=== PATIENT | female | born 1955 | race Caucasian/White ===

== ENCOUNTER 2020-01-06 13:43 | Outpatient (REF) | payer MEDICARE, MEDICAID, SELFPAY ==
[2020-01-06 16:20] LABS: Free T4 (Free Thyroxine) 0.89 ng/dL (0.71-1.85); Thyroid Stimulating Hormone 7.69 mIU/mL (0.32-4.0)
== END 2020-01-06 13:44 | disposition home or self-care (01) ==
LOC: HO.LAB 13:43
PROVIDERS: PCP Family Medicine; Referring Provider Family Medicine; Visit Provider Internal Medicine
DX: E03.9 Hypothyroidism, unspecified (principal); R06.02 Shortness of breath; E66.01 Morbid (severe) obesity due to excess calories; G47.33 Obstructive sleep apnea (adult) (pediatric); J98.4 Other disorders of lung
CPT/HCPCS: 84439; 84443; 99202

== ENCOUNTER → 2020-01-26 08:58 | Outpatient (REF) | payer MEDICARE, MEDICAID, SELFPAY ==
--- NOTE | 2020-01-26 17:06 | PFT_ITS ---
Forced vital capacity moderately reduced. FEV1 only slightly reduced. FEV1/FVC ratio is normal. [id number] normal. MVV slightly reduced. Post bronchodilator therapy, no change is noted. Total lung capacity and residual volume moderately decreased. Diffusion capacity is slightly decreased. CONCLUSION: Restrictive pulmonary disorder, moderately severe. No obstructive airway disorder. No response to bronchodilator therapy. MD DARLING Hale/MODL / [id number]
== END ==
LOC: HO.SL 08:58
PROVIDERS: PCP Family Medicine; Visit Provider Internal Medicine
DX: G47.33 Obstructive sleep apnea (adult) (pediatric) (principal); E66.01 Morbid (severe) obesity due to excess calories; J98.4 Other disorders of lung
CPT/HCPCS: 94060; 94727; 94729; 95806

== ENCOUNTER 2020-02-16 14:16 | Outpatient (REF) | payer MEDICARE, MEDICAID, SELFPAY ==
--- NOTE | 2020-02-16 15:52 | XR_ITS ---
EXAMINATION: XR CHEST CLINICAL INFORMATION: Dyspnea COMPARISON: Previous chest x-ray May 2018 TECHNIQUE: 2 views of the chest were obtained. FINDINGS: The cardiac silhouette is enlarged but stable. There is a left subclavian pacemaker defibrillator that appears unchanged. There is a right jugular port tip projecting over the SVC. The catheter appears looped in the neck. This is a new finding compared to previous chest x-ray May 2018. Hilar and mediastinal contours are unremarkable. The lungs are clear. There is no pleural effusion or pneumothorax. There are surgical clips in the right axilla. There are degenerative changes of the spine. XR/XR chest 2V IMPRESSION: Enlarged cardiac silhouette. No evidence for acute disease in the chest. There are right jugular Port-A-Cath catheter appears looped in the right no lower neck. This is a new finding from May 2018 exam.
== END 2020-02-16 14:17 | disposition home or self-care (01) ==
LOC: HO.XRAY 14:16
PROVIDERS: PCP Family Medicine; Referring Provider Family Medicine; Visit Provider Internal Medicine
DX: J98.4 Other disorders of lung (principal); R06.00 Dyspnea, unspecified; R06.02 Shortness of breath; G47.33 Obstructive sleep apnea (adult) (pediatric); E66.01 Morbid (severe) obesity due to excess calories
CPT/HCPCS: 71046; 99212

== ENCOUNTER → 2020-02-22 09:54 | Outpatient (BNVA) | payer MEDICARE, MEDICAID, SELFPAY | PROVIDERS: PCP Family Medicine; Visit Provider Internal Medicine | DX: G47.33 Obstructive sleep apnea (adult) (pediatric) (principal); E66.01 Morbid (severe) obesity due to excess calories; Z87.891 Personal history of nicotine dependence | CPT/HCPCS: Q3014 ==

== ENCOUNTER 2020-03-01 11:38 | Outpatient (REF) | payer MEDICARE, MEDICAID, SELFPAY ==
--- NOTE | 2020-03-01 11:41 | MM_ITS ---
EXAMINATION: MM SCREENING DIGITAL BREAST TOMOSYNTHESIS, BILATERAL CLINICAL INFORMATION: Right breast cancer status post lumpectomy 2014. Due for yearly. COMPARISON: Mammography: 10/31/2018, 10/21/2017; outside mammography 12/14/2016, 06/05/2016, 10/14/2015, 03/17/2015, 12/06/2014 ([place], [place]) TECHNIQUE: Digital breast tomosynthesis is performed in both the craniocaudal and mediolateral oblique views along with computer-aided detection (CAD). Synthesized 2D images are generated from the tomosynthesis. Additional left MLO view is provided. FINDINGS: There are scattered areas of fibroglandular density (ACR BI-RADS breast composition Category b). There are post therapy changes on the right with surgical clips, mild reduced breast size and scarring. A port overlies right axilla. There is a pacemaker generator and leads overlying posterior upper left breast. Parenchymal pattern is similar to prior study. There is no developing density or interval mass or architectural abnormality or interval abnormal calcifications. MM/MM tomosynthesis screening BI IMPRESSION: No significant changes from prior study. ASSESSMENT: BI-RADS 2: Benign RECOMMENDATION: Routine annual mammography screening. This patient's information was entered into a reminder system with a target due date for their next mammogram.
== END 2020-03-01 11:39 | disposition home or self-care (01) ==
LOC: HO.MAMMO 11:38
PROVIDERS: PCP Family Medicine; Visit Provider Internal Medicine
DX: Z12.31 Encounter for screening mammogram for malignant neoplasm of breast (principal)
CPT/HCPCS: 77063; 77067

== ENCOUNTER 2020-03-14 14:43 | Outpatient (REF) | payer MEDICARE, MEDICAID, SELFPAY ==
[2020-03-14 16:01] LABS: Anion Gap 12 (12-20); Blood Urea Nitrogen 11 mg/dL (9-16); Carbon Dioxide 26 mmol/L (22-29); Chloride 105 mmol/L (96-108); Estimated Glomerular Filt Rate > 60; Potassium 4.1 mmol/l (3.3-5.1); Sodium 139 mmol/L (135-145)
[2020-03-14 16:26] LABS: Free T4 (Free Thyroxine) 0.88 ng/dL (0.71-1.85); Thyroid Stimulating Hormone 7.73 uIU/mL (0.32-4.0)
[2020-03-14 16:43] LABS: Digoxin 0.3 ng/mL (0.8-2.0)
== END 2020-03-14 14:44 | disposition home or self-care (01) ==
LOC: HO.LAB 14:43
PROVIDERS: PCP Family Medicine; Visit Provider Family Medicine
DX: I10 Essential (primary) hypertension (principal); E03.9 Hypothyroidism, unspecified; Z79.899 Other long term (current) drug therapy
CPT/HCPCS: 36415; 80051; 80162; 82565; 84439; 84443; 84520; 99212

== ENCOUNTER → 2020-03-29 13:54 | Outpatient (BNVA) | payer MEDICARE, MEDICAID, SELFPAY | PROVIDERS: PCP Family Medicine; Visit Provider Internal Medicine | DX: J98.4 Other disorders of lung (principal); E66.01 Morbid (severe) obesity due to excess calories; G47.33 Obstructive sleep apnea (adult) (pediatric) | CPT/HCPCS: 99212 ==

== ENCOUNTER → 2020-06-20 13:52 | Outpatient (BNVA) | payer MEDICARE, MEDICAID, SELFPAY | PROVIDERS: PCP Family Medicine; Visit Provider Physician Assistant ==

== ENCOUNTER → 2020-06-29 08:10 | Outpatient (BNVA) | payer MEDICARE, MEDICAID, SELFPAY | PROVIDERS: PCP Family Medicine; Visit Provider Surgery | DX: E66.01 Morbid (severe) obesity due to excess calories (principal); G47.33 Obstructive sleep apnea (adult) (pediatric); J98.4 Other disorders of lung; I42.8 Other cardiomyopathies; I10 Essential (primary) hypertension; E03.9 Hypothyroidism, unspecified; Z68.42 Body mass index [BMI] 45.0-49.9, adult; Z95.810 Presence of automatic (implantable) cardiac defibrillator | CPT/HCPCS: Q3014 ==

== ENCOUNTER 2020-07-01 09:50 | Outpatient (REF) | payer MEDICARE, MEDICAID, SELFPAY ==
--- NOTE | ~2020-07-01 | XR_ITS ---
EXAMINATION: XR CHEST CLINICAL INFORMATION: Morbid obesity. COMPARISON: 02/16/2020 TECHNIQUE: 2 views of the chest were obtained. FINDINGS: Left chest ICD obscures the left midlung. Stable positioning of the wires. Right chest port loops at the level of the internal jugular vein with catheter tip in the upper SVC, also unchanged with kinking of the catheter. Right axillary surgical clips. The lungs are slightly hyperinflated, similar to the prior study. Mild vascular congestion. Cardiomegaly, unchanged. No pleural effusion or pneumothorax. The lungs are clear. XR/XR chest 2V IMPRESSION: Stable examination without acute pulmonary process.
--- NOTE | 2020-07-01 10:00 | ECG_ITS ---
Test Reason : OBESITY Blood Pressure : / mmHG Vent. Rate : 067 BPM Atrial Rate : 312 BPM P-R Int : 126 ms QRS Dur : 142 ms QT Int : 502 ms P-R-T Axes : 000 -84 076 degrees QTc Int : 530 ms AV dual-paced rhythm with occasional Premature ventricular complexes Abnormal ECG When compared with ECG of 13-MAY-2018 15:11, Premature ventricular complexes are now Present Vent. rate has decreased BY 3 BPM Referred By: Scott Richter Electronically Signed By:Gee Lam
[2020-07-01 10:54] LABS: MANUAL DIFF FLAG NO
[2020-07-01 10:56] LABS: Basophils Absolute Auto 0.1 X10*3/uL (0.0-0.2); Basophils Percent Auto 1.2 % (0-2); Eosinophils Absolute Auto 0.2 X10*3/uL (0.0-0.4); Eosinophils Percent Auto 2.6 % (0-4); Hematocrit 46.3 % (37-47); Hemoglobin 15.5 g/dl (12.0-16.0); Imm Gran Abs Auto 0.06 X10*3/uL (0.00-0.03); Imm Gran Pct Auto 0.7 % (0.0-0.4); Lymphocytes Absolute Auto 2.6 X10*3/uL (1.2-4.9); Lymphocytes Percent Auto 28.1 % (20-40); Mean Corpuscular HGB Conc 33.5 g/dl (31.0-35.0); Mean Corpuscular Hemoglobin 32.8 pg (27.0-33.0); Mean Corpuscular Volume 97.9 fL (80-98); Mean Platelet Volume 10.8 fL (9.4-12.3); Monocytes Absolute Auto 0.6 X10*3/uL (0.1-1.2); Monocytes Percent Auto 6.5 % (2-11); Neutrophils Absolute Auto 5.6 X10*3/uL (2.0-8.3); Neutrophils Percent Auto 60.9 % (45-73); Platelet Count 245 X10*3/uL (160-400); Red Blood Count 4.73 X10*6/uL (4.20-5.50); Red Cell Distribution Width 13.2 % (11.0-16.0); White Blood Count 9.2 X10*3/uL (4.8-10.8)
[2020-07-01 11:23] LABS: Alanine Aminotransferase 24 U/L (0-31); Alkaline Phosphatase 100 U/L (39-117); Anion Gap 15 (12-20); Aspartate Amino Transferase 22 U/L (5-31); Bilirubin Total 0.8 mg/dL (0.0-1.0); Blood Urea Nitrogen 14 mg/dL (9-16); C Reactive Protein 1.55 mg/dL (< or = 0.50); Calcium 9.3 mg/dL (8.4-10.2); Carbon Dioxide 22 mmol/L (22-29); Chloride 107 mmol/L (96-108); Cholesterol 253 mg/dL; Estimated Glomerular Filt Rate > 60; Glucose Random 129 mg/dL (60-115); HDL Cholesterol 42 mg/dL; LDL Cholesterol Calculated 176 mg/dl; Sodium 140 mmol/L (135-145); Total Protein 7.4 g/dL (6.5-8.0); Triglycerides 175 mg/dL
[2020-07-01 11:47] LABS: Ferritin 144 ng/mL (10-250); TSH reflex Free T4 2.24 uIU/mL (0.32-4.0); Vitamin D 25-OH Total 22.4 ng/mL (>30)
[2020-07-01 11:58] LABS: Estimated Average Glucose 108 mg/dL; Hemoglobin A1c % 5.4 %
[2020-07-01 12:01] LABS: Folate 9.1 ng/mL (> or = 4.0); Vitamin B12 233 pg/mL (200-900)
[2020-07-02 09:52] LABS: Insulin Level Total 11.4 uIU/mL
[2020-07-04 23:41] LABS: Zinc 80 mcg/dL (60-130)
[2020-07-05 11:37] LABS: Calcium (PTHI) 9.3 mg/dL (8.6-10.4); PTHI 108 pg/mL (14-64)
[2020-07-05 21:37] LABS: Vitamin A 43 mcg/dL (38-98)
[2020-07-07 07:26] LABS: Vitamin B1 7 nmol/L (8-30)
== END 2020-07-01 09:51 | disposition home or self-care (01) ==
LOC: HO.LAB 09:50
PROVIDERS: PCP Family Medicine; Visit Provider Surgery
DX: E66.01 Morbid (severe) obesity due to excess calories (principal); E03.9 Hypothyroidism, unspecified; I49.3 Ventricular premature depolarization; I10 Essential (primary) hypertension; J98.4 Other disorders of lung; Z95.810 Presence of automatic (implantable) cardiac defibrillator; R94.31 Abnormal electrocardiogram [ECG] [EKG]
CPT/HCPCS: 36415; 71046; 80053; 80061; 82306; 82607; 82728; 82746; 83036; 83525; 83970; 84425; 84443; 84590; 84630; 85025; 86140; 93005

== ENCOUNTER → 2020-07-06 12:34 | Outpatient (BNVA) | payer MEDICARE, MEDICAID, SELFPAY | PROVIDERS: PCP Family Medicine; Visit Provider Internal Medicine | DX: Z01.810 Encounter for preprocedural cardiovascular examination (principal); I42.8 Other cardiomyopathies; G47.33 Obstructive sleep apnea (adult) (pediatric); Z95.810 Presence of automatic (implantable) cardiac defibrillator | CPT/HCPCS: 99212 ==

== ENCOUNTER → 2020-07-12 14:20 | Outpatient (BNVA) | payer MEDICARE, MEDICAID, SELFPAY | PROVIDERS: PCP Family Medicine; Visit Provider Internal Medicine | DX: E66.01 Morbid (severe) obesity due to excess calories (principal); G47.33 Obstructive sleep apnea (adult) (pediatric); J98.4 Other disorders of lung | CPT/HCPCS: 99212 ==

== ENCOUNTER 2020-07-28 07:54 | Outpatient (REF) | payer MEDICARE, MEDICAID, SELFPAY ==
--- NOTE | ~2020-07-28 | FL_ITS ---
EXAMINATION: FL UPPER GI SERIES CLINICAL INFORMATION: Bariatric service evaluation. E66.01. COMPARISON: CT abdomen with contrast 09/19/2018 TECHNIQUE: Upper GI series is performed using fluoroscopic evaluation in addition to multiple fluoroscopic spot views. The patient is imaged both upright and prone and using both thick and thin barium sulfate along with effervescent granules. Fluoroscopy time: 1.0 minutes DAP: 24.93 Gycm2 Fluoroscopic spot images: 15 FINDINGS: There is normal esophageal motility. There is no obstruction, stricture, ulceration, or hernia. No gastroesophageal reflux is demonstrated. The stomach shows no thickened folds or ulcer crater or outlet obstruction. The duodenal bulb is pliable and without ulcer crater or scarring. The post bulbar duodenum the jejunal mucosal pattern are unremarkable. FL/FL upper GI series IMPRESSION: Normal study.
--- NOTE | ~2020-07-28 | US_ITS ---
EXAMINATION: US COMPLETE ABDOMEN WITH LIVER ELASTOGRAPHY CLINICAL INFORMATION: Bariatric service evaluation. E 66.01. COMPARISON: CT abdomen and pelvis with contrast 06/22/2019 and 05/13/2018. TECHNIQUE: Real-time imaging of the abdominal viscera. Noninvasive ultrasound liver fibrosis assessment is performed using Saeed ElastPQ point quantification shear wave elastography (pSWE) with a C5-2 MHz transducer. Multiple elastography samples are obtained. FINDINGS: PANCREAS: The pancreas is uniform in echogenicity and normal in size. No pancreatic ductal distention or retroperitoneal effusion. ABDOMINAL AORTA: The proximal, middle, and distal aortic segments are normal in caliber. INFERIOR VENA CAVA: Visualized portions are normal. LIVER: The liver is within normal size and smooth in contour. There is mild increased hepatic parenchymal echogenicity consistent with mild hepatic steatosis. There is no focal hepatic parenchymal lesion or intrahepatic biliary ductal dilatation. The right lobe measures 17.7 cm in length. The left lobe measures 13.1 cm in length. Portal flow is towards the liver (hepatopetal). Shear wave liver elastography median stiffness is 1.40 m/s (reference: normal median stiffness is 1.3 m/s or less). IQR/median stiffness to assess sampling precision is 0.14 (reference: good quality data set is IQR/median stiffness of 0.15 or less). GALLBLADDER: Surgically absent. COMMON BILE DUCT: Normal in caliber for a postcholecystectomy patient, measuring 0.9-1.0 cm in diameter. No ductal calculus. RIGHT KIDNEY: Right kidney measures 11.3 cm in length and shows renal parenchyma normal thickness and echogenicity. There is no hydronephrosis or renal sinus calculi. Again, there is a upper pole cyst with layering no visible calcium and overall dimensions approximately 2.8 x 2.[address] measurements are similar, 2.5 x 2.3 x 2.0 cm. There is also a simple cyst upper pole measuring 2.7 x 1.6 x 1.3 cm. There are 2 known angiomyolipomas right kidney, larger posterior interpolar measuring 2.0 x 1.9 x 1.9 cm and the smaller posterior lower pole measuring 0.7 x 0.6 cm. Measurements are similar to CT, 1.8 x 1.2 cm and 0.6 cm, respectively. LEFT KIDNEY: Left kidney measures 11.7 cm in length. There is normal renal parenchymal thickness and echogenicity. No hydronephrosis or calculi. There are 2 small cortical cysts upper pole 1.0 cm and interpolar 1.1 cm. No significant change from prior CT. SPLEEN: Normal. The spleen measures 11.2 cm in maximum dimension. FREE FLUID: None. US/US abdomen comp w elastography IMPRESSION: 1. Liver within normal size and smooth in contour. Mild hepatic steatosis. 2. Liver elastography: In the absence of other known clinical signs, measurements rule out compensated advanced chronic liver disease. If there are known clinical signs, further testing may be needed for confirmation. 3. Prior cholecystectomy. No ductal dilatation. 4. Stable renal cysts and stable right renal angiomyolipoma, larger 2.0 cm. REFERENCE: Society of Radiologists in Ultrasound Liver Stiffness Thresholds (2019): LIVER STIFFNESS THRESHOLDS: *Liver Stiffness equal or less than 1.3 m/s: High probability of being normal. *Liver Stiffness less than 1.7 m/s: In the absence of other known clinical signs, rules out compensated advanced chronic liver disease. *Liver Stiffness 1.7-2.1 m/s: Suggestive of compensated advanced chronic liver disease but need further test for confirmation. *Liver Stiffness over 2.1 m/s: Rules in compensated advanced chronic liver disease. *Liver Stiffness over 2.4 m/s: Suggestive of clinically significant portal hypertension. QUALITY OF DATA SET: *IQR/Median value equal or less than 0.15 implies a quality data set. *IQR/Median value over 0.15 implies a poor quality data set. SIGNIFICANT CHANGE FROM PRIOR EXAM: Significant change if liver stiffness measurement is 10% or greater from prior exam. OTHER CONSIDERATIONS: The stage of liver fibrosis may be overestimated in the setting of acute hepatitis, liver inflammation, elevated liver function tests, hepatic vascular congestion, obstructive cholestasis, non-fasting state, and infiltrative diseases such as amyloidosis and lymphoma. In some patients with NAFLD, the liver stiffness thresholds for compensated advanced chronic liver disease may be lower. In causes other than viral hepatitis and NAFLD, liver stiffness thresholds are not well established.
[2020-07-29 13:47] LABS: H Pylori Breath Test NOT DETECTED (NOT DETECTED)
== END 2020-07-28 07:55 | disposition home or self-care (01) ==
LOC: HO.US 07:54
PROVIDERS: Physician Assistant; Visit Provider Surgery
DX: Z01.818 Encounter for other preprocedural examination (principal); E66.01 Morbid (severe) obesity due to excess calories; K21.9 Gastro-esophageal reflux disease without esophagitis; J98.4 Other disorders of lung; I42.8 Other cardiomyopathies; I10 Essential (primary) hypertension; E03.9 Hypothyroidism, unspecified; Z95.810 Presence of automatic (implantable) cardiac defibrillator; Z11.0 Encounter for screening for intestinal infectious diseases
CPT/HCPCS: 74240; 76705; 76981; 83013; 99211

== ENCOUNTER → 2020-07-29 08:04 | Outpatient (BNVA) | payer MEDICARE, SELFPAY | PROVIDERS: PCP Family Medicine; Visit Provider Surgery | DX: E66.9 Obesity, unspecified (principal); Z68.39 Body mass index [BMI] 39.0-39.9, adult | CPT/HCPCS: 97802; Q3014 ==

== ENCOUNTER → 2020-08-09 11:23 | Outpatient (BNVA) | payer SELFPAY | PROVIDERS: PCP Family Medicine; Visit Provider Physician Assistant ==

== ENCOUNTER → 2020-08-26 06:50 | Outpatient (BNVA) | payer SELFPAY | PROVIDERS: PCP Family Medicine; Visit Provider Surgery ==

== ENCOUNTER → 2020-10-03 07:43 | Outpatient (BNVA) | payer MEDICARE, MEDICAID, SELFPAY | PROVIDERS: PCP Family Medicine; Visit Provider Surgery | DX: E66.9 Obesity, unspecified (principal); Z68.37 Body mass index [BMI] 37.0-37.9, adult | CPT/HCPCS: Q3014 ==

== ENCOUNTER → 2020-10-12 13:41 | Outpatient (BNVA) | payer MEDICARE, MEDICAID, SELFPAY | PROVIDERS: PCP Family Medicine; Visit Provider Internal Medicine | DX: G47.33 Obstructive sleep apnea (adult) (pediatric) (principal); J98.4 Other disorders of lung; E66.01 Morbid (severe) obesity due to excess calories; Z68.41 Body mass index [BMI] 40.0-44.9, adult | CPT/HCPCS: 99212 ==

== ENCOUNTER → 2020-11-16 07:03 | Outpatient (BNVA) | payer MEDICARE, MEDICAID, SELFPAY | PROVIDERS: PCP Family Medicine; Visit Provider Surgery | DX: Z13.89 Encounter for screening for other disorder (principal) | CPT/HCPCS: Q3014 ==

== ENCOUNTER → 2020-12-12 13:47 | Outpatient (BNVA) | payer MEDICARE, MEDICAID, SELFPAY | PROVIDERS: PCP Family Medicine; Referring Provider Family Medicine; Visit Provider Internal Medicine | DX: Z45.02 Encounter for adjustment and management of automatic implantable cardiac defibrillator (principal); Z01.810 Encounter for preprocedural cardiovascular examination; I42.8 Other cardiomyopathies; G47.33 Obstructive sleep apnea (adult) (pediatric) | CPT/HCPCS: 99212 ==

== ENCOUNTER → 2020-12-30 08:03 | Outpatient (BNVA) | payer MEDICARE, MEDICAID, SELFPAY | PROVIDERS: PCP Family Medicine; Visit Provider Surgery | CPT/HCPCS: Q3014 ==

== ENCOUNTER → 2021-01-13 13:37 | Outpatient (BNVA) | payer MEDICARE, MEDICAID, SELFPAY | PROVIDERS: PCP Family Medicine; Visit Provider Physician Assistant ==

== ENCOUNTER 2021-01-19 08:40 | Inpatient (IN) | payer MEDICARE, MEDICAID, SELFPAY ==
[2021-01-16 11:06] LABS: MANUAL DIFF FLAG NO
[2021-01-16 11:58] LABS: Basophils Absolute Auto 0.1 X10*3/uL (0.0-0.2); Basophils Percent Auto 1.1 % (0-2); Eosinophils Absolute Auto 0.2 X10*3/uL (0.0-0.4); Eosinophils Percent Auto 2.6 % (0-4); Hematocrit 46.8 % (37.0-47.0); Hemoglobin 15.4 g/dl (12.0-16.0); Imm Gran Abs Auto 0.02 X10*3/uL (0.00-0.03); Imm Gran Pct Auto 0.2 % (0.0-0.4); Lymphocytes Absolute Auto 2.7 X10*3/uL (1.2-4.9); Lymphocytes Percent Auto 32.5 % (20-40); Mean Corpuscular HGB Conc 32.9 g/dl (31.0-35.0); Mean Corpuscular Hemoglobin 32.5 pg (27.0-33.0); Mean Corpuscular Volume 98.7 fL (80.0-98.0); Mean Platelet Volume 10.3 fL (9.4-12.3); Monocytes Absolute Auto 0.4 X10*3/uL (0.1-1.2); Monocytes Percent Auto 4.9 % (2-11); Neutrophils Absolute Auto 4.9 x10*3/uL (2.0-8.3); Neutrophils Percent Auto 58.7 % (45-73); Platelet Count 339 X10*3/uL (160-400); Red Blood Count 4.74 X10*6/uL (4.20-5.50); White Blood Count 8.4 X10*3/uL (4.8-10.8)
[2021-01-16 12:04] LABS: Estimated Average Glucose 108 mg/dL; Hemoglobin A1c % 5.4 %; INTERNATIONAL NORM RATIO 1.1 (0.9-1.1); Prothrombin Time 12.5 SEC (9.9-13.0)
[2021-01-16 12:07] LABS: Partial Thromboplastin Time 39.8 SEC (24.1-38.0)
[2021-01-16 12:42] LABS: Alanine Aminotransferase 16 U/L (0-31); Albumin Level 4.2 g/dL (3.5-5.0); Alkaline Phosphatase 87 U/L (39-117); Anion Gap 13 (12-20); Aspartate Amino Transferase 17 U/L (5-31); Bilirubin Total 0.6 mg/dL (0.0-1.0); Blood Urea Nitrogen 9 mg/dL (9-16); C Reactive Protein 1.22 mg/dL (< or = 0.50); Calcium 9.8 mg/dL (8.4-10.2); Carbon Dioxide 27 mmol/L (22-29); Chloride 105 mmol/L (96-108); Cholesterol 242 mg/dL; Estimated Glomerular Filt Rate > 60; Glucose Random 101 mg/dL (60-115); HDL Cholesterol 44 mg/dL; LDL Cholesterol Calculated 169 mg/dl; Potassium 4.8 mmol/L (3.3-5.1); Sodium 140 mmol/L (135-145); Total Protein 7.8 g/dL (6.5-8.0); Triglycerides 148 mg/dL
[2021-01-16 12:51] LABS: Insulin 9 uU/mL (2-29); TSH reflex Free T4 1.19 uIU/mL (0.32-4.0)
[2021-01-16 13:17] LABS: Anion Gap 15 (12-20); Blood Urea Nitrogen 10 mg/dL (9-16); Carbon Dioxide 27 mmol/L (22-29); Chloride 104 mmol/L (96-108); Estimated Glomerular Filt Rate > 60; Potassium 4.8 mmol/L (3.3-5.1); Sodium 141 mmol/L (135-145)
[2021-01-16 13:39] LABS: Free T4 (Free Thyroxine) 1.06 ng/dL (0.71-1.85)
--- NOTE | 2021-01-16 14:31 | MHC.SHP ---
Pre-Procedural Eval Section A Date of Service: 01/16/21 The patient is an INPATIENT: Yes The History & Physical has been completed within 30 days and I have reviewed it.: Yes Section B Chief Complaint: Obesity Relevant Family History (Specify if Yes): No Relevant Social History: None Present Medications: None Medical History: No relevant PMH History of Previous Operations: No relevant previous surgery Allergies: Allergies Allergy/AdvReac Type Severity Reaction Status Date / Time lisinopril AdvReac Severe COUGH Verified 10/12/20 13:50 Review of Systems Sugical H&P ROS: Negative: Constitution, Cardiovascular, Respiratory, Neurological, Psychiatric, Hem-Onc, Allergic/Immunologic, Gastrointestinal, Genitourinary, Musculoskeletal, Integumentary, Endocrine and Eyes/Ears/Nose/Throat Exam Surgical H&P Exam: Normal: HEENT, Normal: Heart, Normal: Lungs, Normal: Extremities, Normal: Abdomen, Normal: Skin and Normal: Neurological Plan Diagnosis/Plan: Unchanged I have reviewed the history and physical and performed a pertinent physical examination on my patient. No changes have occurred unless specified.
[2021-01-16 15:09] VITALS: BMI 42.4
[2021-01-19] VITALS (15 sets, daily range): BP systolic 110–143; BP diastolic 68–88; PULSE 59–82; RESP 15–22; TEMP 36.1–36.9; O2SAT 95–100
[2021-01-19 09:14] LABS: COVID-19 Test Negative (Negative)
[2021-01-19] MEDS: Lactated Ringers 1,000 ML 999 ML IV (09:40)
--- NOTE | 2021-01-19 09:43 | P.CONAN_ITS ---
HPI - Anesthesia Eval Consult details Narrative: 65 yo female patient for EGD, sleeve gastrectomy, possible diaphr agmatic hernia repair, possible ventral hernia repair, possible open PMFSH Active Problems Active Problems: All Active Problems (Updated 01/16/21 @ 15:22 by Alivia Faustin, RN) Vitamin B12 deficiency (Acute) Preoperative cardiovascular examination (Acute) Vitamin B1 deficiency (Acute) Adjustment disorder, unspecified (Acute) BMI 39.0-39.9,adult (Acute) BMI 36.0-36.9,adult (Acute) BMI 37.0-37.9, adult (Acute) GERD (gastroesophageal reflux disease) (Acute) Morbid obesity (Acute) Obesity (Acute) Hypothyroidism (Acute) Depression (Acute) Hypertension (Acute) Cardiac resynchronization therapy defibrillator (DINING SERVICES MANAGER-D) in place (Acute) Dyspnea on exertion (Acute) NICM (nonischemic cardiomyopathy) (Acute) Restrictive lung disease (Acute) DEANDRE (obstructive sleep apnea) (Acute) Morbid obesity (Acute) Denies recent chest pain Past Medical History Medical History Cardiac resynchronization therapy defibrillator (DINING SERVICES MANAGER-D) in place Depression Dyspnea on exertion History of breast cancer Hypertension Hypothyroidism Morbid obesity Morbid obesity NICM (nonischemic cardiomyopathy) Obesity DEANDRE (obstructive sleep apnea) Restrictive lung disease Family History Family History Father Multiple sclerosis Mother Breast CA Family history of problems with anesthesia: No Surgical History Surgical History History of colectomy History of incisional hernia repair History of laparoscopic cholecystectomy History of right mastectomy History of Problems with Anesthesia: No Social History Social History Are you a primary critical care unit nurse to a significant other at home: No Do you presently have visiting nurse or other home services: No Alcohol intake: former Patient Tobacco Use Status: Former Tobacco user Quit Date: 2008 Substance Use Type: Marijuana Substance Use Frequency: Occasionally Have you been hit, kicked, punched, or otherwise hurt by someone within the past year? If so, by whom?: No Are you DNR?: No Advance Directives: No Advance Directives Information Provided: Yes Advance Directives on File: No Recently lost weight without trying: No Patient : No Meds Allergies Allergy/AdvReac Type Severity Reaction Status Date / Time lisinopril AdvReac Severe COUGH Verified 01/16/21 15:09 Active Medications: Current Medications Lactated Ringer's (Lr) 1,000 mls @ 999 mls/hr IV .Q1H1M ERIC Stop: 01/19/21 09:45 Home Medications Medication Instructions Recorded Confirmed Last Taken Type carvedilol 25 mg tablet 25 mg PO BID 12/12/19 01/16/21 01/19/21 History furosemide 40 mg tablet 40 mg PO DAILY 12/12/19 01/16/21 Unknown History levothyroxine 175 mcg tablet 175 mcg PO DAILY 12/12/19 01/16/21 01/19/21 History losartan 50 mg tablet 50 mg PO DAILY 12/12/19 01/16/21 01/19/21 History paroxetine HCl 30 mg tablet 30 mg PO DAILY 12/12/19 01/16/21 01/19/21 History spironolactone 25 mg tablet 25 mg PO DAILY 12/12/19 01/16/21 Unknown History zolpidem 10 mg tablet 10 mg PO BEDTIME PRN 12/12/19 01/16/21 Unknown History bupropion HCl 300 mg 24 hr tablet, 300 mg PO DAILY tab 07/12/20 01/16/21 01/19/21 History extended release anastrozole 1 mg tablet 1 mg PO DAILY 12/12/20 01/16/21 Unknown History Exam Exam Date and Time: January 19, 2021 0943 Height,Weight and Vital Signs: Height 5 ft 2 in Weight 105.233 kg Last Vital Signs Temp 96.9 F 01/19/21 08:47 Pulse 60 01/19/21 08:47 Resp 18 01/19/21 08:47 BP 129/86 01/19/21 08:47 Pulse Ox 96 01/19/21 08:47 Pertinent Lab Results Pertinent Lab Results: Laboratory Tests 01/16/21 01/16/21 01/16/21 11:05 11:05 11:05 WBC 8.4 RBC 4.74 Hgb 15.4 Hct 46.8 MCV 98.7 H MCH 32.5 MCHC 32.9 RDW 13.0 Plt Count 339 MPV 10.3 Immature Gran % (Auto) 0.2 Neut % (Auto) 58.7 Lymph % (Auto) 32.5 [place] % (Auto) 4.9 Eos % (Auto) 2.6 Baso % (Auto) 1.1 Lymph # (Auto) 2.7 [place] # (Auto) 0.4 Eos # (Auto) 0.2 Baso # (Auto) 0.1 Abs Immat Gran (auto) 0.02 Absolute Neuts (auto) 4.9 Absolute Nucleated RBC 0.000 Nucleated RBC % (auto) 0.0 PT 12.5 INR 1.1 APTT 39.8 H Sodium 140 Potassium 4.8 Chloride 105 Carbon Dioxide 27 Anion Gap 13 BUN 9 Creatinine 0.83 Estim Creat Clear Calc TNP Estimated GFR > 60 Random Glucose 101 Estimat Average Glucose Hemoglobin A1c % Insulin Level 9 Calcium 9.8 Total Bilirubin 0.6 AST 17 ALT 16 Alkaline Phosphatase 87 C-Reactive Protein 1.22 H Total Protein 7.8 Albumin 4.2 Triglycerides 148 Cholesterol 242 LDL Cholesterol, Calc 169 HDL Cholesterol 44 TSH 1.19 Free T4 COVID-19 ([facility]) COVID-[employer] Blood Type Antibody Screen 01/16/21 01/16/21 01/16/21 11:05 11:05 Unknown WBC RBC Hgb Hct MCV MCH MCHC RDW Plt Count MPV Immature Gran % (Auto) Neut % (Auto) Lymph % (Auto) [place] % (Auto) Eos % (Auto) Baso % (Auto) Lymph # (Auto) [place] # (Auto) Eos # (Auto) Baso # (Auto) Abs Immat Gran (auto) Absolute Neuts (auto) Absolute Nucleated RBC Nucleated RBC % (auto) PT INR APTT Sodium 141 Potassium 4.8 Chloride 104 Carbon Dioxide 27 Anion Gap 15 BUN 10 Creatinine 0.82 Estim Creat Clear Calc TNP Estimated GFR > 60 Random Glucose Estimat Average Glucose 108 Hemoglobin A1c % 5.4 Insulin Level Calcium Total Bilirubin AST ALT Alkaline Phosphatase C-Reactive Protein Total Protein Albumin Triglycerides Cholesterol LDL Cholesterol, Calc HDL Cholesterol TSH 1.10 Free T4 1.06 COVID-19 ([facility]) COVIDInternational [employer] Blood Type O Positive Antibody Screen NEGATIVE 01/19/21 08:35 WBC RBC Hgb Hct MCV MCH MCHC RDW Plt Count MPV Immature Gran % (Auto) Neut % (Auto) Lymph % (Auto) [place] % (Auto) Eos % (Auto) Baso % (Auto) Lymph # (Auto) [place] # (Auto) Eos # (Auto) Baso # (Auto) Abs Immat Gran (auto) Absolute Neuts (auto) Absolute Nucleated RBC Nucleated RBC % (auto) PT INR APTT Sodium Potassium Chloride Carbon Dioxide Anion Gap BUN Creatinine Estim Creat Clear Calc Estimated GFR Random Glucose Estimat Average Glucose Hemoglobin A1c % Insulin Level Calcium Total Bilirubin AST ALT Alkaline Phosphatase C-Reactive Protein Total Protein Albumin Triglycerides Cholesterol LDL Cholesterol, Calc HDL Cholesterol TSH Free T4 COVID-19 ([facility]) Negative COVID-19 Clin Com See Note Blood Type Antibody Screen XRay Report Date of Service: 07/01/20 Procedure(s): XR chest 2V Left chest ICD obscures the left midlung. Stable positioning of the wires. Right chest port loops at the level of the internal jugular vein with catheter tip in the upper SVC, also unchanged with kinking of the catheter. Right axillary surgical clips. The lungs are slightly hyperinflated, similar to the prior study. Mild vascular congestion. Cardiomegaly, unchanged. No pleural effusion or pneumothorax. The lungs are clear. IMPRESSION: Stable examination without acute pulmonary process. Cardiac Device Check 12/12/20 Details: ICD interrogated today.? Battery life 8.7 months.? Normal lead parameters.? Atrial pacing 55%.? Biventricular pacing 96%.? No atrial arrhythmias.? No treated VT/VF.? Overall normal function. Procedure(s): ECG 12 lead EKG 07/01/20 ? AV dual-paced rhythm with occasional Premature ventricular complexes Abnormal ECG When compared with ECG of 13-MAY-2018 15:11, Premature ventricular complexes are now Present Vent. rate has decreased BY ? 3 BPM Transthoracic Echo 11/01/19 EF normal 55-60%. No obvious valvular pathology. RWMA cannot be excluded.Grade I diastolic dysfunction Airway Mallampati Class: II TM Dist: >3cm Neck ROM: Full Denture: Upper Heart: RRR Lungs: CTAB Assessment and Plan Assessment Anesthesia Assessment: Anesthesia Plan Discussed and Chart Reviewed Final Anesthetic Review Family History of Problems with Anesthesia: No History of Problems with Anesthesia: No NPO: Yes ASA Class: IV Final Preanesthetic Review: No Changes in Pt Med Stat, Meds/Allgs Chart Reviewed and Anes Risks/Benef Reviewed Patient Risk: Intermediate Procedure Risk: Intermediate Assessment/Block/Sedation in SS: Assess/Block/Sedation-SS Anesthetic Plan Anesthetic Plan: GA Disposition: Standard PACU
--- NOTE | 2021-01-19 10:48 | PM.PNGS ---
Subjective Subjective Date of Service: 01/20/21 Interval history: Patient has mild incisional pain, but was able to ambulate and use the incentive spirometer. She is tolerating phase 1 bariatric diet Physical Exam Vital Signs: Vital Signs: Last Vital Signs Temp 96.9 F 01/19/21 08:47 Pulse 60 01/19/21 08:47 Resp 18 01/19/21 08:47 BP 129/86 01/19/21 08:47 Pulse Ox 96 01/19/21 08:47 Body Mass Index 42.4 Procedures Date of Service Date of Service: 01/20/21 Progress Note: A&P Assessment and plan (1) Obesity: Status: Acute Assessment and Plan: s/p laparoscopic sleeve gastrectomy, lysis of adhesions and gastropexy Doing well Check am labs. If OK, will discharge home? 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 (14) Status post sleeve gastrectomy: Status: Acute Fall Risk Details Current Medications: Current Medications Albuterol Sulfate (Albuterol Sulfate (0.083%) 2.5 Mg/3 Ml Vial.Neb) 2.5 mg INHALE ONCE PRN PRN Reason: Shortness of Breath/Wheezing Lactated Ringer's (Lr) 1,000 mls @ 100 mls/hr IVCONT .Q10H ERIC Time Spent With Patient Time: Total time spent is greater than 50% in coordination of care (as documented) at patient's floor/unit and/or counseling patient: Time with patient: less than 15 minutes Quality Stroke Does the patient have a stroke diagnosis?: No VTE Prior VTE?: No VTE Risk Level:: Surgical - moderate VTE Device Contraindication: N/A - Device Ordered VTE Drug Contraindication: Treatment Not Indicated
--- NOTE | 2021-01-19 10:54 | P.BOP_ITS ---
Brief Operative Note Date of Service: 01/19/21 Pre-op diagnosis: Severe obesity with comorbidities (see below) Post-op diagnosis: same (& abdominal adhesions) Procedure: INITIAL PATIENT BMI ON PRESENTATION AT OUR OFFICE: 46.5 kg/m2 LAST BMI BEFORE SURGERY: 37 kg/m2 COMORBIDITIES: sleep apnea on CPAP, breast cancer, hypertension, CHF, cardiomyopathy, hypothyroidism, insomnia, liver steatosis, on defribilator The patient participated in an intensive weekly lifestyle ?intervention and exercise program during which the patient ?has lost between the initial office visit and the last preoperative visit 18.4lbs, or 7.24% of initial actual body weight. The patient met the BMI-criteria for bariatric surgery based on the BMI on initial presentation. The patient should not be penalized for achieving such weight loss because ?it is not sustainable long-term without surgical intervention and it was achieved in preparation for bariatric surgery ?under my direction and based on my published research ([email or web address] and? [email or web address]/[email or web address]/pdf ) ?that a 10% preoperative weight loss improves long-term weight loss after surgery and redu rozina perioperative complications.? Insurance carriers such as [facility] have endorsed my recommendations ?and have included in their policies criteria to include a 10% preoperative weight loss requirement. PROCEDURE: Esophago-gastroscopy, laparoscopic repair of incarcerated diaphragmatic hernia, laparoscopic lysis of adhesions, laparoscopic sleeve gastrectomy and laparoscopic gastropexy INDICATIONS: This is a 65 year-old female who was electively scheduled for laparoscopic, possibly open sleeve gastrectomy. The risks and complications of the procedure were discussed with the patient in advance, particularly the possibility of ; pulmonary embolism; staple line leak; bleeding; GERD; cardiac, pulmonary, or renal complications; as well as long-term problems such as insufficient weight loss, vitamin deficiency, strictures, or ulcers. The patient understood all the risks, and was in agreement to proceed with surgery. DESCRIPTION OF PROCEDURE: After informed consent was obtained from the patient, the patient was given preoperative antibiotics, and was transferred to the operating room. After successful induction of general anesthesia, pneumatic compressive devices were placed on both lower extremities. An upper endoscopy was performed next. The oropharynx and esophagus appeared to be within normal limits. There was no diaphragmatic hernia present consistent with the findings of the preoperative upper GI. The stomach was entered. Then after all fluid and air were suctioned and the stomach was fully decompressed, the scope was withdrawn and secured in the mid esophagus. The patient was then prepped and draped in the usual sterile manner, and abdominal access was established at the right upper quadrant with the Marilyn technique. A 12 mm blunt port was inserted, and the abdomen was insufflated with CO2 to a pressure of 15 mmHg. Under direct visualization, additional ports were placed, specifically two 5 mm Versi-step ports to the left upper quadrant, and a 5 mm Versi-Step port to the right upper quadrant. 1% lidocaine plain was used to infiltrate all port sites as well as all fascia defects. There were adhesions in the abdomen from previous colectomy and hernia repair involving the omentum and the anterior abdominal wall. Those were lysed completely with the ultrasonic device. Following that, the patient was placed in a steep reverse Trendelenburg position. An additional 5 mm port was placed to the right flank for the Mediflex retractor that was used to retract the left lobe of the liver. The gastro-esophageal fat pad was opened with the ultrasonic device (Th underbeat, Olympus) and the anterior esophagus and hiatus were exposed. The angle of His was opened with the ultrasonic device the fundus of the stomach from any diaphragmatic and splenic attachments. I then opened the gastrocolic ligament between the transverse colon and the greater curvature of the stomach with the ultrasonic device to enter the lesser sac and facilitate the ligation of the short gastric vessels. I started at a mid-point along the greater curvature and using the Thunderbeat, all short gastric vessels were divided all the way to the angle of His until the left tal was completely dissected at its entirety. I then divided the gastro-colic ligament distally to a distance of about 3-4 cm proximal to the esophagus. There were extensive congenital adhesions between the pancreas and posterior gastric wall. Those were lysed completely with the ultrasonic device. Adhesiolysis took approximately 45 min to complete. The stomach was then divided transversely with one Endo LISET-45 purple, two LISET- 45 orange and three LISET-60 articulating orange loads using the AEON stapler and loads. Every effort was made that the gastric sleeve had a tubular shape and an even caliber throughout. Once the sleeve resection was completed, the staple line of the gastric sleeve was reinforced with Hemoclips. The resected stomach was retrieved without difficulty from the Marilyn port. A gastropexy was then performed in order to prevent postoperative GERD and partial gastric volvulus. Several interrupted 2.0 Surgidac sutures were placed between the sleeve's staple line and the previously divided greater omentum and gastro-colic ligament using the Endo-Stitch device. ?An upper endoscopy was performed. There was no narrowing at the GE junction. The scope was easily advanced all the way to the pylorus which was clearly visualized. There was no narrowing anywhere and the sleeve's caliber was even throughout. The sleeve's staple line was inspected and there was no evidence of ischemia, bleeding or dehiscence. At that point the gastroscope was withdrawn from the patient?s mouth while we were decompressing the bowel and the stomach from any remaining air. I looked into the lesser sac to see how the sleeve was situating and it was situating well. There was no bleeding from the staple line, spleen, or short gastric vessels. The Mediflex retractor was removed, and the undersurface of the liver was inspected and there was no bleeding. The patient was placed in supine position. I closed the fascial defect of the 12 mm port site with a figure of eight #1 Polysorb suture. Then 100 cc 0.25 % Marcaine plain with 10 mg of Dexamethasone were used to infiltrate the fascial closure as well as all skin incisions. At this point, the abdomen was deflated, all ports were removed under direct vision, and no bleeding was noted from any of the port sites. The skin incisions were irrigated with saline and were closed with 4-0 absorbable monofilament sutures. Steri-Strips and OpSites were used to cover all incisions. The patient was extubated and was transferred in stable condition to the recovery room for further care. I was present and performed all jimenez parts of the procedure. Nima Medina was the corporate law assistant. There were no residents to assist with this case. Harpreet Richter MD, PhD, FACS Surgeon: Scott Richter MD Anesthesia: GETA, local and other (TAP block) Was an Drum Sander Setter used for this Procedure?: No Drum Sander Setter: Karla Medina Estimated blood loss (mL): 10 IV fluids (mL): 2,500 Urine output (mL): 0 (No [place] to record) Pathology: other (Stomach) Condition: stable Disposition: PACU
[2021-01-19] MEDS: ceFAZolin Sodium/Dextrose,Iso 2 GM/50 ML PIGGYBACK IV ×2 (11:24→16:59)
--- NOTE | 2021-01-19 13:22 | PM.DS ---
DS: Providers Provider Date of Service: 01/20/21 Date of admission: 01/19/21 08:40 Primary care physician: Kartik Maloney MD DS: Diagnosis Discharge Diagnosis (1) Obesity: Status: Acute (2) BMI 37.0-37.9, adult: Status: Acute (3) Hypertension: Status: Acute (4) Cardiac resynchronization therapy defibrillator (EXCEL SPECIALIST-D) in place: Status: Acute (5) NICM (nonischemic cardiomyopathy): Status: Acute (6) DEANDRE (obstructive sleep apnea): Status: Acute (7) Restrictive lung disease: Status: Acute (8) Hypothyroidism: Status: Acute (9) Depression: Status: Acute (10) Breast cancer: Status: Resolved (11) Steatosis, liver: Status: Acute (12) Intra-abdominal adhesions: Status: Acute (13) Congenital intra-abdominal adhesions: Status: Acute (14) Status post sleeve gastrectomy: Status: Acute DS: Summary Hospital Course Hospital Course: ADMITTING DIAGNOSIS: morbid obesity, cardiomyopathy, HTN, Hypothyroidism, DEANDRE, cardiac defibrillator in place, hx breast cancer DISCHARGE DIAGNOSIS: same, s/p laparoscopic sleeve gastrectomy PAST SURGICAL HISTORY: defribrillator, colectomy, incisional hernia repair with mesh, right mastectomy, lap tracie PROCEDURE: upper endoscopy, laparoscopic sleeve gastrectomy and gastropexy DISCHARGE SUMMARY: History of Present Illness: The patient is a 65 year-old woman with a BMI of 44.0 kg/m2 and associated co-morbidities as described above. The patient had extensive work-up,lost 15.6 lbs preoperatively and was electively scheduled for laparoscopic, possible open sleeve gastrectomy and gastropexy. Risks and complications of the surgery were discussed with the patient in advance, particularly the possibility of , pulmonary embolism, anastomotic leak, bleeding, bowel injury, GERD, cardiac, renal or pulmonary complications. The patient understood all the risks and was in agreement with the surgical plan. Hospital Course: The patient underwent an uneventful laparoscopic sleeve gastrectomy with gastropexy on the day of admission. Postoperatively, the patient was transferred to the surgical floor. The patient received IV Acetaminophen and IV dilaudid for pain control. Patient was started on bariatric phase 1 diet POD #0. On postoperative day one, the patient was feeling well without nausea, vomiting, fevers, or tachycardia. The patient had some mild incisional pain and the abdomen was soft. On the morning of postoperative day one, the patient was continued on 1 ounce of water or ice every half hour. During the day, the patient did fairly well, having some incisional pain, but able to ambulate adequately and to tolerate liquids well. Since the patient is doing well, we decided that the patient was ready to be discharged. The patient was given instructions to follow-up with me next week and to call my office for any fever over 101, persistent abdominal pain, nausea, vomiting, GERD, symptoms of DVT such as calf tenderness, or leg swelling, or pulmonary embolism such as chest pain or shortness of breath. The patient was also instructed to drink 40-60 ounces of liquids per day using the 1-ounce cups. The patient had been given prescriptions for Tylenol for pain, Zofran prn for nausea, and pantoprazole and carafate previously. The patient was encouraged to ambulate and use the incentive spirometer. The patient was allowed to shower, but no baths, and encouraged to stay active at home. All of these instructions were given to the patient personally. All questions were answered and the patient understood all instructions, the instructions were also given to the patient in print. Time Spent with Patient Time attestation: Total time spent providing and/or coordinating discharge services: Discharge coordination time: Less than 30 minutes Quality: Stroke Does the patient have a stroke diagnosis?: No Physical Exam Vital Signs: Vital Signs: Last Vital Signs Temp 96.9 F 01/19/21 08:47 Pulse 60 01/19/21 08:47 Resp 18 01/19/21 08:47 BP 129/86 01/19/21 08:47 Pulse Ox 96 01/19/21 08:47 Body Mass Index 42.4 DS: Data Data Completed and Pending Pending studies at discharge: Pending at discharge 01/19/21 12:53 Surgical [PTH] Routine Labs on day of discharge: Laboratory Results - last 24 hr 01/19/21 08:35 COVID-19 (CHRISTY) Negative COVID-19 Clin Com See Note Discharge Plan Discharge Anticipated Discharge Date/Time: 01/20/21 10:20 Patient Disposition: Home, Self-Care Discharge Diagnosis: s/p sleeve gastrectomy Referrals: Kartik Maloney MD [Primary Care Provider] - 1 Week Discharge Medications: Continued pantoprazole 40 mg tablet,delayed release (DR/EC) 40 mg PO DAILY Qty: 30 RF: 2 sucralfate 100 mg/mL suspension 10 ml PO BID Qty: 400 RF: 2 ondansetron HCl [Zofran] 4 mg tablet 4 mg PO Q12H Qty: 20 RF: 0 zolpidem 10 mg tablet 10 mg PO BEDTIME PRN (Reason: Insomnia) RF: 0 paroxetine HCl 30 mg tablet 30 mg PO DAILY RF: 0 spironolactone 25 mg tablet 25 mg PO DAILY RF: 0 carvedilol 25 mg tablet 25 mg PO BID RF: 0 levothyroxine 175 mcg tablet 175 mcg PO DAILY RF: 0 furosemide 40 mg tablet 40 mg PO DAILY RF: 0 losartan 50 mg tablet 50 mg PO DAILY RF: 0 bupropion HCl 300 mg tablet extended release 24 hr 300 mg PO DAILY RF: 0 Held anastrozole 1 mg tablet 1 mg PO DAILY RF: 0 Hold Instructions: Resume on 02/18/21. Discontinued mecobalamin (vitamin B12) 1,000 mcg tablet,disintegrating 1,000 mcg sublingual DAILY Qty: 30 RF: 2 thiamine HCl (vitamin B1) 100 mg tablet 100 mg PO DAILY Qty: 30 RF: 1 polyethylene glycol 3350 [Miralax] 17 gram powder in packet 17 g PO DAILY Qty: 14 RF: 0 Discharge Orders: Discharge Order (Routine); Ordered 01/20/21 Ordered By: Scott Richter Diet: other Activity on Discharge: No heavy lifting Stand Alone Forms: Patient Portal Discharge page Care Plan Goals: weight loss Health Concerns: morbid obesity Plan of Treatment: No tub baths, sex or returning to work until discussed at first post op appointment. No exercise, alcohol, tobacco or illegal drug use. Continue to use incentive spirometer hourly while awake. Walk in home for 5- 10 minutes every 2 hours during the first week. Continue phase 1 diet today and start phase 2 diet tomorrow morning. Follow all instructions in the bariatric handbook and call with any questions. 1. Please call your doctor or come back to the emergency room should any new symptoms arise. 2. You will receive a courtesy call from [facility] 24-48 hours after discharge. 3. Activity: abstain from alcohol, practice limited stair climbing, no bending, no driving, no exercise, no illicit substances, no lifting, no sex, no tub bath, no work. 4. Diet: continue as discussed with Dr. Richter. 5. Dressing Change/Wound Care: Do not change or remove surgical dressings unless they are wet or soiled. 6. Call your doctor if: - Your temperature exceeds 101.5 F - You experience excessive pain or swelling - You have an unexpected reaction to medication - You have excessive bleeding - You experience continued vomiting/nausea - Your incision begins to separate - Your incision shows signs of infection such as increased redness, swelling, excessive pain, heat, or drainage (light blood or clear fluid is normal) 7. General instructions: No lifting greater than 5 lbs for the next 4 weeks[address] driving within 24 hours of taking narcotic pain medications. If you do not move your bowels in the next 2 days, please take milk of magnesia over the counter. Please follow the post op diet and do not advance your diet until you are seen in the office in about 2 weeks. Please walk around your home every hour or two to prevent blood clots from forming in your legs. You do not need to wake from sleeping to walk. Please sleep in a bed or couch to prevent kinking at the hips and knees. Please take your incentive spirometer (your lung cdl team truck driver) home with you and use it for the next few days to prevent pneumonias. You may shower, no hot tubs, baths or swimming pools. Please call the office with any questions or concerns such as increasing abdominal pain, fever, chills, shortness of breath, chest pain, leg pain or swelling, or redness or drainage from your incisions. Do not hesitate to contact the office with any questions at . The patient's medical history has been reviewed and they are considered low risk for post op DVT and therefore DVT prophylaxis is not considered necessary. Travel after surgery was reviewed. The patient has not disclosed any travel plans during the first 30 days after surgery and they have been advised that within the first 30 days after surgery any bus, plane, train or car travel over 2 hours in duration is contraindicated due to the possibility of developing blood clots from immobility. Any travel, needs to include periods of ambulation of 10 minutes in duration every 2 hours. The patient was instructed to discuss any plans for travel during this period with their bariatric surgeon. Assessment: stable, post op sleeve gastrectomy
[2021-01-19] MEDS: Famotidine/PF 20 MG/2 ML VIAL IVPUSH ×2 (13:40→21:11)
[2021-01-19] MEDS: Metoclopramide HCl 10 MG/2 ML VIAL IVPUSH (13:50)
[2021-01-19 14:10] LABS: Hematocrit 35.1 % (37.0-47.0); Hemoglobin 11.7 g/dl (12.0-16.0)
[2021-01-19 14:28] LABS: Anion Gap 11 (12-20); Blood Urea Nitrogen 9 mg/dL (9-16); Calcium 8.2 mg/dL (8.4-10.2); Carbon Dioxide 20 mmol/L (22-29); Chloride 106 mmol/L (96-108); Creatinine Clr Calc Pharmacy 102.7; Estimated Glomerular Filt Rate > 60; Glucose Random 116 mg/dL (60-115); Sodium 133 mmol/L (135-145)
[2021-01-19] MEDS: Furosemide 20 MG/2 ML VIAL 10 MG IVPUSH (16:22)
[2021-01-19] MEDS: KCl 20 mEq in 0.45% Sod 20 MEQ/1,000 ML IV.SOLN 80 MEQ IVCONT (16:23)
[2021-01-19] MEDS: ondansetron HCL 4 MG/2 ML VIAL IVPUSH ×2 (16:54→23:15)
[2021-01-19] MEDS: carvediloL 25 MG TABLET PO (21:11)
[2021-01-19] MEDS: HYDROmorphone HCl 0.5 MG/0.5 ML SYRINGE 0.25 MG IVPUSH (21:28)
[2021-01-20 04:00] VITALS: BP 114/57; PULSE 76; RESP 17; TEMP 36.3; O2SAT 96
[2021-01-20] MEDS: KCl 20 mEq in 0.45% Sod 20 MEQ/1,000 ML IV.SOLN 80 MEQ IVCONT (04:31)
--- NOTE | 2021-01-20 05:01 | PC.NURSE ---
Beginning of shift, patient vomiting up small amount of thick bile for a couple of hours. Spent time with patient trying to help her relax. She was very anxious. Encouraged to deep breathe. Pt was medicated for nausea and encouraged to rest. After a couple of hours, Pt felt much better. She is aware of expectations after gastric sleeve surgery and is measuring and marking off her intake. IV fluids an IV Tylenol as ordered. Pt voiding in bathroom without issues. See MAR for I&O's. Pt encouraged to use IS Q1 hour WA. Pt obtains a volume of 1,700 on IS. I ambulated patient in the burns at beginning of the shift and again in the middle of the night when she woke up to go to the bathroom-pt encouraged to ambulate again in am. Pt steady on her feet. Pt medicated around 0 for pain with Dilaudid with good efffect. No further c/o pain nor nausea/vomiting. Pt slept most of the night. VSS. Telemetry Vpaced. Plan-D/C home today. Will continue to monitor.
[2021-01-20 05:36] LABS: MANUAL DIFF FLAG NO
[2021-01-20 05:43] LABS: Basophils Percent Auto 0.2 % (0-2); Hemoglobin 13.6 g/dl (12.0-16.0); Imm Gran Abs Auto 0.04 X10*3/uL (0.00-0.03); Imm Gran Pct Auto 0.4 % (0.0-0.4); Lymphocytes Absolute Auto 1.5 X10*3/uL (1.2-4.9); Lymphocytes Percent Auto 14.1 % (20-40); Mean Corpuscular HGB Conc 33.2 g/dl (31.0-35.0); Mean Corpuscular Hemoglobin 31.9 pg (27.0-33.0); Mean Platelet Volume 9.8 fL (9.4-12.3); Monocytes Absolute Auto 0.4 X10*3/uL (0.1-1.2); Monocytes Percent Auto 4.2 % (2-11); Neutrophils Absolute Auto 8.6 x10*3/uL (2.0-8.3); Neutrophils Percent Auto 81.1 % (45-73); Platelet Count 308 X10*3/uL (160-400); Red Blood Count 4.27 X10*6/uL (4.20-5.50); Red Cell Distribution Width 12.8 % (11.0-16.0); White Blood Count 10.6 X10*3/uL (4.8-10.8)
[2021-01-20] MEDS: Levothyroxine Sodium 175 MCG TABLET PO (05:44)
[2021-01-20 06:14] LABS: Anion Gap 11 (12-20); Blood Urea Nitrogen 10 mg/dL (9-16); Calcium 8.9 mg/dL (8.4-10.2); Carbon Dioxide 22 mmol/L (22-29); Chloride 107 mmol/L (96-108); Creatinine Clr Calc Pharmacy 88.7; Estimated Glomerular Filt Rate > 60; Glucose Random 130 mg/dL (60-115); Potassium 4.1 mmol/L (3.3-5.1); Sodium 136 mmol/L (135-145)
[2021-01-20] MEDS: ondansetron HCL 4 MG/2 ML VIAL IVPUSH (06:30)
[2021-01-20 07:50] VITALS: BP 113/57; PULSE 64; RESP 18; TEMP 36.3; O2SAT 96
--- NOTE | 2021-01-20 08:16 | HO.POSTANES ---
Post Anesthesia Evaluation Post Anesthesia Evaluation Vital Signs: Vital Signs Temp Pulse Resp BP Pulse Ox 01/20/21 07:50 97.4 F 64 18 113/57 L 96 01/20/21 04:00 97.3 F 76 17 114/57 L 96 01/19/21 23:45 97.5 F 82 17 139/77 95 01/19/21 21:11 66 143/88 H Anesthesia: General Endotracheal-GETA Mental Status: Awake Pain Control: Satisfactory Nausea/Vomiting: None Hydration: Adequate Anesthesia-Related Issues: No Anes. Related Issues
[2021-01-20] MEDS: carvediloL 25 MG TABLET PO (08:37)
[2021-01-20] MEDS: buPROPion HCl XL 300 MG TAB.ER.24H PO (08:37)
--- NOTE | 2021-01-20 09:37 | MHC.CM.PN ---
PATIENT IS INDEPENDENT WITH ADLS. NO DME OR [facility] SERVICES HER DAUGHTER/ NEW HCP (COPY IN CHART AND IN ALLSCRIPTS) IS A REGISTERED NURSE AND IS ABLE TO ASSIST IF PATIENT DEVELOPS ANY NEEDS PLAN IS FOR DISCHARGE TODAY - SELF CARE. FAMILY TO TRANSPORT. IMM 01/20 IN CHART
== END 2021-01-20 10:48 | disposition home or self-care (01) | DRG 620 ==
LOC: HO.SSSA 08:49 → HO.S3 11:18
PROVIDERS: Physician Assistant; Absent Provider Family Medicine; Admitting Provider Surgery; PCP Family Medicine; Visit Provider Surgery
PROC: 0DB64Z3 Excision of Stomach, Percutaneous Endoscopic Approach, Vertical (ICD-10-PCS; CPT 43845; principal; 2021-01-19 10:10)
DX: E66.01 Morbid (severe) obesity due to excess calories (principal); I42.8 Other cardiomyopathies; E03.9 Hypothyroidism, unspecified; G47.30 Sleep apnea, unspecified; Z99.89 Dependence on other enabling machines and devices; I11.0 Hypertensive heart disease with heart failure; I50.9 Heart failure, unspecified; G47.00 Insomnia, unspecified; K66.0 Peritoneal adhesions (postprocedural) (postinfection); K76.0 Fatty (change of) liver, not elsewhere classified; Z68.37 Body mass index [BMI] 37.0-37.9, adult; Z95.810 Presence of automatic (implantable) cardiac defibrillator; Z20.822 Contact with and (suspected) exposure to COVID-19; Z85.3 Personal history of malignant neoplasm of breast; Z87.891 Personal history of nicotine dependence; Z79.890 Hormone replacement therapy; Z79.899 Other long term (current) drug therapy
CPT/HCPCS: 36415; 80048; 80051; 80053; 80061; 82565; 83036; 83525; 84439; 84443; 84520; 85014; 85018; 85025; 85610; 85730; 86140; 86850; 86900; 86901; 87635; 88307; 88342; 99024; A4649; J0131; J0690; J1100; J1170; J1940; J2250; J2370; J2405; J2550; J2765; J3010

== ENCOUNTER → 2021-01-25 07:29 | Outpatient (BNVA) | payer MEDICARE, MEDICAID, SELFPAY | PROVIDERS: PCP Family Medicine; Visit Provider Surgery | DX: E66.01 Morbid (severe) obesity due to excess calories (principal); Z90.3 Acquired absence of stomach [part of] | CPT/HCPCS: 99212 ==

== ENCOUNTER → 2021-02-24 08:02 | Outpatient (BNVA) | payer MEDICARE, MEDICAID, SELFPAY | PROVIDERS: PCP Family Medicine; Visit Provider Surgery | DX: E66.9 Obesity, unspecified (principal); Z68.34 Body mass index [BMI] 34.0-34.9, adult | CPT/HCPCS: 99212 ==

== ENCOUNTER → 2021-03-16 13:13 | Outpatient (BNVA) | payer MEDICARE, MEDICAID, SELFPAY | PROVIDERS: PCP Family Medicine; Visit Provider Physician Assistant Surgical | DX: E66.9 Obesity, unspecified (principal); Z68.39 Body mass index [BMI] 39.0-39.9, adult | CPT/HCPCS: 99212 ==

== ENCOUNTER 2021-03-20 12:35 | Outpatient (REF) | payer MEDICARE, MEDICAID, SELFPAY ==
--- NOTE | ~2021-03-20 | MM_ITS ---
EXAMINATION: MM SCREENING DIGITAL BREAST TOMOSYNTHESIS, BILATERAL CLINICAL INFORMATION: Right breast cancer, post lumpectomy 2014. Due for yearly. COMPARISON: Mammography: 03/01/2020, 10/31/2018, 10/21/2017, 12/14/2016, 06/05/2016 TECHNIQUE: Digital breast tomosynthesis is performed in both the craniocaudal and mediolateral oblique views along with computer-aided detection (CAD). Synthesized 2D images are generated from the tomosynthesis. Additional views are obtained: Exaggerated right CC, left CC, left MLO. FINDINGS: There are scattered areas of fibroglandular density (ACR BI-RADS breast composition Category b). Post therapy changes are again noted on the right with mild reduced breast size, scarring, and surgical clips posterior upper outer quadrant. There is a port overlying the right axilla with right axillary clip and punctate densities on skin from deodorant artifact. There are increased grouped relatively coarse calcifications central mid 9:00 position. Patient will be recalled for additional magnification views. Left breast has benign stable coarse calcifications posterior upper outer quadrant as well as some vascular calcifications. Pacemaker generator overlies left axilla. There is no mass or architectural abnormality. MM/MM tomosynthesis screening BI IMPRESSION: 1. Right: Grouped relatively coarse calcifications central mid 9:00 position. 2. Left: No mammographic evidence of malignancy. ASSESSMENT: BI-RADS 0: Incomplete - Need Additional Imaging Evaluation RECOMMENDATION: 1. Additional views of the right breast (magnification CC, magnification ML). 2. Radiology department staff will contact the patient for additional imaging. This patient's information was entered into a reminder system with a target due date for their next mammogram.
== END 2021-03-20 12:36 | disposition home or self-care (01) ==
LOC: HO.MAMMO 12:35
PROVIDERS: PCP Family Medicine; Visit Provider Family Medicine
DX: Z12.31 Encounter for screening mammogram for malignant neoplasm of breast (principal)
CPT/HCPCS: 77063; 77067

== ENCOUNTER 2021-03-24 10:53 | Outpatient (REF) | payer MEDICARE, MEDICAID, SELFPAY ==
--- NOTE | ~2021-03-24 | MM_ITS ---
EXAMINATION: MM BREAST DIAGNOSTIC DIGITAL, RIGHT CLINICAL INFORMATION: Calcifications. History of right breast lumpectomy. COMPARISON: Mammography: 03/01/2020 and studies dating back to 03/17/2015 TECHNIQUE: Digital mammography is performed in the following views: Magnification views of the right breast in craniocaudal and 90 degree mediolateral views. FINDINGS: There are scattered areas of fibroglandular density (ACR BI-RADS breast composition Category b). Magnification views demonstrate the grouping of calcifications about the central lateral aspect of the right breast approximately 7 cm to the nipple to have an indeterminate appearance and not of postsurgical dystrophic calcifications. I recommend stereotactic core biopsy. Results are discussed with the patient at time of visit. Mammography Center patient navigator called above recommendation to patient's provider. MM/MM added views RT IMPRESSION: Indeterminate calcifications right breast which stereotactic core biopsy is recommended. ASSESSMENT: BI-RADS 4: Suspicious RECOMMENDATION: Stereotactic core biopsy
== END 2021-03-24 10:54 | disposition home or self-care (01) ==
LOC: HO.MAMMO 10:53
PROVIDERS: PCP Family Medicine; Visit Provider Family Medicine
DX: R92.1 Mammographic calcification found on diagnostic imaging of breast (principal)
CPT/HCPCS: 77065

== ENCOUNTER → 2021-03-28 08:29 | Outpatient (BNVA) | payer MEDICARE, MEDICAID, SELFPAY | PROVIDERS: PCP Family Medicine; Visit Provider Surgery | DX: R92.0 Mammographic microcalcification found on diagnostic imaging of breast (principal); Z85.3 Personal history of malignant neoplasm of breast; Z92.3 Personal history of irradiation; Z92.21 Personal history of antineoplastic chemotherapy | CPT/HCPCS: 99202 ==

== ENCOUNTER 2021-03-30 07:54 | Outpatient (REF) | payer MEDICARE, MEDICAID, SELFPAY ==
--- NOTE | ~2021-03-30 | MM_ITS ---
EXAMINATION: STEREOTACTIC TOMOSYNTHESIS-GUIDED VACUUM-ASSISTED BREAST BIOPSY, RIGHT SPECIMEN RADIOGRAPH, RIGHT POST PROCEDURE DIGITAL MAMMOGRAM, RIGHT CLINICAL INFORMATION: Grouped heterogeneous coarse calcifications central 9:00 right breast. Prior history right breast cancer status post lumpectomy 2015, performed in [place]. COMPARISON: 03/24/2021, 03/20/2021, 03/01/2020, 10/31/2018. TECHNIQUE/PROCEDURE: Informed consent was obtained from the patient after discussion of the benefits, risks, and alternatives to biopsy today. Patient appeared to understand. Gave opportunity for questions. Patient signed consent form. BIOPSY TABLE: [employer] Affirm Prone Biopsy System. LESION: Grouped heterogeneous coarse calcifications central 9:00 mid depth. LOCAL ANESTHESIA: 8 mL carbonated 1% lidocaine; 10 mL 1% lidocaine with epinephrine. DERMATOTOMY: Single skin isra dermatotomy performed. NEEDLE: [employer] 9-gauge vacuum assisted core biopsy device. APPROACH: lateral medial. TARGETING: Combination of digital breast tomosynthesis and stereotactic digital mammography used for targeting. CORES: 7. CLIP: [employer] T-shaped marker. SPECIMEN RADIOGRAPH: Specimen radiograph is taken in separate room using digital mammography. The index calcifications are in the excised cores. There are at least 20 calcifications in the cores. POST PROCEDURE UNILATERAL DIGITAL MAMMOGRAM: The post biopsy mammogram is performed in separate room using separate digital mammography equipment from the biopsy procedure. The views are obtained. There are scattered areas of fibroglandular density (breast composition category: b). The clip marker is in position. The calcifications are markedly decreased at the biopsy site no longer clearly visualized. No gross hematoma. There are surgical clips posterior outer right breast from prior lumpectomy. The patient tolerated the procedure well. No immediate complications. Home instructions reviewed with the patient. Final pathology results are pending. MM/MM stereotactic biopsy RT IMPRESSION: 1. Digital tomosynthesis-guided core biopsy right breast with clip placement. 2. Specimen radiograph taken and post procedure mammogram. There is satisfactory positioning of the biopsy clip. 3. Final pathology results pending. An addendum report will be issued.
[2021-03-30] MEDS: Lidocaine HCl 1 % 20 ML VIAL 10 ML SUBCUT (08:54)
[2021-03-30] MEDS: Sodium Bicarbonate 8.4% 50 MEQ/50 ML VIAL SUBCUT (08:58)
== END 2021-03-30 07:55 | disposition home or self-care (01) ==
LOC: HO.MAMMO 07:54
PROVIDERS: Visit Provider Surgery
DX: R92.8 Other abnormal and inconclusive findings on diagnostic imaging of breast (principal); N60.91 Unspecified benign mammary dysplasia of right breast; N60.31 Fibrosclerosis of right breast
CPT/HCPCS: 19081; 88305; 88342; A4648

== ENCOUNTER → 2021-04-04 10:19 | Outpatient (BNVA) | payer MEDICARE, MEDICAID, SELFPAY | PROVIDERS: PCP Family Medicine; Visit Provider Surgery | DX: N60.91 Unspecified benign mammary dysplasia of right breast (principal); Z85.3 Personal history of malignant neoplasm of breast | CPT/HCPCS: 99212 ==

== ENCOUNTER 2021-04-12 08:57 | Day surgery (SDC) | payer MEDICARE, MEDICAID, SELFPAY ==
--- NOTE | 2021-04-11 09:16 | HO.ANESPROP2 ---
Documented by User: Guillermina Pantoja NP 04/11/21 09:25 HPI - Anesthesia Eval Consult details Narrative: 65yo Right Breast Biopsy Needle Localization, Breast Lumpectomy ICD in situ for NICM s/p Gastric sleeve 01/2021n with GA-ETT 7 PMFSH Active Problems Active Problems: All Active Problems (Updated 04/04/21 @ 11:04 by Pablo Gordon MD) Atypical lobular hyperplasia (ALH) of right breast (Acute) Breast cancer (Acute) Abnormal mammogram of right breast (Acute) BMI 34.0-34.9,adult (Acute) Status post sleeve gastrectomy (Acute) Congenital intra-abdominal adhesions (Acute) Intra-abdominal adhesions (Acute) Steatosis, liver (Acute) Vitamin B12 deficiency (Acute) Preoperative cardiovascular examination (Acute) Vitamin B1 deficiency (Acute) Adjustment disorder, unspecified (Acute) BMI 39.0-39.9,adult (Acute) BMI 36.0-36.9,adult (Acute) BMI 37.0-37.9, adult (Acute) GERD (gastroesophageal reflux disease) (Acute) Morbid obesity (Acute) Obesity (Acute) Hypothyroidism (Acute) Depression (Acute) Hypertension (Acute) Dyspnea on exertion (Acute) NICM (nonischemic cardiomyopathy) (Acute) Restrictive lung disease (Acute) DEANDRE (obstructive sleep apnea) (Acute) Morbid obesity (Acute) Past Medical History Medical History (Updated 04/04/21 @ 11:04 by Pablo Gordon MD) Atypical lobular hyperplasia (ALH) of right breast Breast cancer Cardiac resynchronization therapy defibrillator (LAPPING MACHINE SET UP OPERATOR-D) in place Depression Dyspnea on exertion History of breast cancer Hypertension Hypothyroidism Morbid obesity Morbid obesity NICM (nonischemic cardiomyopathy) Obesity DEANDRE (obstructive sleep apnea) Restrictive lung disease Steatosis, liver Family History Family History Father Multiple sclerosis Mother Breast CA Maternal Grandmother Breast CA Family history of problems with anesthesia: No Surgical History Surgical History History of colectomy History of incisional hernia repair History of laparoscopic cholecystectomy History of right mastectomy History of Problems with Anesthesia: No Social History Social History Are you a primary manager intensive care to a significant other at home: No Do you presently have visiting nurse or other home services: No Alcohol intake: former Patient Tobacco Use Status: Former Tobacco user Quit Date: 2008 Second Hand Smoke Exposure: No Use of substances other than those prescribed or required for medical reasons: Yes Substance Use Type: Marijuana Substance Use Frequency: Daily Are you DNR?: No Advance Directives: No Advance Directives Information Provided: Yes Advance Directives on File: No service: No Current occupational status: retired Meds Allergies Allergy/AdvReac Type Severity Reaction Status Date / Time lisinopril AdvReac Severe COUGH Verified 04/04/21 10:34 Home Medications Medication Instructions Recorded Confirmed Last Taken Type carvedilol 25 mg tablet 25 mg PO BID 12/12/19 04/04/21 01/19/21 History furosemide 40 mg tablet 40 mg PO DAILY 12/12/19 04/04/21 Unknown History levothyroxine 175 mcg tablet 175 mcg PO DAILY 12/12/19 04/04/21 01/19/21 History losartan 50 mg tablet 50 mg PO DAILY 12/12/19 04/04/21 01/19/21 History paroxetine HCl 30 mg tablet 30 mg PO DAILY 12/12/19 04/04/21 01/19/21 History spironolactone 25 mg tablet 25 mg PO DAILY 12/12/19 04/04/21 Unknown History zolpidem 10 mg tablet 10 mg PO BEDTIME PRN 12/12/19 04/04/21 Unknown History bupropion HCl 300 mg 24 hr tablet, 300 mg PO DAILY tab 07/12/20 04/04/21 01/19/21 History extended release anastrozole 1 mg tablet 1 mg PO DAILY 12/12/20 04/04/21 Unknown History Exam Exam Date and Time: April 11, 2021 0916 Narrative Narrative: EKG 06/2020 Vent. Rate : 067 BPM ? ? Atrial Rate : 312 BPM ?? P-R Int : 126 ms? QRS Dur : 142 ms ? ? QT Int : 502 ms ? ? ? P-R-T Axes : 000 -84 076 degrees ?? QTc Int : 530 ms ? AV dual-paced rhythm with occasional Premature ventricular complexes Abnormal ECG When compared with ECG of 13-MAY-2018 15:11, Premature ventricular complexes are now Present Vent. rate has decreased BY ? 3 BPM Cardiac Device Check Details:?Date of service 03/15/2021;?Battery life 4.9 months; normal lead parameters; AP 46%; COMPOUNDING AND FINISHING SUPERVISOR 97%; no treated VT/VF; ; normal ICD function. Cardiac Device Check Details:?Date of service 03/15/2021;?Battery life 4.9 months; normal lead parameters; AP 46%; COMPOUNDING AND FINISHING SUPERVISOR 97%; no treated VT/VF; ; normal ICD function. Per 12/2020 Cardiac OV: Last EKG shows biventricular paced rhythm with likely atrial sensing.? Isolated PVCs. Last echocardiogram with LVEF 55-60% and without any valvular pathology.? Ejection fraction was described to be as low as 40% in 2014 in [place].? Cardiac catheterization from 2016 shows no significant CAD.? Cardiac BNP of 37 suggest noncardiac etiology for her shortness of breath.? Overall, she states that she is better now after starting CPAP.? ? Cardiac status is well compensated. Assessment and Plan Assessment Anesthesia Assessment: Chart Reviewed Final Anesthetic Review Family History of Problems with Anesthesia: No History of Problems with Anesthesia: No Documented by User: Ashleigh Crocker MD 04/12/21 09:57 PMFSH Past Medical History Medical History (Updated 04/04/21 @ 11:04 by Pablo Gordon MD) Atypical lobular hyperplasia (ALH) of right breast Breast cancer Cardiac resynchronization therapy defibrillator (LAPPING MACHINE SET UP OPERATOR-D) in place Depression Dyspnea on exertion History of breast cancer Hypertension Hypothyroidism Morbid obesity Morbid obesity NICM (nonischemic cardiomyopathy) Obesity DEANDRE (obstructive sleep apnea) Restrictive lung disease Steatosis, liver Family History Family History Father Multiple sclerosis Mother Breast CA Maternal Grandmother Breast CA Surgical History Surgical History History of colectomy History of incisional hernia repair History of laparoscopic cholecystectomy History of right mastectomy Social History Social History Are you a primary manager intensive care to a significant other at home: No Do you presently have visiting nurse or other home services: No Alcohol intake: former Patient Tobacco Use Status: Former Tobacco user Quit Date: 2008 Second Hand Smoke Exposure: No Use of substances other than those prescribed or required for medical reasons: Yes Substance Use Type: Marijuana Substance Use Frequency: Daily Are you DNR?: No Advance Directives: No Advance Directives Information Provided: Yes Advance Directives on File: No service: No Current occupational status: retired [employer] Allergies Allergy/AdvReac Type Severity Reaction Status Date / Time lisinopril AdvReac Severe COUGH Verified 04/04/21 10:34 Home Medications Medication Instructions Recorded Confirmed Last Taken Type carvedilol 25 mg tablet 25 mg PO BID 12/12/19 04/04/21 01/19/21 History furosemide 40 mg tablet 40 mg PO DAILY 12/12/19 04/04/21 Unknown History levothyroxine 175 mcg tablet 175 mcg PO DAILY 12/12/19 04/04/21 01/19/21 History losartan 50 mg tablet 50 mg PO DAILY 12/12/19 04/04/21 01/19/21 History paroxetine HCl 30 mg tablet 30 mg PO DAILY 12/12/19 04/04/21 01/19/21 History spironolactone 25 mg tablet 25 mg PO DAILY 12/12/19 04/04/21 Unknown History zolpidem 10 mg tablet 10 mg PO BEDTIME PRN 12/12/19 04/04/21 Unknown History bupropion HCl 300 mg 24 hr tablet, 300 mg PO DAILY tab 07/12/20 04/04/21 01/19/21 History extended release anastrozole 1 mg tablet 1 mg PO DAILY 12/12/20 04/04/21 Unknown History Exam Height,Weight and Vital Signs: Height 5 ft 2 in Weight 97.522 kg Vital Signs Temp Pulse Resp BP Pulse Ox 04/12/21 09:21 97.6 F 60 16 97/56 L 97 Narrative Narrative: EKG 06/2020 Vent. Rate : 067 BPM ? ? Atrial Rate : 312 BPM ?? P-R Int : 126 ms? QRS Dur : 142 ms ? ? QT Int : 502 ms ? ? ? P-R-T Axes : 000 -84 076 degrees ?? QTc Int : 530 ms ? AV dual-paced rhythm with occasional Premature ventricular complexes Abnormal ECG When compared with ECG of 13-MAY-2018 15:11, Premature ventricular complexes are now Present Vent. rate has decreased BY ? 3 BPM Cardiac Device Check Details:?Date of service 03/15/2021;?Battery life 4.9 months; normal lead parameters; AP 46%; COMPOUNDING AND FINISHING SUPERVISOR 97%; no treated VT/VF; ; normal ICD function. Per 12/2020 Cardiac OV: Last EKG shows biventricular paced rhythm with likely atrial sensing.? Isolated PVCs. Last echocardiogram with LVEF 55-60% and without any valvular pathology.? Ejection fraction was described to be as low as 40% in 2014 in [place].? Cardiac catheterization from 2016 shows no significant CAD.? Cardiac BNP of 37 suggest noncardiac etiology for her shortness of breath.? Overall, she states that she is better now after starting CPAP.? ? Cardiac status is well compensated. Airway Mallampati Class: II TM Dist: >3cm Neck ROM: Full Denture: Upper Loose/Missing/Broken Teeth: Yes (Many missing bottom. Bottom front broken) Heart: RRR Lungs: CTAB Assessment and Plan Assessment Anesthesia Assessment: Anesthesia Plan Discussed Final Anesthetic Review NPO: Yes ASA Class: III Final Preanesthetic Review: No Changes in Pt Med Stat, Meds/Allgs Chart Reviewed, Consent Obtained/Reviewed and Anes Risks/Benef Reviewed Patient Risk: Intermediate Procedure Risk: Low Assessment/Block/Sedation in SS: Assess/Block/Sedation-SS Anesthetic Plan Anesthetic Plan: GA Disposition: Standard PACU
--- NOTE | ~2021-04-12 | MM_ITS ---
EXAMINATION: MM MAMMOGRAM GUIDED NEEDLE LOCALIZATION BREAST, RIGHT MM NEEDLE LOCALIZATION SPECIMEN FROM THE RIGHT BREAST CLINICAL INFORMATION: Focal atypical lobular hyperplasia on stereotactic biopsy for heterogeneous calcifications central 9:00 right breast. Prior history right breast cancer status post lumpectomy 2014 (performed in [place]). COMPARISON: Mammography 03/30/2021, 03/24/2021, 03/20/2021, 03/01/2020 TECHNIQUE NEEDLE LOC: Proper informed consent is obtained from the patient after discussion of the procedure, potential risks and complications, and alternatives including declining the procedure today. Patient was given an opportunity for questions. The patient appeared to understand. The patient consented to the procedure and signed the consent form. GUIDANCE: Digital mammography. APPROACH: Lateral Medial. TARGET: T shaped biopsy clip marker central 9:00 right breast. ANESTHESIA: Carbonated lidocaine 1%: 7 mL. LOCALIZATION MARKER: Vernalis MammaLok. 7.5 cm length. The skin is prepped and local anesthesia administered. The needle is positioned and position assessed with mammography. The wire is hooked into position. Frederick needle protector placed. The patient tolerated the procedure well and had no immediate complication. TECHNIQUE SPECIMEN RADIOGRAPH: Imaging of the excised specimen is performed using digital mammography in 1 view. FINDINGS SPECIMEN RADIOGRAPH: The specimen shows the distal needle and distal hookwire are delivered intact. The proximal localization needle and hookwire are sectioned in the OR prior to delivery to radiology. The biopsy clip marker and some adjacent heterogeneous calcifications are present within the specimen adjacent to the localization needle. Results were called to Dr. Pablo Gordon in the operating room at the time of imaging. MM/MM needle loc RT IMPRESSION: 1. Status post right breast needle localization with wire hooked into position. 2. Post operative specimen radiograph obtained.
[2021-04-12 09:02] VITALS: BMI 39.3
[2021-04-12 09:21] VITALS: BP 97/56; PULSE 60; RESP 16; TEMP 36.4; O2SAT 97
[2021-04-12] MEDS: Lidocaine HCl 1 % 20 ML VIAL 9 ML SUBCUT (10:57)
[2021-04-12] MEDS: Sodium Bicarbonate 8.4% 50 MEQ/50 ML VIAL SUBCUT (10:58)
--- NOTE | 2021-04-12 11:33 | MHC.SHP ---
Pre-Procedural Eval Section A Date of Service: 04/12/21 The patient is an INPATIENT: No Changes since office visit: Yes Patient answered all questions; No Cold of Flu in the past 2 weeks, No New Medical Problems and No Changes in Medication The History & Physical has been completed within 30 days and I have reviewed it.: Yes Section B Chief Complaint: Atypical lobular hyperplasia (ALH) of right breast Allergies: Allergies Allergy/AdvReac Type Severity Reaction Status Date / Time lisinopril AdvReac Severe COUGH Verified 04/04/21 10:34 Plan Diagnosis/Plan: Unchanged I have reviewed the history and physical and performed a pertinent physical examination on my patient. No changes have occurred unless specified.
--- NOTE | 2021-04-12 13:06 | P.OP_ITS ---
Operative Note Operative Note Date of Service: 04/12/21 Narrative: Preoperative diagnosis: atypical ductal hyperplasia right breast Postoperative diagnosis: same Procedure: right breast lumpectomy with needle localization Surgeon: Pablo Gordon MD Professor Of Vegetable Science: none Anesthesia: general LMA Indications for procedure: 65-year-old female patient presenting with a recent mammogram which revealed areas of microcalcification clustered in the mid she has a prior history of right breast cancer and underwent lumpectomy with radiation therapy. Subsequent stereotactic guided core biopsy revealed atypical ductal hyperplasia. She presents today for wider excision. Operative findings: Specimen x-ray confirms the marking clip within the specimen. Specimen: Right breast lumpectomy Estimated blood loss: 5 mL Complications: none Procedure details: patient was brought to the OR and placed in a supine position. After administering general anesthesia the patient's right breast was prepped with ChloraPrep and draped in a sterile fashion. A surgical time-out was called the consent confirmed. Patient received preoperative antibiotics and Venodyne boots were in place. Local anesthesia consisting of 0.5% Sensorcaine was infiltrated around the nipple-areolar complex between the 7 and 05:00 o'clock location. A curvilinear incision was then made with a scalpel carried down through subcutaneous tissue. Superior inferior skin flaps were then created. Dissection then was continued down towards the chest wall beyond the tip of the needle. A core of tissue surrounding the needle was then at excised using the electrocautery. The needle tip was grasped with an Allis clamp and brought up through the incision. Dissection was continued from medial to lateral dissecting towards the hub of the needle. This was continued laterally the needle was cut using a hot wire glass tube cutter. The breast tissue was completely excised along the needle and sent to pathology for further examination. After assuring adequate hemostasis and assuring a proper specimen, the deep breast tissue was reapproximated using interrupted 3-0 Polysorb sutures. Superficial breast tissue and dermis reapproximated using interrupted 3-0 Polysorb sutures. Skin was then closed using a running subcuticular 4-0 Polysorb suture. Steri- Strips 2 x 2 gauze and Tegaderm were then applied. Patient tolerated the procedure well. Sponge, instrument, and needle counts reported as correct. The patient was transferred to PACU in stable condition.
[2021-04-12 13:16] VITALS: BP 108/49; PULSE 65; RESP 20; TEMP 36.3; O2SAT 100
[2021-04-12 13:21] VITALS: BP 115/51; PULSE 64; RESP 20; O2SAT 96
[2021-04-12 13:26] VITALS: BP 106/55; PULSE 60; RESP 18; O2SAT 96
[2021-04-12 13:41] VITALS: BP 94/65; PULSE 60; RESP 18; O2SAT 99
[2021-04-12 14:02] VITALS: TEMP 36.8
== END 2021-04-12 14:27 | disposition home or self-care (01) ==
PROVIDERS: PCP Family Medicine; Visit Provider Surgery
PROC: (CPT 19301; principal; 2021-04-12 11:00)
PROC: (CPT 19301; 2021-04-12 11:00)
DX: N60.91 Unspecified benign mammary dysplasia of right breast (principal); C50.911 Malignant neoplasm of unspecified site of right female breast; Z92.21 Personal history of antineoplastic chemotherapy; Z92.3 Personal history of irradiation; Z79.811 Long term (current) use of aromatase inhibitors; Z80.3 Family history of malignant neoplasm of breast; E66.9 Obesity, unspecified; Z68.39 Body mass index [BMI] 39.0-39.9, adult; I11.0 Hypertensive heart disease with heart failure; I42.8 Other cardiomyopathies; Z95.810 Presence of automatic (implantable) cardiac defibrillator; I50.9 Heart failure, unspecified; J98.4 Other disorders of lung; E03.9 Hypothyroidism, unspecified; K76.0 Fatty (change of) liver, not elsewhere classified; G47.33 Obstructive sleep apnea (adult) (pediatric); Z90.49 Acquired absence of other specified parts of digestive tract; Z79.899 Other long term (current) drug therapy; Z88.8 Allergy status to other drugs, medicaments and biological substances; Z87.891 Personal history of nicotine dependence
CPT/HCPCS: 19301; 19281; 88307; 88329; 88342; A4648; J0690; J1100; J2250; J2370; J2405; J3010

== ENCOUNTER → 2021-04-14 08:00 | Outpatient (BNVA) | payer MEDICARE, MEDICAID, SELFPAY | PROVIDERS: PCP Family Medicine; Visit Provider Physician Assistant Surgical | DX: E66.9 Obesity, unspecified (principal); I10 Essential (primary) hypertension; Z68.39 Body mass index [BMI] 39.0-39.9, adult | CPT/HCPCS: 99212 ==

== ENCOUNTER → 2021-04-20 10:07 | Outpatient (BNVA) | payer MEDICARE, MEDICAID, SELFPAY | PROVIDERS: PCP Family Medicine; Visit Provider Surgery | DX: R06.00 Dyspnea, unspecified (principal); Z48.3 Aftercare following surgery for neoplasm; N60.91 Unspecified benign mammary dysplasia of right breast; E66.9 Obesity, unspecified; Z99.89 Dependence on other enabling machines and devices; Z68.38 Body mass index [BMI] 38.0-38.9, adult | CPT/HCPCS: 99212 ==

== ENCOUNTER → 2021-05-09 08:46 | Outpatient (BNVA) | payer MEDICARE, MEDICAID, SELFPAY | PROVIDERS: PCP Family Medicine; Visit Provider Surgery | DX: L76.34 Postprocedural seroma of skin and subcutaneous tissue following other procedure (principal); N60.91 Unspecified benign mammary dysplasia of right breast; Z85.3 Personal history of malignant neoplasm of breast; Z92.21 Personal history of antineoplastic chemotherapy; Z92.3 Personal history of irradiation | CPT/HCPCS: 99212 ==

== ENCOUNTER → 2021-05-16 09:11 | Outpatient (BNVA) | payer MEDICARE, MEDICAID, SELFPAY | PROVIDERS: PCP Family Medicine; Visit Provider Surgery | DX: N64.89 Other specified disorders of breast (principal); N61.0 Mastitis without abscess; Z98.890 Other specified postprocedural states | CPT/HCPCS: 99212 ==

== ENCOUNTER → 2021-05-26 08:16 | Outpatient (BNVA) | payer MEDICARE, MEDICAID, SELFPAY | PROVIDERS: PCP Family Medicine; Visit Provider Physician Assistant Surgical | DX: E66.9 Obesity, unspecified (principal); Z68.37 Body mass index [BMI] 37.0-37.9, adult | CPT/HCPCS: Q3014 ==

== ENCOUNTER → 2021-06-12 13:30 | Outpatient (BNVA) | payer MEDICARE, MEDICAID, SELFPAY | PROVIDERS: PCP Family Medicine; Visit Provider Internal Medicine | DX: I42.8 Other cardiomyopathies (principal); G47.33 Obstructive sleep apnea (adult) (pediatric); Z99.89 Dependence on other enabling machines and devices; Z45.02 Encounter for adjustment and management of automatic implantable cardiac defibrillator | CPT/HCPCS: 93005; 99212 ==

== ENCOUNTER 2021-07-31 10:08 | Day surgery (SDC) | payer MEDICARE, SELFPAY ==
--- NOTE | 2021-07-28 10:07 | P.CONAN_ITS ---
Documented by User: Guillermina Pantoja NP 07/28/21 10:11 HPI - Anesthesia Eval Consult details Narrative: 65yo F for ICD Generator Change s/p breast lumpectomy 04/2021 with GA PMFSH Active Problems Active Problems: All Active Problems (Updated 06/12/21 @ 14:17 by Ortiz Campoverde MD) Implantable cardioverter-defibrillator (ICD) at end of battery life (Acute) Cellulitis of right breast (Acute) Seroma of breast (Acute) S/P lumpectomy, right breast (Acute 04/12/21) Atypical lobular hyperplasia (ALH) of right breast (Acute) Breast cancer (Acute) Abnormal mammogram of right breast (Acute) BMI 34.0-34.9,adult (Acute) Status post sleeve gastrectomy (Acute) Congenital intra-abdominal adhesions (Acute) Intra-abdominal adhesions (Acute) Steatosis, liver (Acute) Vitamin B12 deficiency (Acute) Preoperative cardiovascular examination (Acute) Vitamin B1 deficiency (Acute) Adjustment disorder, unspecified (Acute) BMI 39.0-39.9,adult (Acute) BMI 36.0-36.9,adult (Acute) BMI 37.0-37.9, adult (Acute) GERD (gastroesophageal reflux disease) (Acute) Morbid obesity (Acute) Obesity (Acute) Hypothyroidism (Acute) Depression (Acute) Hypertension (Acute) Dyspnea on exertion (Acute) NICM (nonischemic cardiomyopathy) (Acute) Restrictive lung disease (Acute) DEANDRE (obstructive sleep apnea) (Acute) Morbid obesity (Acute) Past Medical History Medical History Atypical lobular hyperplasia (ALH) of right breast Breast cancer Cardiac resynchronization therapy defibrillator (PHOTOENGRAVING SUPERVISOR-D) in place Depression Dyspnea on exertion History of breast cancer Hypertension Hypothyroidism Morbid obesity Morbid obesity NICM (nonischemic cardiomyopathy) Obesity DEANDRE (obstructive sleep apnea) Restrictive lung disease Steatosis, liver Family History Family History Father Multiple sclerosis Mother Breast CA Maternal Grandmother Breast CA Family history of problems with anesthesia: No Surgical History Surgical History History of colectomy History of incisional hernia repair History of laparoscopic cholecystectomy History of right mastectomy S/P lumpectomy, right breast (04/12/21) History of Problems with Anesthesia: No Social History Social History Are you a primary career services manager to a significant other at home: No Do you presently have visiting nurse or other home services: No Alcohol intake: former Patient Tobacco Use Status: Former Tobacco user Quit Date: 2004 Second Hand Smoke Exposure: No Use of substances other than those prescribed or required for medical reasons: Yes Substance Use Type: Marijuana Substance Use Frequency: Daily Are you DNR?: No Advance Directives: No Advance Directives Information Provided: Yes service: No Current occupational status: retired Meds Allergies Allergy/AdvReac Type Severity Reaction Status Date / Time lisinopril AdvReac Severe COUGH Verified 06/12/21 13:53 Active Medications: Current Medications Cefazolin Sodium 1 gm/ Sodium (Chloride) 50 mls @ 100 mls/hr IV PREOP ONE Stop: 07/31/21 06:29 Home Medications Medication Instructions Recorded Confirmed Last Taken Type carvedilol 25 mg tablet 25 mg PO BID 12/12/19 06/12/21 01/19/21 History furosemide 40 mg tablet 40 mg PO DAILY 12/12/19 06/12/21 Unknown History levothyroxine 175 mcg tablet 175 mcg PO DAILY 12/12/19 06/12/21 01/19/21 History losartan 50 mg tablet 50 mg PO DAILY 12/12/19 06/12/21 01/19/21 History paroxetine HCl 30 mg tablet 30 mg PO DAILY 12/12/19 06/12/21 01/19/21 History spironolactone 25 mg tablet 25 mg PO DAILY 12/12/19 06/12/21 Unknown History zolpidem 10 mg tablet 10 mg PO BEDTIME PRN 12/12/19 06/12/21 Unknown History bupropion HCl 300 mg 24 hr tablet, 300 mg PO DAILY tab 07/12/20 06/12/21 01/19/21 History extended release anastrozole 1 mg tablet 1 mg PO DAILY 12/12/20 06/12/21 Unknown History Exam Exam Date and Time: July 28, 2021 1007 Narrative Narrative: Cardiac Device Check 06/2021 Details: ICD interrogated today.? Mode DDDR.? Battery status 0-3 months to MELINDA.? Normal lead parameters.? Atrial pacing 77%.? Biventricular pacing 98%.? No mode switches.? No therapies delivered.? Overall, normal device function. EKG 06/2021 dual-chamber paced rhythm.? 60/Min. Per 12/2020 Cardiac OV: Last EKG shows biventricular paced rhythm with likely atrial sensing.? Isolated PVCs. Last echocardiogram with LVEF 55-60% and without any valvular pathology.? Ejection fraction was described to be as low as 40% in 2014 in [place].? Cardiac catheterization from 2016 shows no significant CAD.? Cardiac BNP of 37 suggest noncardiac etiology for her shortness of breath.? Overall, she states that she is better now after starting CPAP.? ? Cardiac status is well compensated. Assessment and Plan Assessment Anesthesia Assessment: Chart Reviewed Final Anesthetic Review Family History of Problems with Anesthesia: No History of Problems with Anesthesia: No Documented by User: Ashleigh Crocker MD 07/31/21 13:32 [facility] Past Medical History Medical History Atypical lobular hyperplasia (ALH) of right breast Breast cancer Cardiac resynchronization therapy defibrillator (PHOTOENGRAVING SUPERVISOR-D) in place Depression Dyspnea on exertion History of breast cancer Hypertension Hypothyroidism Morbid obesity Morbid obesity NICM (nonischemic cardiomyopathy) Obesity DEANDRE (obstructive sleep apnea) Restrictive lung disease Steatosis, liver Family History Family History Father Multiple sclerosis Mother Breast CA Maternal Grandmother Breast CA Surgical History Surgical History History of colectomy History of incisional hernia repair History of laparoscopic cholecystectomy History of right mastectomy S/P lumpectomy, right breast (04/12/21) Social History Social History Are you a primary career services manager to a significant other at home: No Do you presently have visiting nurse or other home services: No Alcohol intake: former Patient Tobacco Use Status: Former Tobacco user Quit Date: 2004 Second Hand Smoke Exposure: No Use of substances other than those prescribed or required for medical reasons: Yes Substance Use Type: Marijuana Substance Use Frequency: Daily Are you DNR?: No Advance Directives: No Advance Directives Information Provided: Yes service: No Current occupational status: retired Meds Allergies Allergy/AdvReac Type Severity Reaction Status Date / Time lisinopril AdvReac Severe COUGH Verified 06/12/21 13:53 Home Medications Medication Instructions Recorded Confirmed Last Taken Type carvedilol 25 mg tablet 25 mg PO BID 12/12/19 06/12/21 01/19/21 History furosemide 40 mg tablet 40 mg PO DAILY 12/12/19 06/12/21 Unknown History levothyroxine 175 mcg tablet 175 mcg PO DAILY 12/12/19 06/12/21 01/19/21 History losartan 50 mg tablet 50 mg PO DAILY 12/12/19 06/12/21 01/19/21 History paroxetine HCl 30 mg tablet 30 mg PO DAILY 12/12/19 06/12/21 01/19/21 History spironolactone 25 mg tablet 25 mg PO DAILY 12/12/19 06/12/21 Unknown History zolpidem 10 mg tablet 10 mg PO BEDTIME PRN 12/12/19 06/12/21 Unknown History bupropion HCl 300 mg 24 hr tablet, 300 mg PO DAILY tab 07/12/20 06/12/21 01/19/21 History extended release anastrozole 1 mg tablet 1 mg PO DAILY 12/12/20 06/12/21 Unknown History Exam Height,Weight and Vital Signs: Height 5 ft 2 in Weight 82.554 kg Vital Signs Temp Pulse Resp BP Pulse Ox 07/31/21 10:46 97.0 F 60 18 113/69 97 Pertinent Lab Results Pertinent Lab Results: Lab Results 07/31/21 07/31/21 07/31/21 Range/Units 10:25 10:25 10:25 WBC 7.1 (4.8-10.8) X10*3/uL RBC 4.14 L (4.20-5.50) X10*6/uL Hgb 13.6 (12.0-16.0) g/dl Hct 41.9 (37.0-47.0) % MCV 101.2 H (80.0-98.0) fL MCH 32.9 (27.0-33.0) pg MCHC 32.5 (31.0-35.0) g/dl RDW 13.5 (11.0-16.0) % Plt Count 273 (160-400) X10*3/uL MPV 9.8 (9.4-12.3) fL Immature Gran % (Auto) 0.4 (0.0-0.4) % Neut % (Auto) 57.0 (45-73) % Lymph % (Auto) 32.7 (20-40) % [place] % (Auto) 5.9 (2-11) % Eos % (Auto) 2.7 (0-4) % Baso % (Auto) 1.3 (0-2) % Lymph # (Auto) 2.3 (1.2-4.9) X10*3/uL [place] # (Auto) 0.4 (0.1-1.2) X10*3/uL Eos # (Auto) 0.2 (0.0-0.4) X10*3/uL Baso # (Auto) 0.1 (0.0-0.2) X10*3/uL Abs Immat Gran (auto) 0.03 (0.00-0.03) X10*3/uL Absolute Neuts (auto) 4.1 (2.0-8.3) x10*3/uL Absolute Nucleated RBC 0.000 (0.0-0.012) X10*3/uL Nucleated RBC % (auto) 0.0 (0.0-0.2) /100WBC PT 11.9 (9.9-13.0) SEC INR 1.0 (0.9-1.1) APTT 34.5 (24.1-38.0) SEC Sodium 140 (135-145) mmol/L Potassium 4.5 (3.3-5.1) mmol/L Chloride 109 H (96-108) mmol/L Carbon Dioxide 27 (22-29) mmol/L Anion Gap 9 L (12-20) BUN 9 (9-16) mg/dL Creatinine 0.74 (0.5-1.4) mg/dL Estim Creat Clear Calc 76.4 Estimated GFR > 60 Random Glucose 94 (60-115) mg/dL Calcium 9.1 (8.4-10.2) mg/dL Airway Mallampati Class: II TM Dist: >3cm Neck ROM: Full Denture: Upper Loose/Missing/Broken Teeth: Yes (Poor dentition bottom. Broken, missing ) Heart: RRR Lungs: CTAB Assessment and Plan Assessment Anesthesia Assessment: Anesthesia Plan Discussed Final Anesthetic Review NPO: Yes ASA Class: III Final Preanesthetic Review: No Changes in Pt Med Stat, Meds/Allgs Chart Revi ewed, Consent Obtained/Reviewed and Anes Risks/Benef Reviewed Patient Risk: Intermediate Procedure Risk: Intermediate Assessment/Block/Sedation in SS: Assess/Block/Sedation-SS Anesthetic Plan Anesthetic Plan: GA and MAC: Disposition: Standard PACU
[2021-07-31 10:38] LABS: MANUAL DIFF FLAG NO
[2021-07-31 10:40] LABS: Basophils Absolute Auto 0.1 X10*3/uL (0.0-0.2); Basophils Percent Auto 1.3 % (0-2); Eosinophils Absolute Auto 0.2 X10*3/uL (0.0-0.4); Eosinophils Percent Auto 2.7 % (0-4); Hematocrit 41.9 % (37.0-47.0); Hemoglobin 13.6 g/dl (12.0-16.0); Imm Gran Abs Auto 0.03 X10*3/uL (0.00-0.03); Imm Gran Pct Auto 0.4 % (0.0-0.4); Lymphocytes Absolute Auto 2.3 X10*3/uL (1.2-4.9); Lymphocytes Percent Auto 32.7 % (20-40); Mean Corpuscular HGB Conc 32.5 g/dl (31.0-35.0); Mean Corpuscular Hemoglobin 32.9 pg (27.0-33.0); Mean Corpuscular Volume 101.2 fL (80.0-98.0); Mean Platelet Volume 9.8 fL (9.4-12.3); Monocytes Absolute Auto 0.4 X10*3/uL (0.1-1.2); Monocytes Percent Auto 5.9 % (2-11); Neutrophils Absolute Auto 4.1 x10*3/uL (2.0-8.3); Platelet Count 273 X10*3/uL (160-400); Red Blood Count 4.14 X10*6/uL (4.20-5.50); Red Cell Distribution Width 13.5 % (11.0-16.0); White Blood Count 7.1 X10*3/uL (4.8-10.8)
[2021-07-31 10:46] VITALS: BP 113/69; PULSE 60; RESP 18; TEMP 36.1; O2SAT 97; BMI 33.3
[2021-07-31 10:48] LABS: Prothrombin Time 11.9 SEC (9.9-13.0)
[2021-07-31 10:51] LABS: Partial Thromboplastin Time 34.5 SEC (24.1-38.0)
[2021-07-31] MEDS: Lactated Ringers 1,000 ML 50 ML IVCONT (10:57)
[2021-07-31 10:58] LABS: Anion Gap 9 (12-20); Blood Urea Nitrogen 9 mg/dL (9-16); Calcium 9.1 mg/dL (8.4-10.2); Carbon Dioxide 27 mmol/L (22-29); Chloride 109 mmol/L (96-108); Creatinine Clr Calc Pharmacy 76.4; Estimated Glomerular Filt Rate > 60; Glucose Random 94 mg/dL (60-115); Potassium 4.5 mmol/L (3.3-5.1); Sodium 140 mmol/L (135-145)
--- NOTE | 2021-07-31 14:06 | P.BOP_ITS ---
Brief Operative Note Date of Service: 07/31/21 Pre-op diagnosis: Heart failure, s/p CRTD at [facility] Procedure: PIN MACHINE OPERATOR-D generator change Surgeon: Sallie Palumbo MD Was an Diamond Cleaver used for this Procedure?: No Estimated blood loss (mL): 10 Pathology: none sent Condition: stable Disposition: same day
--- NOTE | 2021-07-31 14:06 | PM.OP ---
Brief Operative Note Date of Service: 07/31/21 Pre-op diagnosis: Heart failure, s/p CRTD at [facility] Procedure: STAVE LOG CUT OFF SAW OPERATOR-D generator change Surgeon: Sallie Palumbo MD Was an Air Conditioning Installer Supervisor used for this Procedure?: No Estimated blood loss (mL): 10 Pathology: none sent Condition: stable Disposition: same day
--- NOTE | 2021-07-31 14:07 | W.PM.OPN ---
Operative Note Operative Note Date of Service: 07/31/21 Narrative: Procedure: BiVentricular ICD generator change Indication: systolic HF, class III HF, device at [facility], intermittent heart block, sinus node dysfunction Procedure The risks, benefits, complications, alternatives and expected outcomes were discussed with the patient. Patient was prepped and draped in the usual sterile fashion. After the antibiotic was infused, lidocaine was infiltrated medial to the deltopectoral groove. An incision was made. The incision was extended to the prepectoral fascia using blunt dissection. The device was removed from the pocket and removed the old generator and attached to the new generator.? The system was placed in the pocket.? The pin of the lead was beyond the set screws. The pocket was closed with 3 layers. Steristrips and tegaderm were applied New Device [facility] Un[employer] ICD model #BA9166-18P Serial number [id number] RA lead threshold 1.125 V at 0.5 ms, sense 1.2 mV, impedance 530 ohms, Biotronik lead model [id number] serial [id number] RV lead threshold 0.5V at 0.5 ms, sense 11.7 mV, impedance 510 ohms, HV 50 ohms LV threshold 1.75V at 1.5 ms, impedance 250 ohms
[2021-07-31 14:08] VITALS: BP 93/56; PULSE 61; RESP 15; TEMP 36.7; O2SAT 99
[2021-07-31 14:13] VITALS: BP 108/60; PULSE 64; RESP 16; O2SAT 98
[2021-07-31 14:18] VITALS: BP 109/67; PULSE 69; RESP 16; O2SAT 98
[2021-07-31 14:21] VITALS: BP 109/70; PULSE 62; RESP 18; O2SAT 98
[2021-07-31 14:36] VITALS: BP 99/57; PULSE 63; RESP 18; TEMP 36.7; O2SAT 98
== END 2021-07-31 15:35 | disposition home or self-care (01) ==
PROVIDERS: PCP Family Medicine; Visit Provider Internal Medicine Cardiovascular Disease
PROC: 0JPT0PZ Removal of Cardiac Rhythm Related Device from Trunk Subcutaneous Tissue and Fascia, Open Approach (ICD-10-PCS; CPT 33264; principal; 2021-07-31 11:40)
DX: Z45.02 Encounter for adjustment and management of automatic implantable cardiac defibrillator (principal); I11.0 Hypertensive heart disease with heart failure; I50.22 Chronic systolic (congestive) heart failure; I44.1 Atrioventricular block, second degree; I49.5 Sick sinus syndrome; C50.911 Malignant neoplasm of unspecified site of right female breast; Z79.811 Long term (current) use of aromatase inhibitors; Z79.899 Other long term (current) drug therapy; Z90.11 Acquired absence of right breast and nipple; Z90.49 Acquired absence of other specified parts of digestive tract; Z88.8 Allergy status to other drugs, medicaments and biological substances; F12.90 Cannabis use, unspecified, uncomplicated; Z86.16 Personal history of COVID-19; Z87.891 Personal history of nicotine dependence
CPT/HCPCS: 33264; 36415; 80048; 85025; 85610; 85730; C1882; J0690; J2250; J2405; J3010; J3370; Q9967

== ENCOUNTER → 2021-08-10 11:31 | Outpatient (BNVA) | payer MEDICARE, MEDICAID, SELFPAY | PROVIDERS: PCP Family Medicine; Visit Provider Internal Medicine | DX: J98.4 Other disorders of lung (principal); E66.9 Obesity, unspecified; Z68.34 Body mass index [BMI] 34.0-34.9, adult; G47.33 Obstructive sleep apnea (adult) (pediatric) | CPT/HCPCS: 99212 ==

== ENCOUNTER → 2021-08-11 09:24 | Outpatient (BNVA) | payer MEDICARE, MEDICAID, SELFPAY | PROVIDERS: PCP Family Medicine; Referring Provider Family Medicine; Visit Provider Physician Assistant | DX: E66.9 Obesity, unspecified (principal); Z68.34 Body mass index [BMI] 34.0-34.9, adult; I10 Essential (primary) hypertension; I42.8 Other cardiomyopathies; Z95.810 Presence of automatic (implantable) cardiac defibrillator; Z98.84 Bariatric surgery status | CPT/HCPCS: 99212 ==

== ENCOUNTER 2021-08-30 09:00 | Outpatient (REF) | payer MEDICARE, MEDICAID, SELFPAY ==
[2021-08-30 09:27] LABS: MANUAL DIFF FLAG NO
[2021-08-30 09:40] LABS: Basophils Absolute Auto 0.1 X10*3/uL (0.0-0.2); Basophils Percent Auto 1.3 % (0-2); Eosinophils Absolute Auto 0.3 X10*3/uL (0.0-0.4); Eosinophils Percent Auto 3.8 % (0-4); Hematocrit 41.2 % (37.0-47.0); Hemoglobin 13.8 g/dl (12.0-16.0); Imm Gran Abs Auto 0.03 X10*3/uL (0.00-0.03); Imm Gran Pct Auto 0.4 % (0.0-0.4); Lymphocytes Absolute Auto 2.1 X10*3/uL (1.2-4.9); Mean Corpuscular HGB Conc 33.5 g/dl (31.0-35.0); Mean Corpuscular Hemoglobin 33.5 pg (27.0-33.0); Mean Platelet Volume 9.7 fL (9.4-12.3); Monocytes Absolute Auto 0.4 X10*3/uL (0.1-1.2); Monocytes Percent Auto 5.6 % (2-11); Neutrophils Absolute Auto 4.3 x10*3/uL (2.0-8.3); Neutrophils Percent Auto 59.9 % (45-73); Platelet Count 288 X10*3/uL (160-400); Red Blood Count 4.12 X10*6/uL (4.20-5.50); Red Cell Distribution Width 13.9 % (11.0-16.0); White Blood Count 7.2 X10*3/uL (4.8-10.8)
[2021-08-30 09:55] LABS: Estimated Average Glucose 100 mg/dL; Hemoglobin A1c % 5.1 %
[2021-08-30 10:25] LABS: Alanine Aminotransferase 15 U/L (0-31); Alkaline Phosphatase 73 U/L (39-117); Anion Gap 9 (12-20); Aspartate Amino Transferase 16 U/L (5-31); Bilirubin Total 0.5 mg/dL (0.0-1.0); Blood Urea Nitrogen 8 mg/dL (9-16); C Reactive Protein 0.28 mg/dL (< or = 0.50); Calcium 9.1 mg/dL (8.4-10.2); Carbon Dioxide 28 mmol/L (22-29); Chloride 108 mmol/L (96-108); Cholesterol 236 mg/dL; Estimated Glomerular Filt Rate > 60; Glucose Random 102 mg/dL (60-115); HDL Cholesterol 58 mg/dL; Iron 65 mcg/dL (30-160); LDL Cholesterol Calculated 162 mg/dl; Percent Iron Saturation 22 % (15-50); Potassium 4.4 mmol/L (3.3-5.1); Sodium 141 mmol/L (135-145); Total Iron Binding Capacity 289 mcg/dL (228-428); Total Protein 6.7 g/dL (6.5-8.0); Triglycerides 82 mg/dL; Unsaturated Iron Binding 224 ug/dL
[2021-08-30 10:33] LABS: Free T4 (Free Thyroxine) 0.95 ng/dL (0.71-1.85); Thyroid Stimulating Hormone 3.37 uIU/mL (0.32-4.0)
[2021-08-30 10:36] LABS: Ferritin 184 ng/mL (10-250); TSH reflex Free T4 3.46 uIU/mL (0.32-4.0); Vitamin D 25-OH Total 23.1 ng/mL (>30)
[2021-08-30 10:40] LABS: Folate 7.3 ng/mL (> or = 4.0); Vitamin B12 315 pg/mL (200-900)
[2021-08-30 11:08] LABS: Insulin 5 uU/mL (2-29)
[2021-08-31 15:41] LABS: Calcium (PTHI) 9.1 mg/dL (8.6-10.4); PTHI 141 pg/mL (16-77)
[2021-09-04 06:07] LABS: Zinc 79 mcg/dL (60-130)
[2021-09-04 17:36] LABS: Vitamin A 44 mcg/dL (38-98)
[2021-09-05 15:02] LABS: Vitamin B1 8 nmol/L (8-30)
== END 2021-08-30 09:01 | disposition home or self-care (01) ==
LOC: HO.LAB 09:00
PROVIDERS: Absent Provider Physician Assistant; PCP Family Medicine; Visit Provider Family Medicine
DX: E03.9 Hypothyroidism, unspecified (principal); E66.9 Obesity, unspecified; R63.4 Abnormal weight loss; I10 Essential (primary) hypertension; I42.8 Other cardiomyopathies; Z90.3 Acquired absence of stomach [part of]
CPT/HCPCS: 36415; 80053; 80061; 82306; 82607; 82728; 82746; 83036; 83525; 83540; 83970; 84425; 84439; 84443; 84590; 84630; 85025; 86140

== ENCOUNTER → 2021-10-18 13:25 | Outpatient (BNVA) | payer MEDICARE, MEDICAID, SELFPAY | PROVIDERS: PCP Family Medicine; Referring Provider Family Medicine; Visit Provider Internal Medicine | DX: I42.8 Other cardiomyopathies (principal); G47.33 Obstructive sleep apnea (adult) (pediatric); Z95.810 Presence of automatic (implantable) cardiac defibrillator; Z79.899 Other long term (current) drug therapy; Z99.89 Dependence on other enabling machines and devices | CPT/HCPCS: 93005; 99212 ==

== ENCOUNTER → 2021-10-24 10:44 | Outpatient (BNVA) | payer MEDICARE, MEDICAID, SELFPAY | PROVIDERS: PCP Family Medicine; Visit Provider Surgery | DX: N64.89 Other specified disorders of breast (principal); N61.0 Mastitis without abscess; Z98.890 Other specified postprocedural states | CPT/HCPCS: 99212 ==

== ENCOUNTER 2021-11-23 10:28 | Outpatient (REF) | payer MEDICARE, MEDICAID, SELFPAY ==
--- NOTE | ~2021-11-23 | MM_ITS ---
EXAMINATION: BONE DENSITOMETRY CLINICAL INDICATION: On hormone suppression. COMPARISON: Baseline BD dated 11/18/2019. TECHNIQUE: Using a [employer] DXA System (software version: 13.1) manufactured by [employer], dual-energy x-ray absorptiometry was performed of the lumbar spine and left hip. The images are of good technical quality. Summary results are attached. FINDINGS: AP SPINE L1-L4: Current: BMD 1.120 g/cm2, Z-score -0.1, T-score -0.5, normal, 8.1% decrease from baseline (<5% change is not significant). Baseline: BMD 1.219 g/cm2. LEFT FEMUR, NECK: Current: BMD 0.720 g/cm2, Z-score -1.6, T-score -2.3, osteopenia. Baseline: BMD 0.784 g/cm2. LEFT FEMUR, TOTAL: Current: BMD 0.830 g/cm2, Z-score -1.1, T-score -1.4, osteopenia, 6.8% decrease from baseline (<5% change is not significant). Baseline: BMD 0.891 g/cm2. IDENTIFIED RISK FACTORS: Menopause, secondary osteoporosis. HISTORY OF FRACTURE: None listed. MEDICATIONS: Calcium supplements or multivitamin, vitamin D. MM/XR DEXA axial skeleton IMPRESSION: 1. DIAGNOSIS: Osteopenia based on the lowest T-score value of -2.3 in the femoral neck applying World Health Organization criteria. 2. 10-YEAR FRACTURE RISK PREDICTION, FRAX: Major osteoporotic fracture (clinical spine, forearm, hip or shoulder) 9.8%. Hip fracture 1.6%. 3. Treatment Recommendations: NOF guidelines recommend consideration for treatment in postmenopausal women and men age 50 and older presenting with the following: -A hip or vertebral (clinical or morphometric) fracture. -T-score less than or equal to -2.5 at the femoral neck or spine after appropriate evaluation to exclude secondary causes. -Low bone mass at the hip or spine and a 10-year fracture probability by FRAX of greater than or equal to 3% for hip fracture or greater than or equal to 20% for major osteoporotic fracture based on the [place] adapted WHO algorithm. 4. Other Recommendations: All treatment decisions require clinical judgment and consideration of individual patient factors, including patient preferences, comorbidities, previous drug use, risk factors not captured in the FRAX model (e.g. frailty, falls, vitamin D deficiency, increased bone turnover, interval significant decline in bone density) and possible under or overestimation of fracture risk by FRAX. Additional medical evaluation for secondary cause of low bone mineral density may be appropriate. FUTURE SCAN RECOMMENDATION: People with diagnosed cases of osteoporosis or at high risk for fracture should have regular bone mineral density tests. For patients eligible for Medicare, routine testing is allowed once every 2 years. The testing frequency can be increased to one year for patients who have rapidly progressing disease, those who are receiving or discontinuing medical therapy to restore bone mass, or have additional risk factors.
== END 2021-11-23 10:29 | disposition home or self-care (01) ==
LOC: HO.MAMMO 10:28
PROVIDERS: PCP Family Medicine; Visit Provider Internal Medicine
DX: Z13.820 Encounter for screening for osteoporosis (principal); M81.0 Age-related osteoporosis without current pathological fracture; Z78.0 Asymptomatic menopausal state
CPT/HCPCS: 77080

== ENCOUNTER → 2021-11-30 13:46 | Outpatient (BNVA) | payer MEDICARE, MEDICAID, SELFPAY | PROVIDERS: PCP Family Medicine; Referring Provider Family Medicine; Visit Provider Physician Assistant Surgical | DX: E66.9 Obesity, unspecified (principal); Z68.31 Body mass index [BMI] 31.0-31.9, adult; Z98.84 Bariatric surgery status; Z90.3 Acquired absence of stomach [part of] | CPT/HCPCS: 99212 ==

== ENCOUNTER → 2021-12-11 11:22 | Outpatient (BNVA) | payer MEDICARE, MEDICAID, SELFPAY | PROVIDERS: PCP Family Medicine; Visit Provider Internal Medicine | DX: G47.33 Obstructive sleep apnea (adult) (pediatric) (principal); E66.9 Obesity, unspecified; Z68.33 Body mass index [BMI] 33.0-33.9, adult | CPT/HCPCS: 99212 ==

== ENCOUNTER → 2021-12-21 11:00 | Outpatient (BNVA) | payer OTHER, MEDICARE, MEDICAID, SELFPAY | PROVIDERS: PCP Family Medicine; Visit Provider Counselor Mental Health | DX: F33.1 Major depressive disorder, recurrent, moderate (principal); Z63.4 Disappearance and death of family member | CPT/HCPCS: 90834 ==

== ENCOUNTER 2021-12-22 11:01 | Outpatient (REF) | payer MEDICARE, MEDICAID, OTHER, SELFPAY ==
[2021-12-22 11:25] LABS: MANUAL DIFF FLAG NO
[2021-12-22 11:47] LABS: Basophils Absolute Auto 0.1 X10*3/uL (0.0-0.2); Basophils Percent Auto 1.7 % (0-2); Eosinophils Absolute Auto 0.4 X10*3/uL (0.0-0.4); Eosinophils Percent Auto 5.3 % (0-4); Hematocrit 44.8 % (37.0-47.0); Hemoglobin 15.1 g/dl (12.0-16.0); Imm Gran Abs Auto 0.02 X10*3/uL (0.00-0.03); Imm Gran Pct Auto 0.2 % (0.0-0.4); Lymphocytes Absolute Auto 2.4 X10*3/uL (1.2-4.9); Lymphocytes Percent Auto 29.5 % (20-40); Mean Corpuscular HGB Conc 33.7 g/dl (31.0-35.0); Mean Corpuscular Hemoglobin 32.9 pg (27.0-33.0); Mean Corpuscular Volume 97.6 fL (80.0-98.0); Mean Platelet Volume 9.8 fL (9.4-12.3); Monocytes Absolute Auto 0.4 X10*3/uL (0.1-1.2); Monocytes Percent Auto 5.3 % (2-11); Neutrophils Absolute Auto 4.7 x10*3/uL (2.0-8.3); Platelet Count 231 X10*3/uL (160-400); Red Blood Count 4.59 X10*6/uL (4.20-5.50); Red Cell Distribution Width 12.7 % (11.0-16.0); White Blood Count 8.1 X10*3/uL (4.8-10.8)
[2021-12-22 11:55] LABS: Estimated Average Glucose 100 mg/dL; Hemoglobin A1c % 5.1 %
[2021-12-22 12:06] LABS: Alanine Aminotransferase 13 U/L (0-31); Albumin Level 4.2 g/dL (3.5-5.0); Alkaline Phosphatase 74 U/L (39-117); Anion Gap 15 (12-20); Aspartate Amino Transferase 15 U/L (5-31); Bilirubin Total 0.4 mg/dL (0.0-1.0); Blood Urea Nitrogen 10 mg/dL (9-16); C Reactive Protein 0.29 mg/dL (< or = 0.50); Calcium 9.5 mg/dL (8.4-10.2); Carbon Dioxide 26 mmol/L (22-29); Chloride 106 mmol/L (96-108); Cholesterol 233 mg/dL; Estimated Glomerular Filt Rate > 60; Glucose Random 96 mg/dL (60-115); HDL Cholesterol 51 mg/dL; Iron 69 mcg/dL (30-160); LDL Cholesterol Calculated 167 mg/dl; Percent Iron Saturation 22 % (15-50); Potassium 3.9 mmol/L (3.3-5.1); Sodium 143 mmol/L (135-145); Total Iron Binding Capacity 315 mcg/dL (228-428); Total Protein 7.1 g/dL (6.5-8.0); Triglycerides 78 mg/dL; Unsaturated Iron Binding 246 ug/dL
[2021-12-22 12:27] LABS: Ferritin 169 ng/mL (10-250); Insulin 7 uU/mL (2-29); TSH reflex Free T4 0.15 uIU/mL (0.32-4.0); Vitamin D 25-OH Total 30.5 ng/mL (>30)
[2021-12-22 12:55] LABS: Folate 5.7 ng/mL (> or = 4.0); Vitamin B12 502 pg/mL (200-900)
[2021-12-22 13:01] LABS: Free T4 (Free Thyroxine) 1.11 ng/dL (0.71-1.85)
[2021-12-24 15:42] LABS: Calcium (PTHI) 9.5 mg/dL (8.6-10.4); PTHI 82 pg/mL (16-77)
[2021-12-27 00:02] LABS: Zinc 63 mcg/dL (60-130)
[2021-12-27 09:52] LABS: Vitamin A 46 mcg/dL (38-98)
[2021-12-27 16:07] LABS: Vitamin B1 7 nmol/L (8-30)
== END 2021-12-22 11:02 | disposition home or self-care (01) ==
LOC: HO.LAB 11:01
PROVIDERS: PCP Family Medicine; Visit Provider Physician Assistant Surgical
DX: K91.2 Postsurgical malabsorption, not elsewhere classified (principal); Z90.3 Acquired absence of stomach [part of]
CPT/HCPCS: 36415; 80053; 80061; 82306; 82607; 82728; 82746; 83036; 83525; 83540; 83970; 84425; 84439; 84443; 84590; 84630; 85025; 86140

== ENCOUNTER → 2022-02-06 11:25 | Outpatient (BNVA) | payer MEDICARE, MEDICAID, OTHER, SELFPAY | PROVIDERS: PCP Family Medicine; Visit Provider Physician Assistant Surgical | DX: E66.9 Obesity, unspecified (principal); Z90.3 Acquired absence of stomach [part of]; Z68.30 Body mass index [BMI] 30.0-30.9, adult | CPT/HCPCS: 99212 ==

== ENCOUNTER 2022-03-28 08:27 | Outpatient (REF) | payer MEDICARE, SELFPAY ==
--- NOTE | ~2022-03-28 | MM_ITS ---
EXAMINATION: MM SCREENING DIGITAL BREAST TOMOSYNTHESIS, BILATERAL CLINICAL INFORMATION: Screening. Asymptomatic. Status post right breast lumpectomy. COMPARISON: Mammography: 04/12/2021 and studies dating back to 10/14/2015. TECHNIQUE: Digital breast tomosynthesis is performed in both the craniocaudal and mediolateral oblique views along with computer-aided detection (CAD). Synthesized 2D images are generated from the tomosynthesis. FINDINGS: There are scattered areas of fibroglandular density (ACR BI-RADS breast composition Category b). There are no new significant masses, abnormal calcifications, or other abnormalities. Postsurgical change about the deep lateral aspect of the right breast again noted. Pacemaker powerpack seen within the left axilla. There is some dystrophic calcification seen at the surgical bed within the right breast. No new abnormal dominant mass or more suspicious grouping of microcalcifications identified. MM/MM tomosynthesis screening BI IMPRESSION: No significant changes from prior exam. ASSESSMENT: BI-RADS 2: Benign. RECOMMENDATION: Routine annual mammography screening. This patient's information was entered into a reminder system with a target due date for their next mammogram.
[2022-03-28 10:20] LABS: Anion Gap 12 (12-20); Blood Urea Nitrogen 10 mg/dL (9-16); Carbon Dioxide 27 mmol/L (22-29); Chloride 106 mmol/L (96-108); Estimated Glomerular Filt Rate > 60; Potassium 3.8 mmol/L (3.3-5.1); Sodium 141 mmol/L (135-145)
[2022-03-28 10:43] LABS: Free T4 (Free Thyroxine) 1.12 ng/dL (0.71-1.85)
== END 2022-03-28 08:28 | disposition home or self-care (01) ==
LOC: HO.MAMMO 08:27
PROVIDERS: PCP Family Medicine; Visit Provider Family Medicine
DX: Z12.31 Encounter for screening mammogram for malignant neoplasm of breast (principal); E03.9 Hypothyroidism, unspecified; I10 Essential (primary) hypertension
CPT/HCPCS: 36415; 77063; 77067; 80051; 82565; 84439; 84520

== ENCOUNTER 2022-04-12 08:59 | Day surgery (SDC) | payer MEDICARE, MEDICAID, SELFPAY ==
--- NOTE | ~2022-04-12 | IR_ITS ---
PROCEDURE: RIGHT INTERNAL JUGULAR PORT CATHETER REMOVAL CLINICAL INFORMATION: History of breast and pancreatic cancer. No further need for chemotherapy at this time. COMPARISON: None TECHNIQUE: Surgical excision of right internal jugular port catheter. A trained medical provider was monitoring the patient's vital signs under my supervision during the duration of the face to face sedation time. Sedation time: 45 minutes. Fluoroscopy time: 0.0 minutes DAP: 2 cGy-cm2 2 images performed one pre-port removal and one post port removal. FINDINGS: Informed consent was obtained from the patient prior to the procedure. During this process, the procedure and potential alternatives were explained, along with the intended outcome and benefits. The risks of the procedure, as well as the risk of not doing the procedure, were discussed. The patient was given the opportunity to ask questions regarding the procedure and appeared competent to make medical decisions. A signed consent form which documents this discussion was placed in the medical record. ?All elements of maximal sterile barrier technique followed including use of cap, mask, sterile gown, sterile gloves, a sterile full body drape and hand hygiene. Also followed skin preparation with 2% chlorhexidine for cutaneous antisepsis, and sterile ultrasound preparation with sterile gel and probe cover when applicable.? Using sterile technique an incision was made, following lidocaine administration and with conscious sedation given, along the previous scar from port placement. The port and catheter were then dissected out in their entirety. The skin site was closed with a running 4-0 subcuticular stitch using absorbable suture. Tissue adhesive was then placed over the incision site. Patient tolerated procedure without difficulty. IR/IR cvc remove tunnel w prt/tax form preparer IMPRESSION: Right internal jugular port catheter removal without complication.
[2022-04-12 09:24] VITALS: BMI 30.5
[2022-04-12 09:32] LABS: MANUAL DIFF FLAG NO
[2022-04-12 09:43] LABS: Basophils Absolute Auto 0.1 X10*3/uL (0.0-0.2); Basophils Percent Auto 1.6 % (0-2); Eosinophils Absolute Auto 0.3 X10*3/uL (0.0-0.4); Eosinophils Percent Auto 4.9 % (0-4); Hematocrit 45.3 % (37.0-47.0); Hemoglobin 14.9 g/dl (12.0-16.0); Imm Gran Abs Auto 0.02 X10*3/uL (0.00-0.03); Imm Gran Pct Auto 0.3 % (0.0-0.4); Lymphocytes Absolute Auto 2.3 X10*3/uL (1.2-4.9); Lymphocytes Percent Auto 33.3 % (20-40); Mean Corpuscular HGB Conc 32.9 g/dl (31.0-35.0); Mean Corpuscular Hemoglobin 33.1 pg (27.0-33.0); Mean Corpuscular Volume 100.7 fL (80.0-98.0); Mean Platelet Volume 9.5 fL (9.4-12.3); Monocytes Absolute Auto 0.5 X10*3/uL (0.1-1.2); Monocytes Percent Auto 7.2 % (2-11); Neutrophils Absolute Auto 3.6 x10*3/uL (2.0-8.3); Neutrophils Percent Auto 52.7 % (45-73); Platelet Count 284 X10*3/uL (160-400); Red Cell Distribution Width 13.2 % (11.0-16.0); White Blood Count 6.9 X10*3/uL (4.8-10.8)
[2022-04-12 09:47] LABS: Anion Gap 8 (12-20); Carbon Dioxide 30 mmol/L (22-29); Chloride 110 mmol/L (96-108); Potassium 4.2 mmol/L (3.3-5.1); Sodium 144 mmol/L (135-145)
[2022-04-12 09:58] LABS: Partial Thromboplastin Time 31.4 SEC (26.0-36.4)
[2022-04-12 12:22] VITALS: BP 126/74; PULSE 66; RESP 16; TEMP 36.8; O2SAT 98
[2022-04-12 12:37] VITALS: BP 116/68; PULSE 60; RESP 16; O2SAT 98
[2022-04-12 12:52] VITALS: BP 132/72; PULSE 62; RESP 16; O2SAT 98
[2022-04-12 13:07] VITALS: BP 131/69; PULSE 60; RESP 16; O2SAT 96
[2022-04-12 13:22] VITALS: BP 124/82; PULSE 60; RESP 16; O2SAT 95
[2022-04-12 13:37] VITALS: BP 139/85; PULSE 68; RESP 16; TEMP 36.8; O2SAT 99
== END 2022-04-12 13:47 | disposition home or self-care (01) ==
PROVIDERS: PCP Family Medicine; Visit Provider Radiology Diagnostic Radiology
PROC: (CPT 36590; principal; 2022-04-12 10:30)
DX: Z45.2 Encounter for adjustment and management of vascular access device (principal); C50.919 Malignant neoplasm of unspecified site of unspecified female breast
CPT/HCPCS: 36415; 36590; 80051; 85025; 85610; 85730; 99152; 99153; J2250; J3010

== ENCOUNTER → 2022-04-16 10:56 | Outpatient (BNVA) | payer MEDICARE, MEDICAID, SELFPAY | PROVIDERS: PCP Family Medicine; Visit Provider Internal Medicine | DX: Z45.02 Encounter for adjustment and management of automatic implantable cardiac defibrillator (principal); I42.8 Other cardiomyopathies; G47.33 Obstructive sleep apnea (adult) (pediatric); R06.00 Dyspnea, unspecified; E66.9 Obesity, unspecified; Z68.31 Body mass index [BMI] 31.0-31.9, adult | CPT/HCPCS: 99212 ==

== ENCOUNTER → 2022-06-05 09:45 | Outpatient (BNVA) | payer MEDICARE, MEDICAID, SELFPAY | PROVIDERS: PCP Family Medicine; Visit Provider Surgery | DX: N64.89 Other specified disorders of breast (principal); N61.0 Mastitis without abscess; Z98.890 Other specified postprocedural states | CPT/HCPCS: 99212 ==

== ENCOUNTER → 2022-06-18 09:07 | Outpatient (BNVA) | payer MEDICARE, MEDICAID, SELFPAY | PROVIDERS: PCP Family Medicine; Visit Provider Physician Assistant Surgical | DX: E66.9 Obesity, unspecified (principal); Z68.30 Body mass index [BMI] 30.0-30.9, adult; Z98.84 Bariatric surgery status; Z90.3 Acquired absence of stomach [part of] | CPT/HCPCS: 99212 ==

== ENCOUNTER → 2022-09-12 23:59 | Outpatient (BNV) | payer MEDICARE, MEDICAID, SELFPAY ==
--- NOTE | 2022-09-18 12:25 | A.OFFVIS_ITS ---
Intake Intake Visit Reasons: Remote ICD Check- 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 Breast cancer Cardiac resynchronization therapy defibrillator (SPINDLE PLUMBER-D) in place Depression Dyspnea on exertion History of breast cancer Hypertension Hypothyroidism Morbid obesity Morbid obesity NICM (nonischemic cardiomyopathy) Obesity Obesity (BMI 30-39.9) DEANDRE (obstructive sleep apnea) Pacemaker Restrictive lung disease Steatosis, liver Surgical History History of colectomy History of incisional hernia repair History of laparoscopic cholecystectomy History of right mastectomy S/P lumpectomy, right breast (04/12/21) Family History Father Multiple sclerosis Mother Breast CA Maternal Grandmother Breast CA Paternal Grandmother Stomach cancer Paternal Aunt Breast CA Social History Household Members: None Housing: House Are you a primary home health care respiratory therapist to a significant other at home: No Do you presently have visiting nurse or other home services: No Alcohol intake: current Alcohol intake frequency: holidays/special occasions only Patient Tobacco Use Status: Former Tobacco user Quit Date: 2004 Second Hand Smoke Exposure: No Use of substances other than those prescribed or required for medical reasons: No Substance Use Type: Marijuana Have you been hit, kicked, punched, or otherwise hurt by someone within the past year? If so, by whom?: No Do you feel safe in your current relationship?: No Current Relationship Do you have thoughts of harming others: None Do you have a plan to hurt others: No Plan Do you have the means to hurt others: No Recently lost weight without trying: No service: No Current occupational status: retired Office Procedures Cardiac Device Check Cardiac Device Check Details: Date of service 09/12/2022; Battery life >3 years; normal lead parameters; no treated VT/VF; AP 73%, BP >99%; normal ICD function. [id number] Cardiac Interrogation, implant defibrillator w/interim Procedure code (CPT) selection complete Assessment & Plan Assessment & Plan (1) NICM (nonischemic cardiomyopathy): Code(s): I42.8 - Other cardiomyopathies Coding Level of Care Code Procedure Only Diagnoses NICM (nonischemic cardiomyopathy) I42.8 CPT Codes Cardiac Device Check - Cardiac Device 13: [id number] Cardiac Interrogation, implant defibrillator w/interim ([id number])
== END ==
PROVIDERS: PCP Family Medicine; Visit Provider Internal Medicine
DX: I42.8 Other cardiomyopathies (principal); Z95.810 Presence of automatic (implantable) cardiac defibrillator
CPT/HCPCS: 93295

== ENCOUNTER → 2022-10-08 23:59 | Outpatient (BNV) | payer MEDICARE, MEDICAID, SELFPAY ==
--- NOTE | 2022-10-13 14:30 | A.OFFVIS_ITS ---
Intake Intake Visit Reasons: Remote HF Monitoring- 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 Breast cancer Cardiac resynchronization therapy defibrillator (WEATHERIZATION AND HOUSING INSPECTOR-D) in place Depression Dyspnea on exertion History of breast cancer Hypertension Hypothyroidism Morbid obesity Morbid obesity NICM (nonischemic cardiomyopathy) Obesity Obesity (BMI 30-39.9) DEANDRE (obstructive sleep apnea) Pacemaker Restrictive lung disease Steatosis, liver Surgical History History of colectomy History of incisional hernia repair History of laparoscopic cholecystectomy History of right mastectomy S/P lumpectomy, right breast (04/12/21) Family History Father Multiple sclerosis Mother Breast CA Maternal Grandmother Breast CA Paternal Grandmother Stomach cancer Paternal Aunt Breast CA Social History Household Members: None Housing: House Are you a primary prompt care rn to a significant other at home: No Do you presently have visiting nurse or other home services: No Alcohol intake: current Alcohol intake frequency: holidays/special occasions only Patient Tobacco Use Status: Former Tobacco user Quit Date: 2004 Second Hand Smoke Exposure: No Substance Use Type: Marijuana service: No Current occupational status: retired Office Procedures Cardiac Device Check Cardiac Device Check Details: Date of service- 10/08/2022; based on impedance data and physiological variables, there is no evidence of worsening congestive heart failure. [id number] Cardiac Device Interrogation, cardio physiologic monitor Procedure code (CPT) selection complete Assessment & Plan Assessment & Plan (1) NICM (nonischemic cardiomyopathy): Code(s): I42.8 - Other cardiomyopathies Coding Level of Care Code Procedure Only Diagnoses NICM (nonischemic cardiomyopathy) I42.8 CPT Codes Cardiac Device Check - Cardiac Device 15: [id number] Cardiac Device Interrogation, cardio physiologic monitor ([id number])
== END ==
PROVIDERS: PCP Family Medicine; Visit Provider Internal Medicine
DX: I42.8 Other cardiomyopathies (principal)
CPT/HCPCS: 93297

== ENCOUNTER → 2022-12-03 23:59 | Outpatient (BNV) | payer MEDICARE, MEDICAID, SELFPAY ==
--- NOTE | 2022-12-09 10:13 | MHC.OFFVIS ---
Intake Intake Visit Reasons: Remote HF monitoring- [facility] Allergies lisinopril Adverse Reaction (Severe, Verified 12/06/22 10:35) COUGH PFSH Medical History Obesity (BMI 30-39.9) Pacemaker Atypical lobular hyperplasia (ALH) of right breast Steatosis, liver Morbid obesity Breast cancer Obesity Hypothyroidism History of breast cancer Depression Hypertension Cardiac resynchronization therapy defibrillator (DIESEL STATIONARY ENGINEER-D) in place Dyspnea on exertion NICM (nonischemic cardiomyopathy) Restrictive lung disease DEANDRE (obstructive sleep apnea) Morbid obesity Surgical History S/P lumpectomy, right breast (04/12/21) History of right mastectomy History of incisional hernia repair History of colectomy History of laparoscopic cholecystectomy Family History Father Multiple sclerosis Mother Breast CA Maternal Grandmother Breast CA Paternal Grandmother Stomach cancer Paternal Aunt Breast CA Social History Household Members: None Housing: House Are you a primary care assistant to a significant other at home: No Do you presently have visiting nurse or other home services: No Alcohol intake: current Alcohol intake frequency: holidays/special occasions only Patient Tobacco Use Status: Former Tobacco user Quit Date: 2004 Second Hand Smoke Exposure: No Substance Use Type: Marijuana service: No Current occupational status: retired Office Procedures Cardiac Device Check Cardiac Device Check Details: Date of service- 12/03/2022; based on impedance data and physiological variables, there is no evidence of worsening congestive heart failure. [id number] Cardiac Device Interrogation, cardio physiologic monitor Procedure code (CPT) selection complete Assessment & Plan Assessment & Plan (1) NICM (nonischemic cardiomyopathy): Code(s): I42.8 - Other cardiomyopathies Coding Level of Care Code Procedure Only Diagnoses NICM (nonischemic cardiomyopathy) I42.8 CPT Codes Cardiac Device Check - Cardiac Device 15: [id number] Cardiac Device Interrogation, cardio physiologic monitor ([id number])
== END ==
PROVIDERS: PCP Family Medicine; Visit Provider Internal Medicine
DX: I42.8 Other cardiomyopathies (principal)
CPT/HCPCS: 93297

== ENCOUNTER 2022-12-06 10:28 | Outpatient (AMB) | payer MEDICARE, MEDICAID, SELFPAY ==
--- NOTE | 2022-12-06 10:30 | MHC.OFFVIS ---
Intake Vital Signs 12/06/22 10:35 Height 5 ft 2 in Weight 164 lb 6 oz BMI 30.1 BP 118/74 Blood Pressure Location Lt brachial Position Sitting Pulse 84 Intake Visit Reasons: 6 mth follow up breast exam Intake Note: Patient is seen in office for 6 month follow up visit, breast exam. Patient c/o: states rash under breast, shoulder pain due to breast, while like to have a breast reduction Business Relations Manager Required: No Accompanied by: Self / Same As Patient Allergies lisinopril Adverse Reaction (Severe, Verified 12/06/22 10:35) COUGH Medication List - Last Reconciled 12/06/22 by Pablo Gordon MD bupropion HCl 300 mg PO DAILY carvedilol 25 mg PO BID cholecalciferol (vitamin D3) 25 mcg PO DAILY furosemide 40 mg PO DAILY gabapentin 1 cap PO BEDTIME levothyroxine 175 mcg PO DAILY losartan 50 mg PO DAILY paroxetine HCl 30 mg PO DAILY spironolactone 25 mg PO DAILY thiamine HCl (vitamin B1) 100 mg PO DAILY HPI HPI Comments History of Present Illness Details 67-year-old female patient presenting with a mammogram from 03/20/2021 with follow-up images of 03/24/2021 which revealed a new cluster of calcifications in the 9 o'clock position of the right breast. She has a prior history of a right breast cancer s/p right lumpectomy with sentinel node biopsy in 2014 performed in [place]. She underwent chemotherapy followed by radiation therapy. This was followed by anastrozole 1 mg p.o. daily. She tolerated this well and denied any further breast problems until the current mammogram. Her family history is significant for her mother having breast cancer. She previously underwent genetic testing and was told this was negative. She has a history of congestive heart failure and has a pacemaker/defibrillator the left chest wall. She underwent a right stereotactic core biopsy on 03/30/2021 at the [facility]. Pathology revealed atypical lobular hyperplasia in a background of benign breast tissue with stromal fibrosis, fibroadenoma thus changed and calcifications. Right breast lumpectomy with needle localization was subsequently performed on 04/12/2021. Pathology reveals: Breast parenchyma with atypical lobular hyperplasia, fibrocystic changes, fibroadenomatoid change, coarse calcifications, and biopsy site changes; negative for invasive and in-situ carcinoma.? Biopsy site changes are present at the superior margin. Her most recent mammogram of 03/28/2022 revealed no significant changes from the previous mammogram (BI-RADS 2). She denies any new breast symptoms including palpable mass, nipple discharge, or new skin changes. She does report some soreness in the right breast at the lower outer portion. She is considering breast reductions. 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 Steatosis, liver Morbid obesity Breast cancer Obesity Hypothyroidism History of breast cancer Depression Hypertension Cardiac resynchronization therapy defibrillator (INTEGRATION PROJECT MANAGER-D) in place Dyspnea on exertion NICM (nonischemic cardiomyopathy) Restrictive lung disease DEANDRE (obstructive sleep apnea) Morbid obesity Surgical History S/P lumpectomy, right breast (04/12/21) History of right mastectomy History of incisional hernia repair History of colectomy History of laparoscopic cholecystectomy Family History Father Multiple sclerosis Mother Breast CA Maternal Grandmother Breast CA Paternal Grandmother Stomach cancer Paternal Aunt Breast CA Social History Household Members: None Housing: House Are you a primary medicare nurse to a significant other at home: No Do you presently have visiting nurse or other home services: No Alcohol intake: current Alcohol intake frequency: holidays/special occasions only Patient Tobacco Use Status: Former Tobacco user Quit Date: 2004 Second Hand Smoke Exposure: No Substance Use Type: Marijuana service: No Current occupational status: retired Review of Systems Const All systems reviewed & are unremarkable except as noted in HPI and below Denies chills, Denies fever(s), Denies headache(s) and Denies poor appetite ENT Denies dizziness and Denies headache(s) Card Denies chest pain, Denies rapid heart rate, Denies palpitations and Denies slow heart rate Resp Denies chest congestion, Denies cough, Denies pain on inspiration and Denies wheezing GI Denies abdominal pain, Denies bloating, Denies change in stool character, Denies constipation, Denies diarrhea, Denies nausea, Denies vomiting and Denies hematemesis Denies nipple discharge Musc Denies back pain, Denies arthralgias, Denies joint swelling and Denies numbness Skin/Breast Denies breast swelling, Denies breast skin changes, Denies breast pain, Denies breast mass, Denies change in breast shape, Denies change in pigmentation, Denies nipple discharge, Denies erythema and Denies rash Neuro Denies dizziness, Denies headache(s) and Denies numbness Psych Denies anxiety and Denies depression Endo Denies palpitations Jayson/Lymph Denies easy bleeding, Denies easy bruising and Denies lymphadenopathy Aller/Immun Denies wheezing Physical Exam Vital Signs: Last Vital Signs Pulse 84 12/06/22 10:35 BP 118/74 12/06/22 10:35 BMI result Body Mass Index 30.1 Const General: cooperative and no acute distress Nutritional Appearance: well nourished Orientation/consciousness: patient oriented x3 Limitations: no limitations Chest Other: Right breast with a well-healed incision in the lower outer portion of the breast. No redness or discharge is identified. No palpable mass, skin change, nipple discharge, or enlarged lymph nodes are appreciated. Left breast is normal with no skin change, nipple discharge, palpable mass, or enlarged lymph nodes. Chest/axillae images: 1. Incision right breast Skin General skin exam: no rashes or lesions noted Neuro General: patient oriented x3 Extrem General: Yes normal to inspection and No edema Assessment & Plan Assessment & Plan (1) S/P lumpectomy, right breast: Onset Date: 04/12/21 Code(s): Z98.890 - Other specified postprocedural states (2) Atypical lobular hyperplasia (ALH) of right breast: Code(s): N60.91 - Unspecified benign mammary dysplasia of right breast Plan 67-year-old female patient with a prior history of breast cancer now presenting with a atypical ductal hyperplasia of the right breast status post lumpectomy. She feels well and denies any ongoing breast symptoms. Examination today revealed no suspicious findings in either breast with a well-healed incision in the lower outer quadrant of the right breast. She is scheduled for a follow-up annual mammogram on 04/03/2023. I recommended she follow up for clinical breast examination in approximately 6 months, sooner p.r.n.. Coding Level of Care Code Est Pt Level 3 (55223) Diagnoses S/P lumpectomy, right breast Z98.890 Atypical lobular hyperplasia (ALH) of right breast N60.91
[2022-12-06 10:35] VITALS: BP 118/74; PULSE 84; BMI 30.1
== END 2022-12-06 10:47 | disposition home or self-care (01) ==
PROVIDERS: PCP Family Medicine; Visit Provider Surgery
DX: N60.91 Unspecified benign mammary dysplasia of right breast (principal); Z98.890 Other specified postprocedural states
CPT/HCPCS: 99213

== ENCOUNTER → 2022-12-06 10:28 | Outpatient (BNVA) | payer MEDICARE, MEDICAID, SELFPAY | PROVIDERS: PCP Family Medicine; Visit Provider Surgery | DX: N60.91 Unspecified benign mammary dysplasia of right breast (principal); Z98.890 Other specified postprocedural states | CPT/HCPCS: 99212 ==

== ENCOUNTER → 2022-12-12 23:59 | Outpatient (BNV) | payer MEDICARE, MEDICAID, SELFPAY ==
--- NOTE | 2022-12-18 16:05 | MHC.OFFVIS ---
Intake Intake Visit Reasons: Remote ICD Check- [facility] Allergies lisinopril Adverse Reaction (Severe, Verified 12/06/22 10:35) COUGH PFSH Medical History Obesity (BMI 30-39.9) Pacemaker Atypical lobular hyperplasia (ALH) of right breast Steatosis, liver Morbid obesity Breast cancer Obesity Hypothyroidism History of breast cancer Depression Hypertension Cardiac resynchronization therapy defibrillator (BUS TROLLEY AND TAXI INSTRUCTOR-D) in place Dyspnea on exertion NICM (nonischemic cardiomyopathy) Restrictive lung disease DEANDRE (obstructive sleep apnea) Morbid obesity Surgical History S/P lumpectomy, right breast (04/12/21) History of right mastectomy History of incisional hernia repair History of colectomy History of laparoscopic cholecystectomy Family History Father Multiple sclerosis Mother Breast CA Maternal Grandmother Breast CA Paternal Grandmother Stomach cancer Paternal Aunt Breast CA Social History Household Members: None Housing: House Are you a primary child care nurse to a significant other at home: No Do you presently have visiting nurse or other home services: No Alcohol intake: current Alcohol intake frequency: holidays/special occasions only Patient Tobacco Use Status: Former Tobacco user Quit Date: 2004 Second Hand Smoke Exposure: No Substance Use Type: Marijuana service: No Current occupational status: retired Office Procedures Cardiac Device Check Cardiac Device Check Details: Date of service 12/12/2022; Battery life >3 years; normal lead parameters; no treated VT/VF; adequate biventricular pacing; normal ICD function. [id number] Cardiac Interrogation, implant defibrillator w/interim Procedure code (CPT) selection complete Assessment & Plan Assessment & Plan (1) NICM (nonischemic cardiomyopathy): Code(s): I42.8 - Other cardiomyopathies Coding Level of Care Code Procedure Only Diagnoses NICM (nonischemic cardiomyopathy) I42.8 CPT Codes Cardiac Device Check - Cardiac Device 13: [id number] Cardiac Interrogation, implant defibrillator w/interim ([id number])
== END ==
PROVIDERS: PCP Family Medicine; Visit Provider Internal Medicine
DX: I42.8 Other cardiomyopathies (principal); Z95.810 Presence of automatic (implantable) cardiac defibrillator
CPT/HCPCS: 93295

== ENCOUNTER 2023-01-01 10:33 | Outpatient (AMB) | payer MEDICARE, MEDICAID, SELFPAY ==
--- NOTE | 2023-01-01 10:38 | A.OFFVIS_ITS ---
Intake VS Expanded 01/01/23 10:52 BP 122/77 Blood Pressure Location Rt brachial Blood Pressure Position Sitting Pulse 82 Pulse Source Pulse Oximeter Temp 98.2 F Temperature Source Temporal Artery Scan Pulse Oximetry 98 Oxygen Delivery Method Room Air Height 5 ft 2 in Weight 163 lb 3.2 oz BMI 29.8 Body Fat % 38.9 Body Fat Mass 63.4 Fat Free Mass 99.6 Visceral Fat Rating 11.0 Body Water % 43.1 Body Water Mass 70.4 Muscle Mass/Score 94.6 Basal Metabolic Rate/Score 1,365 Intake Visit Reasons: (OV) PO LSG 01/19/21 Allergies lisinopril Adverse Reaction (Severe, Verified 01/01/23 10:39) COUGH Medication List - Last Reconciled 01/01/23 by SKYE Bower bupropion HCl 300 mg PO DAILY carvedilol 25 mg PO BID cholecalciferol (vitamin D3) 25 mcg PO DAILY furosemide 40 mg PO DAILY gabapentin 1 cap PO BEDTIME levothyroxine 175 mcg PO DAILY losartan 50 mg PO DAILY paroxetine HCl 30 mg PO DAILY spironolactone 25 mg PO DAILY thiamine HCl (vitamin B1) 100 mg PO DAILY HPI HPI Comments History of Present Illness Details This?is a?67?yo female who is s/p LSG 01/19/2021. Presents for 23 month post op visit. Weight at last visit on 06/18/2022 was 165.8 pounds with a BMI of 30.3, weight today is 163.2 pounds, representing a 3.6 pound weight loss with a BMI today of 29.9.? No complaints of nausea, emesis, abdominal pain or reflux, or constipation. 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 Has not been taking diuretic often recently. Present meal plan includes: 9am - 4:1 mixed with almond milk (2 scoo ps) 12 pm - same shake PP shake (1/2 scoop) at 3pm or has yogurt/fruit 6:30 pm - 4 forks each of protein and ve getable; sometimes will replace veg with rice, or mix veg and rice for a total of 4 forkfuls All meals last 20 - 30 minutes and does not drink and eat at the same time. Exercise routine includes: walking daily, has tried to increase recently Did the patient ever have any of these conditions and are they resolved or still being treated? GERD: resolved DEANDRE:? CPAP DM:? never HTN:? never (other meds are for pacemaker) Hyperlipidemia:? never Post op complications:? none PFSH Medical History Obesity (BMI 30-39.9) Pacemaker Atypical lobular hyperplasia (ALH) of right breast Steatosis, liver Morbid obesity Breast cancer Obesity Hypothyroidism History of breast cancer Depression Hypertension Cardiac resynchronization therapy defibrillator (COUNSELOR AT LAW-D) in place Dyspnea on exertion NICM (nonischemic cardiomyopathy) Restrictive lung disease DEANDRE (obstructive sleep apnea) Morbid obesity Surgical History S/P lumpectomy, right breast (04/12/21) History of right mastectomy History of incisional hernia repair History of colectomy History of laparoscopic cholecystectomy Family History Father Multiple sclerosis Mother Breast CA Maternal Grandmother Breast CA Paternal Grandmother Stomach cancer Paternal Aunt Breast CA Social History Household Members: None Housing: House Are you a primary dialysis patient care technician to a significant other at home: No Do you presently have visiting nurse or other home services: No Alcohol intake: current Alcohol intake frequency: holidays/special occasions only Patient Tobacco Use Status: Former Tobacco user Quit Date: 2004 Second Hand Smoke Exposure: No Substance Use Type: Marijuana service: No Current occupational status: retired Physical Exam Const General: cooperative, comfortable and no acute distress Orientation/consciousness: patient oriented x3 GI Other: soft, nontender, nondistended, incisions well healed, no hernia, no masses Neuro General: patient oriented x3 Assessment & Plan Assessment & Plan (1) Status post sleeve gastrectomy: Code(s): Z90.3 - Acquired absence of stomach [part of] (2) Overweight: Code(s): E66.3 - Overweight Plan Pt is happy with current regimen and does not desire any changes. She is satisfied with the pace of weight loss. Will check labs- pt never had drawn in June. RTC 6 months. Patient is overweight and is not considered stable at this time. I spent a total of 30 minutes reviewing/updating records, examining the patient and counseling the patient on weight management as detailed above. Coding Level of Care Code Est Pt Level 4 (66702) Diagnoses Status post sleeve gastrectomy Z90.3 Overweight E66.3
[2023-01-01 10:52] VITALS: BP 122/77; PULSE 82; TEMP 36.8; O2SAT 98; BMI 29.8
== END 2023-01-01 11:01 | disposition home or self-care (01) ==
PROVIDERS: PCP Family Medicine; Visit Provider Physician Assistant Surgical
DX: E66.3 Overweight (principal); Z68.29 Body mass index [BMI] 29.0-29.9, adult; Z90.3 Acquired absence of stomach [part of]; Z98.84 Bariatric surgery status
CPT/HCPCS: 99214

== ENCOUNTER → 2023-01-01 10:33 | Outpatient (BNVA) | payer MEDICARE, MEDICAID, SELFPAY | PROVIDERS: PCP Family Medicine; Visit Provider Physician Assistant Surgical | DX: E66.3 Overweight (principal); K76.0 Fatty (change of) liver, not elsewhere classified; G47.33 Obstructive sleep apnea (adult) (pediatric); Z68.29 Body mass index [BMI] 29.0-29.9, adult; Z90.3 Acquired absence of stomach [part of]; Z99.89 Dependence on other enabling machines and devices | CPT/HCPCS: 99212 ==

== ENCOUNTER → 2023-01-14 23:59 | Outpatient (BNV) | payer MEDICARE, MEDICAID, SELFPAY ==
--- NOTE | 2023-01-14 12:38 | A.OFFVIS_ITS ---
Intake Intake Visit Reasons: Remote HF Monitoring- [facility] Allergies lisinopril Adverse Reaction (Severe, Verified 01/01/23 10:39) COUGH PFSH Medical History Obesity (BMI 30-39.9) Pacemaker Atypical lobular hyperplasia (ALH) of right breast Steatosis, liver Morbid obesity Breast cancer Obesity Hypothyroidism History of breast cancer Depression Hypertension Cardiac resynchronization therapy defibrillator (CERAMICS INSTRUCTOR-D) in place Dyspnea on exertion NICM (nonischemic cardiomyopathy) Restrictive lung disease DEANDRE (obstructive sleep apnea) Morbid obesity Surgical History S/P lumpectomy, right breast (04/12/21) History of right mastectomy History of incisional hernia repair History of colectomy History of laparoscopic cholecystectomy Family History Father Multiple sclerosis Mother Breast CA Maternal Grandmother Breast CA Paternal Grandmother Stomach cancer Paternal Aunt Breast CA Social History Household Members: None Housing: House Are you a primary career guidance counselor to a significant other at home: No Do you presently have visiting nurse or other home services: No Alcohol intake: current Alcohol intake frequency: holidays/special occasions only Patient Tobacco Use Status: Former Tobacco user Quit Date: 2004 Second Hand Smoke Exposure: No Substance Use Type: Marijuana service: No Current occupational status: retired Office Procedures Cardiac Device Check Cardiac Device Check Details: Date of service- 01/14/2023; based on impedance data and physiological variables, there is no evidence of worsening congestive heart failure. [id number] Cardiac Device Interrogation, cardio physiologic monitor Procedure code (CPT) selection complete Assessment & Plan Assessment & Plan (1) NICM (nonischemic cardiomyopathy): Code(s): I42.8 - Other cardiomyopathies Coding Level of Care Code Procedure Only Diagnoses NICM (nonischemic cardiomyopathy) I42.8 CPT Codes Cardiac Device Check - Cardiac Device 15: [id number] Cardiac Device Interrogation, cardio physiologic monitor ([id number])
== END ==
PROVIDERS: PCP Family Medicine; Visit Provider Internal Medicine
DX: I42.8 Other cardiomyopathies (principal)
CPT/HCPCS: 93297

== ENCOUNTER → 2023-03-07 23:59 | Outpatient (BNV) | payer MEDICARE, MEDICAID, SELFPAY ==
--- NOTE | 2023-03-11 18:06 | MHC.OFFVIS ---
Intake Intake Visit Reasons: Remote HF Monitoring- [facility] Allergies lisinopril Adverse Reaction (Severe, Verified 01/01/23 10:39) COUGH PFSH Medical History Obesity (BMI 30-39.9) Pacemaker Atypical lobular hyperplasia (ALH) of right breast Steatosis, liver Morbid obesity Breast cancer Obesity Hypothyroidism History of breast cancer Depression Hypertension Cardiac resynchronization therapy defibrillator (AUTOMOBILE ACCESSORIES SALESPERSON-D) in place Dyspnea on exertion NICM (nonischemic cardiomyopathy) Restrictive lung disease DEANDRE (obstructive sleep apnea) Morbid obesity Surgical History S/P lumpectomy, right breast (04/12/21) History of right mastectomy History of incisional hernia repair History of colectomy History of laparoscopic cholecystectomy Family History Father Multiple sclerosis Mother Breast CA Maternal Grandmother Breast CA Paternal Grandmother Stomach cancer Paternal Aunt Breast CA Social History Household Members: None Housing: House Are you a primary career advisor to a significant other at home: No Do you presently have visiting nurse or other home services: No Alcohol intake: current Alcohol intake frequency: holidays/special occasions only Patient Tobacco Use Status: Former Tobacco user Quit Date: 2004 Second Hand Smoke Exposure: No Substance Use Type: Marijuana service: No Current occupational status: retired Office Procedures Cardiac Device Check Cardiac Device Check Details: Date of service- 03/07/2023; based on impedance data and physiological variables, there is no evidence of worsening congestive heart failure. [id number] Cardiac Device Interrogation, cardio physiologic monitor Procedure code (CPT) selection complete Assessment & Plan Assessment & Plan (1) NICM (nonischemic cardiomyopathy): Code(s): I42.8 - Other cardiomyopathies Plan x Coding Level of Care Code Procedure Only Diagnoses NICM (nonischemic cardiomyopathy) I42.8 CPT Codes Cardiac Device Check - Cardiac Device 15: [id number] Cardiac Device Interrogation, cardio physiologic monitor ([id number])
== END ==
PROVIDERS: PCP Family Medicine; Visit Provider Internal Medicine
DX: I42.8 Other cardiomyopathies (principal); Z95.810 Presence of automatic (implantable) cardiac defibrillator
CPT/HCPCS: 93297

== ENCOUNTER → 2023-03-13 23:59 | Outpatient (BNV) | payer MEDICARE, MEDICAID, SELFPAY ==
--- NOTE | 2023-03-19 19:22 | MHC.OFFVIS ---
Intake Intake Visit Reasons: Remote ICD Check- [facility] Allergies lisinopril Adverse Reaction (Severe, Verified 01/01/23 10:39) COUGH PFSH Medical History Obesity (BMI 30-39.9) Pacemaker Atypical lobular hyperplasia (ALH) of right breast Steatosis, liver Morbid obesity Breast cancer Obesity Hypothyroidism History of breast cancer Depression Hypertension Cardiac resynchronization therapy defibrillator (SURGICAL SCRUB TECHNOLOGIST-D) in place Dyspnea on exertion NICM (nonischemic cardiomyopathy) Restrictive lung disease DEANDRE (obstructive sleep apnea) Morbid obesity Surgical History S/P lumpectomy, right breast (04/12/21) History of right mastectomy History of incisional hernia repair History of colectomy History of laparoscopic cholecystectomy Family History Father Multiple sclerosis Mother Breast CA Maternal Grandmother Breast CA Paternal Grandmother Stomach cancer Paternal Aunt Breast CA Social History Household Members: None Housing: House Are you a primary child care lead teacher to a significant other at home: No Do you presently have visiting nurse or other home services: No Alcohol intake: current Alcohol intake frequency: holidays/special occasions only Patient Tobacco Use Status: Former Tobacco user Quit Date: 2004 Second Hand Smoke Exposure: No Substance Use Type: Marijuana service: No Current occupational status: retired Office Procedures Cardiac Device Check Cardiac Device Check Details: Date of service 03/13/2023; Battery life >3 years; normal lead parameters; no treated VT/VF; adequate biv pacing; normal ICD function. [id number] Cardiac Interrogation, implant defibrillator w/interim Procedure code (CPT) selection complete Assessment & Plan Assessment & Plan (1) NICM (nonischemic cardiomyopathy): Code(s): I42.8 - Other cardiomyopathies Plan x Coding Level of Care Code Procedure Only Diagnoses NICM (nonischemic cardiomyopathy) I42.8 CPT Codes Cardiac Device Check - Cardiac Device 13: [id number] Cardiac Interrogation, implant defibrillator w/interim ([id number])
== END ==
PROVIDERS: PCP Family Medicine; Visit Provider Internal Medicine
DX: I42.8 Other cardiomyopathies (principal); Z95.810 Presence of automatic (implantable) cardiac defibrillator
CPT/HCPCS: 93295

== ENCOUNTER → 2023-04-19 23:59 | Outpatient (BNV) | payer MEDICARE, SELFPAY ==
--- NOTE | 2023-04-23 15:02 | A.OFFVIS_ITS ---
Intake Intake Visit Reasons: Remote HF Monitoring- [facility] Allergies lisinopril Adverse Reaction (Severe, Verified 01/01/23 10:39) COUGH PFSH Medical History Obesity (BMI 30-39.9) Pacemaker Atypical lobular hyperplasia (ALH) of right breast Steatosis, liver Morbid obesity Breast cancer Obesity Hypothyroidism History of breast cancer Depression Hypertension Cardiac resynchronization therapy defibrillator (BRANCH ACCOUNT EXECUTIVE-D) in place Dyspnea on exertion NICM (nonischemic cardiomyopathy) Restrictive lung disease DEANDRE (obstructive sleep apnea) Morbid obesity Surgical History S/P lumpectomy, right breast (04/12/21) History of right mastectomy History of incisional hernia repair History of colectomy History of laparoscopic cholecystectomy Family History Father Multiple sclerosis Mother Breast CA Maternal Grandmother Breast CA Paternal Grandmother Stomach cancer Paternal Aunt Breast CA Social History Household Members: None Housing: House Are you a primary healthcare advisory services manager to a significant other at home: No Do you presently have visiting nurse or other home services: No Alcohol intake: current Alcohol intake frequency: holidays/special occasions only Patient Tobacco Use Status: Former Tobacco user Quit Date: 2004 Second Hand Smoke Exposure: No Substance Use Type: Marijuana service: No Current occupational status: retired Office Procedures Cardiac Device Check Cardiac Device Check Details: Date of service- 04/19/2023; based on impedance data and physiological variables, there is no evidence of worsening congestive heart failure. [id number] Cardiac Device Interrogation, cardio physiologic monitor Procedure code (CPT) selection complete Assessment & Plan Assessment & Plan (1) NICM (nonischemic cardiomyopathy): Code(s): I42.8 - Other cardiomyopathies Plan x Coding Level of Care Code Procedure Only Diagnoses NICM (nonischemic cardiomyopathy) I42.8 CPT Codes Cardiac Device Check - Cardiac Device 15: [id number] Cardiac Device Interrogation, cardio physiologic monitor ([id number])
== END ==
PROVIDERS: PCP Family Medicine; Visit Provider Internal Medicine
DX: I42.8 Other cardiomyopathies (principal)
CPT/HCPCS: 93297

== ENCOUNTER 2023-05-06 10:54 | Outpatient (REF) | payer MEDICARE, SELFPAY ==
--- NOTE | ~2023-05-06 | MM_ITS ---
EXAMINATION: MM SCREENING DIGITAL BREAST TOMOSYNTHESIS, BILATERAL CLINICAL INFORMATION: Screening. Asymptomatic. The patient has a history of treated right breast cancer in 2012 and atypical lobular hyperplasia of the right breast in 2021. COMPARISON: Mammography: This study is compared with prior exams dating back to 2019. TECHNIQUE: Digital breast tomosynthesis is performed in both the craniocaudal and mediolateral oblique views along with computer-aided detection (CAD). Synthesized 2D images are generated from the tomosynthesis. FINDINGS: There are scattered areas of fibroglandular density (ACR BI-RADS breast composition Category b). There are no significant masses, abnormal calcifications, or other abnormalities. There are postsurgical changes in the upper outer quadrant of the right breast from prior breast cancer surgery. Coarse, benign calcifications are present in the surgical bed. There is a pacemaker in superior aspect of the left breast. MM/MM tomosynthesis screening BI IMPRESSION: No mammographic evidence of malignancy. ASSESSMENT: BI-RADS BI-RADS 2 - Benign Findings RECOMMENDATION: Routine annual mammography screening. 1 year F/U This examination should not preclude the clinical evaluation of a suspicious palpable abnormality. This patient's information was entered into a reminder system with a target due date for their next mammogram.
== END 2023-05-06 10:55 | disposition home or self-care (01) ==
LOC: HO.MAMMO 10:54
PROVIDERS: PCP Family Medicine; Visit Provider Family Medicine
DX: Z12.31 Encounter for screening mammogram for malignant neoplasm of breast (principal)
CPT/HCPCS: 77063; 77067

== ENCOUNTER → 2023-05-06 11:00 | Outpatient (BNV) | payer MEDICARE, SELFPAY | PROVIDERS: PCP Family Medicine; Visit Provider Radiology Diagnostic Radiology | DX: Z12.31 Encounter for screening mammogram for malignant neoplasm of breast (principal) | CPT/HCPCS: 77063; 77067 ==

== ENCOUNTER 2023-06-06 08:58 | Outpatient (AMB) | payer MEDICARE, MEDICAID, SELFPAY ==
--- NOTE | 2023-06-06 09:07 | MHC.OFFVIS ---
Intake Vital Signs 06/06/23 09:08 Height 5 ft 2 in Weight 174 lb BMI 31.8 BP 126/73 Blood Pressure Location Lt brachial Position Sitting Pulse 87 Intake Visit Reasons: 6 mth follow up breast exam Intake Note: Patient is seen in office for 6 month follow up visit, breast exam. 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 She has a prior history of a right breast cancer s/p right lumpectomy with sentinel node biopsy in 2014 performed in [place]. She underwent chemotherapy followed by radiation therapy. This was followed by anastrozole 1 mg p.o. daily. She tolerated this well and denied any further breast problems until the current mammogram. Her family history is significant for her mother having breast cancer. She previously underwent genetic testing and was told this was negative. She has a history of congestive heart failure and has a pacemaker/defibrillator the left chest wall. She underwent a right stereotactic core biopsy on 03/30/2021 at the [facility]. Pathology revealed atypical lobular hyperplasia in a background of benign breast tissue with stromal fibrosis, fibroadenoma thus changed and calcifications. Right breast lumpectomy with needle localization was subsequently performed on 04/12/2021. Pathology reveals: Breast parenchyma with atypical lobular hyperplasia, fibrocystic changes, fibroadenomatoid change, coarse calcifications, and biopsy site changes; negative for invasive and in-situ carcinoma.? Biopsy site changes are present at the superior margin. Her most recent mammogram of 05/06/2023 revealed no mammographic evidence of malignancy (BI-RADS 2) and follow-up recommended in 1 year. She denies any new breast symptoms including palpable mass, nipple discharge, or new skin changes. She does report some soreness in the right breast at the lower outer portion. She is considering breast reductions. [facility] Medical History Obesity (BMI 30-39.9) Pacemaker Atypical lobular hyperplasia (ALH) of right breast Steatosis, liver Morbid obesity Breast cancer Obesity Hypothyroidism History of breast cancer Depression Hypertension Cardiac resynchronization therapy defibrillator (END POLISHER-D) in place Dyspnea on exertion NICM (nonischemic cardiomyopathy) Restrictive lung disease DEANDRE (obstructive sleep apnea) Morbid obesity Surgical History S/P lumpectomy, right breast (04/12/21) History of right mastectomy History of incisional hernia repair History of colectomy History of laparoscopic cholecystectomy Family History Father Multiple sclerosis Mother Breast CA Maternal Grandmother Breast CA Paternal Grandmother Stomach cancer Paternal Aunt Breast CA Social History Household Members: None Housing: House Are you a primary intensive care ambulance paramedic to a significant other at home: No Do you presently have visiting nurse or other home services: No Alcohol intake: current Alcohol intake frequency: holidays/special occasions only Patient Tobacco Use Status: Former Tobacco user Quit Date: 2004 Second Hand Smoke Exposure: No Substance Use Type: Marijuana service: No Current occupational status: retired Review of Systems Const All systems reviewed & are unremarkable except as noted in HPI and below Denies chills, Denies fever(s), Denies headache(s) and Denies poor appetite ENT Denies dizziness and Denies headache(s) Card Denies chest pain, Denies rapid heart rate, Denies palpitations and Denies slow heart rate Resp Denies chest congestion, Denies cough, Denies pain on inspiration and Denies wheezing GI Denies abdominal pain, Denies bloating, Denies change in stool character, Denies constipation, Denies diarrhea, Denies nausea, Denies vomiting and Denies hematemesis Denies nipple discharge Musc Denies back pain, Denies arthralgias, Denies joint swelling and Denies numbness Skin/Breast Denies breast swelling, Denies breast skin changes, Denies breast pain, Denies breast mass, Denies change in breast shape, Denies change in pigmentation, Denies nipple discharge, Denies erythema and Denies rash Neuro Denies dizziness, Denies headache(s) and Denies numbness Psych Denies anxiety and Denies depression Endo Denies palpitations Jayson/Lymph Denies easy bleeding, Denies easy bruising and Denies lymphadenopathy Aller/Immun Denies wheezing Physical Exam Const General: cooperative and no acute distress Nutritional Appearance: well nourished Orientation/consciousness: patient oriented x3 Limitations: no limitations Chest Other: Right breast with a well-healed incision in the lower outer portion of the breast. No redness or discharge is identified. No palpable mass, skin change, nipple discharge, or enlarged lymph nodes are appreciated. Left breast is normal with no skin change, nipple discharge, palpable mass, or enlarged lymph nodes. Chest/axillae images: 1. Well-healed incision lower outer quadrant right breast with underlying scar. Skin General skin exam: no rashes or lesions noted Neuro General: patient oriented x3 Extrem General: Yes normal to inspection and No edema Assessment & Plan Assessment & Plan (1) S/P lumpectomy, right breast: Onset Date: 04/12/21 Code(s): Z98.890 - Other specified postprocedural states (2) Atypical lobular hyperplasia (ALH) of right breast: Code(s): N60.91 - Unspecified benign mammary dysplasia of right breast Plan 67-year-old female patient with a prior history of right breast cancer (2014) and right breast atypical ductal hyperplasia (2021) returning for routine breast examination. She feels well and denies any ongoing breast symptoms. Examination today revealed no suspicious findings in either breast with a well-healed incision in the lower outer quadrant of the right breast. Her most recent mammogram of 05/06/2023 revealed no mammographic evidence of malignancy (BI-RADS 2). Follow-up mammogram in 1 year is recommended. I recommended she follow up for clinical breast examination in approximately 6 months, sooner p.r.n.. Coding Level of Care Code Est Pt Level 3 (51422) Diagnoses S/P lumpectomy, right breast Z98.890 Atypical lobular hyperplasia (ALH) of right breast N60.91
[2023-06-06 09:08] VITALS: BP 126/73; PULSE 87; BMI 31.8
== END 2023-06-06 09:20 | disposition home or self-care (01) ==
PROVIDERS: PCP Family Medicine; Visit Provider Surgery
DX: N60.91 Unspecified benign mammary dysplasia of right breast (principal); Z98.890 Other specified postprocedural states
CPT/HCPCS: 99213

== ENCOUNTER → 2023-06-06 08:58 | Outpatient (BNVA) | payer MEDICARE, MEDICAID, SELFPAY | PROVIDERS: PCP Family Medicine; Visit Provider Surgery | DX: N60.91 Unspecified benign mammary dysplasia of right breast (principal); Z98.890 Other specified postprocedural states; Z92.3 Personal history of irradiation; Z92.21 Personal history of antineoplastic chemotherapy | CPT/HCPCS: 99212 ==

== ENCOUNTER → 2023-06-12 23:59 | Outpatient (BNV) | payer MEDICARE, MEDICAID, SELFPAY ==
--- NOTE | 2023-06-13 14:47 | A.OFFVIS_ITS ---
Intake Intake Visit Reasons: Remote device check- [facility] Allergies lisinopril Adverse Reaction (Severe, Verified 06/06/23 09:09) COUGH PFSH Medical History Obesity (BMI 30-39.9) Pacemaker Atypical lobular hyperplasia (ALH) of right breast Steatosis, liver Morbid obesity Breast cancer Obesity Hypothyroidism History of breast cancer Depression Hypertension Cardiac resynchronization therapy defibrillator (TRUCK BRACER-D) in place Dyspnea on exertion NICM (nonischemic cardiomyopathy) Restrictive lung disease DEANDRE (obstructive sleep apnea) Morbid obesity Surgical History S/P lumpectomy, right breast (04/12/21) History of right mastectomy History of incisional hernia repair History of colectomy History of laparoscopic cholecystectomy Family History Father Multiple sclerosis Mother Breast CA Maternal Grandmother Breast CA Paternal Grandmother Stomach cancer Paternal Aunt Breast CA Social History Household Members: None Housing: House Are you a primary child care specialist to a significant other at home: No Do you presently have visiting nurse or other home services: No Alcohol intake: current Alcohol intake frequency: holidays/special occasions only Patient Tobacco Use Status: Former Tobacco user Quit Date: 2004 Second Hand Smoke Exposure: No Substance Use Type: Marijuana service: No Current occupational status: retired Office Procedures Cardiac Device Check Cardiac Device Check Details: Date of service 06/12/2023; Battery life >3 years; normal lead parameters; BP>99%; no treated VT/VF; ; normal ICD function. [id number] Cardiac Interrogation, implant defibrillator w/interim Procedure code (CPT) selection complete Assessment & Plan Assessment & Plan (1) NICM (nonischemic cardiomyopathy): Code(s): I42.8 - Other cardiomyopathies Plan: x Coding Level of Care Code Procedure Only Diagnoses NICM (nonischemic cardiomyopathy) I42.8 CPT Codes Cardiac Device Check - Cardiac Device 13: [id number] Cardiac Interrogation, implant defibrillator w/interim ([id number])
== END ==
PROVIDERS: PCP Family Medicine; Visit Provider Internal Medicine
DX: I42.8 Other cardiomyopathies (principal); Z95.810 Presence of automatic (implantable) cardiac defibrillator
CPT/HCPCS: 93295

== ENCOUNTER → 2023-06-14 23:59 | Outpatient (BNV) | payer MEDICARE, MEDICAID, SELFPAY ==
--- NOTE | 2023-06-30 12:24 | MHC.OFFVIS ---
Intake Visit Reasons: Remote HF monitoring- [facility] Allergies lisinopril Adverse Reaction (Severe, Verified 06/06/23 09:09) COUGH PFSH Medical History Obesity (BMI 30-39.9) Pacemaker Atypical lobular hyperplasia (ALH) of right breast Steatosis, liver Morbid obesity Breast cancer Obesity Hypothyroidism History of breast cancer Depression Hypertension Cardiac resynchronization therapy defibrillator (PROGRAM MANAGEMENT MANAGER-D) in place Dyspnea on exertion NICM (nonischemic cardiomyopathy) Restrictive lung disease DEANDRE (obstructive sleep apnea) Morbid obesity Surgical History S/P lumpectomy, right breast (04/12/21) History of right mastectomy History of incisional hernia repair History of colectomy History of laparoscopic cholecystectomy Family History Father Multiple sclerosis Mother Breast CA Maternal Grandmother Breast CA Paternal Grandmother Stomach cancer Paternal Aunt Breast CA Social History Household Members: None Housing: House Are you a primary career technical education teacher to a significant other at home: No Do you presently have visiting nurse or other home services: No Alcohol intake: current Alcohol intake frequency: holidays/special occasions only Patient Tobacco Use Status: Former Tobacco user Quit Date: 2004 Second Hand Smoke Exposure: No Substance Use Type: Marijuana service: No Current occupational status: retired Office Procedures Cardiac Device Check Cardiac Device Check Details: Date of service- 06/14/2023; based on impedance data and physiological variables, there is no evidence of worsening congestive heart failure. [id number] Cardiac Device Interrogation, cardio physiologic monitor Procedure code (CPT) selection complete Assessment & Plan Assessment & Plan (1) NICM (nonischemic cardiomyopathy): Code(s): I42.8 - Other cardiomyopathies Category: Medical Plan x
== END ==
PROVIDERS: PCP Family Medicine; Visit Provider Internal Medicine
DX: I42.8 Other cardiomyopathies (principal); Z95.810 Presence of automatic (implantable) cardiac defibrillator
CPT/HCPCS: 93297

== ENCOUNTER 2023-07-29 13:53 | Outpatient (AMB) | payer MEDICARE, MEDICAID, SELFPAY ==
[2023-07-29 14:03] VITALS: BP 130/70; PULSE 80; BMI 31.4
--- NOTE | 2023-07-29 14:03 | MHC.OFFVIS ---
Vital Signs 07/29/23 14:03 Height 5 ft 2 in Weight 171 lb 15.369 oz BMI 31.4 BP 130/70 Blood Pressure Location Lt brachial Position Sitting Pulse 80 Pulse Source Monitor Intake Visit Reasons: Cataract sugery Allergies lisinopril Adverse Reaction (Severe, Verified 06/06/23 09:09) COUGH Medication List - Last Reconciled 07/29/23 by Ortiz Campoverde MD bupropion HCl XL 300 mg PO DAILY carvedilol 25 mg PO BID cholecalciferol (vitamin D3) 25 mcg PO DAILY gabapentin 1 cap PO BEDTIME levothyroxine 175 mcg PO DAILY losartan 50 mg PO DAILY paroxetine HCl 30 mg PO DAILY thiamine HCl (vitamin B1) 100 mg PO DAILY HPI Comments Details: Makenna returns for follow-up regarding cardiomyopathy. To recall, she used to live in [place], but then moved here few years ago. She has a history of dilated cardiomyopathy, which according to her was told to be from a viral illness. There is no history of any coronary disease or myocardial infarction. She used to be a smoker in the past. She also has a biventricular ICD. Generator change in 2021. She was having shortness of breath and then we referred her to Pulmonary. She states that she has been diagnosed with sleep apnea and started on CPAP and with that she is feeling much better. Then she underwent weight loss surgery. Has lost lot of weight. Overall, no new complaints. States she feels good. Needs to go for cataract surgery. [facility] Medical History Obesity (BMI 30-39.9) Pacemaker Atypical lobular hyperplasia (ALH) of right breast Steatosis, liver Morbid obesity Breast cancer Obesity Hypothyroidism History of breast cancer Depression Hypertension Cardiac resynchronization therapy defibrillator (LABOR DELIVERY SPECIALIST-D) in place Dyspnea on exertion NICM (nonischemic cardiomyopathy) Restrictive lung disease DEANDRE (obstructive sleep apnea) Morbid obesity Surgical History S/P lumpectomy, right breast (04/12/21) History of right mastectomy History of incisional hernia repair History of colectomy History of laparoscopic cholecystectomy Family History Father Multiple sclerosis Mother Breast CA Maternal Grandmother Breast CA Paternal Grandmother Stomach cancer Paternal Aunt Breast CA Social History Household Members: None Housing: House Are you a primary med care manager to a significant other at home: No Do you presently have visiting nurse or other home services: No Alcohol intake: current Alcohol intake frequency: holidays/special occasions only Patient Tobacco Use Status: Former Tobacco user Quit Date: 2004 Second Hand Smoke Exposure: No Substance Use Type: Marijuana service: No Current occupational status: retired Review of Systems Const Denies weakness ENT Denies dizziness Card Denies chest pain, Denies chest pain with activity, Denies syncope, Denies rapid heart rate, Denies pedal edema, Denies edema, Denies leg edema, Denies lightheadedness, Denies palpitations, Denies dyspnea, Denies dyspnea on exertion and Denies orthopnea Resp Denies cough, Denies dyspnea and Denies dyspnea on exertion GI Denies hematochezia and Denies change in stool character Musc Denies abnormal gait, Denies muscle cramps, Denies muscle weakness, Denies numbness, Denies radiating pain into limb and Denies tingling Neuro Denies abnormal gait, Denies dizziness, Denies syncope, Denies numbness, Denies tingling and Denies weakness Endo Denies palpitations Physical Exam Vital Signs: Last Vital Signs Pulse 80 07/29/23 14:03 BP 130/70 07/29/23 14:03 Pulse Ox 91 L 07/29/23 14:03 Oxygen Delivery Method Room Air 07/29/23 14:03 BMI result Body Mass Index 31.4 Const General: comfortable and no acute distress Orientation/consciousness: patient oriented x3 HEENT Other: Unremarkable Head: Yes normal to inspection Neck Neck: Yes normal visual inspection Chest Chest palpation & inspection: normal inspection of the chest Resp Auscultation: clear to auscultation bilaterally Cardio Palpation: normal PMI Heart sounds: S1 normal heart sound present, S2 normal heart sound present, no gallops, no murmurs and no rubs GI Palpation (GI): Soft to palpation Back/Spine/Pelvis Other: unremarkable Skin General skin exam: no rashes or lesions noted Neuro General: patient oriented x3 Extrem General: Yes normal to inspection Psych Mental Status: mental status grossly normal Office Procedures EKG Details: EKG with atrial sensed, biventricular paced rhythm at 80/Min. [id number], Complete Assessment & Plan Assessment & Plan (1) NICM (nonischemic cardiomyopathy): Code(s): I42.8 - Other cardiomyopathies Category: Medical (2) Cardiac resynchronization therapy defibrillator (LABOR DELIVERY SPECIALIST-D) in place: Code(s): Z95.810 - Presence of automatic (implantable) cardiac defibrillator Category: Medical (3) DEANDRE (obstructive sleep apnea): Code(s): G47.33 - Obstructive sleep apnea (adult) (pediatric) Category: Medical Plan: Continue with CPAP. (4) Preoperative cardiovascular examination: Code(s): Z01.810 - Encounter for preprocedural cardiovascular examination Category: Medical Plan Cardiac studies reviewed. Last echocardiogram with LVEF 55-60% and without any valvular pathology. Ejection fraction was described to be as low as 40% in 2014 in [place]. Cardiac catheterization from 2016 shows no significant CAD. Continue carvedilol and losartan. Was on spironolactone in the past but not in her list anymore. Advised her to follow-up labs. ICD can be followed remotely. Follow-up in 6 months. Coding Level of Care Code Est Pt Level 4 (47590) Diagnoses NICM (nonischemic cardiomyopathy) I42.8 Cardiac resynchronization therapy defibrillator (LABOR DELIVERY SPECIALIST-D) in place Z95.810 DEANDRE (obstructive sleep apnea) G47.33 Preoperative cardiovascular examination Z01.810 CPT Codes EKG - CPT: 13137-[id number], Complete ([id number])
== END 2023-07-29 14:30 | disposition home or self-care (01) ==
PROVIDERS: PCP Family Medicine; Visit Provider Internal Medicine
DX: I42.8 Other cardiomyopathies (principal); Z95.810 Presence of automatic (implantable) cardiac defibrillator; G47.33 Obstructive sleep apnea (adult) (pediatric); Z01.810 Encounter for preprocedural cardiovascular examination
CPT/HCPCS: 93010; 99214

== ENCOUNTER → 2023-07-29 13:53 | Outpatient (BNVA) | payer MEDICARE, MEDICAID, SELFPAY | PROVIDERS: PCP Family Medicine; Visit Provider Internal Medicine | DX: Z01.810 Encounter for preprocedural cardiovascular examination (principal); I42.0 Dilated cardiomyopathy; G47.33 Obstructive sleep apnea (adult) (pediatric); Z95.810 Presence of automatic (implantable) cardiac defibrillator; Z99.89 Dependence on other enabling machines and devices | CPT/HCPCS: 93005; 99212 ==

== ENCOUNTER 2023-08-06 06:31 | Outpatient (REF) | payer MEDICARE, MEDICAID, SELFPAY ==
[2023-08-06 10:22] LABS: MANUAL DIFF FLAG NO
[2023-08-06 10:33] LABS: Basophils Absolute Auto 0.1 X10*3/uL (0.0-0.2); Basophils Percent Auto 1.2 % (0-2); Eosinophils Absolute Auto 0.2 X10*3/uL (0.0-0.4); Eosinophils Percent Auto 2.6 % (0-4); Hematocrit 42.3 % (37.0-47.0); Hemoglobin 13.8 g/dl (12.0-16.0); Imm Gran Abs Auto 0.05 X10*3/uL (0.00-0.03); Imm Gran Pct Auto 0.7 % (0.0-0.4); Lymphocytes Absolute Auto 2.8 X10*3/uL (1.2-4.9); Lymphocytes Percent Auto 40.8 % (20-40); Mean Corpuscular HGB Conc 32.6 g/dl (31.0-35.0); Mean Corpuscular Hemoglobin 36.9 pg (27.0-33.0); Mean Platelet Volume 9.2 fL (9.4-12.3); Monocytes Absolute Auto 0.6 X10*3/uL (0.1-1.2); Monocytes Percent Auto 8.1 % (2-11); Neutrophils Absolute Auto 3.2 x10*3/uL (2.0-8.3); Neutrophils Percent Auto 46.6 % (45-73); Platelet Count 293 X10*3/uL (160-400); Red Blood Count 3.74 X10*6/uL (4.20-5.50); Red Cell Distribution Width 14.6 % (11.0-16.0); White Blood Count 6.9 X10*3/uL (4.8-10.8)
[2023-08-06 10:34] LABS: Mean Corpuscular Volume 113.1 fL (80.0-98.0)
[2023-08-06 10:55] LABS: Alanine Aminotransferase 26 U/L (0-31); Albumin Level 3.7 g/dL (3.5-5.0); Alkaline Phosphatase 75 U/L (39-117); Anion Gap 11 (12-20); Aspartate Amino Transferase 27 U/L (5-31); Bilirubin Direct < 0.2 mg/dL (0.0-0.5); Bilirubin Total 0.2 mg/dL (0.0-1.0); Blood Urea Nitrogen 11 mg/dL (9-16); Carbon Dioxide 26 mmol/L (22-29); Chloride 109 mmol/L (96-108); Cholesterol 236 mg/dL (<200); Estimated Glomerular Filt Rate > 60; HDL Cholesterol 62 mg/dL (>40); LDL Cholesterol Calculated 147 mg/dL (<100); Potassium 4.3 mmol/L (3.3-5.1); Sodium 142 mmol/L (135-145); Total Protein 6.8 g/dL (6.5-8.0); Triglycerides 139 mg/dL (<150)
[2023-08-06 11:17] LABS: Free T4 (Free Thyroxine) 0.96 ng/dL (0.71-1.85); Thyroid Stimulating Hormone 1.93 uIU/mL (0.32-4.0)
== END 2023-08-06 06:32 | disposition home or self-care (01) ==
LOC: HO.HMGCLDS 06:31
PROVIDERS: PCP Family Medicine; Visit Provider Family Medicine
DX: I10 Essential (primary) hypertension (principal); E78.00 Pure hypercholesterolemia, unspecified; E03.9 Hypothyroidism, unspecified; K75.81 Nonalcoholic steatohepatitis (NASH)
CPT/HCPCS: 36415; 80051; 80061; 80076; 82565; 84439; 84443; 84520; 85025

== ENCOUNTER → 2023-09-11 23:59 | Outpatient (BNV) | payer MEDICARE, MEDICAID, SELFPAY ==
--- NOTE | 2023-09-17 15:56 | A.OFFVIS_ITS ---
Intake Visit Reasons: Remote ICD Check- [facility] Allergies lisinopril Adverse Reaction (Severe, Verified 06/06/23 09:09) COUGH PFSH Medical History Obesity (BMI 30-39.9) Pacemaker Atypical lobular hyperplasia (ALH) of right breast Steatosis, liver Morbid obesity Breast cancer Obesity Hypothyroidism History of breast cancer Depression Hypertension Cardiac resynchronization therapy defibrillator (SKY CAP-D) in place Dyspnea on exertion NICM (nonischemic cardiomyopathy) Restrictive lung disease DEANDRE (obstructive sleep apnea) Morbid obesity Surgical History S/P lumpectomy, right breast (04/12/21) History of right mastectomy History of incisional hernia repair History of colectomy History of laparoscopic cholecystectomy Family History Father Multiple sclerosis Mother Breast CA Maternal Grandmother Breast CA Paternal Grandmother Stomach cancer Paternal Aunt Breast CA Social History Household Members: None Housing: House Are you a primary health care marketing manager to a significant other at home: No Do you presently have visiting nurse or other home services: No Alcohol intake: current Alcohol intake frequency: holidays/special occasions only Patient Tobacco Use Status: Former Tobacco user Second Hand Smoke Exposure: No Substance Use Type: Marijuana service: No Current occupational status: retired Office Procedures Cardiac Device Check Cardiac Device Check Details: Date of service 09/11/2023; Battery life 2.7-3 years; normal lead parameters; adequate Biv pacing; no treated VT/VF; ; normal ICD function. [id number] Cardiac Interrogation, implant defibrillator w/interim Procedure code (CPT) selection complete Assessment & Plan Assessment & Plan (1) NICM (nonischemic cardiomyopathy): Code(s): I42.8 - Other cardiomyopathies Category: Medical Plan x Coding Level of Care Code Procedure Only Diagnoses NICM (nonischemic cardiomyopathy) I42.8 CPT Codes Cardiac Device Check - Cardiac Device 13: [id number] Cardiac Interrogation, implant defibrillator w/interim ([id number])
== END ==
PROVIDERS: PCP Family Medicine; Visit Provider Internal Medicine
DX: I42.8 Other cardiomyopathies (principal); Z95.810 Presence of automatic (implantable) cardiac defibrillator
CPT/HCPCS: 93295

== ENCOUNTER → 2023-11-26 23:59 | Outpatient (BNV) | payer MEDICARE, SELFPAY ==
--- NOTE | 2023-12-01 10:07 | MHC.OFFVIS ---
Intake Visit Reasons: Remote HF monitoring- [facility] Allergies lisinopril Adverse Reaction (Severe, Verified 06/06/23 09:09) COUGH PFSH Medical History Obesity (BMI 30-39.9) Pacemaker Atypical lobular hyperplasia (ALH) of right breast Steatosis, liver Morbid obesity Breast cancer Obesity Hypothyroidism History of breast cancer Depression Hypertension Cardiac resynchronization therapy defibrillator (GALVANIZER-D) in place Dyspnea on exertion NICM (nonischemic cardiomyopathy) Restrictive lung disease DEANDRE (obstructive sleep apnea) Morbid obesity Surgical History S/P lumpectomy, right breast (04/12/21) History of right mastectomy History of incisional hernia repair History of colectomy History of laparoscopic cholecystectomy Family History Father Multiple sclerosis Mother Breast CA Maternal Grandmother Breast CA Paternal Grandmother Stomach cancer Paternal Aunt Breast CA Social History Household Members: None Housing: House Are you a primary vocational childcare teacher to a significant other at home: No Do you presently have visiting nurse or other home services: No Alcohol intake: current Alcohol intake frequency: holidays/special occasions only Patient Tobacco Use Status: Former Tobacco user Second Hand Smoke Exposure: No Substance Use Type: Marijuana service: No Current occupational status: retired Office Procedures Cardiac Device Check Cardiac Device Check Details: Date of service- 11/26/2023; based on impedance data and physiological variables, there is no evidence of worsening congestive heart failure. [id number] Cardiac Device Interrogation, cardio physiologic monitor Procedure code (CPT) selection complete Assessment & Plan Assessment & Plan (1) NICM (nonischemic cardiomyopathy): Code(s): I42.8 - Other cardiomyopathies Category: Medical Plan x Coding Level of Care Code Procedure Only Diagnoses NICM (nonischemic cardiomyopathy) I42.8 CPT Codes Cardiac Device Check - Cardiac Device 15: [id number] Cardiac Device Interrogation, cardio physiologic monitor ([id number])
== END ==
PROVIDERS: PCP Family Medicine; Visit Provider Internal Medicine
DX: I42.8 Other cardiomyopathies (principal); Z95.818 Presence of other cardiac implants and grafts
CPT/HCPCS: 93297

== ENCOUNTER → 2023-12-11 23:59 | Outpatient (BNV) | payer MEDICARE, SELFPAY ==
--- NOTE | 2023-12-12 15:17 | MHC.OFFVIS ---
Intake Visit Reasons: Remote ICD check- [facility] Allergies lisinopril Adverse Reaction (Severe, Verified 06/06/23 09:09) COUGH PFSH Medical History Obesity (BMI 30-39.9) Pacemaker Atypical lobular hyperplasia (ALH) of right breast Steatosis, liver Morbid obesity Breast cancer Obesity Hypothyroidism History of breast cancer Depression Hypertension Cardiac resynchronization therapy defibrillator (ERP BUSINESS ANALYST-D) in place Dyspnea on exertion NICM (nonischemic cardiomyopathy) Restrictive lung disease DEANDRE (obstructive sleep apnea) Morbid obesity Surgical History S/P lumpectomy, right breast (04/12/21) History of right mastectomy History of incisional hernia repair History of colectomy History of laparoscopic cholecystectomy Family History Father Multiple sclerosis Mother Breast CA Maternal Grandmother Breast CA Paternal Grandmother Stomach cancer Paternal Aunt Breast CA Social History Household Members: None Housing: House Are you a primary lawn caretaker to a significant other at home: No Do you presently have visiting nurse or other home services: No Alcohol intake: current Alcohol intake frequency: holidays/special occasions only Patient Tobacco Use Status: Former Tobacco user Second Hand Smoke Exposure: No Substance Use Type: Marijuana service: No Current occupational status: retired Office Procedures Cardiac Device Check Cardiac Device Check Details: Date of service 12/11/2023; Battery life >2 years; normal lead parameters; no treated VT/VF; adequate Biv pacing; normal ICD function. [id number] Cardiac Interrogation, implant defibrillator w/interim Procedure code (CPT) selection complete Assessment & Plan Assessment & Plan (1) NICM (nonischemic cardiomyopathy): Code(s): I42.8 - Other cardiomyopathies Category: Medical (2) Cardiac resynchronization therapy defibrillator (ERP BUSINESS ANALYST-D) in place: Code(s): Z95.810 - Presence of automatic (implantable) cardiac defibrillator Category: Medical Plan x Coding Level of Care Code Procedure Only Diagnoses NICM (nonischemic cardiomyopathy) I42.8 Cardiac resynchronization therapy defibrillator (ERP BUSINESS ANALYST-D) in place Z95.810 CPT Codes Cardiac Device Check - Cardiac Device 13: [id number] Cardiac Interrogation, implant defibrillator w/interim ([id number])
== END ==
PROVIDERS: PCP Family Medicine; Visit Provider Internal Medicine
DX: I42.8 Other cardiomyopathies (principal); Z95.810 Presence of automatic (implantable) cardiac defibrillator
CPT/HCPCS: 93295

== ENCOUNTER 2024-01-06 14:45 | Outpatient (REF) | payer MEDICARE, SELFPAY ==
[2024-01-06 14:58] LABS: MANUAL DIFF FLAG NO
[2024-01-06 15:26] LABS: Basophils Absolute Auto 0.1 X10*3/uL (0.0-0.2); Basophils Percent Auto 1.2 % (0-2); Eosinophils Absolute Auto 0.1 X10*3/uL (0.0-0.4); Eosinophils Percent Auto 1.6 % (0-4); Hematocrit 39.9 % (37.0-47.0); Imm Gran Abs Auto 0.03 X10*3/uL (0.00-0.03); Imm Gran Pct Auto 0.4 % (0.0-0.4); Lymphocytes Absolute Auto 4.1 X10*3/uL (1.2-4.9); Mean Corpuscular HGB Conc 35.1 g/dl (31.0-35.0); Mean Corpuscular Hemoglobin 37.9 pg (27.0-33.0); Mean Corpuscular Volume 108.1 fL (80.0-98.0); Mean Platelet Volume 8.9 fL (9.4-12.3); Monocytes Absolute Auto 0.6 X10*3/uL (0.1-1.2); Monocytes Percent Auto 7.6 % (2-11); NRBC Pct Auto 0.2 /100WBC (0.0-0.2); Neutrophils Absolute Auto 3.1 x10*3/uL (2.0-8.3); Neutrophils Percent Auto 38.2 % (45-73); Platelet Count 273 X10*3/uL (160-400); Red Blood Count 3.69 X10*6/uL (4.20-5.50); Red Cell Distribution Width 14.2 % (11.0-16.0)
[2024-01-06 15:59] LABS: Alanine Aminotransferase 48 U/L (0-31); Albumin Level 3.9 g/dL (3.5-5.0); Alkaline Phosphatase 97 U/L (39-117); Anion Gap 13 (12-20); Aspartate Amino Transferase 67 U/L (5-31); Bilirubin Total 0.2 mg/dL (0.0-1.0); Blood Urea Nitrogen 11 mg/dL (9-16); C Reactive Protein < 0.10 mg/dL (< or = 0.50); Carbon Dioxide 24 mmol/L (22-29); Chloride 108 mmol/L (96-108); Estimated Glomerular Filt Rate > 60; Glucose Random 94 mg/dL (60-115); Magnesium 1.9 mg/dL (1.6-2.6); Potassium 3.7 mmol/L (3.3-5.1); Sodium 141 mmol/L (135-145); Total Protein 7.3 g/dL (6.5-8.0)
[2024-01-06 16:19] LABS: Free T4 (Free Thyroxine) 0.83 ng/dL (0.71-1.85)
== END 2024-01-06 14:46 | disposition home or self-care (01) ==
LOC: HO.LAB 14:45
PROVIDERS: PCP Family Medicine; Visit Provider Family Medicine
DX: R19.7 Diarrhea, unspecified (principal); R00.0 Tachycardia, unspecified; R10.13 Epigastric pain
CPT/HCPCS: 36415; 80053; 83735; 84439; 85025; 86140

== ENCOUNTER 2024-01-13 12:49 | Outpatient (AMB) | payer MEDICARE, MEDICAID, SELFPAY ==
[2024-01-13 13:07] VITALS: BP 138/90; PULSE 61; BMI 25.8
--- NOTE | 2024-01-13 13:07 | MHC.OFFVIS ---
Vital Signs 01/13/24 13:07 Height 5 ft 2 in Weight 141 lb 1.533 oz BMI 25.8 BP 138/90 H Blood Pressure Location Lt brachial Position Sitting Pulse 61 Pulse Source Monitor Intake Visit Reasons: 6mth f/up [place] [employer] Required: No Allergies lisinopril Adverse Reaction (Severe, Verified 01/13/24 13:09) COUGH Medication List - Last Reconciled 01/14/24 by Natalee Isabel, SEWAGE PLANT SUPERVISOR-C bupropion HCl XL 300 mg PO DAILY carvedilol 25 mg PO BID cholecalciferol (vitamin D3) 25 mcg PO DAILY gabapentin 1 cap PO BEDTIME levothyroxine 175 mcg PO DAILY losartan 50 mg PO DAILY paroxetine HCl 30 mg PO DAILY thiamine HCl (vitamin B1) 100 mg PO DAILY HPI HPI 6mth f/up: Details: Makenna is a 68-year-old female with past medical history of nonischemic cardiomyopathy, ICD placement who presents for follow-up. Today she reports that she has been doing generally well since her last visit in July. She tells me she is having some GI issues with frequent loose stools and is currently undergoing evaluation. She denies any chest discomfort at rest or with activity. No shortness of breath, PND, orthopnea or edema. No lightheadedness, palpitations, presyncope, syncope. Taking all meds as directed. She does light physical activities. [facility] Medical History Obesity (BMI 30-39.9) Pacemaker Atypical lobular hyperplasia (ALH) of right breast Steatosis, liver Morbid obesity Breast cancer Obesity Hypothyroidism History of breast cancer Depression Hypertension Cardiac resynchronization therapy defibrillator (SOLID WASTE FACILITY OPERATOR-D) in place Dyspnea on exertion NICM (nonischemic cardiomyopathy) Restrictive lung disease DEANDRE (obstructive sleep apnea) Morbid obesity Surgical History S/P lumpectomy, right breast (04/12/21) History of right mastectomy History of incisional hernia repair History of colectomy History of laparoscopic cholecystectomy Family History Father Multiple sclerosis Mother Breast CA Maternal Grandmother Breast CA Paternal Grandmother Stomach cancer Paternal Aunt Breast CA Social History Household Members: None Housing: House Are you a primary career development director to a significant other at home: No Do you presently have visiting nurse or other home services: No Alcohol intake: current Alcohol intake frequency: holidays/special occasions only Patient Tobacco Use Status: Former Tobacco user Second Hand Smoke Exposure: No Substance Use Type: Marijuana service: No Current occupational status: retired Review of Systems Const All systems reviewed & are unremarkable except as noted in HPI and below ENT Denies dizziness Card Denies chest pain, Denies chest pain at rest, Denies chest pain with activity, Denies rapid heart rate, Denies pedal edema, Denies edema, Denies leg edema, Denies lightheadedness, Denies palpitations, Denies dyspnea, Denies dyspnea on exertion and Denies orthopnea Resp Denies cough, Denies dyspnea and Denies dyspnea on exertion GI Denies hematochezia and Denies change in stool character Musc Denies abnormal gait, Denies limited range of motion, Denies muscle cramps, Denies muscle weakness, Denies numbness, Denies radiating pain into limb, Denies stiffness and Denies tingling Neuro Denies abnormal gait, Denies dizziness, Denies numbness and Denies tingling Endo Denies palpitations Physical Exam Vital Signs: Last Vital Signs Pulse 61 01/13/24 13:07 BP 138/90 H 01/13/24 13:07 BMI result Body Mass Index 25.8 Const General: cooperative, healthy appearing, comfortable and no acute distress Orientation/consciousness: patient oriented x3 Neck Neck: Yes normal visual inspection Resp Effort & Inspection: normal respiratory effort Auscultation: clear to auscultation bilaterally, no rales, no rhonchi and no wheezes Cardio Jugular venous distension: no JVD Rate: regular rate Rhythm: regular rhythm Heart sounds: S1 normal heart sound present, S2 normal heart sound present, no murmurs and no rubs Neuro General: patient oriented x3 Extrem General: Yes normal to inspection and No no pedal edema Psych Appearance: grossly normal Mental Status: mental status grossly normal Speech and movement: Normal speech and movement present Office Procedures Cardiac Device Check Cardiac Device Check Details: [facility] Bi V ICD interrogation today shows battery 2.5-2.8 years, DDDR mode, low rate 60, atrial threshold 1.125 volts at 0.5 milliseconds, RV threshold 0.5 volts at 0.5 milliseconds, LV threshold 1.5 volts at 0.5 millisecond, Bi V paced greater than 99%, no alerts, 1 recent for 2nd mode switch. [id number] Cardiac Device Check, multi lead implantable defibrillator Procedure code (CPT) selection complete EKG Details: Today, read by me, atrial sensed, ventricular paced rhythm, rate 62 [id number], Complete Assessment & Plan Assessment & Plan (1) NICM (nonischemic cardiomyopathy): Code(s): I42.8 - Other cardiomyopathies Category: Medical Plan: History of nonischemic cardiomyopathy. Cardiac catheterization from 2016 showed no CAD. Notes indicate that her last echocardiogram showed EF 55-60%. She has a Bi V ICD in place. Condition has been stable with no recent heart failure admissions. She denies symptoms of shortness of breath, edema. On Exam she does not appear fluid overloaded. Labs done 01/06/2024 showed potassium 3.7, creatinine 0.62. Continue carvedilol and losartan for neurohormonal modulation. Will check echo prior to her next visit. Signs and symptoms of heart failure reviewed with her. Cardiology follow-up in 6 months, sooner if needed. (2) Cardiac resynchronization therapy defibrillator (SOLID WASTE FACILITY OPERATOR-D) in place: Code(s): Z95.810 - Presence of automatic (implantable) cardiac defibrillator Category: Medical Plan: [facility] Bi V ICD in place. Interrogation today shows it is functioning normally. Battery 2.5-2.8 years. Remote monitoring in use. Next office interrogation due in 6 months. (3) Hypertension: Code(s): I10 - Essential (primary) hypertension Category: Medical Plan: [place] blood pressure goal less than 130/85. Mild elevation today. Prior blood pressures reviewed and typically she is in normal range. Will continue current meds without change. Reviewed low-salt diet. (4) DEANDRE (obstructive sleep apnea): Code(s): G47.33 - Obstructive sleep apnea (adult) (pediatric) Category: Medical Plan: CPAP use. Ongoing Compliance reviewed. Plan Time spent on chart review, documentation, intravenous assessment Orders: Orders CA echo transthoracic complete 06/22/24 I42.8 - Other cardiomyopathies Coding Level of Care Code Est Pt Level 4 (96622) Diagnoses NICM (nonischemic cardiomyopathy) I42.8 Cardiac resynchronization therapy defibrillator (SOLID WASTE FACILITY OPERATOR-D) in place Z95.810 Hypertension I10 DEANDRE (obstructive sleep apnea) G47.33 CPT Codes Cardiac Device Check - Cardiac Device 6: [id number] Cardiac Device Check, multi lead implantable defibrillator ([id number]) EKG - CPT: 55866-[id number], Complete ([id number]) Time Spent (min) 36
== END 2024-01-13 13:49 | disposition home or self-care (01) ==
LOC: HO.HCS 12:49
PROVIDERS: PCP Family Medicine; Visit Provider Nurse Practitioner Family
DX: I42.8 Other cardiomyopathies (principal); Z95.810 Presence of automatic (implantable) cardiac defibrillator; I10 Essential (primary) hypertension; G47.33 Obstructive sleep apnea (adult) (pediatric)
CPT/HCPCS: 93010; 93284; 99214

== ENCOUNTER → 2024-01-13 12:49 | Outpatient (BNVA) | payer MEDICARE, MEDICAID, SELFPAY | PROVIDERS: PCP Family Medicine; Visit Provider Nurse Practitioner Family | DX: I42.8 Other cardiomyopathies (principal); I10 Essential (primary) hypertension; G47.33 Obstructive sleep apnea (adult) (pediatric); Z95.810 Presence of automatic (implantable) cardiac defibrillator | CPT/HCPCS: 93005; 99212 ==

== ENCOUNTER → 2024-03-11 23:59 | Outpatient (BNV) | payer MEDICARE, SELFPAY ==
--- NOTE | 2024-03-22 14:41 | A.OFFVIS_ITS ---
Intake Visit Reasons: Remote ICD check- [facility] Allergies lisinopril Adverse Reaction (Severe, Verified 01/13/24 13:09) COUGH PFSH Medical History Obesity (BMI 30-39.9) Pacemaker Atypical lobular hyperplasia (ALH) of right breast Steatosis, liver Morbid obesity Breast cancer Obesity Hypothyroidism History of breast cancer Depression Hypertension Cardiac resynchronization therapy defibrillator (OUTREACH DIRECTOR-D) in place Dyspnea on exertion NICM (nonischemic cardiomyopathy) Restrictive lung disease DEANDRE (obstructive sleep apnea) Morbid obesity Surgical History S/P lumpectomy, right breast (04/12/21) History of right mastectomy History of incisional hernia repair History of colectomy History of laparoscopic cholecystectomy Family History Father Multiple sclerosis Mother Breast CA Maternal Grandmother Breast CA Paternal Grandmother Stomach cancer Paternal Aunt Breast CA Social History Household Members: None Housing: House Are you a primary nanny caregiver to a significant other at home: No Do you presently have visiting nurse or other home services: No Alcohol intake: current Alcohol intake frequency: holidays/special occasions only Patient Tobacco Use Status: Former Tobacco user Second Hand Smoke Exposure: No Substance Use Type: Marijuana service: No Current occupational status: retired Office Procedures Cardiac Device Check Cardiac Device Check Details: Date of service 03/11/2024; Battery life >2 years; normal lead parameters; no treated VT/VF; adequate biv pacing; normal ICD function. [id number] Cardiac Interrogation, implant defibrillator w/interim Procedure code (CPT) selection complete Assessment & Plan Assessment & Plan (1) Cardiac resynchronization therapy defibrillator (OUTREACH DIRECTOR-D) in place: Code(s): Z95.810 - Presence of automatic (implantable) cardiac defibrillator Category: Medical (2) NICM (nonischemic cardiomyopathy): Code(s): I42.8 - Other cardiomyopathies Category: Medical Plan x Coding Level of Care Code Procedure Only Diagnoses Cardiac resynchronization therapy defibrillator (OUTREACH DIRECTOR-D) in place Z95.810 NICM (nonischemic cardiomyopathy) I42.8 CPT Codes Cardiac Device Check - Cardiac Device 13: [id number] Cardiac Interrogation, implant defibrillator w/interim ([id number])
== END ==
PROVIDERS: PCP Family Medicine; Visit Provider Internal Medicine
DX: I42.8 Other cardiomyopathies (principal); Z95.810 Presence of automatic (implantable) cardiac defibrillator
CPT/HCPCS: 93295

== ENCOUNTER 2024-04-09 08:33 | Outpatient (REF) | payer MEDICARE, SELFPAY ==
[2024-04-09 09:25] LABS: Leukocytes Stool Qualitative NEGATIVE (NEGATIVE)
[2024-04-09 10:39] LABS: Adenovirus F 40/41 Not Detected (Not Detect.); Astrovirus Not Detected (Not Detect.); Campylobacter Not Detected (Not Detect.); Cryptosporidium Not Detected (Not Detect.); Cyclospora cayetanensis Not Detected (Not Detect.); E. coli EAEC Not Detected (Not Detect.); E. coli EPEC Not Detected (Not Detect.); E. coli ETEC Not Detected (Not Detect.); E. coli STEC Not Detected (Not Detect.); Entamoeba histolytica Not Detected (Not Detect.); Giardia lamblia Not Detected (Not Detect.); Norovirus GI/GII Not Detected (Not Detect.); Plesiomonas shigelloides Not Detected (Not Detect.); Rotavirus A Not Detected (Not Detect.); Salmonella Not Detected (Not Detect.); Sapovirus Not Detected (Not Detect.); Shigella sp./EIEC Not Detected (Not Detect.); Vibrio Not Detected (Not Detect.); Vibrio Cholerae Not Detected (Not Detect.); Yersinia enterocolitica Not Detected (Not Detect.)
[2024-04-09 10:54] LABS: CDiff Gene PCR POSITIVE (Negative)
[2024-04-09 13:30] LABS: CDIFF Internal ctrl Dots and bkg OK (V); CDiff Toxin Negative (Negative)
[2024-04-16 04:53] LABS: Calprotectin, Fecal 14 mcg/g
== END 2024-04-09 08:34 | disposition home or self-care (01) ==
LOC: HO.LNP 08:33
PROVIDERS: Visit Provider Internal Medicine
DX: K52.9 Noninfective gastroenteritis and colitis, unspecified (principal)
CPT/HCPCS: 83993; 87324; 87493; 87507; 89055

== ENCOUNTER → 2024-05-14 12:26 | Outpatient (REF) | payer MEDICARE, SELFPAY ==
--- NOTE | 2024-05-14 12:35 | CA_ITS ---
Transthoracic Echocardiogram Patient (Last, First, Middle): Makenna Cardona T Gender: Female Date of : 1955 Age: 68 Procedure Date: 05/14/2024 Procedure Type: Transthoracic Echocardiogram Location: OP Height: 157. cm Weight: 76.21 kg BSA: 1.77 m2 Heart Rate: 62 bpm BP: 120 / 85 mmHg Sprinkling System Irrigator: MERLENE Couch MD: Natalee Isabel BELLMAN-C Senior Business Development Manager: Reinaldo Spicer MD Symptoms: I42.8 - Other cardiomyopathies Study Quality: Adequate ECG Rhythm: Arrhythmia Conclusions: - 1. Normal LV ejection fraction 55-60% with grade 1 diastolic dysfunction 2. Mildly dilated left atrium 3. Mild mitral regurgitation 4. Mildly dilated ascending aorta at 4 cm 5. Normal RV systolic pressure 6. No gross pericardial effusion Findings Left Ventricle Normal left ventricular size, thickness, and systolic function. The visually estimated ejection fraction is between 55-60%. There is paradoxical septal motion consistent with a right ventricular pacemaker. Spectral Doppler is indicative of an impaired relaxation filling pattern. E/E prime ratio is <8, consistent with normal filling pressures. Evidence suggests grade I (mild) diastolic dysfunction. Right Ventricle Normal right ventricular cavity size and systolic function. There is an ICD wire seen in the right ventricle. Atria The left atrium is mildly dilated. There is lipomatous hypertrophy of the interatrial septum. There is no evidence of interatrial shunt. The right atrium is likely dilated. A pacemaker wire is identified in the right atrium. Aortic Valve There is mild calcification of the aortic valve. There is no aortic valve stenosis. There is no aortic valve regurgitation. Mitral Valve There is mild anterior and posterior mitral leaflet thickening. There is mild mitral valve regurgitation. There is no mitral valve stenosis. Pulmonic Valve The pulmonic valve was not well visualized. Tricuspid Valve Likely normal tricuspid valve structure and function. There is trace tricuspid valve regurgitation. The right ventricular systolic pressure is normal. The right ventricular systolic pressure is 16 mmHg. Normal right atrial pressure. There is no evidence of pulmonary hypertension. Great Vessels The pulmonary artery was not well visualized. There is mild dilatation of the ascending aorta measuring 4.00 cm. Venous The inferior vena cava is normal in size and collapses greater than 50% with inspiration. Pericardium/Pleural There is no evidence of pericardial effusion. Prior Study Comparison No significant change compared to prior study dated: 10/12/2019. Measurements 2D Linear Measurements IVSd: 0.90 0.6-0.9/0.6-1.0 cm LVIDd: 4.18 3.9-5.3/4.2-5.9 cm LVIDd Index: 2.36 2.4-3.2/2.2-3.1 cm/m2 LVIDs: 2.58 2.0-3.6 cm LVPWd: 0.94 0.7-1.1 cm LA Diam: 3.30 2.7-3.8/3.0-4.0 cm LAIDs Index: 1.86 1.5-2.3 cm/m2 LV Mass: 150.49 67-162/88-224 g LV Mass Index: 85.02 43-95/49-115 g/m2 LVOT Diam: 2.10 3.0+(-)1.3 cm 2D Systolic Function EF 4C: 57.30 >55% EF 2C: 59.40 >55% EF BiP: 58.00 >55% Mitral Valve MV Pk E: 0.44 MV PK A: 0.64 MV Decel Time: 310.00 E/A: 0.70 E'Lateral: 7.40 E'Medial: 5.00 E/E' Med: 8.80 E/E' Lat: 6.00 PHT: 91.00 MVA PHT: 2.42 Decel [place]: 1.42 Aortic Valve AoV Pk Bairon: 1.33 AoV Mn Bairon: 0.99 AoV VTI: 0.29 AoV Pk Grad: 7.00 Aov Mn Grad: 5.00 NOLVIA Cont.VTI: 2.29 LVOT LVOT Pk Bairon: 0.90 LVOT Mn Bairon: 0.64 LVOT VTI: 0.19 LVOT Pk Grad: 3.00 LVOT Mn Grad: 2.00 LVOT Diam: 2.10 LVOT Area: 3.46 Diastolic Function MV Pk E: 0.44 MV Pk A: 0.64 E/A: 0.70 E'Medial: 5.00 E/E' Med: 8.80 E' Laterial: 7.40 E/E' Lat: 6.00 Right Ventricle TAPSE (mm): 11.10 TVS' Bairon: 7.72 Tricuspid Valve TR Pk Bairon: 1.81 TR Pk Grad: 13.00 RA Press: 3.00 RVSP: 16.00 Great Vessels Aorta Sinus of Valsalva: 3.10 2.0-3.5 cm Ao Asc: 4.00 2.1-3.4 cm Ao Arch: 2.50 Pulmonary Valve PV Pk Bairon: 0.81 Peak PV Grad: 3.00 Updated in Other Vendor System with Status of Final Reinaldo Spicer MD electronically signed on 05/14/2024 6:51:49 PM with status of Final
[2024-05-14 13:02] LABS: MANUAL DIFF FLAG NO
[2024-05-14 14:36] LABS: Basophils Absolute Auto 0.2 X10*3/uL (0.0-0.2); Basophils Percent Auto 2.2 % (0-2); Eosinophils Absolute Auto 0.1 X10*3/uL (0.0-0.4); Eosinophils Percent Auto 1.7 % (0-4); Hemoglobin 13.1 g/dl (12.0-16.0); Imm Gran Abs Auto 0.02 X10*3/uL (0.00-0.03); Imm Gran Pct Auto 0.2 % (0.0-0.4); Lymphocytes Absolute Auto 3.7 X10*3/uL (1.2-4.9); Mean Corpuscular HGB Conc 33.6 g/dl (31.0-35.0); Mean Platelet Volume 9.5 fL (9.4-12.3); Monocytes Absolute Auto 0.6 X10*3/uL (0.1-1.2); Neutrophils Absolute Auto 3.6 x10*3/uL (2.0-8.3); Neutrophils Percent Auto 43.9 % (45-73); Platelet Count 328 X10*3/uL (160-400); Red Blood Count 3.36 X10*6/uL (4.20-5.50); Red Cell Distribution Width 14.2 % (11.0-16.0); White Blood Count 8.1 X10*3/uL (4.8-10.8)
[2024-05-14 14:37] LABS: Mean Corpuscular Volume 116.1 fL (80.0-98.0)
--- OUTSIDE RECORDS SUMMARY | 2024-05-14 14:56 | XMS_ITS | Patient Health Record ---
Author Organization [facility] Address [address] [place] [address] Care Team Providers Care Aerographer Name Role Phone Haider FOWLER, Kartik Primary Care Provider Qamar Talley [phone] Allergies Allergen (clinical drug ingredient) Drug/Non Drug Allergy documented on EMR Reaction Allergy Type Onset Date Status lisinopril Lisinopril cough Drug Allergy Activ e Results Component Value Reference Range Notes Leukocytes Stool Qualitative Reviewed date:04/09/2024 02:02:54 PM Interpretation: Performing Lab:[facility], [address] [place] [phone] Notes/Report: Leukocytes Stool Qualitative NEGATIVE NEGATIVE Calprotectin, Fecal Reviewed date:04/16/2024 10:46:56 AM Interpretation: Performing Lab:[facility], [address] [place] [phone] Notes/Report: Calprotectin, Fecal 14 Reference Range: <50 Normal 50-120 Borderline >120 Elevated Calprotectin in Crohn's disease and ulcerative colitis can be five to several thousand times above the reference population (50 mcg/g or less). Levels are usually 50 mcg/g or less in healthy patients and with irritable bowel syndrome. Repeat testing in 4-6 weeks is suggested for borderline values. THIS TEST WAS PERFORMED AT: [facility] [address] [place] [address] KATHERINE MCGEE MD,PHD,PATRICIA CDiff Gene PCR Reviewed date:04/13/2024 04:23:19 PM Interpretation: Performing Lab:[facility], [address] [place] [phone] Notes/Report: CDiff Gene PCR POSITIVE Negative Additional C. difficile toxin testing to be performed. CDiff Toxin Reviewed date:04/09/2024 02:04:29 PM Interpretation: Performing Lab:[facility], [address] [place] [phone] Notes/Report: CDiff Toxin Negative Negative CDIFF Interpretation SEE NOTE Likely C. difficile colonization. Continue contact precautions. GI PANEL Reviewed date:04/09/2024 02:03:39 PM Interpretation: Performing Lab:[facility], [address] [place] [phone] Notes/Report: Campylobacter Not Detected Not Detect. Plesiomonas shigelloides Not Detected Not Detect. Salmonella Not Detected Not Detect. Vibrio Not Detected Not Detect. Vibrio Cholerae Not Detected Not Detect. Yersinia enterocolitica Not Detected Not Detect. E. coli EAEC Not Detected Not Detect. E. coli EPEC Not Detected Not Detect. E. coli ETEC Not Detected Not Detect. E. coli STEC Not Detected Not Detect. E. coli O157 Not applicable Not Detect. E. coli containing the O157 antigen are a subset of Shiga-like toxin-producing E. coli (STEC). Shigella sp./EIEC Not Detected Not Detect. Cryptosporidium Not Detected Not Detect. Cyclospora cayetanensis Not Detected Not Detect. Entamoeba histolytica Not Detected Not Detect. Giardia lamblia Not Detected Not Detect. Adenovirus F 40/41 Not Detected Not Detect. Astrovirus Not Detected Not Detect. Norovirus GI/GII Not Detected Not Detect. Rotavirus A Not Detected Not Detect. Sapovirus Not Detected Not Detect. All results must be correlated with clinical findings. Negative results do not exclude the possibility of gastrointestinal infection and should not be used as the sole basis for diagnosis, treatment, or other management decisions. Virus, bacteria, and parasite nucleic acid may persist in vivo independently of organism viability. Additionally, some organisms may be carried asymptomatically. Detection of organism targets does not imply that the corresponding organisms are infectious or are the causative agents for clinical symptoms. There is a risk of false negative values due to the presence of sequence variants in the gene targets of the assay, amplification inhibitors in specimens, or inadequate numbers of organisms for amplification. The identification of several diarrheagenic E. coli pathotypes has historically relied upon phenotypic characteristics. This panel targets genetic determinants characteristic of most pathogenic strains, but may not detect all strains having phenotypic characteristics of a pathotype. The performance of this test has not been established for monitoring treatment of infection with any of the panel organisms. This assay is performed by Multiplexed PCR, utilizing the Eventable Array. Reason For Referral No Information Medications Medication SIG (Take, Route, Frequency, Duration) Notes Start Date End Date Status Levothyroxine Sodium Active Losartan Potassium 50 MG 1 tablet Orally Once a day for 30 day(s) Active PARoxetine HCl Activ e Imodium A-D 2 MG use 1 or 2 tablets O rally Up to Four times a day for diarrhea. You can take it before a meal to try to prevent diarrhea after eating for 30 days 04/23/2024 Active busPIRone HCl 5 MG 1 tablet Orally Twice a day Active Cholestyramine 4 GM/DOSE use anywhere fr om 1/4 to a full scoop in 8 ounces of water or orange juice Orally Once or twice a day to help with the diarrhea for 30 day(s) 04/23/2024 Active BuPROPion HBr Active Carvedilol Active Dicyclomine HCl 10 MG 1 Orally BID Active Immunizations Vaccine Route Administration Date Status Comme nts Influenza Unknown 11/25/2018 Refused Social History Tobacco Use: Social History Observation Description Date Details (start date - stop date) Former Smoker NA - NA Tobacco Use/Smoking Question Answer Notes Patient is a former smoker How long has it been since you last smoked? > 10 years Alcohol Screen Question Answer Notes Did you have a drink contain ing alcohol in the past year? Yes How often did you have a dri nk containing alcohol in the past year? 2 to 3 times a week (3 points) How many drinks did you have on a typical day when you were drinking in the past year? 1 or 2 drinks (0 point) How often did you have 6 or more drinks on one occasion in the past year? Never (0 point) Points 3 Interpretation Positive Section Notes: Nonsmoker; 1 drink a day-nev er heavy in the past Nonsmoker; 1 drink a day-nev er heavy in the past Nonsmoker; occ. alcohol Problems Problem Type SNOMED Code ICD Code Onset Dates Problem Status W/U Status Risk Notes Problem 043293478 Encounter for screening for malignant neoplasm of colon (Z12.11) Active confirmed Problem Chronic diarrhea (441413988) Chronic diarrhea (K52.9) Active confirmed Problem 51948134 Irritable bowel syndrome with both constipation and diarrhea (K58.2) Active confirmed Problem 293481146 Non-intractable vomiting without nausea, unspecified vomiting type (R11.11) Active confirmed Problem 8363457 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) Active confirmed Problem Macrocytosis - no anemia (915527277) Macrocytosis without anemia (D75.89) Active confirmed Problem [id number] Abnormal abdominal CT scan (R93.5) Active confirmed Vital Signs Blood pressure diastolic 00 mm Hg 04/23/2024 Height 62 in 04/23/2024 Blood pressure systolic 00 mm Hg 04/23/2024 Weight 168 lbs 04/23/2024 BMI 30.72 kg/m2 04/23/2024 Encounters Encounter Location Date Provider Diagnosis [facility] [address] [place] [phone] 04/23/2024 Qamar Garcia Chronic diarrhea K52 .9 and Macrocytosis without anemia D75.89 [facility] [address] [place] [phone] 01/14/2024 Qamar Garcia Chronic diarrhea K52 .9 [facility] [address] [place] [phone] 01/30/2024 Qamar Garcia [facility] [address] [place] [phone] 04/09/2024 Qamar Garcia [facility] [address] [place] [phone] 04/17/2024 Qamar Garcia Assessments Encounter Date Diagnosis (ICD Code) Assessment Notes Treatment Notes Treatment Clinical Notes Section Notes 04/23/2024 Chronic diarrhea (ICD-10 - K52.9) Start using the cholestyramine powder 1/4 of a scoop in a glass of water or OJ once or twice a day. You can increase it slowy to a full scoop once or twice day based on how the diarrhea is doing, Use Imodium before every meal as well. Think about the colonoscopy as I recommend it for screening and prevention of colon cancer, as well as trying to figure out the diarrhea issue Overall, Makenna appears well. However, her GI symptoms are quite problematic for her in regard to her bowel movements being quite frequent, loose, and occasionally urgent. She does have a baseline irritable bowel syndrome but things definitely seem to be worse over the past year or so. I did advise her that it would be important to rule out underlying pathology in the colon including that of neoplasm, inflammatory bowel disease, or microscopic colitis given that she has not had a colonoscopy in probably 15-20 years. We did review the rationale for this including that of the prevention and/or early detection of colorectal cancer. Nonetheless she adamantly refused to have the procedure done. I did try to reassure her about the bowel prep and the anesthesia during the procedure that would keep her comfortable, but nonetheless she did not want to do it. As such, I did advise her that we could try some symptomatic treatment with a trial of cholestyramine that might help things if she is having some component of a bile-induced diarrhea from her distant history of a cholecystectomy. Given the fairly recent gastric sleeve surgery and previous partial colon resection for diverticulitis, she may be having some diarrhea in relation to both of those things coupled with the previous cholecystectomy and possible component of bile-induced diarrhea. I have also advised her to begin using Imodium liberally throughout the day. I shall check the below laboratories including a repeat celiac disease profile and vitamin B12 and folate levels due to the elevated MCV on her CBC. I will also repeat a stool for C. difficile. I did advise her to see me again in the Fall for a followup office visit but did advise her to call me if the diarrhea remains very problematic and she changes her mind about having a colonoscopy such that we can schedule the procedure for her over the phone rather than waiting until the Fall. Makenna was comfortable with this plan. Thank you again for allowing me to participate in Makenna's care. I shall continue to keep you advised of her progress. 04/23/2024 Macrocytosis without anemia (ICD-10 - D75.89) Overall, Makenna appears well. However, her GI symptoms are quite problematic for her in regard to her bowel movements being quite frequent, loose, and occasionally urgent. She does have a baseline irritable bowel syndrome but things definitely seem to be worse over the past year or so. I did advise her that it would be important to rule out underlying pathology in the colon including that of neoplasm, inflammatory bowel disease, or microscopic colitis given that she has not had a colonoscopy in probably 15-20 years. We did review the rationale for this including that of the prevention and/or early detection of colorectal cancer. Nonetheless she adamantly refused to have the procedure done. I did try to reassure her about the bowel prep and the anesthesia during the procedure that would keep her comfortable, but nonetheless she did not want to do it. As such, I did advise her that we could try some symptomatic treatment with a trial of cholestyramine that might help things if she is having some component of a bile-induced diarrhea from her distant history of a cholecystectomy. Given the fairly recent gastric sleeve surgery and previous partial colon resection for diverticulitis, she may be having some diarrhea in relation to both of those things coupled with the previous cholecystectomy and possible component of bile-induced diarrhea. I have also advised her to begin using Imodium liberally throughout the day. I shall check the below laboratories including a repeat celiac disease profile and vitamin B12 and folate levels due to the elevated MCV on her CBC. I will also repeat a stool for C. difficile. I did advise her to see me again in the Fall for a followup office visit but did advise her to call me if the diarrhea remains very problematic and she changes her mind about having a colonoscopy such that we can schedule the procedure for her over the phone rather than waiting until the Fall. Makenna was comfortable with this plan. Thank you again for allowing me to participate in Makenna's care. I shall continue to keep you advised of her progress. 01/14/2024 Chronic diarrhea (ICD-10 - K52.9) Plan Of Treatment Pending Test Test Name Order Date CHEM 7 PROFILE 04/23/2024 BUN 05/24/2019 CREATININE 05/24/2019 LIVER PROFILE 05/24/2019 LIVER PROFILE 04/23/2024 AMYLASE 05/24/2019 LIPASE 05/24/2019 CBC w DIFF 04/23/2024 CELIAC PANEL #10 04/23/2024 CELIAC PANEL #10 11/25/2018 CA 19-9 05/24/2019 STOOL WBC 01/14/2024 C DIFFICILE RFLX PCR 01/14/2024 C DIFFICILE RFLX PCR 04/23/2024 Vitamin B12 and Folate 04/23/2024 Calprotectin, Fecal 01/14/2024 GI PANEL 01/14/2024 Future Test Test Name Order Date COLONOSCOPY 11/25/2018 Next Appt Details Provider Name:Qamar Garcia , 11/24/2024 01:20:00 PM, [address], [address], [place], [address], Insurance Providers Payer Name Payer Address Payer Phone Subscriber Number Group Number Insured Name Patient Relationship to Insured Coverage Start Date Coverage End Date [facility] [address] [address] [place] [address] [id number] MAKENNA GARCIA Self - patient is the insured MEDICAID OF [facility] [address] [place] [address] [id number] MAKENNA GARCIA Self - patient is the insured Medical (General) History Medical History History ICD Code Breast cancer on the right with surgery, chemo, and XRT in 2014 Denies [place],DM,CVA,Lung disease,renal dise ase CHF/ pacemaker-Dr. Campoverde Hypothyroidism Depression Reports a negative colonoscopy in [facility] > 10 years ago IBS-neg. celiac disease labs in 2019 Some questionable abnormalit y in the head of the pancreas on imaging studies. Followup CAT scans were stable as recently as of June of 2019, and this was not felt to be clinically significant Basically normal CT scan of abdomen in January of 2024, including the pancreas Treated with 10 days of oral vancomycin for possible C. difficile infection with a positive C. difficile Gene test but negative C. difficile Toxin test. She received this treatment from the end of March to beginning of April 2024 due to persistent diarrhea as well Surgical History Surgery Date(Month/Year) Cholecystectomy 2002 Umbilical hernia repair 2003 Partial Right mastectomy 2014 Cardiac pacemeker/Defibrillator 2010 [facility] diverticul[facility] [address] Richter in 2 022--lost over 50 pounds
--- OUTSIDE RECORDS SUMMARY | 2024-05-14 14:56 | XMS_ITS ---
Author Organization [facility] Address [address] [place] [phone] Care Team Providers Care Microarray Operations Vice President Name Role Phone Haider FOWLER, Kartik Primary Care Provider Unavailab nathan Garcia Qamar Unavailable [phone] REASON FOR VISIT Address ? of stool Cdiff infection/ waiting on pt call back Medications Medication SIG (Take, Route, Frequency, Duration) Notes Start Date End Date Status Vancocin 250 MG 1 capsule Orally every 6 hrs for 10 day(s) I sent this prescription to her [facility] plan by mistake. She will be picking it up with you instead. Thanks very much 04/10/2024 Active Encounters Encounter Location Date Provider Diagnosis [facility] [address] [place] [address] 04/09/2024 Qamar Garcia Plan Of Treatment Medication Medication Name Sig Start Date Stop Date Notes Vancocin 250 MG 1 capsule Orally jenny ry 6 hrs for 10 day(s) 04/10/2024 I sent this prescrip tion to her [facility] plan by mistake. She will be picking it up with you instead. Thanks very much Next Appt Details Provider Name:Qamar Garcia , 11/24/2024 01:20:00 PM, [address], [address], [place], [address], Progress Notes * CYNTHIA GARCIADOB: (68 yo F)Acc No.[id number]:04/09/2024 Patient:?CYNTHIA GARCIA :1955???Age:68 Y???Sex:Female Address:[address] [place] [address], [address] * Refills? Start Vancocin Capsule, 250 MG, Orally, 40 Capsule, 1 capsule, every 6 hrs, 10 day(s), Refills=0 * true * Date:? Generated for Devora kahn/Bayron/Yoselinsmitting on:?05/14/2024 02:55 PM EST
--- OUTSIDE RECORDS SUMMARY | 2024-05-14 14:56 | XMS_ITS ---
Author Organization [facility] Address [address] [place] [address] Care Team Providers Care Heat Treating Bluer Name Role Phone Haider FOWLER, Kartik Primary Care Provider Qamar Talley [phone] Allergies Allergen (clinical drug ingredient) Drug/Non Drug Allergy documented on EMR Reaction Allergy Type Onset Date Status lisinopril Lisinopril cough Drug Allergy Activ e REASON FOR VISIT diarrhea Medications Medication SIG (Take, Route, Frequency, Duration) Notes Start Date End Date Status Dicyclomine HCl 10 MG 1 Orally BID Active Losartan Potassium 50 MG 1 tablet Orally Once a day for 30 day(s) Active Levothyroxine Sodium Active PARoxetine HCl Activ e Imodium A-D 2 MG use 1 or 2 tablets O rally Up to Four times a day for diarrhea. You can take it before a meal to try to prevent diarrhea after eating for 30 days 04/23/2024 Active BuPROPion HBr Active Carvedilol Active busPIRone HCl 5 MG 1 tablet Orally Twice a day Active Cholestyramine 4 GM/DOSE use anywhere fr om 1/4 to a full scoop in 8 ounces of water or orange juice Orally Once or twice a day to help with the diarrhea for 30 day(s) 04/23/2024 Active Social History Tobacco Use: Social History Observation [...] Points 3 Interpretation Positive Section Notes: Nonsmoker; occ. alcohol Problems Problem Type SNOMED Code ICD Code Onset Dates Problem Status W/U Status Risk Notes Problem Macrocytosis - no anemia (097794003) Macrocytosis without anemia (D75.89) Active confirmed Vital Signs Blood pressure systolic 00 mm Hg 04/23/19 25 Blood pressure diastolic 00 mm Hg 025 Height 62 in 04/23/2024 Weight 168 lbs 04/23/2024 BMI 30.72 kg/m2 04/23/2024 Encounters Encounter Location Date Provider Diagnosis [facility] [address] [place] [address] 04/23/2024 Qamar Garcia Chronic diarrhea K52 .9 and Macrocytosis without anemia D75.89 Assessments Encounter Date Diagnosis (ICD Code) Assessment [...] to keep you advised of her progress. Plan Of Treatment Medication Medication Name Sig Start Date Stop Date Notes Imodium A-D 2 MG use 1 or 2 tablets O rally Up to Four times a day for diarrhea. You can take it before a meal to try to prevent diarrhea after eating for 30 days 04/23/2024 Cholestyramine 4 GM/DOSE use anywhere fr om 1/4 to a full scoop in 8 ounces of water or orange juice Orally Once or twice a day to help with the diarrhea for 30 day(s) 04/23/2024 Treatment Notes Assessment Notes Chronic diarrhea Start using the cholestyramine powder 1/4 of [...] trying to figure out the diarrhea issue Pending Test Test Name Order Date CHEM 7 PROFILE 04/23/2024 LIVER PROFILE 04/23/2024 CBC w DIFF 04/23/2024 CELIAC PANEL #10 04/23/2024 C DIFFICILE RFLX PCR 04/23/2024 Vitamin B12 and Folate 04/23/2024 Next Appt Details Follow Up: 2024, Reaso n: Provider Name:Qamar Garcia , 11/24/2024 01:20:00 PM, [address] [place] [address], [address], [place], [address], Progress Notes * MAKENNA GARCIADOB: (68 yo F)Acc No.[id number]:04/23/2024 Progress Notes Patient:MAKENNA CABRERA Provider:?Qamar Garcia MD :1955???Age:68 Y???Sex:Female D ate:04/23/2024 Address:[address] [place], [place] [id number] Pcp:Kartik Maloney MD Subjective: * Chief Complaints: * ???Diarrhea * HPI: ???incontinence:? I saw Makenna in consultation today regarding further evaluation of her worsening diarrhea with underlying irritable bowel syndrome. ?I last evaluated Makenna in 2019 with a telemedicine visit during the pandemic. At that time we reviewed her irritable bowel syndrome which did not seem particularly problematic and was stable on a regimen of some dicyclomine. I had recommended a screening colonoscopy at that time since she had not had one for at least 10 years but she refused that. ?As you know, she underwent a bariatric surgery procedure with a gastric sleeve operation in 2021. Subsequent to that she has lost over 50 pounds. She describes that she tolerated that well but over the past year she is now having persistent and somewhat worsening diarrhea on a daily and frequent basis. This can be quite urgent and it is worsened by eating. She has not noticed any hematochezia nor melena. She does have associated abdominal cramps, although those resolve with the use of 10 mg of dicyclomine about twice a day. She describes a good appetite and denies any significant heartburn or dysphagia. She had not had any preceding history of travel, antibiotic use, ill contacts, nor the initiation of any new medication. She does not use much in the way of any dairy products nor caffeine. ?She had a CT scan of the abdomen in January 2024 for evaluation of the diarrhea. This was unremarkable and without any sign of GI pathology nor any other significant intra-abdominal abnormalities. In particular, the pancreas appeared normal according to the report. Also in December 2023 she had normal chemistries, renal function, T4 level, and LFTs other than minimal elevation of the AST and ALT. A CBC was normal at that time as well but with an elevated MCV of 108. ?She called me about her symptoms in the latter part of March and I did have her turn in stool specimens. The C. difficile gene test was positive but the C. difficile toxin was negative. Other stool specimens were all negative as well including a fecal calprotectin level, GI panel, and stool leukocytes. Based on the positive C. difficile gene test and her persistent diarrhea I did opt to treat her with a 10 day course of vancomycin even though the C. difficile toxin was negative. However, she describes that this did not particularly help her symptoms. ?Rica did have negative laboratory for celiac disease back in 2018. She denies any known family history of colon cancer, inflammatory bowel disease nor celiac disease. * ROS:?General/Constitutional:?Change in appetite?denies.?Chills?denies.?Fatigue?denies.?Ophthalmologic:?Comments?all negative.?ENT:?Comments?all negative.?Respiratory:?hemoptysis?denies.?Cough?denies.?Cardiovascular:?Chest pain?denies.?Orthopnea?denies.?Gastrointestinal:?Comments?See HPI for details.?Genitourinary:?Hematuria?denies.?Dysuria?denies.?Musculoskeletal:?Painful joints?denies.?Weakness?denies.?Skin:?Itching?denies.?Rash?denies.?Neurologic:?Headache?denies.?Seizures?denies.?Psychiatric:?Comments?all negative.? * Medical History:? * Surgical History:?Cholecyste ctomy 2002Umbilical hernia repair 2004Partial Right mastectomy 2015Cardiac pacemeker/Defibrillator 2011Colon surgery due to diverticulitis in [place] 2010Gastric sleeve with Dr. Richter in 2021--lost over 50 pounds * Hospitalization/Major Diagno stic Procedure:?No Hospitalization History. * Family History:?Father: dece ased.?Mother: .? No colorectal cancer, no pancreatic cancer. * Social History:?Tobacco Use:?Tobacco Use/Smoking?Patient is a?former smoker,?How long has it been since you last smoked??> 10 years.?Drugs/Alcohol:?Alcohol Screen?Did you have a drink containing alcohol in the past year??Yes,?How often did you have a drink containing alcohol in the past year??2 to 3 times a week (3 points),?How many drinks did you have on a typical day when you were drinking in the past year??1 or 2 drinks (0 point),?How often did you have 6 or more drinks on one occasion in the past year??Never (0 point),?Points?3,?Interpretation?Positive.?Miscellaneous:?Marital status: single. Occupation: retired. ???Nonsmoker; occ. alcohol. * Medications:?TakingbusPIRone HCl 5 MG Tablet 1 tablet Orally Twice a dayCarvedilol BuPROPion HBr Levothyroxine Sodium PARoxetine HCl Losartan Potassium 50 MG Tablet 1 tablet Orally Once a dayDicyclomine HCl 10 MG Capsule 1 Orally BIDTaking busPIRone HCl 5 MG Tablet 1 tablet Orally Twice a dayTaking Carvedilol Taking BuPROPion HBr Taking Levothyroxine Sodium Taking PARoxetine HCl Taking Losartan Potassium 50 MG Tablet 1 tablet Orally Once a dayTaking Dicyclomine HCl 10 MG Capsule 1 Orally BIDDiscontinuedAnastrozole Digoxin Zolpidem Tartrate Spironolactone Furosemide Vancocin 250 MG Capsule 1 capsule Orally every 6 hrs, Notes: I sent this prescription to her [facility] plan by mistake. She will be picking it up with you instead. Thanks very muchDicyclomine HCl 10 MG Capsule 1-2 Orally Q 6 hours prn abdominal cramps/discomfortDicyclomine HCl 10 MG Capsule 1-2 Orally Q 6 hours prn abdominal cramps/discomfortMedication List reviewed and reconciled with the patientDiscontinued Anastrozole Discontinued Digoxin Discontinued Zolpidem Tartrate Discontinued Spironolactone Discontinued Furosemide Discontinued Vancocin 250 MG Capsule 1 capsule Orally every 6 hrs, Notes: I sent this prescription to her [facility] plan by mistake. She will be picking it up with you instead. Thanks very muchDiscontinued Dicyclomine HCl 10 MG Capsule 1-2 Orally Q 6 hours prn abdominal cramps/discomfortDiscontinued Dicyclomine HCl 10 MG Capsule 1-2 Orally Q 6 hours prn abdominal cramps/discomfortMedication List reviewed and reconciled with the patient * Allergies:?Lisinopril: cough yes[Allergies Verified] Objective: * Vitals:?Wt: 168 lbs, Ht: 62 in, BMI:30.72 Index, BP: 00/00 mm Hg. * Examination: ???General Examination: ?GENERAL APPEARANCE:?pleasant, well nourished, well developed, in no acute distress.?EYES:?sclera non-icteric.?ORAL CAVITY:?mucosa moist.?NECK/THYROID:?no cervical lymphadenopathy, neck supple.?SKIN:?nonjaundiced, no spider angiomata.?HEART:?S1, S2 normal.?LUNGS:?clear to auscultation bilaterally.?ABDOMEN:?normal bowel sounds, no guarding or rigidity, no guarding or rigidity, no masses palpable, soft, nontender, nondistended.?EXTREMITIES:?no edema.?NEUROLOGIC:?alert and oriented.? Assessment: * Assessment: 1.?Chronic diarrhea - K52.9 (Primary)?2.?Macrocytosis without anemia - D75.89? Overall, Makenna appears well. However, her GI [...] to keep you advised of her progress. Plan: * Treatment: 2.?Macrocytosis without anem ia?LAB: CHEM 7 PROFILE ?LAB: LIVER PROFILE ?LAB: CBC w DIFF ?LAB: CELIAC PANEL #10 ?LAB: Vitamin B12 and Folate * Procedure Codes:?3017F COLOR ECTAL CA SCREEN DOC [id number] TOBACCO [id number] BP SCR NOT PRFRM REC REASON NOS * Preventive Medicine:? ??Counseling:?Care goal follow-up plan:?Above Normal BMI Follow-up?Giving encouragement to exercise,?BMI management provided?Yes.? ??Urinary Incontinence:?Urinary Incontinence?Assessment:?Absent,?Plan of care documented:?No, reason not specified.? ??Screenings:?Fall Risk Screening?Fall Risk Assessment:?No falls in the past year,?Screening:?No falls in the past year,?Assessment:?Not performed, no reason specified,?Plan of Care:?Not documented, no reason specified.? * Follow Up:?2024 * * Sign off status: Completed true * Provider:?Qamar Garcia MD Date:? 025 Generated for Devora kahn/Bayron/Anuj on:?05/14/2024 02:55 PM EST History and Physical Notes * HPI (History of Present Illness) Category Sub-Category Detail Notes Category Not es incontinence I saw Makenna in consultation today regarding further evaluation of her worsening diarrhea with underlying irritable bowel syndrome. I last evaluated Makenna in 2019 with a telemedicine visit during the pandemic. At that time we reviewed her irritable bowel syndrome which did not seem particularly problematic and was stable on a regimen of some dicyclomine. I had recommended a screening colonoscopy at that time since she had not had one for at least 10 years but she refused that. As you know, she underwent a bariatric surgery procedure with a gastric sleeve operation in 2021. Subsequent to that she has lost over 50 pounds. She describes that she tolerated that well but over the past year she is now having persistent and somewhat worsening diarrhea on a daily and frequent basis. This can be quite urgent and it is worsened by eating. She has not noticed any hematochezia nor melena. She does have associated abdominal cramps, although those resolve with the use of 10 mg of dicyclomine about twice a day. She describes a good appetite and denies any significant heartburn or dysphagia. She had not had any preceding history of travel, antibiotic use, ill contacts, nor the initiation of any new medication. She does not use much in the way of any dairy products nor caffeine. She had a CT scan of the abdomen in January 2024 for evaluation of the diarrhea. This was unremarkable and without any sign of GI pathology nor any other significant intra-abdominal abnormalities. In particular, the pancreas appeared normal according to the report. Also in December 2023 she had normal chemistries, renal function, T4 level, and LFTs other than minimal elevation of the AST and ALT. A CBC was normal at that time as well but with an elevated MCV of 108. She called me about her symptoms in the latter part of March and I did have her turn in stool specimens. The C. difficile gene test was positive but the C. difficile toxin was negative. Other stool specimens were all negative as well including a fecal calprotectin level, GI panel, and stool leukocytes. Based on the positive C. difficile gene test and her persistent diarrhea I did opt to treat her with a 10 day course of vancomycin even though the C. difficile toxin was negative. However, she describes that this did not particularly help her symptoms. [place] did have negative laboratory for celiac disease back in 2018. She denies any known family history of colon cancer, inflammatory bowel disease nor celiac disease. Examination Category Sub-Category Detail Notes Category Not es General Examination GENERAL APPEARANCE: pleasant , well nourished, well developed, in no acute distress HEAD: EYES: sclera non-icteric EARS: NOSE: THROAT: NECK/THYROID: no cervical lymphade nopathy, neck supple HEART: S1, S2 normal CHEST: LUNGS: clear to auscultatio n bilaterally ABDOMEN: normal bowel sounds, no guarding or rigidity, no guarding or rigidity, no masses palpable, soft, nontender, nondistended NEUROLOGIC: alert and oriented SKIN: nonjaundiced, no spi devon angiomata EXTREMITIES: no edema PERIPHERAL PULSES: BACK: BREASTS: MUSCULOSKELETAL: MALE GENITOURINARY: LYMPH NODES: RECTAL EXAM: FEMALE GENITOURINARY: ORAL CAVITY: mucosa moist
--- OUTSIDE RECORDS SUMMARY | 2024-05-14 14:56 | XMS_ITS ---
Author Organization [facility] Address [address] [place] [address] Care Team Providers Care Public Health Aide Name Role Phone Kartik Maloney MD Primary Care Provider Unavailab Qamar Ac [phone] REASON FOR VISIT NOT FEELING ANY BETTER Encounters Encounter Location Date Provider Diagnosis [facility] [address] [place] [address] 04/17/2024 Qamar Garcia Plan Of Treatment Next Appt Details Provider Name:Qamar Garcia , 11/24/2024 01:20:00 PM, [address], [address], [place], [address], Progress Notes * GARCIACYNTHIADOB: (68 yo F)Acc No.[id number]:04/17/2024 Patient:?GARCIA, CYNTHIA :1955???Age:68 Y???Sex:Female Address:[address] [place], [address] * true * Date:? Generated for Printi criss/Bayron/eTransmitting on:?05/14/2024 02:56 PM EST
--- OUTSIDE RECORDS SUMMARY | 2024-05-14 14:56 | XMS_ITS | Continuity of Care Document ---
Author Organization [facility] Address [address] [address] Phone Care Team Providers Care Torpedo Worker Name Role Phone Gil Anderson MD Unavailable Unavailable Allergies, Adverse Reactions, Alerts Substance Reaction Status Criticality No Known Allergies Active No Inform ation Medications Medication Instructions Dosage Effective Dates (start - stop) Status Comments erythromycin 5 mg/gram (0.5 %) eye ointment apply (1CM) by ophthalmic route 3 times every day ribbon into the lower conjunctival sac(s) in the affected eye(s) as needed 1 CM - Active carvedilol 6.25 mg tablet take 1 tablet by oral route 2 times every day with food 6.25 MG - Active latanoprost 0.005 % eye drops instill 1 Drop by Ophthalmic route OD QHS - Active lisinopril 2.5 mg tablet take 1 tablet by oral route every day 2.5 MG - Active levothyroxine 125 mcg capsule take 1 capsule by oral route every day 125 MCG - Active furosemide 40 mg tablet take 1 tablet by oral route every day 40 MG - Active digoxin 125 mcg tablet take 1 tablet by oral route every day 125 MCG - Active paroxetine 30 mg tablet take 1 tablet by oral route every day 30 MG - Active spironolactone 50 mg tablet take 1 tablet by oral route every day 50 MG - Active Procedures Procedure Date Est Pt Exp Prob Focused Visual Jackson, Extended Est Pt Exp Prob Focused Refraction Est Pt Complete Est Pt Complete Bscan W/Interpret Scan Computerized; Retina Est Pt Complete Tear Osmolarity Scan Computerized; Optic Nerve 14 Ophth Serv: Med Exam; Interm E 13 Ophth Serv: Med Exam; Interm E 13 Scan Computerized; Optic Nerve 13 Visual Jackson, Intermediate Pachymetry Postop F/u Visit Incld Global 8 Est Pt Exp Prob Focused Gonioscopy (separt Proc) New Pt Exp Prob Focused 20 Min 07 Advance Directives Directive Yes / No Effective Date File Name No Information Encounters Encounter Description Practice Location Reason(s) For Visit Diagnoses Date Provider Providers Copied on Encounter Est Pt Exp Prob Focused [facility], [address] [place], [place], [id number] , tel: [phone] [facility] Cataract, Nuclear SclerosisDry Eye SyndromePrimary Angle Closure GlaucomaUnspecified Stage Not Reported In Chart 5 Justin Cordero. [address] [place], [place], [address] , . [phone] Referring Provider: Gil Anderson, [address] [place], [address] . tel:[phone] Est Pt Exp Prob Focused [facility], [address] [place], [place], [address] , tel:[phone] [facility] [address] Cataract, Nuclear SclerosisPrimary Angle Closure GlaucomaModerate Stage GlaucomaDry Eye Syndrome 5 Justin Cordero. [address] [place], [place], [address] , . tel:[phone] Referring Provider: Luis Thorne, [address] [place], [address] . tel:[phone] [facility], [address] [place], [place], [address] , [place] tel: [phone] [facility] Cataract, Nuclear SclerosisFloaters, uveitisUveitis, Lens InducedPrimary Angle Closure GlaucomaIndeterminate 4 Atodaria Luis. [address] [place], [place], [place], [address] , [place]. tel: [phone] Referring Provider: Abdullahi Maldonado, [address] [place], [address] . tel:[phone] [facility], [address] [place], [place], [address] , [place] tel: [phone] [facility] Uveitis, Lens Induced 4 Joel Fernando. [address] [place], [place], [address] , [place]. tel: [phone] Referring Provider: Abdullahi Maldonado, [address] [place], [address] . tel:[phone] [facility], [address] [place], [place], [address] , [place] tel: [phone] [facility] Cataract OS >> ODFloaters, uveitis 4 Edvin García. [address] [place], [place], [address] , [place]. tel: [phone] Referring Provider: Abdullahi Maldonado, [address] [place], [address] . tel:[phone] [facility], [address] [place], [place], [address] , [place] tel: [phone] [facility] Uveitis, Lens InducedCataract, Nuclear SclerosisPrimary Angle Closure GlaucomaUnspecified Stage Not Reported In ChartAmblyopia, Unspecified 4 Joel Fernando. [address] [place], [place], [address] , [place]. tel: [phone] Referring Provider: Abdullahi Maldonado, [address] [place], [address] . tel:[phone] [facility], [address] [place], [place], [address] , tel: [phone] [facility] [address] Uveitis, Lens InducedUveitis, Lens InducedUveitis, Lens InducedGlaucoma, Chronic, Angle CloseCataract, Nuclear SclerosisAmblyopia, UnspecifiedIndetermin ate 3 Joel Abdullahi. [address] [place], [place], [address] [place] [address] , . tel: [phone] Referring Provider: Luis Thorne, [address] [place], [address] . tel:[phone] [facility], [address] [place], [place], [address] , tel:[phone] [facility] Glaucoma, Acute, Narrow AngleGlaucoma, Acute, Narrow AngleCataract, Nuclear SclerosisAmblyopia, UnspecifiedGlaucoma, Chronic, Angle CloseGlaucoma, Chronic, Angle CloseGlaucoma, Chronic, Angle CloseGlaucoma, Chronic, Angle CloseCataract, Nuclear SclerosisAmblyopia, UnspecifiedIndetermin ate 3 Atodaria Luis. [address] [place], [place], [address] [place] [address] , . tel:[phone] Referring Provider: Luis Thorne, [address] [place], [address] . tel:[phone] [facility], [address] [place], [place], [address] , tel:[phone] [facility] No Information 8 Darwinodarimartha Smith. [address], [address] , . tel:[phone] Referring Provider: Luis Thorne, [address] [place], [address] . tel:[phone] Est Pt Exp Prob Focused [facility], [address] [place], [place], [address] , tel:[phone] [facility] No Information 200 8 Natali Smith. [address] [place], [place], [address] , . tel:[phone] Referring Provider: Luis Thorne, [address] [place], [address] . tel:[phone] New Pt Exp Prob Focused 20 Min [facility], [address], [address] , tel:[phone] [facility] No Information 0 7 Christiano Mcdonald. [address], [address] , . tel:[phone] Referring Provider: Rickey Jones, [address] [place], [address]. tel:[phone] Family History Family Member Type Diagnosis Age At Onset No Information Payers Payer name Insurance type Covered libertarian ID Authoriza tion(s) No Information Social History Type Description Quantity Date Captured Comments Alcohol Use Details 1 drink monthly Caffeine Use Details 1 cup per day Tobacco Use Status No Information Smoking Status Former smoker Sex Female Chief Complaint And Reason For Visit No Information Reason For Referral Reason For Referral No Information History Of Present Illness Encounter Date Complaint History Of Prese nt Illness No Information Functional Status Date Functional Assessmen t No Information Instructions Date Instruction Additional Infor mation - See secondary dx plan. Related to Unspecified - No treatment is re quired at this time. Call if vision gets worse. Related to Cataract, Nuclear Sclerosis - Patient instructed to use artificial tears as needed. erythromycin ointment os qhs or more. Related to Dry Eye Syndrome - patent lpi. low iop. cpm. Rela paula to Primary Angle Closure Glaucoma - See secondary dx plan. Related to Moderate stage glaucoma - No treatment is re quired at this time. Call if vision gets worse. Related to Cataract, Nuclear Sclerosis - Patient instructed to use artificial tears as needed. Related to Dry Eye Syndrome - patent lpi. low iop. cpm. Rela paula to Primary Angle Closure Glaucoma - monocular od, no s urgery recommended os due to total RD and poor prognosis Related to Cataract, Nuclear Sclerosis - See secondary dx plan. Related to Indeterminate (VF not done or unreliable) - Observe. appears q uiet recommend comfort measures for os in general clinic Related to Floaters, uveitis - Followed in [facility] clinic, pt more comfortable On pred to bid OS, continue atropine BID OS. Related to Uveitis, Lens Induced - PLAN: IOP doing we ll today OD. s/p LPI OU. on xal qhs od , may have early depression on field test OD and just for protection but nerve appears healthy OD -- also told to consider enuc/robert os if no relief for OS, may follow now in general clinic TEST:FDT OD) nasal step, OS) OCT RNFL: OD) normal NFL OS) Related to Primary Angle Closure Glaucoma - Improved. Reduce p red to bid OS, continue atropine BID OS. Related to Uveitis, Lens Induced - ECHO reveals - RET YOANA is totally DETACHED w FIBROSIS. No mass, no tumor, but FUNNEL RD is limiting. CANNOT coment on microarchitecture or function but prognosis is GUARDED. Likely non-surgical candidate given exceptionally LONG h/o poor vision and amblyopia. Usually, enucleation and evisc. options are discussed in totally BPE. Pt is LP. She will consider w plastics and Dr. Hurst options. RETINA eval done. Related to Cataract OS >> OD - Observe. Lens care , Amblyopia, IOP. Manage w Dr. Hurst. Related to Floaters, uveitis - Non-compliant w/ p revious tx and f/u care. Restart atropine bid os, pred acetate qid os. Related to Uveitis, Lens Induced - patent lpi. non-co mpliant w/ latanoprost as directed by Dr. Hurst. Restart QHS OD. Not indicated OS (hypotony) Related to Primary Angle Closure Glaucoma - [[PLAN: IOP doing well today OD. s/p LPI OU. Patient complaining of discomfort OS - may be prephthisical - will add atropine and return to follow in general clinic in 1 week, may also consider evaluation with retina to update b-scan for OS after evaluation in general clinic -- also restart Xalatan QHS OU, may have early depression on field test OD and just for protection but nerve appears healthy and OCY -- also told to consider enuc/robert os if no relief]] Dr. Hurst 02/11/13 Related to Cataract, Nuclear Sclerosis - See secondary dx plan. Related to Unspecified Amblyopia, Unspec., OS Related t o Amblyopia Nos Primary Angle Closur e Glaucoma, OS - patent lpi. low iop (borderline hypotony OS). Continue latanoprost qhs OD (stop OS) Related to Primary Angle Closure Glaucoma Uveitis, Lens Induce d, OS - Continue atropine bid os, add pred acetate qid os. 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 s/p LPI OU. Patient complaining of discomfort OS - may be prephthisical - will add atropine and return to follow in general clinic in 1 week, may also consider evaluation with retina to update b-scan for OS after evaluation in general clinic -- also restart Xalatan QHS OU, may have early depression on field test OD and just for protection but nerve appears healthy and OCY -- also told to consider enuc/robert os if no relief]] Dr. Hurst 02/11/13 Related to Senile Nuclear Cataract - in 1 week, check I OP prior to seeing doctor. 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 Related to Cataract, Nuclear Sclerosis Primary Angle Closur e Glaucoma, OS - PLAN: IOP doing well today OD. s/p LPI OU. Patient complaining of discomfort OS - may be prephthisical - will add atropine and return to follow in general clinic in 1 week, may also consider evaluation with retina to update b-scan for OS after evaluation in general clinic -- also restart Xalatan QHS OU, may have early depression on field test OD and just for protection but nerve appears healthy and OCY -- also told to consider enuc/robert os if no relief TEST:FDT OD) nasal step, restart xal OS) OCT RNFL: OD) normal NFL OS) Related to Primary Angle Closure Glaucoma Amblyopia, Unspec., OS - history of amblyopia from strabismus, OS. No benefit from cataract surgery. Related to Amblyopia Nos Assessments Type Assessment Date assessment Cataract, Nuclear Sclerosis assessment Dry Eye Syndrome assessment Primary Angle Closure Glaucoma M assessment Unspecified Stage Not Reported I n Chart Patient Care Teams Name Effective Dates (start - stop) Status Members No Information
[2024-05-14 15:19] LABS: Alanine Aminotransferase 31 U/L (0-31); Albumin Level 3.7 g/dL (3.5-5.0); Alkaline Phosphatase 113 U/L (39-117); Anion Gap 11 (12-20); Aspartate Amino Transferase 56 U/L (5-31); Bilirubin Total 0.5 mg/dL (0.0-1.0); Blood Urea Nitrogen 10 mg/dL (9-16); Carbon Dioxide 27 mmol/L (22-29); Chloride 108 mmol/L (96-108); Estimated Glomerular Filt Rate > 60; Glucose Random 78 mg/dL (60-115); Potassium 3.5 mmol/L (3.3-5.1); Sodium 142 mmol/L (135-145); Total Protein 7.4 g/dL (6.5-8.0)
[2024-05-14 15:35] LABS: Alanine Aminotransferase 29 U/L (0-31); Albumin Level 3.7 g/dL (3.5-5.0); Alkaline Phosphatase 113 U/L (39-117); Anion Gap 12 (12-20); Aspartate Amino Transferase 56 U/L (5-31); Bilirubin Direct 0.2 mg/dL (0.0-0.5); Bilirubin Total 0.5 mg/dL (0.0-1.0); Blood Urea Nitrogen 10 mg/dL (9-16); Calcium 9.1 mg/dL (8.4-10.2); Carbon Dioxide 27 mmol/L (22-29); Chloride 108 mmol/L (96-108); Estimated Glomerular Filt Rate > 60; Glucose Random 79 mg/dL (60-115); Potassium 3.6 mmol/L (3.3-5.1); Sodium 143 mmol/L (135-145); Total Protein 7.3 g/dL (6.5-8.0)
[2024-05-14 15:39] LABS: Free T4 (Free Thyroxine) 0.98 ng/dL (0.71-1.85); Thyroid Stimulating Hormone 0.39 uIU/mL (0.32-4.0)
[2024-05-14 15:47] LABS: Folate 2.4 ng/mL (> or = 4.0); Vitamin B12 < 148 pg/mL (200-900)
[2024-05-16 16:07] LABS: Immunoglobulin A 322 mg/dL (70-320); Transglutaminase IgA <1.0 U/mL
== END ==
LOC: HO.CARD 12:26
PROVIDERS: Absent Provider Family Medicine; PCP Family Medicine; Referring Provider Internal Medicine; Visit Provider Nurse Practitioner Family
DX: I42.8 Other cardiomyopathies (principal); K52.9 Noninfective gastroenteritis and colitis, unspecified; D75.89 Other specified diseases of blood and blood-forming organs; R06.02 Shortness of breath; E03.9 Hypothyroidism, unspecified; I10 Essential (primary) hypertension
CPT/HCPCS: 36415; 80048; 80053; 80076; 82248; 82607; 82746; 82784; 84439; 84443; 85025; 86364; 93306

== ENCOUNTER → 2024-05-14 12:35 | Outpatient (BNV) | payer MEDICARE, SELFPAY | PROVIDERS: Absent Provider Family Medicine; PCP Family Medicine; Referring Provider Internal Medicine; Visit Provider Internal Medicine Cardiovascular Disease | DX: I35.8 Other nonrheumatic aortic valve disorders (principal); I34.0 Nonrheumatic mitral (valve) insufficiency; I42.8 Other cardiomyopathies; Z95.810 Presence of automatic (implantable) cardiac defibrillator | CPT/HCPCS: 93306 ==

== ENCOUNTER 2024-05-19 10:18 | Outpatient (REF) | payer MEDICARE, SELFPAY ==
[2024-05-19 11:42] LABS: MANUAL DIFF FLAG NO
[2024-05-19 11:47] LABS: Basophils Absolute Auto 0.1 X10*3/uL (0.0-0.2); Basophils Percent Auto 2.2 % (0-2); Eosinophils Absolute Auto 0.1 X10*3/uL (0.0-0.4); Eosinophils Percent Auto 1.9 % (0-4); Hematocrit 36.7 % (37.0-47.0); Hemoglobin 12.4 g/dl (12.0-16.0); Imm Gran Abs Auto 0.01 X10*3/uL (0.00-0.03); Imm Gran Pct Auto 0.2 % (0.0-0.4); Lymphocytes Absolute Auto 2.1 X10*3/uL (1.2-4.9); Lymphocytes Percent Auto 38.2 % (20-40); Mean Corpuscular HGB Conc 33.8 g/dl (31.0-35.0); Mean Corpuscular Hemoglobin 38.5 pg (27.0-33.0); Mean Platelet Volume 9.5 fL (9.4-12.3); Monocytes Absolute Auto 0.4 X10*3/uL (0.1-1.2); Monocytes Percent Auto 7.3 % (2-11); NRBC Pct Auto 0.4 /100WBC (0.0-0.2); Neutrophils Absolute Auto 2.7 x10*3/uL (2.0-8.3); Neutrophils Percent Auto 50.2 % (45-73); Platelet Count 270 X10*3/uL (160-400); Red Blood Count 3.22 X10*6/uL (4.20-5.50); Red Cell Distribution Width 14.3 % (11.0-16.0); White Blood Count 5.4 X10*3/uL (4.8-10.8)
--- OUTSIDE RECORDS SUMMARY | 2024-05-19 12:13 | XMS_ITS | Continuity of Care Document ---
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 [address] [place], [place], [address] , . [phone] Referring Provider: Gil Anderson, [address] [place], [address] . tel:[phone] Est Pt Exp Prob Focused [facility], [address] [place], [place], [address] , [phone] [facility] [address] Cataract, Nuclear SclerosisPrimary Angle Closure GlaucomaModerate Stage GlaucomaDry Eye Syndrome 5 Justin Cordero. [address] [place], [place], [address] , . tel:[phone] Referring Provider: Luis Thorne, [address] [place], [address] . tel:[phone] [facility], [address] [place], [place], [address] , [place] tel: [phone] [facility] [address] Cataract, Nuclear SclerosisFloaters, uveitisUveitis, Lens InducedPrimary Angle Closure GlaucomaIndeterminate 4 Atodaria Luis. [address] [place], [place], [place], [address] , [place]. tel: [phone] Referring Provider: Abdullahi Maldonado, [address] [place], [address] . tel:[phone] [facility], [address] [place], [place], [address] , [place] tel: [phone] [facility] Uveitis, Lens Induced 4 Joel Fernando. [address] [place], [place], [address] , [place]. tel: [phone] Referring Provider: Abdullahi Maldonado, [address] [place], [address] . tel:[phone] [facility], [address] [place], [place], [address] , [place] tel: [phone] [facility] [address] Cataract OS >> ODFloaters, uveitis 4 Edvin García. [address] [place], [place], [address] , [place]. tel: [phone] Referring Provider: Abdullahi Maldonado, [address] [place], [address] . tel:[phone] [facility], [address] [place], [place], [address] , [place] tel: [phone] [facility] [address] Uveitis, Lens InducedCataract, Nuclear SclerosisPrimary Angle Closure GlaucomaUnspecified Stage Not Reported In ChartAmblyopia, Unspecified 4 Joel Fernando. [address] [place], [place], [address] , [place]. tel: [phone] Referring Provider: Abdullahi Maldonado, [address] [place], [address] . tel:[phone] [facility], [address] [place], [place], [address] , tel: [phone] [facility] [address] Uveitis, Lens InducedUveitis, Lens InducedUveitis, Lens InducedGlaucoma, Chronic, Angle CloseCataract, Nuclear SclerosisAmblyopia, UnspecifiedIndetermin ate 3 Joel Abdullahi. [address] [place], [place], [address] [place] [address] , . tel: [phone] Referring Provider: Luis Thorne, [address] [place], [address] . tel:[phone] [facility], [address] [place], [place], [address] , tel:[phone] [facility] [address] Glaucoma, Acute, Narrow AngleGlaucoma, Acute, Narrow AngleCataract, Nuclear SclerosisAmblyopia, UnspecifiedGlaucoma, Chronic, Angle CloseGlaucoma, Chronic, Angle CloseGlaucoma, Chronic, Angle CloseGlaucoma, Chronic, Angle CloseCataract, Nuclear SclerosisAmblyopia, UnspecifiedIndetermin ate 3 Atodaria Luis. [address] [place], [place], [address] [place] [address] , . tel:[phone] Referring Provider: Luis Thorne, [address] [place], [address] . tel:[phone] [facility], [address] [place], [place], [address] , tel:[phone] [facility] No Information 8 Darwinodarimartha Smith. [address], [address] [place] [address] , . tel:[phone] Referring Provider: Luis Thorne, [address] [place], [address] . tel:[phone] Est Pt Exp Prob Focused [facility], [address] [place], [place], [address] , [phone] [facility] No Information 200 8 Natali Smith. [address] [place], [place], [address] , . tel:[phone] Referring Provider: Luis Thorne, [address] [place], [address] . tel:[phone] New Pt Exp Prob Focused 20 Min [facility], [address], [address] , tel:[phone] [facility] No Information 0 7 Christiano Mcdonald. [address], [address] , . tel:[phone] Referring Provider: Rickey Jones, [address] [place], [address]. tel:[phone] Family History Family Member Type Diagnosis Age At Onset No Information Payers Payer name Insurance type Covered republican ID Authoriza tion(s) No Information Social History [...] Related to Floaters, uveitis - Followed in [facility] clinic, pt more comfortable On [...]
--- OUTSIDE RECORDS SUMMARY | 2024-05-19 12:14 | XMS_ITS | Patient Health Record ---
Author Organization [facility] Address [address] [place] [address] Care Team Providers Care Elementary Reading Tutor Name Role Phone Haider FOWLER, Kartik Primary Care Provider Qamar Talley [phone] Allergies Allergen (clinical drug ingredient) Drug/Non Drug Allergy documented on EMR Reaction Allergy Type Onset Date Status lisinopril Lisinopril cough Drug Allergy Activ e Results Component Value Reference Range Notes Leukocytes Stool Qualitative Reviewed date:04/09/2024 02:02:54 PM Interpretation: Performing Lab:[facility], [address] [place] [phone] Notes/Report: Leukocytes Stool Qualitative NEGATIVE NEGATIVE Calprotectin, Fecal Reviewed date:04/16/2024 10:46:56 AM Interpretation: Performing Lab:[facility], [address] [place] [phone] Notes/Report: Calprotectin, Fecal 14 Reference Range: <50 [...] borderline values. THIS TEST WAS PERFORMED AT: [employer] [address] [place] [address] KATHERINE MCGEE MD,PHD,PATRICIA CDiff Gene PCR Reviewed date:04/13/2024 04:23:19 PM Interpretation: Performing Lab:[facility], [address] [place] [phone] Notes/Report: CDiff Gene PCR POSITIVE Negative Additional C. difficile toxin testing to be performed. CDiff Toxin Reviewed date:04/09/2024 02:04:29 PM Interpretation: Performing Lab:[facility], [address] [place] [phone] Notes/Report: CDiff Toxin Negative Negative CDIFF Interpretation SEE NOTE Likely C. difficile colonization. Continue contact precautions. GI PANEL Reviewed date:04/09/2024 02:03:39 PM Interpretation: Performing Lab:[facility], [address] [place] [phone] Notes/Report: Campylobacter Not Detected Not Detect. Plesiomonas [...] is performed by Multiplexed PCR, utilizing the nuevoStage Array. Liver Panel Reviewed date:05/14/2024 05:51:13 PM Interpretation: Performing Lab:[address] [address] Notes/Report: Bilirubin Total 0.5 0.0-1.0 mg/dL Bilirubin Direct 0.2 0.0-0.5 mg/dL Aspartate Amino Transferase 56 5-31 U/L Alanine Aminotransferase 29 0-31 U/L Total Protein 7.3 6.5-8.0 g/dL Albumin Level 3.7 3.5-5.0 g/dL Alkaline Phosphatase 113 39-117 U/L Basic Metabolic Panel Reviewed date:05/14/2024 05:51:02 PM Interpretation: Performing Lab:[address] [address] Notes/Report: Sodium 143 135-145 mmol/L Potassium 3.6 3.3-5.1 mmol/L Chloride 108 96-108 mmol/L Carbon Dioxide 27 22-29 mmol/L Anion Gap 12 12-20 Blood Urea Nitrogen 10 9-16 mg/dL Creatinine 0.68 0.5-1.4 mg/dL Estimated Glomerular Filt Rate > 60 Chronic Kidney Disease: Estimated GFR < 60 mL/min/1.73m2 Severe Kidney Disease: Estimated GFR < 15 mL/min/1.73m2 Glucose Random 79 60-115 mg/dL Calcium 9.1 8.4-10.2 mg/dL Vitamin B12 and Folate (Not yet reviewed by provider) Interpretation: Performing Lab:[address] [address] Notes/Report: Vitamin B12 < 148 200-900 pg/mL NORMAL 200-900 PG/ML INDETERMINATE 160-199 PG/ML DEFICIENT < 160 PG/ML Folate 2.4 > or = 4.0 ng/mL Reference Values: > or = 4.0 ng/mL < 4.0 ng/mL suggests folate deficiency Methotrexate, aminopterin and folinic acid (leucovorin) are chemotherapeutic agents whose molecular structures are similar to folate; therefore, the [employer] folate assay cannot be used for patients using these drugs. Celiac Disease Panel Reviewed date:05/18/2024 01:24:02 AM Interpretation: Performing Lab:[facility], [address] [place] [phone] Notes/Report: Immunoglobulin A 322 70-320 mg/dL THIS TEST WAS PERFORMED AT: [facility] [address] [place] [phone] GEMINI RUSSELL MD Transglutaminase IgA <1.0 Value Interpretation ----- <15.0 Antibody not detected > or = 15.0 Antibody detected Celiac Disease Panel Interp. SEE NOTE No serological evidence of celiac disease. Total serum IgA is elevated. Consider mucosal inflammatory conditions or underlying gammopathy. Complete Blood Count Auto Di ff (Not yet reviewed by provider) Interpretation: Performing Lab:[facility], [address] [place] [phone] Notes/Report: White Blood Count 5.4 4.8-10.8 X10*3/uL Red Blood Count 3.22 4.20-5.50 X10*6/uL Hemoglobin 12.4 12.0-16.0 g/dl Hematocrit 36.7 37.0-47.0 % Mean Corpuscular Volume 114.0 80.0-98.0 fL Mean Corpuscular Hemoglobin 38.5 27.0-33.0 pg Mean Corpuscular HGB Conc 33.8 31.0-35.0 g/dl Red Cell Distribution Width 14.3 11.0-16.0 % Platelet Count 270 160-400 X10*3/uL Mean Platelet Volume 9.5 9.4-12.3 fL Neutrophils Percent Auto 50.2 45-73 % Imm Gran Pct Auto 0.2 0.0-0.4 % Lymphocytes Percent Auto 38.2 20-40 % Monocytes Percent Auto 7.3 2-11 % Eosinophils Percent Auto 1.9 0-4 % Basophils Percent Auto 2.2 0-2 % NRBC Pct Auto 0.4 0.0-0.2 /100WBC Neutrophils Absolute Auto 2.7 2.0-8.3 x10*3/u L Imm Gran Abs Auto 0.01 0.00-0.03 X10*3/uL Lymphocytes Absolute Auto 2.1 1.2-4.9 X10*3/u L Monocytes Absolute Auto 0.4 0.1-1.2 X10*3/uL Eosinophils Absolute Auto 0.1 0.0-0.4 X10*3/u L Basophils Absolute Auto 0.1 0.0-0.2 X10*3/uL NRBC Abs Auto 0.020 0.0-0.012 X10*3/uL Reason For Referral No Information Medications Medication SIG (Take, Route, Frequency, Duration) Notes Start Date End Date Status Imodium A-D 2 MG use 1 or 2 tablets O rally Up to Four times a day for diarrhea. You can take it before a meal to try to prevent diarrhea after eating for 30 days 04/23/2024 Active Cholestyramine 4 GM/DOSE use anywhere fr om /4 to a full scoop in 8 ounces of water or orange juice Orally Once or twice a day to help with the diarrhea for 30 day(s) 04/23/2024 Active Dicyclomine HCl 10 MG 1 Orally BID Active Losartan Potassium 50 MG 1 tablet Orally Once a day for 30 day(s) Active PARoxetine HCl Activ e Levothyroxine Sodium Active BuPROPion HBr Active Carvedilol Active busPIRone HCl 5 MG 1 tablet Orally Twice a day Active Immunizations Vaccine Route Administration Date Status [...] Problem Status W/U Status Risk Notes Problem 790276992 Encounter for screening for malignant neoplasm of colon (Z12.11) Active confirmed Problem Anemia (493780392) Anemia (D64.9) Active confir med Problem Vitamin B12 deficiency (non anemic) (91869586) B12 deficiency (E53.8) Active confirmed Problem Chronic diarrhea (203438735) Chronic diarrhea (K52.9) Active confirmed Problem 54066579 Irritable bowel syndrome with both constipation and diarrhea (K58.2) Active confirmed Problem 013503225 Non-intractable vomiting without nausea, unspecified vomiting type (R11.11) Active confirmed Problem 0858556 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) Active confirmed Problem Macrocytosis - no anemia (175035997) Macrocytosis without anemia (D75.89) Active confirmed Problem 37928996799087863 Abnormal abdominal CT scan (R93.5) Active confirmed Vital Signs Blood pressure diastolic 00 mm Hg 04/23/2024 Height 62 in 04/23/2024 Blood pressure systolic 00 mm Hg 04/23/2024 Weight 168 lbs 04/23/2024 BMI 30.72 kg/m2 04/23/2024 Encounters Encounter Location Date Provider Diagnosis [facility] [address] [place] [address] 04/23/2024 Qamar Garcia Chronic diarrhea K52 .9 and Macrocytosis without anemia D75.89 [facility] [address] [place] [address] 05/19/2024 Qamar Garcia B12 deficiency E53.8 [facility] [address] [place] [address] 01/14/2024 Qamar Garcia Chronic diarrhea K52 .9 [facility] [address] [place] [address] 01/30/2024 Qamar Garcia [facility] [address] [place] [address] 04/09/2024 Qamar Garcia [facility] [address] [place] [address] 04/17/2024 Qamar Garcia [facility] [address] [place] [address] [place] [address] 05/18/2024 Qamar Garcia B12 deficiency E53.8 and Anemia D64.9 Assessments Encounter Date Diagnosis (ICD Code) Assessment [...] to keep you advised of her progress. 05/19/2024 B12 deficiency (ICD-10 - E53.8) 01/14/2024 Chronic diarrhea (ICD-10 - K52.9) 05/18/2024 Anemia (ICD-10 - D64.9) 05/18/2024 B12 deficiency (ICD-10 - E53.8) Plan Of Treatment Pending Test Test Name Order Date CHEM 7 PROFILE 04/23/2024 BUN 05/24/2019 CREATININE 05/24/2019 LIVER PROFILE 04/23/2024 LIVER PROFILE 05/24/2019 AMYLASE 05/24/2019 LIPASE 05/24/2019 IRON + IBC (FE) 05/18/2024 CBC w DIFF 04/23/2024 CBC w DIFF 05/18/2024 CELIAC PANEL #10 04/23/2024 CELIAC PANEL #10 11/25/2018 CA 19-9 05/24/2019 STOOL WBC 01/14/2024 C DIFFICILE RFLX PCR 01/14/2024 C DIFFICILE RFLX PCR 04/23/2024 Complete Blood Count Auto Diff Ferritin 05/18/2024 Vitamin B12 and Folate 05/14/2024 Vitamin B12 and Folate 04/23/2024 Intrinsic Factor Antibodies 05/18/2024 Celiac Panel 10 05/18/2024 Parietal Cell Antibody 05/18/2024 Calprotectin, Fecal 01/14/2024 GI PANEL 01/14/2024 Future Test Test Name Order Date COLONOSCOPY 11/25/2018 Next Appt Details Provider Name:Qamar Garcia , 11/24/2024 01:20:00 PM, [address] [place] [address], [facility] [address], [place], [address], Insurance Providers Payer Name Payer Address Payer Phone Subscriber Number Group Number Insured Name Patient Relationship to Insured Coverage Start Date Coverage End Date [facility] [address] [address] [place] [address] [phone] [id number] MAKENNA GARCIA Self - patient is the insured MEDICAID OF [employer] [address] [place] [address] [id number] MAKENNA GARCIA Self - patient is the insured Medications Administered Medication Instructions Date of Administration Dosage Notes B-12 05/19/2024 1000 mL Medical (General) History Medical History History ICD Code Breast cancer on the right with surgery, chemo, and XRT in 2014 Denies MS,DM,CVA,Lung disease,renal dise ase CHF/ pacemaker-Dr. Campoverde Hypothyroidism Depression Reports a negative colonoscopy in [facility] a > 10 years ago IBS-neg. celiac disease [...] Colon surgery due to diverticulitis [facility] [address] Richter in 2 022--lost over 50 pounds
--- OUTSIDE RECORDS SUMMARY | 2024-05-19 12:14 | XMS_ITS ---
Author Organization [facility] Address [address] [place] [address] Care Team Providers Care Circuit Breaker Supervisor Name Role Phone Haider FOWLER, Kartik Primary Care Provider Unavailab Qamar Ac [phone] REASON FOR VISIT Needs B12 shots FINN Problems Problem Type SNOMED Code ICD Code Onset Dates Problem Status W/U Status Risk Notes Problem Vitamin B12 deficiency (non anemic) (97657461) B12 deficiency (E53.8) Active confirmed Problem Anemia (823983313) Anemia (D64.9) Active confirmed Encounters Encounter Location Date Provider Diagnosis [facility] [address] [place] [address] 05/18/2024 Qamar Garcia B12 deficiency E53.8 and Anemia D64.9 Assessments Encounter Date Diagnosis (ICD Code) Assessment Notes Treatment Notes Treatment Clinical Notes Section Notes 05/18/2024 B12 deficiency (ICD-10 - E53.8) 05/18/2024 Anemia (ICD-10 - D64.9) Plan Of Treatment Pending Test Test Name Order Date IRON + IBC (FE) 05/18/2024 CBC w DIFF 05/18/2024 Ferritin 05/18/2024 Intrinsic Factor Antibodies 05/18/2024 Celiac Panel 10 05/18/2024 Parietal Cell Antibody 05/18/2024 Next Appt Details Provider Name:Qamar Garcia , 11/24/2024 01:20:00 PM, [address], [address], [place], [address], Progress Notes * CYNTHIA GARCIADOB:[birth year] (68 yo F)Acc No.[id number]:05/18/2024 Patient:?CYNTHIA GARCIA :1955???Age:68 Y???Sex:Female Address:[address] [place] [address] Subjective: * Chief Complaints: * ???Needs B12 shots FINN * Medical History:? * Surgical History:? * Hospitalization/Major Diagno stic Procedure:? * Medications:? Objective: * Vitals:? * Physical Examination:? Assessment: * Assessment: 1.?B12 deficiency - E53.8 (P rimary)???2.?Anemia - D64.9??? Plan: * Treatment: 2.?Anemia?LAB: IRON + IBC (FE) ?LAB: CBC w DIFF ?LAB: Ferritin ?LAB: Intrinsic Factor Antibodies ?LAB: Celiac Panel 10 ?LAB: Parietal Cell Antibody * Procedure Codes:? * true * Date:? Generated for Jaei criss/Bayron/eTransmitting on:?05/19/2024 12:13 PM EDT
--- OUTSIDE RECORDS SUMMARY | 2024-05-19 12:14 | XMS_ITS ---
Author Organization [facility] Address [address] [facility] [address] [place] [address] Care Team Providers Care Hardscape Foreman Name Role Phone Haider FOWLER, Kartik Primary Care Provider UnavailQamar [facility] [phone] REASON FOR VISIT B12 deficiency Medications Medication SIG (Take, Route, Frequency, Duration) Notes Start Date End Date Status Imodium A-D 2 MG use 1 or 2 tablets O rally Up to Four times a day for diarrhea. You can take it before a meal to try to prevent diarrhea after eating for 30 days 04/23/2024 Active Cholestyramine 4 GM/DOSE use anywhere fr om 03/14 to a full scoop in 8 ounces [...] 1 tablet Orally Twice a day Active Encounters Encounter Location Date Provider Diagnosis [facility] [address] [facility] [address] [place] [address] 05/19/2024 Qamar Garcia B12 deficiency E53.8 Assessments Encounter Date Diagnosis (ICD Code) Assessment Notes Treatment Notes Treatment Clinical Notes Section Notes 05/19/2024 B12 deficiency (ICD-10 - E53.8) Plan Of Treatment Next Appt Details Provider Name:Qamar Garcia , 11/24/2024 01:20:00 PM, [address], [address], [place], [address], Medications Administered Medication Instructions Date of Administration Dosage Notes B-12 05/19/2024 1000 mL Progress Notes * CYNTHIA GARCIADOB: 7 (68 yo F)Acc No.[id number]:05/19/2024 SHOT Patient:CYNTHIA CABRERA Provider:?Qamar Garcia MD :1955???Age:68 Y???Sex:Female D ate:05/19/2024 Address:[address] [place] [address] Pcp:Kartik Maloney MD Subjective: * Chief Complaints: * ???1. B12 deficiency. * Medical History:? * Medications:?Taking busPIRon e HCl 5 MG Tablet 1 tablet Orally Twice a day , Taking Carvedilol , Taking BuPROPion HBr , Taking Levothyroxine Sodium , Taking PARoxetine HCl , Taking Losartan Potassium 50 MG Tablet 1 tablet Orally Once a day , Taking Dicyclomine HCl 10 MG Capsule 1 Orally BID , Taking Cholestyramine 4 GM/DOSE Powder use anywhere from 1/4 to a full scoop in 8 ounces of water or orange juice Orally Once or twice a day to help with the diarrhea , Taking Imodium A-D 2 MG Tablet use 1 or 2 tablets Orally Up to Four times a day for diarrhea. You can take it before a meal to try to prevent diarrhea after eating Objective: * Vitals:? Assessment: * Assessment: 1.?B12 deficiency - E53.8 (P rimary)??? Plan: * Treatment: * Therapeutic Injections:? B-12 : 1000 mL (Dose No:1) (Route: Intramuscular) given by Tonya Newman on left arm intramuscular * Procedure Codes:?J3420 INJ V IT B-12 CYNOCOBLMN TO 1000 MCG, [address] THER/PROPH/DIAG INJ, SC/IM * * Sign off status: Completed true * Provider:?Qamar Garcia MD Date:? 025 Generated for Devora kahn/Bayron/Anuj on:?05/19/2024 12:14 PM EDT
--- OUTSIDE RECORDS SUMMARY | 2024-05-19 12:14 | XMS_ITS ---
Author Organization [facility] Address [address] [place] [address] Care Team Providers Care Global Marketing Manager Name Role Phone Haider FOWLER, Kartik Primary Care Provider Qamar Talley [phone] Allergies Allergen (clinical drug ingredient) Drug/Non Drug [...] Risk Notes Problem Macrocytosis - no anemia (172367607) Macrocytosis without anemia (D75.89) Active confirmed Vital Signs Blood pressure systolic 00 mm Hg 04/23/19 25 Blood pressure diastolic 00 mm Hg 025 Height 62 in 04/23/2024 Weight 168 lbs 04/23/2024 BMI 30.72 kg/m2 04/23/2024 Encounters Encounter Location Date Provider Diagnosis [facility] [address] [place] [address] 04/23/2024 Qamar Garcia Chronic diarrhea K52 .9 [...] Provider Name:Qamar Garcia , 11/24/2024 01:20:00 PM, [address] [place] [address], [address], [place], [address], Progress Notes * MAKENNA GARCIADOB: (68 yo F)Acc No.[id number]:04/23/2024 Progress Notes Patient:MAKENNA CABRERA Provider:?Qamar Garcia MD :1955???Age:68 Y???Sex:Female D ate:04/23/2024 Address:[address] [place], [place] [id number] Pcp:Kartik Maloney MD Subjective: * Chief Complaints: [...] pacemeker/Defibrillator 2011Colon surgery due to diverticulitis in [place] 2010Gastric sleeve with Dr. Richter in 2021--lost [...] Procedure Codes:?3017F COLOR ECTAL CA SCREEN DOC [id number] TOBACCO [id number]-[id number] BP SCR NOT PRFRM REC REASON NOS [...] Date:? 025 Generated for Devora kahn/Bayron/Anuj on:?05/19/2024 12:13 PM EDT History and Physical Notes * HPI (History [...]
[2024-05-19 12:43] LABS: Ferritin 650 ng/mL (10-250); Iron 169 mcg/dL (30-160); Percent Iron Saturation 79 % (15-50); Total Iron Binding Capacity 215 mcg/dL (228-428); Unsaturated Iron Binding 46 ug/dL
[2024-05-20 06:53] LABS: Immunoglobulin A 305 mg/dL (70-320)
[2024-05-20 18:54] LABS: Gliadin Deamidated IgA Ab 2.4 U/mL; Gliadin Deamidated IgG Ab <1.0 U/mL
[2024-05-21 16:29] LABS: Transglutaminase Ab IgG <1.0 U/mL; Transglutaminase IgA <1.0 U/mL
[2024-05-22 06:13] LABS: Intrinsic Factor Antibodies Positive (Negative)
[2024-05-23 00:28] LABS: Endomysial IgA Antibody Negative (Negative)
[2024-05-23 21:44] LABS: Parietal Cell Antibody 51.1 Unit (<=20.0)
== END 2024-05-19 10:19 | disposition home or self-care (01) ==
LOC: HO.10HDL 10:18
PROVIDERS: Visit Provider Internal Medicine
DX: D64.9 Anemia, unspecified (principal); E53.8 Deficiency of other specified B group vitamins
CPT/HCPCS: 36415; 82728; 82784; 83516; 83540; 85025; 86231; 86258; 86340; 86364

== ENCOUNTER → 2024-06-10 23:59 | Outpatient (BNV) | payer MEDICARE, SELFPAY ==
--- NOTE | 2024-06-14 13:44 | MHC.OFFVIS ---
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 Steatosis, liver Morbid obesity Breast cancer Obesity Hypothyroidism History of breast cancer Depression Hypertension Cardiac resynchronization therapy defibrillator ([employer]-D) in place Dyspnea on exertion NICM (nonischemic cardiomyopathy) Restrictive lung disease DEANDRE (obstructive sleep apnea) Morbid obesity Surgical History S/P lumpectomy, right breast (04/12/21) History of right mastectomy History of incisional hernia repair History of colectomy History of laparoscopic cholecystectomy Family History Father Multiple sclerosis Mother Breast CA Maternal Grandmother Breast CA Paternal Grandmother Stomach cancer Paternal Aunt Breast CA Social History Household Members: None Housing: House Are you a primary care center manager to a significant other at home: No Do you presently have visiting nurse or other home services: No Alcohol intake: current Alcohol intake frequency: holidays/special occasions only Patient Tobacco Use Status: Former Tobacco user Second Hand Smoke Exposure: No Substance Use Type: Marijuana service: No Current occupational status: retired Office Procedures Cardiac Device Check Cardiac Device Check Details: Date of service 06/10/2024; Battery life 1.6-1.9years; normal lead parameters; AP 21%; BP 99%; no treated VT/VF; normal ICD function. 58406-Stlicn Cardiac Interrogation, implant defibrillator w/interim Procedure code (CPT) selection complete Assessment & Plan Assessment & Plan (1) NICM (nonischemic cardiomyopathy): Code(s): I42.8 - Other cardiomyopathies Category: Medical (2) Cardiac resynchronization therapy defibrillator ([employer]-D) in place: Code(s): Z95.810 - Presence of automatic (implantable) cardiac defibrillator Category: Medical Plan x Coding Level of Care Code Procedure Only Diagnoses NICM (nonischemic cardiomyopathy) I42.8 Cardiac resynchronization therapy defibrillator ([employer]-D) in place Z95.810 CPT Codes Cardiac Device Check - Cardiac Device 13: 11346-Obmgei Cardiac Interrogation, implant defibrillator w/interim ([id number])
== END ==
PROVIDERS: PCP Family Medicine; Visit Provider Internal Medicine
DX: I42.8 Other cardiomyopathies (principal); Z95.810 Presence of automatic (implantable) cardiac defibrillator
CPT/HCPCS: 93295

== ENCOUNTER 2024-06-17 11:16 | Outpatient (REF) | payer MEDICARE, SELFPAY ==
--- OUTSIDE RECORDS SUMMARY | 2024-06-17 13:20 | XMS_ITS ---
Author Organization [facility] Address [address] [place] [address] Care Team Providers Care Concrete Buster Operator Name Role Phone Haider FOWLER, Kartik Primary Care Provider UnavailQamar De Leon [phone] REASON FOR VISIT blood work results? update/waiting on pt call back on iron Medications Medication SIG (Take, Route, Frequency, Duration) Notes Start Date End Date Status Folic Acid 1 MG 1 tablet every day, but do not start until after the 3rd B12 shot the week of 06/01/2024 Orally Once a day for 30 days Please remind patient that she should not start this until after her 3rd B12 shot the week of 06/01/2024. Thanks 05/27/2024 Active Problems Problem Type SNOMED Code ICD Code Onset Dates Problem Status W/U Status Risk Notes Problem Iron excess (17154191) Iron excess (E83.19) Active confirmed Encounters Encounter Location Date Provider Diagnosis [facility] [address] [place] [address] 05/26/2024 Qamar Garcia Iron excess E83.19 Assessments Encounter Date Diagnosis (ICD Code) Assessment Notes Treatment Notes Treatment Clinical Notes Section Notes 05/26/2024 Iron excess (ICD-10 - E83.19) Plan Of Treatment Medication Medication Name Sig Start Date Stop Date Notes Folic Acid 1 MG 1 tablet every day, but do not start until after the 3rd B12 shot the week of 06/01/2024 Orally Once a day for 30 days 05/27/2024 Please remind pat ient that she should not start this until after her 3rd B12 shot the week of 06/01/2024. Thanks Pending Test Test Name Order Date IRON + IBC (FE) 05/26/2024 HEMOCHROMATOSIS (C282Y) 05/26/2024 Ferritin 05/26/2024 Next Appt Details Provider Name:Qamar Garcia , 11/24/2024 01:20:00 PM, [address], [address], [place], [address], Progress Notes * CYNTHIA GARCIADOB: (68 yo F)Acc No.[id number]:05/26/2024 Patient:?CYNTHIA GARCIA :1955???Age:68 Y???Sex:Female Address:[address] [place] [address], [address] * Refills? Start Folic Acid Tablet, 1 MG, Orally, 30 Tablet, 1 tablet every day, but do not start until after the 3rd B12 shot the week of 06/01/2024, Once a day, 30 days, Refills=11 Subjective: * Chief Complaints: * ???Blood work results? updat e/waiting on pt call back on iron * Medical History:? * Surgical History:? * Hospitalization/Major Diagno stic Procedure:? * Medications:? Objective: * Vitals:? * Physical Examination:? Assessment: * Assessment: 1.?Iron excess - E83.19 (Alma duckworth)??? Plan: * Treatment: 2.?Others? Start Folic Acid Tablet, 1 MG, 1 tablet every day, but do not start until after the 3rd B12 shot the week of 06/01/2024, Orally, Once a day, 30 days, 30 Tablet, Refills 11, Notes to Pharmacist: Please remind patient that she should not start this until after her 3rd B12 shot the week of 06/01/2024. Thanks.?? * Procedure Codes:? * true * Date:? Generated for Devora kahn/Bayron/eTransmitting on:?06/17/2024 01:20 PM EDT
--- OUTSIDE RECORDS SUMMARY | 2024-06-17 13:21 | XMS_ITS ---
Author Organization [facility] Address [address] [place] [address] Care Team Providers Care Restrooms Or Lounges Maid Name Role Phone Kartik Maloney MD Primary Care Provider Unavailab Qamar cA [facility] [phone] REASON FOR VISIT B12 deficiency Medications Medication [...] the diarrhea for 30 day(s) 04/23/2024 Active Levothyroxine Sodium Active BuPROPion HBr Active Carvedilol Active busPIRone HCl 5 MG 1 tablet Orally Twice a day Active Encounters Encounter Location Date Provider Diagnosis [facility] [address] [place] [address] 05/26/2024 Qamar Garcia B12 deficiency E53.8 Assessments Encounter Date Diagnosis (ICD Code) Assessment Notes Treatment Notes Treatment Clinical Notes Section Notes 05/26/2024 B12 deficiency (ICD-10 - E53.8) Plan Of Treatment Next Appt Details Provider Name:Qamar Garcia , 11/24/2024 01:20:00 PM, [address], [address], [place], [address], Medications Administered Medication Instructions Date of Administration Dosage Notes B-12 05/26/2024 1000 mL Progress Notes * CYNTHIA GARCIADOB: 7 (68 yo F)Acc No.[id number]:05/26/2024 SHOT Patient:CYNTHIA CABRERA Provider:?Qamar Garcia MD :1955???Age:68 Y???Sex:Female D ate:05/26/2024 Address:[address] [place] [address] Pcp:Kartik Maloney MD Subjective: * Chief Complaints: [...] V IT B-12 CYNOCOBLMN TO 1000 MCG, [address] THER/PROPH/DIAG INJ, SC/IM * * Sign off status: Completed true * Provider:?Qamar Garcia MD Date:? 025 Generated for Devora kahn/Bayron/Anuj on:?06/17/2024 01:20 PM EDT
--- OUTSIDE RECORDS SUMMARY | 2024-06-17 13:21 | XMS_ITS | Continuity of Care Document ---
Author Organization [facility] Address [address] [address] Phone Care Team Providers Care Gun Welder Name Role Phone Gil Anderson MD Unavailable [...] on Encounter Est Pt Exp Prob Focused [facility], [address] [place], [place], [id number] , tel:[phone] [facility] [address] Cataract, Nuclear SclerosisDry Eye SyndromePrimary Angle Closure GlaucomaUnspecified Stage Not Reported In Chart 5 Justin Cordero. [address] [place], [place], [id number] , . tel:[phone] Referring Provider: Gil Anderson, [address] [place], [address] . tel:[phone] Est Pt Exp Prob Focused [facility], [address] [place], [place], [id number] , tel:[phone] [facility] [address] Cataract, Nuclear SclerosisPrimary Angle Closure GlaucomaModerate Stage GlaucomaDry Eye Syndrome 5 Justin Cordero. [address] [place], [place], [id number] , . tel:[phone] Referring Provider: Luis Thorne, [address] [place], [address] . tel:[phone] [facility], [address] [place], [place], [id number] , [place] tel: [phone] [facility] [place] [address] Cataract, Nuclear SclerosisFloaters, uveitisUveitis, Lens InducedPrimary Angle Closure GlaucomaIndeterminate 4 Atodaria Luis. [address] [place], [place], [place], [id number] , [place]. tel: [phone] Referring Provider: Abdullahi Maldonado, [address] [place], [address] . tel:[phone] [facility], [facility], [address] [place], [place], [address] , [place] tel: [phone] [facility] [place] [address] Uveitis, Lens Induced 4 Joel Fernando. [address] [place], [place], [address] , [place]. tel: [phone] Referring Provider: Abdullahi Maldonado, [address] [place], [address] . tel:[phone] [facility], [facility], [address] [place], [place], [id number] , [place] tel: [phone] [facility] Cataract OS >> ODFloaters, uveitis 4 Edvin García. [address] [place], [place], [id number] , [place]. tel: [phone] Referring Provider: Abdullahi Maldonado, [address] [place], [address] . tel:[phone] [facility], [facility], [address] [place], [place], [address] , [place] tel: [phone] [facility] [place] Uveitis, Lens InducedCataract, Nuclear SclerosisPrimary Angle Closure GlaucomaUnspecified Stage Not Reported In ChartAmblyopia, Unspecified 4 Joel Fernando. [address] [place], [place], [address] , [place]. tel: [phone] Referring Provider: Abdullahi Maldonado, [address] [place], [address] . tel:[phone] [facility] [employer] [facility], [facility], [address] [place], [place], [id number] , tel:[phone] [facility] Uveitis, Lens InducedUveitis, Lens InducedUveitis, Lens InducedGlaucoma, Chronic, Angle CloseCataract, Nuclear SclerosisAmblyopia, UnspecifiedIndetermin ate 3 Joel Abdullahi. [address] [place], [place], [address] [place] [address] , . tel:[phone] Referring Provider: Luis Thorne, [address] [place], [address] . tel:[phone] [facility], [facility], [address] [place], [place], [id number] , tel:[phone] [facility] Glaucoma, Acute, Narrow AngleGlaucoma, Acute, Narrow AngleCataract, Nuclear SclerosisAmblyopia, UnspecifiedGlaucoma, Chronic, Angle CloseGlaucoma, Chronic, Angle CloseGlaucoma, Chronic, Angle CloseGlaucoma, Chronic, Angle CloseCataract, Nuclear SclerosisAmblyopia, UnspecifiedIndetermin ate 3 Atodaria Luis. [address] [place], [place], [address] , . tel:[phone] Referring Provider: Luis Thorne, [address] [place], [address] . tel:[phone] [facility], [facility], [address] [place], [place], [id number] , [phone] [facility] No Information 8 Natali Smith. [address] [place], [place], [id number] , . tel:[phone] Referring Provider: Luis Thorne, [address] [place], [address] . tel:[phone] Est Pt Exp Prob [facility]ed [facility], [address] [place], [place], [id number] , tel:[phone] [facility] No Information 8 Natali Smith. [address] [place], [place], [id number] , . tel:[phone] Referring Provider: Luis Thorne, [address] [place], [address] . tel:[phone] New Pt Exp Prob Focused 20 Min [facility], [address] [place], [place], [id number] , tel:[phone] [facility] No Information 7 Christiano Mcdonald. [address] [place] [address], [id number] , [place]. tel:[phone] Referring Provider: Rickey Jones, [address] [place], [address]. tel:[phone] Family History Family Member Type Diagnosis Age At Onset No Information Payers Payer name Insurance type Covered green party ID Authoriza tion(s) No Information Social History [...] Related to Floaters, uveitis - Followed [facility], pt more comfortable On pred [...]
--- OUTSIDE RECORDS SUMMARY | 2024-06-17 13:21 | XMS_ITS ---
Author Organization [facility] Address [address] [place] [address] Care Team Providers Care Scheduling Manager Name Role Phone Haider FOWLER, Kartik Primary Care Provider Unavailab Qamar Ac [facility] [phone] REASON FOR VISIT B12 deficiency Medications Medication SIG (Take, Route, Frequency, Duration) Notes Start Date End Date Status Losartan Potassium 50 MG 1 tablet Orally Once a day for 30 day(s) Active Dicyclomine HCl 10 MG 1 Orally BID Active Cholestyramine 4 GM/DOSE use anywhere from 1/4 to a full scoop in 8 ounces of water or orange juice Orally Once or twice a day to help with the diarrhea for 30 day(s) 04/23/2024 Active Imodium A-D 2 MG use 1 or 2 tablets Orally Up to Four times a day for diarrhea. You can take it before a meal to try to prevent diarrhea after eating for 30 days 04/23/2024 Active Folic Acid 1 [...] Active Encounters Encounter Location Date Provider Diagnosis [facility] [address] [place] [address] 06/02/2024 Qamar Garcia B12 deficiency E53.8 Assessments Encounter Date Diagnosis (ICD Code) Assessment Notes Treatment Notes Treatment Clinical Notes Section Notes 06/02/2024 B12 deficiency (ICD-10 - E53.8) Plan Of Treatment Next Appt Details Provider Name:Qamar Garcia , 11/24/2024 01:20:00 PM, [address] [facility], [address], [place], [address], Medications Administered Medication Instructions Date of Administration Dosage Notes B-12 06/02/2024 1000 mL Progress Notes * CYNTHIA GARCIADOB: 7 (68 yo F)Acc No.[id number]:06/02/2024 SHOT Patient:?CARSON GARCIANA Provider:?Qamar Garcia MD :1955???Age:68 Y???Sex:Female D ate:06/02/2024 Address:[address] [place], [place] [address] Pcp:Kartik Maloney MD Subjective: * Chief Complaints: [...] the week of 06/01/2024. Thanks Objective: * Vitals:? Assessment: * Assessment: 1.?B12 deficiency - E53.8 (P rimary)??? Plan: * Treatment: * Therapeutic Injections:? B-12 : 1000 mL (Dose No:1) (Route: Intramuscular) given by Tonya Newman on left arm intramuscular * Procedure Codes:?J3420 INJ V IT B-12 CYNOCOBLMN TO 1000 MCG, [address] THER/PROPH/DIAG INJ, SC/IM * * The named appointment provid er may or may not be the originator of this progress note, and it is not deemed complete until electronically signed by the appointment provider. Sign off status: Pending * Provider:?Qamar Garcia MD Date:? 025 Generated for Devora kahn/Bayron/Angeliqueitting on:?06/17/2024 01:21 PM EDT
[2024-06-17 14:09] LABS: Iron 223 mcg/dL (30-160); Percent Iron Saturation 90 % (15-50); Total Iron Binding Capacity 248 mcg/dL (228-428); Unsaturated Iron Binding < 25 ug/dL
[2024-06-17 14:12] LABS: Ferritin 640 ng/mL (10-250)
== END 2024-06-17 11:17 | disposition home or self-care (01) ==
LOC: HO.HMGCLDS 11:16
PROVIDERS: PCP Family Medicine; Visit Provider Internal Medicine
DX: E83.19 Other disorders of iron metabolism (principal)
CPT/HCPCS: 36415; 81256; 82728; 83540

== ENCOUNTER 2024-07-27 10:11 | Outpatient (AMB) | payer MEDICARE, SELFPAY ==
--- OUTSIDE RECORDS SUMMARY | 2024-07-27 10:45 | XMS_ITS ---
Author Organization [facility] Address [address] [place] [address] Care Team Providers Care Diesel Technician Name Role Phone Haider FOWLER, Kartik Primary Care Provider Unavailab Qamar Ac [facility] [phone] REASON FOR VISIT B12 deficiency Medications Medication SIG (Take, Route, Frequency, Duration) Notes Start Date End Date Status Imodium A-D 2 MG use 1 or 2 tablets Orally Up to Four times a day for diarrhea. You can take it before a meal to try to prevent diarrhea after eating for 30 days 04/23/2024 Active Cholestyramine 4 GM/DOSE use anywhere from /4 to a full scoop in 8 ounces of water or orange juice Orally Once or twice a day to help with the diarrhea for 30 day(s) 04/23/2024 Active Folic Acid 1 MG 1 tablet every day, but do not start until after the 3rd B12 shot the week of 06/01/2024 Orally Once a day for 30 days Please remind patient that she should not start this until after her 3rd B12 shot the week of 06/01/2024. Thanks 05/27/2024 Active Dicyclomine HCl 10 MG 1 Orally BID Active Losartan Potassium 50 MG 1 tablet Orally Once a day for 30 day(s) Active Carvedilol Active busPIRone HCl 5 MG 1 tablet Orally Twice a day Active Levothyroxine Sodium Active BuPROPion HBr Active PARoxetine HCl Activ e Encounters Encounter Location Date Provider Diagnosis [facility] [address] [place] [address] 06/30/2024 Qamar Garcia B12 deficiency E53.8 Assessments Encounter Date Diagnosis (ICD Code) Assessment Notes Treatment Notes Treatment Clinical Notes Section Notes 06/30/2024 B12 deficiency (ICD-10 - E53.8) Plan Of Treatment Next Appt Details Provider Name:Qamar Garcia , 11/24/2024 01:20:00 PM, [address] [facility], [address], [place], [address], Medications Administered Medication Instructions Date of Administration Dosage Notes B-12 06/30/2024 1000 ug Progress Notes * CYNTHIA GARCIADOB: 7 (68 yo F)Acc No.[id number]:06/30/2024 SHOT Patient:?CARSON GARCIANA Provider:?Qamar Garcia MD :1955???Age:68 Y???Sex:Female D ate:06/30/2024 Address:[address] [place], [place] [address] Pcp:Kartik Maloney MD Subjective: * Chief Complaints: [...] Treatment: * Therapeutic Injections:? B-12 : 1000 mcg (Dose No:1) (Route: Intramuscular) given by Guillermina Burnett on left arm subcutaneous * Procedure Codes:?J3420 INJ V IT B-12 CYNOCOBLMN TO 1000 MCG, [address] THER/PROPH/DIAG INJ, SC/IM * * Sign off status: Completed true * Provider:?Qamar Garcia MD Date:? 025 Generated for Devora kahn/Bayron/Angeliqueitting on:?07/27/2024 10:44 AM EDT
--- OUTSIDE RECORDS SUMMARY | 2024-07-27 10:45 | XMS_ITS ---
Author Organization [facility] Address [address] [place] [address] Care Team Providers Care Fish Butcher Name Role Phone Haider FOWLER, Kartik Primary Care Provider Unavailab Qamar Ac [facility] [phone] REASON FOR VISIT B12 deficiency Medications Medication [...] Encounters Encounter Location Date Provider Diagnosis [facility] [address] [place] [address] 06/02/2024 Qamar Garcia B12 deficiency E53.8 Assessments Encounter Date Diagnosis (ICD Code) Assessment Notes Treatment Notes Treatment Clinical Notes Section Notes 06/02/2024 B12 deficiency (ICD-10 - E53.8) Plan Of Treatment Next Appt Details Provider Name:Qamar Garcia , 11/24/2024 01:20:00 PM, [address] [facility], [address], [place], [address], Medications Administered Medication Instructions Date of Administration Dosage Notes B-12 06/02/2024 1000 mL Progress Notes * CYNTHIA GARCIADOB: 7 (68 yo F)Acc No.[id number]:06/02/2024 SHOT Patient:?CARSON GARCIANA Provider:?Qamar Garcia MD :1955???Age:68 Y???Sex:Female D ate:06/02/2024 Address:[address] [place], [place] [id number] Pcp:Kartik Maloney MD Subjective: * Chief Complaints: [...] V IT B-12 CYNOCOBLMN TO [address] [place], [address] THER/PROPH/DIAG INJ, SC/IM * * The named appointment provid er may or may not be the originator of this progress note, and it is not deemed complete until electronically signed by the appointment provider. Sign off status: Pending * Provider:?Qamar Garcia MD Date:? 025 Generated for Devora kahn/Bayron/Angeliqueitting on:?07/27/2024 10:44 AM EDT
--- OUTSIDE RECORDS SUMMARY | 2024-07-27 10:45 | XMS_ITS ---
Author Organization [facility] Address [address] [place] [address] Care Team Providers Care Evaporator Name Role Phone Haider FOWLER, Kartik Primary Care Provider Unavailab Qamar Ac [phone] REASON FOR VISIT B12 deficiency Encounters Encounter Location Date Provider Diagnosis [facility] [address] [place] [address] 06/30/2024 Qamar Garcia Plan Of Treatment Next Appt Details Provider Name:Qamar Garcia , 11/24/2024 01:20:00 PM, [address], [address], [place], [address], Progress Notes * CARSON GARCIAKIZZYDOB: (68 yo F)Acc No.[id number]:06/30/2024 SHOT Patient:?CARSON GARCIANA Provider:?Qamar Garcia MD :1955???Age:68 Y???Sex:Female D ate:06/30/2024 Address:[address] [place], [place] [id number] Pcp:Kartik Maloney MD Subjective: * Chief Complaints: * ???1. B12 deficiency. * Medical History:? Objective: * Vitals:? Assessment: Plan: * Treatment: * * The named appointment provid er may or may not be the originator of this progress note, and it is not deemed complete until electronically signed by the appointment provider. Sign off status: Pending * Provider:?Qamar Garcia MD Date:? 025 Generated for Devora kahn/Bayron/Angeliqueitting on:?07/27/2024 10:44 AM EDT
--- OUTSIDE RECORDS SUMMARY | 2024-07-27 10:45 | XMS_ITS | Continuity of Care Document ---
Author Organization [facility] Address [address] [address] Phone Care Team Providers Care Engineer Chief Name Role Phone Gil Anderson MD Unavailable [...] on Encounter Est Pt Exp Prob Focused [employer], [address] [place], [place], [id number] , tel:[phone] [facility] [place] [address] Cataract, Nuclear SclerosisDry Eye SyndromePrimary Angle Closure GlaucomaUnspecified Stage Not Reported In Chart 5 Justin Cordero. [address] [place], [place], [id number] , . tel:[phone] Referring Provider: Gil Anderson, [address] [place], [address] . tel:[phone] Est Pt Exp Prob Focused [facility], [address] [place], [place], [id number] , tel:[phone] [facility] [place] [address] Cataract, Nuclear SclerosisPrimary Angle Closure GlaucomaModerate Stage GlaucomaDry Eye Syndrome 5 Justin Cordero. [address] [place], [place], [id number] , . tel:[phone] Referring Provider: Luis Thorne, [address] [place], [address] . tel:[phone] [employer], [address] [place], [place], [address] , [place] tel: [phone] [facility] [place] [address] Cataract, Nuclear SclerosisFloaters, uveitisUveitis, Lens InducedPrimary Angle Closure GlaucomaIndeterminate 4 Atodaria Luis. [address] [place], [place], [place], [id number] , [place]. tel: [phone] Referring Provider: Abdullahi Maldonado, [address] [place], [address] . tel:[phone] [facility], [address] [place], [place], [address] , [place] tel: [phone] [facility] [place] [address] Uveitis, Lens Induced 4 Joel Fernando. [address] [place], [place], [address] , [place]. tel: [phone] Referring Provider: Abdullahi Maldonado, [address] [place], [address] . tel:[phone] [facility], [address] [place], [place], [address] , [place] tel: [phone] [facility] [place] [address] Cataract OS >> ODFloaters, uveitis 4 Edvin García. [address] [place], [place], [address] , [place]. tel: [phone] Referring Provider: Abdullahi Maldonado, [address] [place], [address] . tel:[phone] [facility], [address] [place], [place], [address] , [place] tel: [phone] [facility] [place] [address] Uveitis, Lens InducedCataract, Nuclear SclerosisPrimary Angle Closure GlaucomaUnspecified Stage Not Reported In ChartAmblyopia, Unspecified 4 Joel Fernando. [address] [place], [place], [address] , [place]. tel: [phone] Referring Provider: Abdullahi Maldonado, [address] [place], [address] . tel:[phone] [facility] [facility], [address] [place], [place], [id number] , tel:[phone] [facility] [place] [address] Uveitis, Lens InducedUveitis, Lens InducedUveitis, Lens InducedGlaucoma, Chronic, Angle CloseCataract, Nuclear SclerosisAmblyopia, UnspecifiedIndetermin ate 3 Joel Abdullahi. [address] [place], [place], [address] [place] [address] , . tel:[phone] Referring Provider: Luis Thorne, [address] [place], [address] . tel:[phone] [facility], [address] [place], [place], [id number] , tel:[phone] [facility] [place] [address] Glaucoma, Acute, Narrow AngleGlaucoma, Acute, Narrow AngleCataract, Nuclear SclerosisAmblyopia, UnspecifiedGlaucoma, Chronic, Angle CloseGlaucoma, Chronic, Angle CloseGlaucoma, Chronic, Angle CloseGlaucoma, Chronic, Angle CloseCataract, Nuclear SclerosisAmblyopia, UnspecifiedIndetermin ate 3 Atodaria Luis. [address] [place], [place], [address] , . tel:[phone] Referring Provider: Luis Thorne, [address] [place], [address] . tel:[phone] [facility], [address] [place], [place], [address] , [phone] [facility] [place] No Information 8 Natali Smith. [address] [place], [place], [id number] , . tel:[phone] Referring Provider: Luis Thorne, [address] [place], [address] . tel:[phone] Est Pt Exp Prob Focused [employer], [address] [place], [id number] , tel:[phone] [facility] No Information 8 Natali Smith. [address], [address] , . tel:[phone] Referring Provider: Luis Thorne, [address], [address] . tel:[phone] New Pt Exp Prob Focused 20 Min [employer], [address], [address] , tel:[phone] [facility] No Information 7 Christiano Mcdonald. [address] [place] [address], [id number] , [place]. tel:[phone] Referring Provider: Rickey Jonse, [address] [place], [address]. tel:[phone] Family History Family Member Type Diagnosis Age At Onset No Information Payers Payer name Insurance type Covered alliance party ID Authoriza tion(s) No Information Social [...] paula to Primary Angle Closure Glaucoma - Followed [facility], pt more comfortable On pred [...] Related to Primary Angle Closure Glaucoma - See secondary dx plan. Related to Indeterminate (VF not done or unreliable) - monocular od, no s urgery recommended os due to total RD and poor prognosis Related to Cataract, Nuclear Sclerosis - Observe. appears q uiet recommend comfort measures for os in general clinic Related to Floaters, uveitis - Improved. Reduce p red to bid [...] Related to Primary Angle Closure Glaucoma - See secondary dx plan. Related to Unspecified - [[PLAN: IOP doing well today OD. [...] [place] 02/11/13 Related to Cataract, Nuclear Sclerosis Amblyopia, Unspec., OS Related t o Amblyopia [...]
--- OUTSIDE RECORDS SUMMARY | 2024-07-27 10:45 | XMS_ITS | Patient Health Record ---
Author Organization [facility] Address [address] [place] [address] Care Team Providers Care Felt Washing Machine Tender Name Role Phone Haider FOWLER, Kartik Primary Care Provider Qamar Talley [phone] Allergies Allergen (clinical drug ingredient) Drug/Non Drug Allergy documented on EMR Reaction Allergy Type Onset Date Status lisinopril Lisinopril cough Drug Allergy Activ e Results Component Value Reference Range Notes Ferritin Reviewed date:05/20/2024 01:53:07 PM Interpretation: Performing Lab:[facility], [address] [place] [phone] Notes/Report: Ferritin 650 10-250 ng/mL Intrinsic Factor Antibodies Reviewed date:05/22/2024 04:24:27 PM Interpretation: Performing Lab:[facility], [address] [place] [phone] Notes/Report: Intrinsic Factor Antibodies Positive Negative For additional information, please refer to http://education.oNoise/faq/IFAB (This link is being provided for informational/ educational purposes only.) THIS TEST WAS PERFORMED AT: [facility] [id number] [place] [address] RICK HOLLINGSWORTH MD,PHD Parietal Cell Antibody Reviewed date:06/17/2024 06:59:55 PM Interpretation: Performing Lab:[facility], [address] [place] [address] Notes/Report: Parietal Cell Antibody 51.1 <=20.0 Unit Reference Range: <= 20.0 Negative 20.1 - 24.9 Equivocal >= 25.0 Positive Anti-gastric parietal cell antibodies (Anti-GPA) were previously tested for by indirect immunofluorescence (IF) using mouse stomach as a substrate. Identification of the specific antibody target as H+/K+ ATPase protein (a gastric proton pump) has led to the development of an TORRES based assay. Antibodies to this protein are present in approximately 80% of patients with pernicious anemia and a small percentage of general adult population. The latter percentage increases with age and may reflect the presence of atrophic gastritis. A negative test does not exclude a diagnosis of pernicious anemia. A test for intrinsic factor blocking antibody (IFab) may provide serological evidence in support of the diagnosis in some of these patients. THIS TEST WAS PERFORMED AT: [facility] [address] [place] [address] RICK HOLLINGSWORTH MD,PHD Leukocytes Stool Qualitative Reviewed date:04/09/2024 02:02:54 PM Interpretation: Performing Lab:[facility], [address] [place] [phone] Notes/Report: Leukocytes Stool Qualitative NEGATIVE NEGATIVE Calprotectin, Fecal Reviewed date:04/16/2024 10:46:56 AM Interpretation: Performing Lab:[address] [address] Notes/Report: Calprotectin, Fecal 14 Reference Range: <50 [...] borderline values. THIS TEST WAS PERFORMED AT: [facility] [address] [place] [address] KATHERINE MCGEE MD,PHD,PATRICIA CDiff Gene PCR Reviewed date:04/13/2024 04:23:19 PM Interpretation: Performing Lab:[facility], [address] [place] [address] Notes/Report: CDiff Gene PCR POSITIVE Negative Additional C. difficile toxin testing to be performed. CDiff Toxin Reviewed date:04/09/2024 02:04:29 PM Interpretation: Performing Lab:[facility], [address] [place] [phone] Notes/Report: CDiff Toxin Negative Negative CDIFF Interpretation SEE NOTE Likely C. difficile colonization. Continue contact precautions. GI PANEL Reviewed date:04/09/2024 02:03:39 PM Interpretation: Performing Lab:[facility], [address] [place] [address] Notes/Report: Campylobacter Not Detected Not Detect. Plesiomonas [...] is performed by Multiplexed PCR, utilizing the rSmart Array. Liver Panel Reviewed date:05/14/2024 05:51:13 PM Interpretation: Performing Lab:[address] [address] Notes/Report: Bilirubin Total 0.5 0.0-1.0 mg/dL Bilirubin Direct 0.2 0.0-0.5 mg/dL Aspartate Amino Transferase 56 5-31 U/L Alanine Aminotransferase 29 0-31 U/L Total Protein 7.3 6.5-8.0 g/dL Albumin Level 3.7 3.5-5.0 g/dL Alkaline Phosphatase 113 39-117 U/L Basic Metabolic Panel Reviewed date:05/14/2024 05:51:02 PM Interpretation: Performing Lab:[address] [address] Notes/Report: Sodium 143 135-145 mmol/L Potassium 3.6 [...] 9.1 8.4-10.2 mg/dL Vitamin B12 and Folate Reviewed date:05/19/2024 01:03:52 PM Interpretation: Performing Lab:[address] [address] Notes/Report: Vitamin B12 < 148 200-900 pg/mL NORMAL 200-900 PG/ML INDETERMINATE 160-199 PG/ML DEFICIENT < 160 PG/ML Folate 2.4 > or = 4.0 ng/mL Reference Values: > or = 4.0 ng/mL < 4.0 ng/mL suggests folate deficiency Methotrexate, aminopterin and folinic acid (leucovorin) are chemotherapeutic agents whose molecular structures are similar to folate; therefore, the Bed Setter folate assay cannot be used for patients using these drugs. Celiac Disease Panel Reviewed date:05/18/2024 01:24:02 AM Interpretation: Performing Lab:[facility], [address] [place] [phone] Notes/Report: Immunoglobulin A 322 70-320 mg/dL THIS TEST WAS PERFORMED AT: [facility] [address] [place] [phone] GEMINI RUSSELL MD Transglutaminase IgA <1.0 Value Interpretation ----- <15.0 Antibody not detected > or = 15.0 Antibody detected Celiac Disease Panel Interp. SEE NOTE No serological evidence of celiac disease. Total serum IgA is elevated. Consider mucosal inflammatory conditions or underlying gammopathy. Complete Blood Count Auto Di ff Reviewed date:05/19/2024 01:02:14 PM Interpretation: Performing Lab:[facility], [address] [place] [address] Notes/Report: White Blood Count 5.4 4.8-10.8 X10*3/uL [...] X10*3/uL NRBC Abs Auto 0.020 0.0-0.012 X10*3/uL IRON PROFILE Reviewed date:06/17/2024 06:58:54 PM Interpretation: Performing Lab:[facility], [address] [place] [phone] Notes/Report: Iron 169 30-160 mcg/dL Total Iron Binding Capacity 215 228-428 mcg/dL Percent Iron Saturation 79 15-50 % Unsaturated Iron Binding 46 Immunoglobulin A Reviewed date:06/17/2024 06:58:43 PM Interpretation: Performing Lab:[facility], [address] [place] [address] Notes/Report: Immunoglobulin A 305 70-320 mg/dL THIS TEST WAS PERFORMED AT: [facility] [address] [place] [phone] GEMINI RUSSELL MD Transglutaminase Ab IgG Reviewed date:06/17/2024 06:58:33 PM Interpretation: Performing Lab:[facility], [address] [place] [phone] Notes/Report: Transglutaminase Ab IgG <1.0 Value Interpretation ----- <15.0 Antibody not detected > or = 15.0 Antibody detected THIS TEST WAS PERFORMED AT: [facility] [address] [place] [phone] GEMINI RUSSELL MD Transglutaminase IgA Reviewed date:06/17/2024 06:58:27 PM Interpretation: Performing Lab:[facility], [address] [place] [phone] Notes/Report: Transglutaminase IgA <1.0 Value Interpretation ----- <15.0 Antibody not detected > or = 15.0 Antibody detected THIS TEST WAS PERFORMED AT: [facility] [address] [place] [phone] GEMINI RUSSELL MD Gliadin Ab Panel Reviewed date:06/17/2024 06:58:20 PM Interpretation: Performing Lab:[facility], [address] [place] [phone] Notes/Report: Gliadin Deamidated IgA Ab 2.4 Value Interpretation ----- <15.0 Antibody not detected > or = 15.0 Antibody detected Gliadin Deamidated IgG Ab <1.0 Value Interpretation ----- <15.0 Antibody not detected > or = 15.0 Antibody detected THIS TEST WAS PERFORMED AT: [facility] [address] [address] GEMINI RUSSELL MD Endomysial IgA rflx Titer Reviewed date:06/17/2024 06:58:11 PM Interpretation: Performing Lab:[facility], [address] [place] [phone] Notes/Report: Endomysial IgA Antibody Negative Negative THIS TEST WAS PERFORMED AT: [facility]/[address] [address] RICK HOLLINGSWORTH MD,PHD Endomysial Titer TNP DNA Analysis Hemochromatosis (Not yet reviewed by provider) Interpretation: Performing Lab:[facility], [address] [place] [phone] Notes/Report: DNA Analysis Hemochromatosis See Below RESULT: NEGATIVE Interpretation: DNA testing indicates that this individual is negative for the C282Y and H63D pathogenic variants in the HFE gene. This negative result significantly reduces the likelihood of hereditary hemochromatosis (HH) in this individual. However, it does not rule out the presence of other pathogenic variants within the HFE gene or a diagnosis of HH. The risk of this individual to carry an HFE pathogenic variant other than those tested in this assay depends greatly on family and clinical history as well as ethnicity. This assay does not test for other primary or secondary iron overload disorders. Laboratory results and submitted clinical information reviewed by Stanley Cronin, Ph.D., FACMG, HCLD, MB. DETAILED ASSAY INFORMATION: Hereditary hemochromatosis (HH) is an autosomal recessive disorder of iron metabolism that can result in iron overload and potential organ failure. It is one of the most common genetic disorders in individuals of - ancestry, with an estimated carrier frequency of 10%. HH is caused by pathogenic variants in the HFE gene. Most individuals with HH (60-90%) are homozygous for the C282Y pathogenic variant. A smaller percentage of affected individuals are either compound heterozygous for the C282Y and H63D pathogenic variants (3%-8%), or homozygous for the H63D pathogenic variant (approximately 1%). METHODOLOGY: This assay detects two pathogenic variants in the HFE gene, C282Y (NM 782663.2: c.845G>A, p.Ueb609Cln) and H63D (NM 237522.2: c.187C>G, p.Rqj78Kbw), that are commonly associated with HH. These variants are detected by multiplex-polymerase chain reaction (PCR) amplification, followed by restriction enzyme digestion and capillary electrophoresis. LIMITATIONS: This assay does not detect other pathogenic variants in the HFE gene that may be associated with HH. Although rare, false positive or false negative results may occur. All results should be interpreted in the context of clinical findings, relevant history, and other laboratory data. Health care providers, please contact your local [facility] genetic counselor or call [phone] ( ) for assistance with the interpretation of these results. This test was developed and its analytical performance characteristics have been determined by [facility]. It has not been cleared or approved by FDA. This assay has been validated pursuant to the CLIA regulations and is used for clinical purposes. For more information, please refer to http://education.Truffls.Kaiima/faq/hemochro matosis. (This link is being provided for informational/educational purposes only.) A portion of the testing was performed at [facility]. Reviewed and signed by Laboratory results and submitted clinical information reviewed by Stanley Cronin, Ph.D., FACMG, HCLD, CGMB, Signed on 06/26/2024 at 18:11 THIS TEST WAS PERFORMED AT: [facility] [address] [place] [address] KATHERINE MCGEE MD,PHD,PATRICIA IRON PROFILE Reviewed date:06/17/2024 06:57:05 PM Interpretation: Performing Lab:[facility], [address] [place] [address] Notes/Report: Iron 223 30-160 mcg/dL Total Iron Binding Capacity 248 228-428 mcg/dL Percent Iron Saturation 90 15-50 % Unsaturated Iron Binding < 25 Ferritin Reviewed date:06/17/2024 06:56:40 PM Interpretation: Performing Lab:[facility], [address] [place] [phone] Notes/Report: Ferritin 640 10-250 ng/mL Reason For Referral No Information Medications Medication SIG (Take, Route, Frequency, Duration) Notes Start Date End Date Status Carvedilol Active busPIRone HCl 5 MG 1 tablet Orally Twice a day Active Levothyroxine Sodium Active BuPROPion HBr Active Imodium A-D 2 MG use 1 or 2 tablets Orally Up to Four times a day for diarrhea. You can take it before a meal to try to prevent diarrhea after eating for 30 days 04/23/2024 Active Cholestyramine 4 GM/DOSE use anywhere from 4 to a full [...] 30 day(s) Active PARoxetine HCl Activ e Immunizations Vaccine Route Administration Date Status Comme [...] Problem Status W/U Status Risk Notes Problem 765550341 Encounter for screening for malignant neoplasm of colon (Z12.11) Active confirmed Problem Iron excess (00902107) Iron excess (E83.19) Active confirmed Problem Anemia (542346350) Anemia (D64.9) Active confir med Problem Vitamin B12 deficiency (non anemic) (35662704) B12 deficiency (E53.8) Active confirmed Problem Chronic diarrhea (799710491) Chronic diarrhea (K52.9) Active confirmed Problem 28280347 Irritable bowel syndrome with both constipation and diarrhea (K58.2) Active confirmed Problem 682458796 Non-intractable vomiting without nausea, unspecified vomiting type (R11.11) Active confirmed Problem 6634491 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) Active confirmed Problem Macrocytosis - no anemia (382225721) Macrocytosis without anemia (D75.89) Active confirmed Problem 96301903833842872 Abnormal abdominal CT scan (R93.5) Active confirmed Vital Signs Blood pressure diastolic 00 mm Hg 04/23/2024 Height 62 in 04/23/2024 Blood pressure systolic 00 mm Hg 04/23/2024 Weight 168 lbs 04/23/2024 BMI 30.72 kg/m2 04/23/2024 Encounters Encounter Location Date Provider Diagnosis [facility] [address] [place] [phone] 06/02/2024 Qamar Garcia B12 deficiency E53.8 [facility] [address] [place] [phone] 04/23/2024 Qamar Garcia Chronic diarrhea K52 .9 and Macrocytosis without anemia D75.89 [facility] [address] [place] [phone] 05/19/2024 Qamar Garcia B12 deficiency E53.8 [facility] [address] [place] [address] 05/26/2024 Qamar Garcia B12 deficiency E53.8 [facility] [address] [place] [address] 06/30/2024 Qamar Garcia B12 deficiency E53.8 [facility] [address] [place] [phone] 01/14/2024 Qamar Garcia Chronic diarrhea K52 .9 [facility] [address] [place] [phone] 01/30/2024 Qamar Garcia [facility] [address] [place] [phone] 04/09/2024 Qamar Garcia [facility] [address] [place] [phone] 04/17/2024 Qamar Garcia [facility] [address] [place] [phone] 05/18/2024 Qamar Garcia B12 deficiency E53.8 and Anemia D64.9 [facility] [address] [place] [address] 05/26/2024 Qamar Garcia Iron excess E83.19 Assessments Encounter Date Diagnosis (ICD Code) Assessment Notes Treatment Notes Treatment Clinical Notes Section Notes 06/02/2024 B12 deficiency (ICD-10 - E53.8) 04/23/2024 Chronic diarrhea (ICD-10 - K52.9) Start [...] progress. 05/19/2024 B12 deficiency (ICD-10 - E53.8) 05/26/2024 B12 deficiency (ICD-10 - E53.8) 06/30/2024 B12 deficiency (ICD-10 - E53.8) 01/14/2024 Chronic diarrhea (ICD-10 - K52.9) 05/18/2024 Anemia (ICD-10 - D64.9) 05/18/2024 B12 deficiency (ICD-10 - E53.8) 05/26/2024 Iron excess (ICD-10 - E83.19) Plan Of Treatment Pending Test Test Name Order Date CHEM 7 PROFILE 04/23/2024 BUN 05/24/2019 CREATININE 05/24/2019 LIVER PROFILE 05/24/2019 LIVER PROFILE 04/23/2024 AMYLASE 05/24/2019 LIPASE 05/24/2019 IRON + IBC (FE) 05/26/2024 IRON + IBC (FE) 05/18/2024 CBC w DIFF 05/18/2024 CBC w DIFF 04/23/2024 CELIAC PANEL #10 04/23/2024 CELIAC PANEL #10 11/25/2018 CA 19-9 05/24/2019 HEMOCHROMATOSIS (C282Y) 05/26/2024 STOOL WBC 01/14/2024 C DIFFICILE RFLX PCR 01/14/2024 C DIFFICILE RFLX PCR 04/23/2024 DNA Analysis Hemochromatosis 06/17/2024 Ferritin 05/26/2024 Vitamin B12 and Folate 04/23/2024 Celiac Panel 10 05/18/2024 Calprotectin, Fecal 01/14/2024 GI PANEL 01/14/2024 Future Test Test Name Order Date COLONOSCOPY 11/25/2018 Next Appt Details Provider Name:Qamar Garcia , 11/24/2024 01:20:00 PM, [address], [address], [place], [address], Insurance Providers Payer Name Payer Address Payer Phone Subscriber Number Group Number Insured Name Patient Relationship to Insured Coverage Start Date Coverage End Date [facility] [address] [address] [place] [address] [id number] MAKENNA GARCIA Self - patient is the insured MEDICAID OF [facility] [address] [place] [address] [id number] MAKENNA GARCIA Self - patient is the insured Medications Administered Medication Instructions Date of Administration Dosage Notes B-12 05/19/2024 1000 mL B-12 05/26/2024 1000 mL B-12 06/02/2024 1000 mL B-12 06/30/2024 1000 ug Medical (General) History Medical History History ICD Code Breast cancer on the right with surgery, chemo, and XRT in 2014 Denies NM,DM,CVA,Lung disease,renal dise ase CHF/ pacemaker-Dr. Campoverde Hypothyroidism Depression Reports a negative colonoscopy in [facility] > 10 years ago IBS-neg. celiac [...] Colon surgery due to diverticulitis in [facility] [address] Richter in 2 022--lost over 50 pounds
--- NOTE | 2024-07-27 11:52 | MHC.OFFWIV ---
Intake Vital Signs 07/27/24 11:56 Weight 166 lb BP 126/80 Blood Pressure Location Lt brachial Position Sitting Pulse 118 H Pulse Source Pulse Oximeter Temp 98.6 F Temp Source Oral Pulse Oximetry (%) 96 Oxygen Delivery Method Room Air Intake Visit Reasons: PE Sore throat, hot/cold chills Intake Note: Patient here for sore throat, dry mouth and hot and cold chills that has been present since . Patient Tobacco Use Status: Former Tobacco user Allergies lisinopril Adverse Reaction (Severe, Verified 07/27/24 11:59) COUGH Do you need a note to return to daycare/school/sports/work: No HPI HPI Comments History of Present Illness Details History - The patient is a 68-year-old female with a past medical history of implanted defibrillator, DEANDRE, hypertension, nonischemic cardiomyopathy, restrictive lung disease, hypothyroidism, depression and a history of right-sided breast cancer now in remission complaining of presenting with cough and shortness of breath and fatigue. - Coughing with blood production was noted this morning. She showed me a picture and it is clearly three 1cm areas of blood and not blood-tinged sputum. - Onset of shortness of breath was a week ago, with associated chills but without fever. - She reports a reduction in food and fluid intake compared to her norm. - Is not on a blood thinner, no hx of blood clots Physical Exam General: Cooperative, healthy appearing, comfortable and no acute distress Orientation/consciousness: Patient oriented x3 Limitations: No limitations Head: Normal to inspection Ears: Hearing grossly normal bilaterally, external ears normal and TM's normal bilaterally Nose: Normal external nose present, Normal nares present and No nasal discharge present Face and sinus: Normal facial exam and Yes sinuses nontender Mouth: Normal oral and palatal mucosa present and moist mucous membranes Throat: Yes tonsils normal, Yes uvula midline. Posterior oropharynx erythema Eyes: Appearance normal, both eyes and all related structures Neck: Normal visual inspection Respiratory: Clear to auscultation bilaterally. Normal respiratory effort, able to speak in complete sentences, Actively coughing, no respiratory distress, not tachypneic, no tripod positioning and no use of accessory muscles Cardiovascular: tachy rate and regular rhythm. Normal S1 and S2 Skin: No rashes or lesions noted Neuro: Patient oriented x3 Extremities: Normal to inspection and Yes no clubbing, cyanosis or edema [facility] Medical History Obesity (BMI 30-39.9) Pacemaker Atypical lobular hyperplasia (ALH) of right breast Steatosis, liver Morbid obesity Breast cancer Obesity Hypothyroidism History of breast cancer Depression Hypertension Cardiac resynchronization therapy defibrillator (ROTARY DRIER-D) in place Dyspnea on exertion NICM (nonischemic cardiomyopathy) Restrictive lung disease DEANDRE (obstructive sleep apnea) Morbid obesity Surgical History S/P lumpectomy, right breast (04/12/21) History of right mastectomy History of incisional hernia repair History of colectomy History of laparoscopic cholecystectomy Family History Father Multiple sclerosis Mother Breast CA Maternal Grandmother Breast CA Paternal Grandmother Stomach cancer Paternal Aunt Breast CA Social History Household Members: None Housing: House Are you a primary animal care specialist to a significant other at home: No Do you presently have visiting nurse or other home services: No Alcohol intake: current Alcohol intake frequency: holidays/special occasions only Patient Tobacco Use Status: Former Tobacco user Second Hand Smoke Exposure: No Substance Use Type: Marijuana service: No Current occupational status: retired Review of Systems Const All systems reviewed & are unremarkable except as noted in HPI and below Physical Exam Vital Signs: Last Vital Signs Temp 98.6 F 07/27/24 11:56 Pulse 118 H 07/27/24 11:56 BP 126/80 07/27/24 11:56 Pulse Ox 96 07/27/24 11:56 Oxygen Delivery Method Room Air 07/27/24 11:56 Assessment & Plan Assessment & Plan (1) Shortness of breath: Code(s): R06.02 - Shortness of breath Plan: Tachy at 118BPM, O2 96%. The presence of hemoptysis and shortness of breath necessitates evaluation for pulmonary embolism. Given the serious nature of her symptoms and complex medical history, referral for urgent assessment and imaging studies at a nearby facility is essential. Coordination with the facility will ensure her prompt evaluation upon arrival. Patient refused ambulance and wants to drive herself, she is stable and well appearing. Called [facility] ED with krishan, spoke with Ni. Patient was informed and verbally consented to the use of an ambient scribe for clinic note documentation during this visit Coding Level of Care Code New Pt Level 5 (98301) Diagnoses Shortness of breath R06.02
[2024-07-27 11:56] VITALS: BP 126/80; PULSE 118; TEMP 37; O2SAT 96
== END 2024-07-27 13:20 | disposition home or self-care (01) ==
PROVIDERS: PCP Family Medicine; Visit Provider Physician Assistant
DX: R06.02 Shortness of breath (principal); Z13.9 Encounter for screening, unspecified

== ENCOUNTER → 2024-07-27 10:11 | Outpatient (BNVA) | payer MEDICARE, SELFPAY | PROVIDERS: PCP Family Medicine; Visit Provider Physician Assistant | DX: Z13.89 Encounter for screening for other disorder (principal) ==

== ENCOUNTER 2024-07-27 13:11 | Emergency (ER) | payer MEDICARE, MEDICAID, SELFPAY ==
[2024-07-27] VITALS (7 sets, daily range): BP systolic 101–153; BP diastolic 81–93; PULSE 92–111; RESP 18–28; TEMP 36–36.9; O2SAT 95–97; BMI 30.3
--- NOTE | ~2024-07-27 | XR_ITS ---
EXAMINATION: XR CHEST 2 VIEWS HISTORY: chest pain COMPARISON: Comparison is made with the prior examination dated 07/01/2020. FINDINGS: PA and lateral views of the chest are submitted. The left-sided pacemaker/AICD is unchanged in position. The lungs are expanded and clear. There is no pleural effusion, pneumothorax, or pulmonary vascular congestion. The heart is normal in size. There is degenerative disc disease of the spine. There are surgical clips in the right breast and right axilla. XR/XR chest 2V IMPRESSION: No acute cardiopulmonary abnormality. Electronically signed by: Qamar Lester MD 07/27/2024 01:52 PM EDT
--- NOTE | ~2024-07-27 | US_ITS ---
EXAMINATION: US ABDOMEN LIMITED CLINICAL INFORMATION: Elevated LFTs, right upper quadrant pain.. COMPARISON: 07/28/2020. TECHNIQUE: Real-time imaging of the bile ducts, liver, and pancreas. FINDINGS: PANCREAS: Visualized portions are unremarkable. LIVER: The liver is normal in size. The right hepatic lobe measures 15.4 cm in length. The liver contour is normal. There is diffuse increased liver parenchymal echogenicity, consistent with hepatic steatosis. No focal hepatic lesion. There is no intrahepatic biliary duct dilatation seen. GALLBLADDER: Surgically absent. COMMON BILE DUCT: Variable, measuring anywhere from 0.4 to 1.2 cm. This is likely on the basis of postcholecystectomy reservoir state. FREE FLUID: None. US/US abdomen limited IMPRESSION: 1. Echogenic liver, suggestive of hepatic steatosis. No focal lesion. No intrahepatic biliary dilatation. 2. Common bile duct measuring anywhere from 0.4 to 1.2 cm. This is likely on the basis of postcholecystectomy reservoir state. 3. Surgically absent gallbladder. 4. Normal-appearing pancreas. Electronically signed by: Bryan Jo MD 07/27/2024 04:35 PM EDT
--- NOTE | ~2024-07-27 | CT_ITS ---
CLINICAL HISTORY: sob, hemoptysis, tachy r o PE CT angiography of the chest with IV contrast. 3D/MIP post processing reconstructions were performed. COMPARISON: XR chest dated 07/27/24 at 13:44 EDT FINDINGS: There are no intraluminal filling defects to suggest pulmonary embolism. No evidence of right heart strain. No supraclavicular or axillary lymphadenopathy. Surgical clips present along the right breast and right axilla. Left-sided cardiac pacemaker. Ascending aorta and main pulmonary artery are normal in caliber. No pericardial effusion. Cardiomegaly. Normal esophagus. No mediastinal or hilar lymphadenopathy. No pleural effusion. No consolidation. Trachea and central airways are clear. No significant bronchial wall thickening. No bronchiectasis. Suture material present along the greater curvature of the stomach. Cholecystectomy. Partially visualized left adrenal adenoma measuring 1.4 cm Marginal osteophytes present throughout the mid to lower thoracic spine. No acute fracture IMPRESSION: 1. No evidence of pulmonary embolism. 2. No acute intrathoracic findings. No evidence of pneumonia. This document has been electronically signed by: Ezra Cooley MD on 07/27/2024 17:07:39
--- NOTE | 2024-07-27 13:14 | ED_ITS ---
HPI - General Adult General Chief complaint: Dyspnea Stated complaint: Diff Breathing Time Seen by Provider: 07/27/24 13:40 Source: patient Mode of arrival: ambulatory Limitations: no limitations History of Present Illness ED Provider: BRITTANY LANTIGUA PA-C HPI narrative: 68 year old female with pmhx significant for GERD, DEANDRE, non-ischemic cardiomyopathy, pacemaker, restrictive lung disease, hypothyroidism, HTN, MDD, ANNABEL, breast cancer presents to the ED today for evaluation of feeling generally unwell x4 days. Reports dry cough, chills, and subjective fevers at home. She reports shortness of breath but only due to her sore throat, stating I feel like I have something stuck there . Able to tolerate solids/liquids and saliva. Reports presenting to UC today for symptoms, was noted to be tachycardic and tachypneic - sent here for further eval. Patient reports hx anxiety, feels very anxious about the situation/ being in the hospital. Reports feeling restless like she would like to leave the ED. No known sick contacts. Related Data Home Medications ?Medication ?Instructions ?Recorded ?Confirmed carvedilol 25 mg tablet 25 mg PO BID 12/12/19 01/14/24 levothyroxine 175 mcg tablet 175 mcg PO DAILY 12/12/19 01/14/24 losartan 50 mg tablet 50 mg PO DAILY 12/12/19 01/14/24 paroxetine HCl 30 mg tablet 30 mg PO DAILY 12/12/19 01/14/24 bupropion HCl 300 mg 24 hr tablet, 300 mg PO DAILY 07/12/20 01/14/24 extended release gabapentin 300 mg capsule 1 cap PO BEDTIME 04/12/22 01/14/24 Previous Rx's ?Medication ?Instructions ?Recorded cholecalciferol (vitamin D3) 25 25 mcg PO DAILY #30 caps 08/31/21 mcg (1,000 unit) capsule thiamine HCl (vitamin B1) 100 mg 100 mg PO DAILY #90 tabs 12/28/21 tablet benzocaine 15 mg-menthol 2.6 mg 1 jayesh mucous membrane Q2-4H PRN 07/27/24 lozenges (Cepacol Sore Throat sore throat #16 ea (benzocaine-menthol)) penicillin V potassium 500 mg 500 mg PO BID 10 days #20 tabs 07/27/24 tablet Allergies Allergy/AdvReac Type Severity Reaction Status Date / Time lisinopril AdvReac Severe COUGH Verified 07/27/24 13:16 Review of Systems 2 Review of Systems: Yes all other systems are reviewed and are negative [facility] Past Medical History Attestation statement: The following information was validated with the patient. Source: old records reviewed and nursing notes reviewed Medical History Obesity (BMI 30-39.9) Pacemaker Atypical lobular hyperplasia (ALH) of right breast Steatosis, liver Morbid obesity Breast cancer Obesity Hypothyroidism History of breast cancer Depression Hypertension Cardiac resynchronization therapy defibrillator (INSPECTOR RECEIVING-D) in place Dyspnea on exertion NICM (nonischemic cardiomyopathy) Restrictive lung disease DEANDRE (obstructive sleep apnea) Morbid obesity Surgical History S/P lumpectomy, right breast (04/12/21) History of right mastectomy History of incisional hernia repair History of colectomy History of laparoscopic cholecystectomy Family History Family History Father Multiple sclerosis Mother Breast CA Maternal Grandmother Breast CA Paternal Grandmother Stomach cancer Paternal Aunt Breast CA Social History Social History Household Members: None Housing: House Are you a primary social worker palliative care to a significant other at home: No Do you presently have visiting nurse or other home services: No Alcohol intake: current Alcohol intake frequency: holidays/special occasions only Patient Tobacco Use Status: Former Tobacco user Second Hand Smoke Exposure: No Substance Use Type: Marijuana service: No Current occupational status: retired Physical Exam ED Vital Signs: Vital Signs - 24 hr 07/27/24 13:15 07/27/24 14:17 07/27/24 16:54 Temperature 98.5 F 96.8 F Pulse Rate 111 H 102 H 92 Respiratory Rate 24 H 28 H 22 H Blood Pressure 101/81 115/88 123/90 H Pulse Oximetry 97 Oxygen Delivery Method Room Air Room Air Oxymizer 07/27/24 17:08 07/27/24 17:40 07/27/24 17:58 Temperature 97.3 F 98.3 F Pulse Rate 95 104 H 97 Respiratory Rate 25 H 18 Blood Pressure 140/92 H 153/93 H 150/83 H Pulse Oximetry 95 96 Oxygen Delivery Method Room Air Room Air 07/27/24 18:28 Temperature 98.3 F Pulse Rate 97 Respiratory Rate 18 Blood Pressure 150/83 H Pulse Oximetry 96 Oxygen Delivery Method Room Air BMI result Body Mass Index 30.3 tachycardic to 111, tachypneic, afebrile General: anxious appearing, restless (states this is her baseline), although in NAD Skin: Warm, dry, intact. No rashes or lesions. Head: Normocephalic, atraumatic. EENT: Hearing is intact b/l. Conjunctiva clear. Sclera is anicteric. PERRLA. EOM intact. Moist mucous membranes.?posterior oropharynx erythematous, no edema or tonsillar exudates, no peritonsillar masses, uvula midline, controlling secretions, speaking in complete sentences Neck: Supple without LAD? Cardiac: Chest wall symmetric. RRR Lungs: Normal respiratory effort without accessory muscle use. CTA bilaterally Abdomen: soft, non-tender, non-distended. No rebound tenderness or guarding. Positive BS x4. Back: No midline spinous or paraspinal tenderness. No step off deformity. Ext: Upper and lower extremities atraumatic, without tenderness, deformity, swelling or erythema. no peripheral edema, no calf tenderness. Neuro: AOx3. Normal speech. Ambulating with steady gait. Course Course Course Narrative: RME performed by Ni Lynne PA-C. Patient is a 68 year old assigned female at presenting to the emergency department with shortness of breath. Detailed physical exam and review of systems are deferred to the patient access director. EKG, labs, imaging, and swabs ordered. Patient placed back in the waiting room pending room availability and results. Reevaluation(s) Reevaluation #1: 1332 - CBC without leukocytosis or left shift. H&H stable. Chemistry without acute electrolyte abnormality requiring intervention. No ANABELA. Liver function elevated, total bili 1.2, transaminitis. Troponin undetectable. BUN mildly elevated to 207. cxr without evidence of obvious pneumonia. Negative COVID, flu, RSV. Positive for strep throat. > I did re-evaluate patient. She denies any abdominal pain however on my physical exam, she is mildly tender to palpation of right upper quadrant. Initially I felt that bump in liver enzymes may be related to recent viral infection however we will be ordering right upper quadrant ultrasound to further assess symptoms. She is status post cholecystectomy. > concern for sepsis at this time. lactic, blood cultures, IV fluids, Unasyn ordered. > CTA chest ordered to r/o PE v pneumonia 1800 -- CTA chest unremarkable - no PE, no PNA. Abd US unremarkable. > on re-evaluation of patient, reports improvement in symptoms with dose of unasyn and decadron. Patient has strep throat. Her vitals are stable and she is well appearing. I discussed admission for IV antibiotics. Patient would like to be discharged home with PO antibiotics. Her airway is patent, she is tolerating PO. I feel this is reasonable. Patient has remained stable throughout ED visit today. Discussed worrisome signs and symptoms and when to return to the ED. All questions answered at this time. Patient is agreeable with disposition and stable for discharge. Medications Administered Discontinued Medications Generic Name Dose Route Start Last Admin Trade Name Freq PRN Reason Stop Dose Admin Dexamethasone Sodium Phosphate 10 mg 07/27/24 14:18 07/27/24 14:42 Dexamethasone Sod Phosphate 10 Mg/Ml Vial IVPUSH 07/27/24 14:19 10 mg ONCE ONE Administration Sodium Chloride 1,000 mls @ 999 mls/hr 07/27/24 15:30 07/27/24 16:25 Ns IV 07/27/24 16:30 Infused .Q1H1M ERIC Infusion Ampicillin Sodium/Sulbactam 100 mls @ 200 mls/hr 07/27/24 15:30 07/27/24 16:45 Sodium 3 gm/ Sodium Chloride IV 07/27/24 15:59 Infused ONCE ONE Infusion Medical Decision Making Medical Decision Making MDM Narrative: 68 year old female with pmhx significant for GERD, DEANDRE, restrictive lung disease, hypothyroidism, HTN, MDD, ANNABEL, breast cancer presents to the ED today for evaluation of feeling generally unwell x4 days. Differential diagnosis includes anemia, electrolyte abnormality, viral syndrome, strep throat, pneumonia, PE, ACS, arrhythmia, GERD, anxiety Unlikely [employer], retropharyngeal abscess, mono, epiglottitis. Plan for labs, viral/strep swabs, imaging, re-eval. Differential Diagnosis Differential Diagnoses: The differential diagnosis associated with the presentation includes as above. Admission/Observation Consideration of admission/observation: Escalation of care including admission/observation considered I considered admission for IV antibiotics. Well appearing, work up unremarkable. She does not meet criteria for admission. She would like to be discharged home with PO antibiotics. Lab Data MDM Lab Attestation statement: I reviewed the patient's lab results. as above. 07/27/24 14:02 07/27/24 14:02 Labs: Lab Results 07/27/24 07/27/24 07/27/24 Range/Units 14:02 14:33 15:56 WBC 7.1 (4.8-10.8) X10*3/uL RBC 3.68 L (4.20-5.50) X10*6/uL Hgb 13.8 (12.0-16.0) g/dl Hct 39.7 (37.0-47.0) % MCV 107.9 H (80.0-98.0) fL MCH 37.5 H (27.0-33.0) pg MCHC 34.8 (31.0-35.0) g/dl RDW 13.9 (11.0-16.0) % Plt Count 248 (160-400) X10*3/uL MPV 9.1 L (9.4-12.3) fL Immature Gran % (Auto) 0.1 (0.0-0.4) % Neut % (Auto) 64.9 (45-73) % Lymph % (Auto) 26.0 (20-40) % Harmon % (Auto) 7.1 (2-11) % Eos % (Auto) 0.6 (0-4) % Baso % (Auto) 1.3 (0-2) % Lymph # (Auto) 1.8 (1.2-4.9) X10*3/uL Harmon # (Auto) 0.5 (0.1-1.2) X10*3/uL Eos # (Auto) 0.0 (0.0-0.4) X10*3/uL Baso # (Auto) 0.1 (0.0-0.2) X10*3/uL Abs Immat Gran (auto) 0.01 (0.00-0.03) X10*3/uL Absolute Neuts (auto) 4.6 (2.0-8.3) x10*3/uL Absolute Nucleated RBC 0.000 (0.0-0.012) X10*3/uL Nucleated RBC % (auto) 0.0 (0.0-0.2) /100WBC D-Dimer High Sensitivty 154 NG/ML Sodium 139 (135-145) mmol/L Potassium 3.5 (3.3-5.1) mmol/L Chloride 106 (96-108) mmol/L Carbon Dioxide 24 (22-29) mmol/L Anion Gap 13 (12-20) BUN 11 (9-16) mg/dL Creatinine 0.75 (0.5-1.4) mg/dL Estim Creat Clear Calc 69.1 Estimated GFR > 60 Random Glucose 115 (60-115) mg/dL Lactic Acid 1.1 (0.5-2.0) mmol/L Calcium 9.4 (8.4-10.2) mg/dL Magnesium 1.6 (1.6-2.6) mg/dL Total Bilirubin 1.2 H (0.0-1.0) mg/dL AST 100 H (5-31) U/L ALT 36 H (0-31) U/L Alkaline Phosphatase 148 H (39-117) U/L Troponin I High Sens < 2.7 (<3.5-17.0) ng/L B-Natriuretic Peptide 207 H (<100) pg/mL Total Protein 7.3 (6.5-8.0) g/dL Albumin 3.9 (3.5-5.0) g/dL Influenza Type A (PCR) NEGATIVE (Negative) Influenza Type B (PCR) NEGATIVE (Negative) RSV RNA Qual (PCR) NEGATIVE (Negative) SARS-CoV-2 RNA (RT-PCR) NEGATIVE (Negative) S. pyogenes GrpA VIKI Positive A (Negative) Independent Interpretation I performed an independent interpretation of an: EKG, Plain X-Ray, Ultrasound and CT Scan Interpretation: cxr without infiltrate or consolidation CTA chest without PE abd US s/p tracie Radiology Impression Discussion of test interpretation with radiology: I have reviewed the radiologist's reading. Radiologist Impression: Date of Service: 07/27/24 Procedure(s): XR chest 2V Accession Number(s): [id number] cc: Ni Lynne; Kartik Maloney MD~ EXAMINATION: XR CHEST 2 VIEWS HISTORY: chest pain COMPARISON: Comparison is made with the prior examination dated 07/01/2020. FINDINGS: PA and lateral views of the chest are submitted. The left-sided pacemaker/AICD is unchanged in position. The lungs are expanded and clear. There is no pleural effusion, pneumothorax, or pulmonary vascular congestion. The heart is normal in size. There is degenerative disc disease of the spine. There are surgical clips in the right breast and right axilla. XR/XR chest 2V IMPRESSION: No acute cardiopulmonary abnormality. Electronically signed by: Qamar Lester MD 07/27/2024 01:52 PM EDT RP Date of Service: 07/27/24 Procedure(s): US abdomen limited Accession Number(s): [id number] cc: Kartik Maloney MD; Brittany Lantigua~ EXAMINATION: US ABDOMEN LIMITED CLINICAL INFORMATION: Elevated LFTs, right upper quadrant pain.. COMPARISON: 07/28/2020. TECHNIQUE: Real-time imaging of the bile ducts, liver, and pancreas. FINDINGS: PANCREAS: Visualized portions are unremarkable. LIVER: The liver is normal in size. The right hepatic lobe measures 15.4 cm in length. The liver contour is normal. There is diffuse increased liver parenchymal echogenicity, consistent with hepatic steatosis. No focal hepatic lesion. There is no intrahepatic biliary duct dilatation seen. GALLBLADDER: Surgically absent. COMMON BILE DUCT: Variable, measuring anywhere from 0.4 to 1.2 cm. This is likely on the basis of postcholecystectomy reservoir state. FREE FLUID: None. US/US abdomen limited IMPRESSION: 1. Echogenic liver, suggestive of hepatic steatosis. No focal lesion. No intrahepatic biliary dilatation. 2. Common bile duct measuring anywhere from 0.4 to 1.2 cm. This is likely on the basis of postcholecystectomy reservoir state. 3. Surgically absent gallbladder. 4. Normal-appearing pancreas. Electronically signed by: Bryan Jo MD 07/27/2024 04:35 PM EDT RP Date of Service: 07/27/24 Procedure(s): CT angio chest PE protocol Accession Number(s): [id number] cc: Kartik Maloney MD; Brittany Lantigua~ Report Number: [id number]: Total DLP = 269.00 mGy-cm CLINICAL HISTORY: sob, hemoptysis, tachy r o PE CT angiography of the chest with IV contrast. 3D/MIP post processing reconstructions were performed. COMPARISON: XR chest dated 07/27/24 at 13:44 EDT FINDINGS: There are no intraluminal filling defects to suggest pulmonary embolism. No evidence of right heart strain. No supraclavicular or axillary lymphadenopathy. Surgical clips present along the right breast and right axilla. Left-sided cardiac pacemaker. Ascending aorta and main pulmonary artery are normal in caliber. No pericardial effusion. Cardiomegaly. Normal esophagus. No mediastinal or hilar lymphadenopathy. No pleural effusion. No consolidation. Trachea and central airways are clear. No significant bronchial wall thickening. No bronchiectasis. Suture material present along the greater curvature of the stomach. Cholecystectomy. Partially visualized left adrenal adenoma measuring 1.4 cm Marginal osteophytes present throughout the mid to lower thoracic spine. No acute fracture IMPRESSION: 1. No evidence of pulmonary embolism. 2. No acute intrathoracic findings. No evidence of pneumonia. This document has been electronically signed by: Ezra Cooley MD on 07/27/2024 17:07:39 External Record Review External record reviewed: Inpatient record Prescription Management I considered prescription management with: Pain Medication and Antibiotic Social Determinants Patient?s care significantly limited by Social Determinants of Health including: Other Social Determinant of Health Critical Care Time Critical Care Time Critical Care Time: Yes Total Critical Care Time: 35 Attestation: Critical care time in the amount of 35 minutes has been provided to the patient in terms of direct patient care, frequent reevaluation, review and interpretation of medical data and results, and management of potentially life- threatening conditions. This is all outside of any medical procedures. Discharge Plan Discharge Clinical Impression: Strep pharyngitis Patient Disposition: Home, Self-Care Instructions: Strep Throat (ED) Additional Instructions: You were seen in the ED today for evaluation of sore throat. You tested positive for strep throat. Penicillin is an antibiotic that has been sent to your pharmacy. Take this twice daily for the next 10 days to treat strep throat. Do not stop taking these antibiotics early or miss any doses as this may cause infection to return or worsen. Cepacol throat lozenges have been sent to your pharmacy to help with throat pain. You may also purchase [id number] chloraseptic spray to numb your throat. Take Tylenol and ibuprofen as needed for body aches or fevers. Make sure to change your toothbrush as this contains bacteria. Strep throat is contagious. If anyone else in your household is exhibiting symptoms, please advise them to come to the ED, urgent care, or to see their primary care provider. Follow up with your primary care provider this week. Return to the Emergency Department if you experience worsening or uncontrolled pain, tongue swelling, difficulty swallowing, change in your voice, difficulty breathing, fevers 100.4?F or greater, recurrent vomiting, development of a rash, or any other concerning symptoms. In the case of emergency, call 911.? Of note, your liver enzymes are mildly elevated today. We did perform an ultrasound of your right upper abdomen which shows minimally dilated common bile duct which can be normal after having your gallbladder removed. Please follow up with your primary care doctor regarding this. I have also provided you with a referral to a GI specialist. Call them to establish care, they will not call you. Your work up was otherwise reassuring. You tested negative for COVID, flu, RSV. Your chest x-ray and CT scan of your chest do not demonstrate clot in your lungs or pneumonia. Prescriptions: New penicillin V potassium 500 mg tablet 500 mg PO BID 10 Days Qty: 20 0RF Cepacol Sore Throat (akosua-men) 15-2.6 mg lozenge 1 jayesh mucous membrane Q2-4H PRN (Reason: sore throat) Qty: 16 0RF No Action cholecalciferol (vitamin D3) 25 mcg (1,000 unit) capsule 25 mcg PO DAILY Qty: 30 11RF thiamine HCl (vitamin B1) 100 mg tablet 100 mg PO DAILY Qty: 90 3RF gabapentin 300 mg capsule 1 cap PO BEDTIME paroxetine HCl 30 mg tablet 30 mg PO DAILY carvedilol 25 mg tablet 25 mg PO BID levothyroxine 175 mcg tablet 175 mcg PO DAILY losartan 50 mg tablet 50 mg PO DAILY bupropion HCl 300 mg tablet extended release 24 hr 300 mg PO DAILY Referrals: Kartik Maloney MD [Primary Care Provider] - Interventions: ED Discharge Assessment Last Done: 07/27/24 18:28 Discharge Date/Time: 07/27/24 18:28 Print Language: Eritrean
--- NOTE | 2024-07-27 13:14 | ECG_ITS ---
Test Reason : sob Blood Pressure : */* mmHG Vent. Rate : 103 BPM Atrial Rate : 103 BPM P-R Int : 144 ms QRS Dur : 122 ms QT Int : 410 ms P-R-T Axes : 47 -71 41 degrees QTcB Int : 537 ms Atrial-sensed ventricular-paced rhythm Biventricular pacemaker detected Abnormal ECG When compared with ECG of 01-Jul-2020 09:25, Premature ventricular complexes are no longer Present Vent. rate has increased by 36 bpm Referred By: Ni Lynne Electronically Signed By: Gee Lam
[2024-07-27 14:07] LABS: MANUAL DIFF FLAG NO
[2024-07-27 14:08] LABS: Basophils Absolute Auto 0.1 X10*3/uL (0.0-0.2); Basophils Percent Auto 1.3 % (0-2); Eosinophils Percent Auto 0.6 % (0-4); Hematocrit 39.7 % (37.0-47.0); Hemoglobin 13.8 g/dl (12.0-16.0); Imm Gran Abs Auto 0.01 X10*3/uL (0.00-0.03); Imm Gran Pct Auto 0.1 % (0.0-0.4); Lymphocytes Absolute Auto 1.8 X10*3/uL (1.2-4.9); Mean Corpuscular HGB Conc 34.8 g/dl (31.0-35.0); Mean Corpuscular Hemoglobin 37.5 pg (27.0-33.0); Mean Corpuscular Volume 107.9 fL (80.0-98.0); Mean Platelet Volume 9.1 fL (9.4-12.3); Monocytes Absolute Auto 0.5 X10*3/uL (0.1-1.2); Monocytes Percent Auto 7.1 % (2-11); Neutrophils Absolute Auto 4.6 x10*3/uL (2.0-8.3); Neutrophils Percent Auto 64.9 % (45-73); Platelet Count 248 X10*3/uL (160-400); Red Blood Count 3.68 X10*6/uL (4.20-5.50); Red Cell Distribution Width 13.9 % (11.0-16.0); White Blood Count 7.1 X10*3/uL (4.8-10.8)
[2024-07-27 14:14] LABS: IDNOW Serial# 58CA691E; Strep A Nucleic Acid Positive (Negative)
[2024-07-27 14:27] LABS: Alanine Aminotransferase 36 U/L (0-31); Albumin Level 3.9 g/dL (3.5-5.0); Alkaline Phosphatase 148 U/L (39-117); Anion Gap 13 (12-20); Aspartate Amino Transferase 100 U/L (5-31); Bilirubin Total 1.2 mg/dL (0.0-1.0); Blood Urea Nitrogen 11 mg/dL (9-16); Calcium 9.4 mg/dL (8.4-10.2); Carbon Dioxide 24 mmol/L (22-29); Chloride 106 mmol/L (96-108); Creatinine Clr Calc Pharmacy 69.1; Estimated Glomerular Filt Rate > 60; Glucose Random 115 mg/dL (60-115); Magnesium 1.6 mg/dL (1.6-2.6); Potassium 3.5 mmol/L (3.3-5.1); Sodium 139 mmol/L (135-145); Total Protein 7.3 g/dL (6.5-8.0)
[2024-07-27 14:37] LABS: Troponin-I High Sensitivity < 2.7 ng/L (<3.5-17.0)
[2024-07-27] MEDS: dexAMETHasone sod phosphate 10 MG/ML VIAL IVPUSH (14:42)
[2024-07-27 14:48] LABS: Influenza A PCR NEGATIVE (Negative); Influenza B PCR NEGATIVE (Negative); Resp Syncy Virus RNA Qual PCR NEGATIVE (Negative); SARS COV2 PCR INHOUSE NEGATIVE (Negative)
[2024-07-27 14:58] LABS: D Dimer High Sensitivity 154 NG/ML
[2024-07-27 15:10] LABS: B Type Natriuretic Peptide 207 pg/mL (<100)
[2024-07-27] MEDS: 0.9 % Sodium Chloride 1,000 ML 999 ML IV (15:27)
--- NOTE | 2024-07-27 16:08 | PC.NURSE ---
Pt antibiotics hung late due to pt being difficult stick for cultures and pt was taken down to ct scan
[2024-07-27] MEDS: Ampicillin Sodium/Sulbactam Na 3 GM in 0.9 % Sodium Chloride 100 ML IV (16:15)
[2024-07-27 16:16] LABS: Lactic Acid 1.1 mmol/L (0.5-2.0)
== END 2024-07-27 18:28 | disposition home or self-care (01) ==
PROVIDERS: Physician Assistant Medical; Emergency Provider Emergency Medicine; PCP Family Medicine
DX: J02.0 Streptococcal pharyngitis (principal); R05.9 Cough, unspecified; Z03.818 Encounter for observation for suspected exposure to other biological agents ruled out; I10 Essential (primary) hypertension; E03.9 Hypothyroidism, unspecified; F12.90 Cannabis use, unspecified, uncomplicated; Z95.0 Presence of cardiac pacemaker; Z87.891 Personal history of nicotine dependence
CPT/HCPCS: 0241U; 36415; 71046; 71275; 76705; 80053; 83605; 83735; 83880; 84484; 85025; 85379; 87040; 87651; 87880; 93005; 96361; 96374; 96375; 99202; 99284; 99285; J0295; J1100

== ENCOUNTER → 2024-07-27 13:14 | Outpatient (BNV) | payer MEDICARE, MEDICAID, SELFPAY | PROVIDERS: Emergency Provider Emergency Medicine; PCP Family Medicine; Visit Provider Radiology Diagnostic Radiology | DX: R06.02 Shortness of breath (principal); R04.2 Hemoptysis; R00.0 Tachycardia, unspecified; R10.11 Right upper quadrant pain; R74.01 Elevation of levels of liver transaminase levels; R07.9 Chest pain, unspecified | CPT/HCPCS: 71046; 71275; 76705 ==

== ENCOUNTER → 2024-07-27 13:14 | Outpatient (BNV) | payer MEDICARE, MEDICAID, SELFPAY | PROVIDERS: Emergency Provider Emergency Medicine; PCP Family Medicine; Visit Provider Internal Medicine Cardiovascular Disease | DX: R94.31 Abnormal electrocardiogram [ECG] [EKG] (principal); Z95.0 Presence of cardiac pacemaker | CPT/HCPCS: 93010 ==

== ENCOUNTER 2024-08-14 11:44 | Outpatient (REF) | payer MEDICARE, MEDICAID, SELFPAY ==
--- OUTSIDE RECORDS SUMMARY | 2024-08-14 12:24 | XMS_ITS | Continuity of Care Document ---
Author Organization [facility] Address [address] [address] Phone Care Team Providers Care Medical Laboratory Specialist Name Role Phone Gil Anderson MD Unavailable [...] on Encounter Est Pt Exp Prob [facility], [address] [place], [place], [id number] , tel:[phone] [facility] 5250 Cataract, Nuclear SclerosisDry Eye SyndromePrimary Angle Closure GlaucomaUnspecified Stage Not Reported In Chart 5 Justin Cordero. [address] [place], [place], [id number] , . tel:[phone] Referring Provider: Gil Anderson, [address] [place], [address] . tel:[phone] Est Pt Exp Prob [facility] [employer], [address] [place], [place], [id number] , tel:[phone] [facility] 5250 Cataract, Nuclear SclerosisPrimary Angle Closure GlaucomaModerate Stage GlaucomaDry Eye Syndrome 5 Justin Cordero. [address] [place], [place], [id number] , . tel:[phone] Referring Provider: Luis Thorne, [address] [place], [address] . tel:[phone] [facility], [address] [place], [place], [id number] , [place] tel: [phone] [facility] 5250 Cataract, Nuclear SclerosisFloaters, uveitisUveitis, Lens InducedPrimary Angle Closure GlaucomaIndeterminate 4 Atodaria Luis. [address], [place], [place], [id number] , [place]. tel: [phone] Referring Provider: Abdullahi Maldonado, [address] [place], [address] . tel:[phone] [facility], [address] [place], [place], [id number] , [place] tel: [phone] [facility] 5250 Uveitis, Lens Induced 4 Joel Fernando. [address] [place], [place], [address] , [place]. tel: [phone] Referring Provider: Abdullahi Maldonado, [address] [place], [address] . tel:[phone] [facility] [employer] [facility], [address] [place], [place], [id number] , [place] tel: [phone] [facility] 5250 Cataract OS >> ODFloaters, uveitis 4 Edvin García. [address] [place], [place], [address] , [place]. tel: [phone] Referring Provider: Abdullahi Maldonado, [address] [place], [address] . tel:[phone] [facility] [employer] [facility], [address] [place], [place], [address] , [place] tel: [phone] [facility] 5250 Uveitis, Lens InducedCataract, Nuclear SclerosisPrimary Angle Closure GlaucomaUnspecified Stage Not Reported In ChartAmblyopia, Unspecified 4 Joel Fernando. [address] [place], [place], [address] , [place]. tel: [phone] Referring Provider: Abdullahi Maldonado, [address] [place], [address] . tel:[phone] [facility], [address] [place], [place], [id number] , tel:[phone] [facility] 5250 Uveitis, Lens InducedUveitis, Lens InducedUveitis, Lens InducedGlaucoma, Chronic, Angle CloseCataract, Nuclear SclerosisAmblyopia, UnspecifiedIndetermin ate 3 Joel Abdullahi. [address] [place], [place], [address] [place] [address] , . tel:[phone] Referring Provider: Luis Thorne, [address] [place], [address] . tel:[phone] [facility] [employer] [facility], [address] [place], [place], [id number] , tel:[phone] [facility] 5250 Glaucoma, Acute, Narrow AngleGlaucoma, Acute, Narrow AngleCataract, Nuclear SclerosisAmblyopia, UnspecifiedGlaucoma, Chronic, Angle CloseGlaucoma, Chronic, Angle CloseGlaucoma, Chronic, Angle CloseGlaucoma, Chronic, Angle CloseCataract, Nuclear SclerosisAmblyopia, UnspecifiedIndetermin ate 3 Atodaria Luis. [address] [place], [place], [id number] , . tel:[phone] Referring Provider: Luis Thorne, [address] [place], [address] . tel:[phone] [facility] [employer] [facility], [address] [place], [place], [id number] , [phone] [facility] No Information 8 Natali Smith. [address] [place], [place], [id number] , . tel:[phone] Referring Provider: Luis Thorne, [address] [place], [address] . tel:[phone] Est Pt Exp Prob [facility], [address] [place], [address] , tel:[phone] [facility] No Information 8 Natali Smith. [address] [place], [id number] , . tel:[phone] Referring Provider: Luis Thorne, [address] [place], [address] . tel:[phone] New Pt Exp Prob Focused 20 Min [facility], [address] [place], [place], [id number] , tel:[phone] [facility] No Information 7 Christiano Mcdonald. [address] [place] [address], [id number] , [place]. tel:[phone] Referring Provider: Rickey Jones, [address] [place], [address]. tel:[phone] Family History Family Member Type Diagnosis Age [...] Primary Angle Closure Glaucoma - Followed in [facility], pt more comfortable On [...]
== END 2024-08-14 11:45 | disposition home or self-care (01) ==
LOC: HO.MAMMO 11:44
PROVIDERS: PCP Family Medicine; Visit Provider Family Medicine
DX: Z12.31 Encounter for screening mammogram for malignant neoplasm of breast (principal)
CPT/HCPCS: 77063; 77067

== ENCOUNTER → 2024-08-14 12:00 | Outpatient (BNV) | payer MEDICARE, MEDICAID, SELFPAY | PROVIDERS: PCP Family Medicine; Visit Provider Internal Medicine | DX: Z12.31 Encounter for screening mammogram for malignant neoplasm of breast (principal) | CPT/HCPCS: 77063; 77067 ==

== ENCOUNTER → 2024-09-09 23:59 | Outpatient (BNV) | payer MEDICARE, MEDICAID, SELFPAY ==
--- NOTE | 2024-09-10 16:04 | A.OFFVIS_ITS ---
Intake Visit Reasons: Remote ELECTRIC METER TESTER SHOP-D check- [facility] Allergies lisinopril Adverse Reaction (Severe, Verified 07/27/24 13:16) COUGH PFSH Medical History Obesity (BMI 30-39.9) Pacemaker Atypical lobular hyperplasia (ALH) of right breast Steatosis, liver Morbid obesity Breast cancer Obesity Hypothyroidism History of breast cancer Depression Hypertension Cardiac resynchronization therapy defibrillator (ELECTRIC METER TESTER SHOP-D) in place Dyspnea on exertion NICM (nonischemic cardiomyopathy) Restrictive lung disease DEANDRE (obstructive sleep apnea) Morbid obesity Surgical History S/P lumpectomy, right breast (04/12/21) History of right mastectomy History of incisional hernia repair History of colectomy History of laparoscopic cholecystectomy Family History Father Multiple sclerosis Mother Breast CA Maternal Grandmother Breast CA Paternal Grandmother Stomach cancer Paternal Aunt Breast CA Social History Household Members: None Housing: House Are you a primary career development consultant to a significant other at home: No Do you presently have visiting nurse or other home services: No Alcohol intake: current Alcohol intake frequency: holidays/special occasions only Patient Tobacco Use Status: Former Tobacco user Second Hand Smoke Exposure: No Substance Use Type: Marijuana service: No Current occupational status: retired Office Procedures Cardiac Device Check Cardiac Device Check Details: Date of service 09/09/2024; Battery life 1.4 years; normal lead parameters; no treated VT/VF; BP 99%; normal ICD function. [id number] Cardiac Interrogation, implant defibrillator w/interim Procedure code (CPT) selection complete Assessment & Plan Assessment & Plan (1) Cardiac resynchronization therapy defibrillator (ELECTRIC METER TESTER SHOP-D) in place: Code(s): Z95.810 - Presence of automatic (implantable) cardiac defibrillator Category: Medical (2) NICM (nonischemic cardiomyopathy): Code(s): I42.8 - Other cardiomyopathies Category: Medical Plan x Coding Level of Care Code Procedure Only Diagnoses Cardiac resynchronization therapy defibrillator (ELECTRIC METER TESTER SHOP-D) in place Z95.810 NICM (nonischemic cardiomyopathy) I42.8 CPT Codes Cardiac Device Check - Cardiac Device 13: [id number] Cardiac Interrogation, implant defibrillator w/interim ([id number])
== END ==
PROVIDERS: PCP Family Medicine; Visit Provider Internal Medicine
DX: I42.8 Other cardiomyopathies (principal); Z95.810 Presence of automatic (implantable) cardiac defibrillator
CPT/HCPCS: 93295

== ENCOUNTER 2024-10-13 17:08 | Inpatient (IN) | payer MEDICARE, OTHER, SELFPAY ==
[2024-10-13 17:16] VITALS: BP 160/100; PULSE 130
[2024-10-13 17:42] VITALS: BP 166/85; PULSE 105; RESP 22; TEMP 37.2; O2SAT 98; BMI 30.9
[2024-10-13 17:45] VITALS: PULSE 105; O2SAT 98
[2024-10-13 18:21] LABS: MANUAL DIFF FLAG NO
[2024-10-13 18:25] LABS: Hematocrit 36.4 % (37.0-47.0); Hemoglobin 13.1 g/dl (12.0-16.0); Imm Gran Abs Auto 0.02 X10*3/uL (0.00-0.03); Imm Gran Pct Auto 0.3 % (0.0-0.4); Lymphocytes Absolute Auto 1.2 X10*3/uL (1.2-4.9); Mean Corpuscular HGB Conc 36.0 g/dl (31.0-35.0); Mean Corpuscular Hemoglobin 36.0 pg (27.0-33.0); Mean Corpuscular Volume 100.0 fL (80.0-98.0); NRBC Abs Auto 0.000 X10*3/uL (0.0-0.012); NRBC Pct Auto 0.0 /100WBC (0.0-0.2); Platelet Count 252 X10*3/uL (160-400); Red Blood Count 3.64 X10*6/uL (4.20-5.50); White Blood Count 7.2 X10*3/uL (4.8-10.8)
[2024-10-13 18:39] LABS: Alanine Aminotransferase 27 U/L (0-31); Albumin Level 4.1 g/dL (3.5-5.0); Alkaline Phosphatase 120 U/L (39-117); Anion Gap 19 (12-20); Aspartate Amino Transferase 67 U/L (5-31); Blood Urea Nitrogen 16 mg/dL (9-16); Calcium 8.9 mg/dL (8.4-10.2); Carbon Dioxide 20 mmol/L (22-29); Chloride 110 mmol/L (96-108); Creatinine Clr Calc Pharmacy 90.2; Estimated Glomerular Filt Rate > 60; Lipase 6 U/L (8-78); Magnesium 1.5 mg/dL (1.6-2.6); Potassium 3.6 mmol/L (3.3-5.1); Sodium 145 mmol/L (135-145); Total Protein 7.3 g/dL (6.5-8.0)
--- NOTE | 2024-10-13 19:19 | ED.ALCOHOL ---
HPI - Alcohol General Chief Complaint: ETOH/Substance Use Stated Complaint: etoh withdrawal Time Seen by Provider: 10/13/24 17:57 Source: patient and family Mode of arrival: EMS Limitations: no limitations History of Present Illness ED Provider: HPI narrative: Patient's history of depression, alcoholic for last especially for 3 years never been to detox drink 8-10 drinks of liquor a day last drink was yesterday 1400 today patient's daughter noticed sensation shake in restless and called the EMS no nausea no vomiting no abdominal pain Related Data Home Medications ?Medication ?Instructions ?Recorded ?Confirmed carvedilol 25 mg tablet 25 mg PO BID 12/12/19 10/13/24 levothyroxine 175 mcg tablet 175 mcg PO DAILY 12/12/19 10/13/24 losartan 50 mg tablet 50 mg PO DAILY 12/12/19 10/13/24 paroxetine HCl 30 mg tablet 30 mg PO DAILY 12/12/19 10/13/24 bupropion HCl 300 mg 24 hr tablet, 300 mg PO DAILY 07/12/20 10/13/24 extended release gabapentin 300 mg capsule 600 mg PO BEDTIME 04/12/22 10/13/24 dicyclomine 10 mg capsule 10 mg PO BID 10/13/24 10/13/24 folic acid 1 mg tablet 1 mg PO DAILY 10/13/24 10/13/24 Allergies Allergy/AdvReac Type Severity Reaction Status Date / Time lisinopril AdvReac Severe COUGH Verified 10/13/24 17:44 Review of Systems Review of Systems: Yes all other systems are reviewed and are negative PMFSH Past Medical History Medical History Obesity (BMI 30-39.9) Pacemaker Atypical lobular hyperplasia (ALH) of right breast Steatosis, liver Morbid obesity Breast cancer Obesity Hypothyroidism History of breast cancer Depression Hypertension Cardiac resynchronization therapy defibrillator (DEPUTY ADMINISTRATOR-D) in place Dyspnea on exertion NICM (nonischemic cardiomyopathy) Restrictive lung disease DEANDRE (obstructive sleep apnea) Morbid obesity Surgical History S/P lumpectomy, right breast (04/12/21) History of right mastectomy History of incisional hernia repair History of colectomy History of laparoscopic cholecystectomy Family History Family History Father Multiple sclerosis Mother Breast CA Maternal Grandmother Breast CA Paternal Grandmother Stomach cancer Paternal Aunt Breast CA Social History Social History Household Members: None Housing: House Are you a primary caretaker grounds to a significant other at home: No Do you presently have visiting nurse or other home services: No Alcohol intake: current Alcohol intake frequency: 3 or more drinks per day Alcohol type: hard liquor Patient Tobacco Use Status: Former Tobacco user Smoked in Last 30 Days: No Second Hand Smoke Exposure: No Use of substances other than those prescribed or required for medical reasons: Yes Substance Use Type: Marijuana Advance Directives: Yes Advance Directives Information Provided: No Advance Directives on File: No Nutrition Risks: No Nutritional Risk service: No Current occupational status: retired Physical Exam ED Vital Signs: Vital Signs - 24 hr 10/13/24 17:42 10/13/24 17:45 Temperature 99.0 F Pulse Rate 105 H 105 H Respiratory Rate 22 H Blood Pressure 166/85 H Pulse Oximetry 98 98 Oxygen Delivery Method Room Air Room Air BMI result Body Mass Index 30.9 Appearance: Alert. Oriented X3. No acute distress. Eyes: PERRLA, No Nystagmus ENT: Pharynx normal. Oral Mucosa moist Neck: Normal inspection. Neck supple. CVS: Normal heart rate and rhythm. Pulses normal. Respiratory: No respiratory distress. Equal air entry bilateral, no wheezing/rales/rhonchi Abdomen: Soft and nontender. Bowel sounds are present, no mass palpable, no CVA tenderness Skin: Skin warm and dry. Normal skin color. Normal skin turgor. Extremities: No lower extremity edema. No calf tenderness Neuro: Oriented X 3. No motor deficit. No sensory deficit.No cerebellar signs , cranial nerves II-XII intact frequently involuntary movements no tremors Medical Decision Making Medical Decision Making MDM Narrative: Patient alcoholic been drinking heavy for last 4 years patient and patient's family wants to quit alcohol use patient has been shaky for no alcohol for last 24 hours [place] protocol started will admit patient for inpatient detox using phenobarbital Differential Diagnosis Differential Diagnoses: The differential diagnosis associated with the presentation includes Lab Data MDM Lab Attestation statement: I reviewed the patient's lab results. 10/13/24 18:17 10/13/24 18:17 Labs: Lab Results 10/13/24 Range/Units 18:17 WBC 7.2 (4.8-10.8) X10*3/uL RBC 3.64 L (4.20-5.50) X10*6/uL Hgb 13.1 (12.0-16.0) g/dl Hct 36.4 L (37.0-47.0) % MCV 100.0 H (80.0-98.0) fL MCH 36.0 H (27.0-33.0) pg MCHC 36.0 H (31.0-35.0) g/dl RDW 13.5 (11.0-16.0) % Plt Count 252 (160-400) X10*3/uL MPV 9.4 (9.4-12.3) fL Immature Gran % (Auto) 0.3 (0.0-0.4) % Neut % (Auto) 77.8 H (45-73) % Lymph % (Auto) 16.0 L (20-40) % [place] % (Auto) 4.5 (2-11) % Eos % (Auto) 0.1 (0-4) % Baso % (Auto) 1.3 (0-2) % Lymph # (Auto) 1.2 (1.2-4.9) X10*3/uL [place] # (Auto) 0.3 (0.1-1.2) X10*3/uL Eos # (Auto) 0.0 (0.0-0.4) X10*3/uL Baso # (Auto) 0.1 (0.0-0.2) X10*3/uL Abs Immat Gran (auto) 0.02 (0.00-0.03) X10*3/uL Absolute Neuts (auto) 5.6 (2.0-8.3) x10*3/uL Absolute Nucleated RBC 0.000 (0.0-0.012) X10*3/uL Nucleated RBC % (auto) 0.0 (0.0-0.2) /100WBC Sodium 145 (135-145) mmol/L Potassium 3.6 (3.3-5.1) mmol/L Chloride 110 H (96-108) mmol/L Carbon Dioxide 20 L (22-29) mmol/L Anion Gap 19 (12-20) BUN 16 (9-16) mg/dL Creatinine 0.58 (0.5-1.4) mg/dL Estim Creat Clear Calc 90.2 Estimated GFR > 60 Random Glucose 92 (60-115) mg/dL Calcium 8.9 (8.4-10.2) mg/dL Magnesium 1.5 L (1.6-2.6) mg/dL Total Bilirubin 0.8 (0.0-1.0) mg/dL Direct Bilirubin 0.3 (0.0-0.5) mg/dL AST 67 H (5-31) U/L ALT 27 (0-31) U/L Alkaline Phosphatase 120 H (39-117) U/L Total Protein 7.3 (6.5-8.0) g/dL Albumin 4.1 (3.5-5.0) g/dL Lipase 6 L (8-78) U/L Ethyl Alcohol 14 mg/dL Independent Interpretation I performed an independent interpretation of an: EKG Interpretation: Pacemaker rhythm with ventricular rate of 97 beats per minute no acute STT wave changes no acute ischemia Medications Administered Generic Name Dose Route Start Last Admin Trade Name Freq PRN Reason Stop Dose Admin Enoxaparin Sodium 40 mg 10/13/24 20:00 10/13/24 20:11 Enoxaparin Sodium 40 Mg/0.4 Ml Syringe SUBCUT 40 mg Q24H ERIC Administration Phenobarbital Sodium 150 mg 10/13/24 23:00 10/14/24 00:19 Phenobarbital Sodium 130 Mg/Ml Vial Im Q3hx2 IM 10/14/24 02:01 150 mg Q3H ERIC Administration Protocol Sodium Chloride 3 ml 10/14/24 00:00 10/14/24 00:25 0.9 % Sodium Chloride Flush 3 Ml Syringe IVFLUSH 3 ml QSHIFT ERIC Administration Discontinued Medications Generic Name Dose Route Start Last Admin Trade Name Freq PRN Reason Stop Dose Admin Diazepam 10 mg 10/13/24 19:33 10/13/24 20:10 Diazepam 10 Mg/2 Ml Cartridge IVPUSH 10/13/24 19:34 10 mg STAT STA Administration Sodium Chloride 1,000 mls @ 999 mls/hr 10/13/24 18:00 10/13/24 19:34 Ns IV 10/13/24 19:00 Infused .Q1H1M ONE Infusion Magnesium Sulfate 2 gm in 50 mls @ 25 mls/hr 10/13/24 19:28 10/13/24 22:30 Magnesium Sulfate/H2o IV 10/13/24 21:27 Infused ONCE ONE Infusion Lorazepam 1 mg 10/13/24 18:00 10/13/24 18:23 Lorazepam 1 Mg Tablet PO 10/13/24 18:01 1 mg ONCE ONE Administration Phenobarbital Sodium 200 mg 10/13/24 20:00 10/13/24 20:58 Phenobarbital Sodium 130 Mg/Ml Im Once IM 10/13/24 20:01 200 mg ONCE ONE Administration Protocol Thiamine HCl 100 mg 10/13/24 18:01 10/13/24 18:23 Thiamine Hcl 100 Mg Tablet PO 10/13/24 18:02 100 mg ONCE ONE Administration Discharge Plan Discharge Patient Disposition: Admitted As Inpatient Interventions: Admission Worksheet (ED) Last Done: 10/13/24 21:54
--- NOTE | 2024-10-13 19:31 | ECG_ITS ---
Test Reason : QTC INTERVAL Blood Pressure : */* mmHG Vent. Rate : 97 BPM Atrial Rate : 97 BPM P-R Int : 138 ms QRS Dur : 130 ms QT Int : 400 ms P-R-T Axes : 57 262 41 degrees QTcB Int : 509 ms Atrial-sensed ventricular-paced rhythm with occasional Premature ventricular complexes Biventricular pacemaker detected Abnormal ECG When compared with ECG of 27-Jul-2024 13:29, Premature ventricular complexes are now Present Vent. rate has decreased by 6 bpm Referred By: Fabio Ramirez Electronically Signed By: GRECIA WOODS
--- NOTE | 2024-10-13 19:35 | PM.IMHP ---
History of Present Illness Date of Service: 10/13/24 Chief Complaint: alcohol withdrawal This has a 68 year old female with pertinent history of alcohol use disorder, nonischemic cardiomyopathy status post ICD, mood disorder, breast cancer status post lumpectomy, hypothyroidism, hypertension who was brought to the emergency department for concerns of alcohol withdrawal. Patient is a poor historian and states she is here because she was shaking. Admits to drinking every day and last drink was 1 day prior to presentation. She denies nausea, vomiting, abdominal pain or diarrhea. History obtained with the help of daughter at bedside. Daughter states that patient has been drinking every day for the last 3 years. No history of alcohol withdrawal as she has been drinking every day. No history of alcohol withdrawal seizures. Daughter is seeking help for her mother for detox and patient is agreeable. She admits anxiety, tremors, insomnia. No visual or auditory hallucinations. No fever, chills, chest pain, palpitations, shortness of breath, changes in urinary or bowel habits. In the emergency department, patient was initiated on phenobarb protocol. Review of Systems Constitutional: Constitutional: Reports fatigue, Reports lethargy, Reports malaise and Reports weakness Cardiovascular: Cardiovascular: Reports no additional cardiovascular complaints Respiratory: Respiratory: Reports no additional respiratory complaints Gastrointestinal: Gastrointestinal: Reports no additional gastrointestinal complaints Genitourinary: Genitourinary: Reports no additional female genitourinary complaints Neurologic: Reports tremor(s) and Reports weakness Psychiatric: Psychiatric: Reports anxiety Endocrine: Endocrine: Reports fatigue [facility] Medical History Obesity (BMI 30-39.9) Pacemaker Atypical lobular hyperplasia (ALH) of right breast Steatosis, liver Morbid obesity Breast cancer Obesity Hypothyroidism History of breast cancer Depression Hypertension Cardiac resynchronization therapy defibrillator (JUDGE'S CLERK-D) in place Dyspnea on exertion NICM (nonischemic cardiomyopathy) Restrictive lung disease DEANDRE (obstructive sleep apnea) Morbid obesity Family History Father Multiple sclerosis Mother Breast CA Maternal Grandmother Breast CA Paternal Grandmother Stomach cancer Paternal Aunt Breast CA Surgical History S/P lumpectomy, right breast (04/12/21) History of right mastectomy History of incisional hernia repair History of colectomy History of laparoscopic cholecystectomy Social History Household Members: None Housing: House Are you a primary prompt care rn to a significant other at home: No Do you presently have visiting nurse or other home services: No Alcohol intake: current Alcohol intake frequency: 3 or more drinks per day Alcohol type: hard liquor Patient Tobacco Use Status: Former Tobacco user Smoked in Last 30 Days: No Second Hand Smoke Exposure: No Use of substances other than those prescribed or required for medical reasons: Yes Substance Use Type: Marijuana Advance Directives: Yes Advance Directives Information Provided: No Advance Directives on File: No service: No Current occupational status: retired Meds Allergies Allergy/AdvReac Type Severity Reaction Status Date / Time lisinopril AdvReac Severe COUGH Verified 10/13/24 17:44 Active Medications: Current Medications Diazepam (Diazepam 10 Mg/2 Ml Cartridge) 10 mg IVPUSH STAT STA Stop: 10/13/24 19:34 Magnesium Sulfate (Magnesium Sulfate/H2o) 2 gm in 50 mls @ 25 mls/hr IV ONCE ONE Stop: 10/13/24 21:27 Pharmacy Consult (Consult Rx Etoh Phenob Im/Po) 1 each MISCELLANE ONCE PRN; Protocol PRN Reason: Consult order Home Medications ?Medication ?Instructions ?Recorded ?Confirmed ?Last Taken ?Type carvedilol 25 mg tablet 25 mg PO BID 12/12/19 01/14/24 01/19/21 History levothyroxine 175 mcg tablet 175 mcg PO DAILY 12/12/19 01/14/24 01/19/21 History losartan 50 mg tablet 50 mg PO DAILY 12/12/19 01/14/24 01/19/21 History paroxetine HCl 30 mg tablet 30 mg PO DAILY 12/12/19 01/14/24 01/19/21 History bupropion HCl 300 mg 24 hr tablet, 300 mg PO DAILY 07/12/20 01/14/24 01/19/21 History extended release gabapentin 300 mg capsule 1 cap PO BEDTIME 04/12/22 01/14/24 Unknown History Physical Exam Vital Signs and Narrative: Vital Signs: Last Vital Signs Temp 99.0 F 10/13/24 17:42 Pulse 105 H 10/13/24 17:45 Resp 22 H 10/13/24 17:42 BP 166/85 H 10/13/24 17:42 Pulse Ox 98 10/13/24 17:45 O2 Del Method Room Air 10/13/24 17:45 BMI result Body Mass Index 30.9 Elderly female lying in bed in no distress Neck supple, no JVD Regular rate and rhythm, S1-S2 heard Regular breath sounds bilaterally, no wheezing or crackles appreciated Abdomen soft nontender, no guarding, no rigidity Patient is awake, alert and oriented x3 ; no focal motor deficit Psych: Normal mood Bilateral hand tremors Results Labs 10/13/24 18:17 10/13/24 18:17 Labs: Laboratory Results - last 24 hr 10/13/24 18:17 MCV 100.0 H MCH 36.0 H MCHC 36.0 H RDW 13.5 Plt Count 252 MPV 9.4 Immature Gran % (Auto) 0.3 Neut % (Auto) 77.8 H Lymph % (Auto) 16.0 L [place] % (Auto) 4.5 Eos % (Auto) 0.1 Baso % (Auto) 1.3 Lymph # (Auto) 1.2 [place] # (Auto) 0.3 Eos # (Auto) 0.0 Baso # (Auto) 0.1 Abs Immat Gran (auto) 0.02 Absolute Neuts (auto) 5.6 Absolute Nucleated RBC 0.000 Nucleated RBC % (auto) 0.0 Anion Gap 19 Estim Creat Clear Calc 90.2 Estimated GFR > 60 Random Glucose 92 Calcium 8.9 Magnesium 1.5 L Total Bilirubin 0.8 Direct Bilirubin 0.3 AST 67 H ALT 27 Alkaline Phosphatase 120 H Total Protein 7.3 Albumin 4.1 Lipase 6 L Ethyl Alcohol 14 Assessment and Plan (1) Alcohol withdrawal: Status: Acute Plan This has a 68 year old female with pertinent history of alcohol use disorder, nonischemic cardiomyopathy status post ICD, mood disorder, breast cancer status post lumpectomy, hypothyroidism, hypertension who was brought to the emergency department for concerns of alcohol withdrawal. #. Alcohol withdrawal in a patient with alcohol use disorder: Will admit patient with phenobarb protocol. Monitor CIWA. Initiated thiamine and folic acid. Consulted Addiction Team #. Hypomagnesemia due to alcohol use: Repleted #. Hypothyroidism: On Synthroid #. Disorder: Continue home mood stabilizers #. Nonischemic cardiomyopathy/hypertension: Continue losartan, beta-ruba Med rec pending DVT prophylaxis: Lovenox Full code. Discussed with daughter at bedside Admit as inpatient and will require two night minimum hospital stay for management of alcohol withdrawal (as above), which is not possible in a lesser acute setting. Quality Stroke Does the patient have a stroke diagnosis?: No VTE Prior VTE?: No VTE Risk Level:: Medical - moderate - high VTE Device Contraindication: Treatment Not Indicated VTE Drug Contraindication: N/A - Med Ordered
--- NOTE | 2024-10-13 19:49 | PC.NURSE ---
pt ambulated independently to the bathroom. UA collected. standby assist as pt was a little unsteady on feet. pt appeared SOB on walk back/ pt states this is normal because she is worried/anxious.
[2024-10-13] MEDS: diazePAM 10 MG/2 ML CARTRIDGE IVPUSH (20:10)
[2024-10-13] MEDS: Magnesium Sulfate/H2O 2 GM/50 ML PIGGYBACK IV (20:11)
[2024-10-13 20:22] LABS: Appearance Urine Clear; Glucose Urine UA Negative (Negative); PH 6.0 (5.0-9.0); Specific Gravity - Urine >= 1.030 (1.005-1.025); UMIC TRIGGER UACC YES
--- NOTE | 2024-10-13 20:26 | PHA.MEDREC ---
Pharmacy Consult ? Medication Reconciliation Pharmacy has completed the medication reconciliation.
[2024-10-13 20:30] LABS: Cannabinoid Screen Urine POSITIVE (Not Detect)
[2024-10-13 20:35] VITALS: BP 91/52; PULSE 92; RESP 16; TEMP 37; O2SAT 94
[2024-10-13 20:37] LABS: UACC Culture Trigger YES
[2024-10-13] MEDS: PHENobarbitaL sodium 130 MG/ML IM ONCE 200 MG IM (20:58)
[2024-10-13 21:04] VITALS: BP 133/71; PULSE 94; RESP 21; O2SAT 93
--- NOTE | 2024-10-13 21:32 | PC.NURSE ---
pt resting comfortably with eyes closed, O2 dropped to 88%, hx DEANDRE, not CPAP compliant d/t not liking how it feels/fits. placed pt on 2L NC, 93%.
[2024-10-14] MEDS: PHENobarbitaL sodium 130 MG/ML VIAL IM Q3Hx2 150 MG IM ×2 (00:19→03:05)
[2024-10-14] MEDS: 0.9 % Sodium Chloride Flush 3 ML SYRINGE IVFLUSH ×2 (00:25→08:39)
--- NOTE | 2024-10-14 04:00 | PC.NURSE ---
Patient having frequent lose BM within a couple of hours. Report given to JENNIFER Hirsch in over flow regarding patient. Notified of frequent BMs.
[2024-10-14 04:37] VITALS: BP 154/87; PULSE 92; RESP 20; TEMP 36.8; O2SAT 97
[2024-10-14 06:45] LABS: MANUAL DIFF FLAG NO
[2024-10-14 07:02] LABS: Magnesium 2.0 mg/dL (1.6-2.6)
[2024-10-14 07:07] LABS: Hematocrit 35.8 % (37.0-47.0); Hemoglobin 12.1 g/dl (12.0-16.0); Imm Gran Abs Auto 0.02 X10*3/uL (0.00-0.03); Imm Gran Pct Auto 0.4 % (0.0-0.4); Lymphocytes Absolute Auto 1.6 X10*3/uL (1.2-4.9); Mean Corpuscular HGB Conc 33.8 g/dl (31.0-35.0); Mean Corpuscular Hemoglobin 35.3 pg (27.0-33.0); Mean Corpuscular Volume 104.4 fL (80.0-98.0); NRBC Abs Auto 0.000 X10*3/uL (0.0-0.012); NRBC Pct Auto 0.0 /100WBC (0.0-0.2); Platelet Count 201 X10*3/uL (160-400); Red Blood Count 3.43 X10*6/uL (4.20-5.50); White Blood Count 5.4 X10*3/uL (4.8-10.8)
[2024-10-14 07:14] LABS: Alanine Aminotransferase 27 U/L (0-31); Albumin Level 3.4 g/dL (3.5-5.0); Alkaline Phosphatase 100 U/L (39-117); Anion Gap 12 (12-20); Aspartate Amino Transferase 66 U/L (5-31); Blood Urea Nitrogen 10 mg/dL (9-16); Calcium 8.1 mg/dL (8.4-10.2); Carbon Dioxide 22 mmol/L (22-29); Chloride 110 mmol/L (96-108); Creatinine Clr Calc Pharmacy 95.0; Estimated Glomerular Filt Rate > 60; Potassium 2.9 mmol/L (3.3-5.1); Sodium 141 mmol/L (135-145); Total Protein 6.3 g/dL (6.5-8.0)
[2024-10-14] MEDS: Potassium Chloride/H20 10 MEQ/100 ML PIGGYBACK 100 MEQ IV ×3 (08:37→11:29)
--- NOTE | 2024-10-14 10:38 | PC.NURSE ---
oob ambulating independently to bathroom , K+ infusing per order
--- NOTE | 2024-10-14 11:18 | PC.NURSE ---
Pt extremely anxious upon assessment, and asking for medication. Pt states she drinks between 5-10 shots a day of hard liquor and has been experiencing diarrhea for the last year. Pt states she is afraid to go outside and do anything due to fear of losing control of her bowels. MD aware, awaiting further orders.
[2024-10-14] MEDS: diazePAM 10 MG/2 ML CARTRIDGE 5 MG IVPUSH ×2 (11:26→19:25)
--- NOTE | 2024-10-14 12:38 | PC.NURSE ---
IV potassium running at a slower rate, 75mL/hr due to pt not tolerating infusion despite 100mL/hr saline infusing as well.
[2024-10-14] MEDS: Potassium Chloride/H20 10 MEQ/100 ML PIGGYBACK 75 MEQ IV (12:53)
--- NOTE | 2024-10-14 13:51 | MHC.CM.PN ---
pt lives alone has own ride home will be seen by care team prior to dc
[2024-10-14 15:02] VITALS: BP 134/74; PULSE 81; RESP 20; TEMP 36.4; O2SAT 96
--- NOTE | 2024-10-14 15:08 | HO.ADDICTCON ---
History of Present Illness Date of Service: 10/14/2024 Chief Complaint: alcohol withdrawal Reason for Consult: AUD Sources of Information: patient interviewed and chart reviewed HPI Narrative: Patient is a 68 year old female with medical history including breast cancer, cardimyopathy, HTN and hypothyroid. Medically admitted with acute alcohol withdrawal. Patient seen in overflow room 6. She is awake, alert, engaged in interview. She reports significant anxiety and loose stools since admission--per pt this is not a new issue, at home she takes immodium regularly. In terms of her drinking-- She states that in February of 2021 her long time partner of 33 years ([place] [facility] Since his passing she has started drinking. She denies any prior history of drinking prior to that, even socially. Over the last 6 months her drinking has worsened. She is drinking approx 5-10 nips of smirnoff vodka daily. She reports that amount depends on her level of anxiety and sadness --referencing missing her partner. She states that she has stopped drinking at least 2x for a week both times without issue, but quickly resumes as her anxiety worsens. She denies any history of ATS treatment admission, but in August sought outpatient treatment at and was initiated on Naltrexone for AUD. She is unsure if the medication has helped her decrease intake. Last drink Saturday at 2pm. Yesterday (Saturday) she states she was extremely tremulous and it scared her, and her daughter called an ambulance. She denies any formal providers, but is prescribed paxil and wellbutrin for MDD. She also reports poor sleep--chronic issue. She says that gabapentin and melatonin will often allow her 3-4 hours a night. She denies any withdrawal sx and feels better than yesterday. She is quite tearful stating she wants to stop drinking Labs reviewed Mg 2.0 K 2.9 (K infusion ) Medical Evaluation Reviewed: Yes Review of Systems Constitutional: Reports as per HPI Diagnostics Vital Signs (24Hr): Vital Signs - 24 hr 10/13/24 17:42 10/13/24 17:45 10/13/24 20:35 Temperature 99.0 F 98.6 F Pulse Rate 105 H 105 H 92 Respiratory Rate 22 H 16 Blood Pressure 166/85 H 91/52 L Pulse Oximetry 98 98 94 Oxygen Delivery Method Room Air Room Air Room Air Oxygen Flow Rate 10/13/24 21:04 10/14/24 04:37 10/14/24 15:02 Temperature 98.2 F 97.6 F Pulse Rate 94 92 81 Respiratory Rate 21 H 20 20 Blood Pressure 133/71 154/87 H 134/74 Pulse Oximetry 93 97 96 Oxygen Delivery Method Nasal Cannula Room Air Room Air Oxygen Flow Rate 2 BMI result Body Mass Index 30.9 Labs 10/14/24 06:38 10/14/24 06:38 Labs: Laboratory Results - last 48 hr 10/13/24 10/13/24 10/14/24 18:17 20:11 06:38 WBC 7.2 5.4 RBC 3.64 L 3.43 L Hgb 13.1 12.1 Hct 36.4 L 35.8 L MCV 100.0 H 104.4 H MCH 36.0 H 35.3 H MCHC 36.0 H 33.8 RDW 13.5 13.4 Plt Count 252 201 MPV 9.4 9.6 Immature Gran % (Auto) 0.3 0.4 Neut % (Auto) 77.8 H 58.3 Lymph % (Auto) 16.0 L 30.1 [place] % (Auto) 4.5 9.0 Eos % (Auto) 0.1 1.1 Baso % (Auto) 1.3 1.1 Lymph # (Auto) 1.2 1.6 [place] # (Auto) 0.3 0.5 Eos # (Auto) 0.0 0.1 Baso # (Auto) 0.1 0.1 Abs Immat Gran (auto) 0.02 0.02 Absolute Neuts (auto) 5.6 3.2 Absolute Nucleated RBC 0.000 0.000 Nucleated RBC % (auto) 0.0 0.0 Sodium 145 141 Potassium 3.6 2.9 L* Chloride 110 H 110 H Carbon Dioxide 20 L 22 Anion Gap 19 12 BUN 16 10 Creatinine 0.58 0.55 Estim Creat Clear Calc 90.2 95.0 Estimated GFR > 60 > 60 Random Glucose 92 89 Calcium 8.9 8.1 L D Magnesium 1.5 L 2.0 Total Bilirubin 0.8 0.9 Direct Bilirubin 0.3 AST 67 H 66 H ALT 27 27 Alkaline Phosphatase 120 H 100 Total Protein 7.3 6.3 L Albumin 4.1 3.4 L Lipase 6 L Urine Color Yellow Urine Appearance Clear Urine pH 6.0 Ur Specific [place] >= 1.030 H Urine Protein 100 (2+) H Urine Glucose (UA) Negative Urine Ketones 40 Urine Blood Trace H Urine Nitrite Negative Ur Leukocyte Esterase Small (1+) H Urine RBC 0-2 Urine WBC 0-5 Ur Squamous Epith Cells 0-2 Urine Bacteria Trace Hyaline Casts 6-10 Urine Opiates Screen Not Detected Ur Buprenorphine Scrn Not Detected Ur Oxycodone Screen Not Detected Urine Methadone Screen Not Detected Urine Fentanyl Screen Not Detected Ur Barbiturates Screen Not Detected Ur Phencyclidine Scrn Not Detected Ur Amphetamines Screen Not Detected U Benzodiazepines Scrn Not Detected Urine Cocaine Screen Not Detected U Marijuana (THC) Screen POSITIVE H Ethyl Alcohol 14 Mental Status Exam Mental Status Exam Level of Consciousness: Awake, Restless and Alert Patient Behavior: Appropriate and Cooperative Affect Description: Anxious Speech Pattern: Clear Hallucinations: None Thought Process: Intact Thought Content: positive for Intact Abnormal Motor Activity Signs and Symptoms: Restlessness Judgement: Fair Medications Medications Current Medications Acetaminophen (Acetaminophen 325 Mg Tablet) 650 mg PO Q6H PRN PRN Reason: Pain, Mild 1-3,fever,headache Calcium Carbonate (Calcium Carbonate 750 Mg Tab.Chew) 750 mg PO Q4H PRN PRN Reason: Heartburn Enoxaparin Sodium (Enoxaparin Sodium 40 Mg/0.4 Ml Syringe) 40 mg SUBCUT Q24H [facility]END[facility] TO [facility] Last Admin: 10/13/24 20:11 Dose: 40 mg Folic Acid (Folic Acid 1 Mg Tablet) 1 mg PO DAILY [facility] Last Admin: 10/14/24 08:37 Dose: 1 mg Magnesium Hydroxide (Milk Of Magnesia 30 Ml Oral.Susp) 30 ml PO DAILY PRN PRN Reason: Constipation Melatonin (Melatonin 3 Mg Tablet) 6 mg PO BEDTIME PRN PRN Reason: Insomnia Ondansetron HCl (Ondansetron Hcl 4 Mg/2 Ml Vial) 4 mg IVPUSH Q8H PRN PRN Reason: Nausea and Vomiting Pharmacy Consult (Consult Rx Etoh Phenob Im/Po) 1 each MISCELLANE ONCE PRN; Protocol PRN Reason: Consult order Phenobarbital (Phenobarbital 15 Mg Tablet) 45 mg PO BID [facility]; Protocol Stop: 10/15/24 21:01 Last Admin: 10/14/24 08:37 Dose: 45 mg Phenobarbital (Phenobarbital 30 Mg Tablet) 30 mg PO BID [facility]; Protocol Stop: 10/17/24 21:01 Phenobarbital (Phenobarbital 30 Mg Tablet) 30 mg PO DAILY [facility]; Protocol Stop: 10/19/24 09:01 Sodium Chloride (0.9 % Sodium Chloride Flush 3 Ml Syringe) 3 ml IVFLUSH QSHIFT [facility] Last Admin: 10/14/24 08:39 Dose: 3 ml Thiamine HCl (Thiamine Hcl 100 Mg Tablet) 100 mg PO DAILY [facility] Last Admin: 10/14/24 08:37 Dose: 100 mg Allergies Allergies Allergy/AdvReac Type Severity Reaction Status Date / Time lisinopril AdvReac Severe COUGH Verified 10/13/24 17:44 Assessment & Plan Assessment & Plan (1) Alcohol use disorder, severe, dependence: Status: Acute Code(s): F10.20 - Alcohol dependence, uncomplicated Assessment and Plan: pheno taper in place.thiamine and folic acid gabapentin PRN for anxiety sx [employer] to follow up in AM to discuss ongoing recovery supports in addition to [facility] Total time managing care of this patient today __35__ minutes. 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 Dyspnea on exertion NICM (nonischemic cardiomyopathy) Restrictive lung disease DEANDRE (obstructive sleep apnea) Morbid obesity Family History Family History Father Multiple sclerosis Mother Breast CA Maternal Grandmother Breast CA Paternal Grandmother Stomach cancer Paternal Aunt Breast CA Surgical History Surgical History S/P lumpectomy, right breast (04/12/21) History of right mastectomy History of incisional hernia repair History of colectomy History of laparoscopic cholecystectomy Social History Social History Household Members: None Housing: House Are you a primary rn progressive care to a significant other at home: No Do you presently have visiting nurse or other home services: No Alcohol intake: current Alcohol intake frequency: 3 or more drinks per day Alcohol type: hard liquor Patient Tobacco Use Status: Former Tobacco user Smoked in Last 30 Days: No Second Hand Smoke Exposure: No Use of substances other than those prescribed or required for medical reasons: Yes Substance Use Type: Marijuana Advance Directives: Yes Advance Directives Information Provided: No Advance Directives on File: No Nutrition Risks: No Nutritional Risk service: No Current occupational status: retired
--- NOTE | 2024-10-14 18:35 | P.PNIM_ITS ---
Subjective Subjective Date of Service: 10/14/24 Interval History: No acute events overnight. Intermittent anxiety treated well with Valium Review of Systems Denies chest pain Denies shortness of breath Denies nausea vomiting diarrhea Denies fever chills Physical Exam 2 Vital Signs: Vital Signs: Last Vital Signs Temp 97.6 F 10/14/24 15:02 Pulse 81 10/14/24 15:02 Resp 20 10/14/24 15:02 BP 134/74 10/14/24 15:02 Pulse Ox 96 10/14/24 15:02 O2 Del Method Room Air 10/14/24 15:02 O2 Flow Rate 2 10/13/24 21:04 BMI result Body Mass Index 30.9 Const: Other: Awake alert no acute distress Resp: Other: Clear to auscultation bilaterally no rales rhonchi or wheezes Cardio: Other: No S4; positive S1-S2; no S3 murmurs rubs or gallops GI: Other: Soft nontender nondistended normoactive bowel sounds Extrem: Other: No edema bilaterally Objective Data Active Medications Acetaminophen (Acetaminophen 325 Mg Tablet) 650 mg PO Q6H PRN PRN Reason: Pain, Mild 1-3,fever,headache Calcium Carbonate (Calcium Carbonate 750 Mg Tab.Chew) 750 mg PO Q4H PRN PRN Reason: Heartburn Carvedilol (Carvedilol 25 Mg Tablet) 25 mg PO BID [facility]; Protocol Diazepam (Diazepam 10 Mg/2 Ml Cartridge) 5 mg IVPUSH STAT STA Stop: 10/14/24 18:35 Enoxaparin Sodium (Enoxaparin Sodium 40 Mg/0.4 Ml Syringe) 40 mg SUBCUT Q24H [facility] Last Admin: 10/13/24 20:11 Dose: 40 mg Documented By: KANU Folic Acid (Folic Acid 1 Mg Tablet) 1 mg PO DAILY [facility] Last Admin: 10/14/24 08:37 Dose: 1 mg Documented By: MARIANNE Magnesium Hydroxide (Milk Of Magnesia 30 Ml Oral.Susp) 30 ml PO DAILY PRN PRN Reason: Constipation Melatonin (Melatonin 3 Mg Tablet) 6 mg PO BEDTIME PRN PRN Reason: Insomnia Ondansetron HCl (Ondansetron Hcl 4 Mg/2 Ml Vial) 4 mg IVPUSH Q8H PRN PRN Reason: Nausea and Vomiting Pharmacy Consult (Consult Rx Etoh Phenob Im/Po) 1 each MISCELLANE ONCE PRN; Protocol PRN Reason: Consult order Phenobarbital (Phenobarbital 15 Mg Tablet) 45 mg PO BID [facility]; Protocol Stop: 10/15/24 21:01 Last Admin: 10/14/24 08:37 Dose: 45 mg Documented By: MARIANNE Phenobarbital (Phenobarbital 30 Mg Tablet) 30 mg PO BID [facility]; Protocol Stop: 10/17/24 21:01 Phenobarbital (Phenobarbital 30 Mg Tablet) 30 mg PO DAILY [facility]; Protocol Stop: 10/19/24 09:01 Sodium Chloride (0.9 % Sodium Chloride Flush 3 Ml Syringe) 3 ml IVFLUSH QSHIFT [facility] Last Admin: 10/14/24 08:39 Dose: 3 ml Documented By: MARIANNE Thiamine HCl (Thiamine Hcl 100 Mg Tablet) 100 mg PO DAILY [facility] Last Admin: 10/14/24 08:37 Dose: 100 mg Documented By: MARIANNE Labs 10/14/24 06:38 10/14/24 06:38 Labs: Laboratory Results - last 24 hr 10/13/24 10/13/24 10/14/24 18:17 20:11 06:38 MCV 104.4 H MCH 35.3 H MCHC 33.8 RDW 13.4 Plt Count 201 MPV 9.6 Immature Gran % (Auto) 0.4 Neut % (Auto) 58.3 Lymph % (Auto) 30.1 [place] % (Auto) 9.0 Eos % (Auto) 1.1 Baso % (Auto) 1.1 Lymph # (Auto) 1.6 [place] # (Auto) 0.5 Eos # (Auto) 0.1 Baso # (Auto) 0.1 Abs Immat Gran (auto) 0.02 Absolute Neuts (auto) 3.2 Absolute Nucleated RBC 0.000 Nucleated RBC % (auto) 0.0 Anion Gap 19 12 Estim Creat Clear Calc 90.2 95.0 Estimated GFR > 60 > 60 Random Glucose 92 89 Calcium 8.9 8.1 L D Magnesium 1.5 L 2.0 Total Bilirubin 0.8 0.9 Direct Bilirubin 0.3 AST 67 H 66 H ALT 27 27 Alkaline Phosphatase 120 H 100 Total Protein 7.3 6.3 L Albumin 4.1 3.4 L Lipase 6 L Urine Color Yellow Urine Appearance Clear Urine pH 6.0 Ur Specific [place] >= 1.030 H Urine Protein 100 (2+) H Urine Glucose (UA) Negative Urine Ketones 40 Urine Blood Trace H Urine Nitrite Negative Ur Leukocyte Esterase Small (1+) H Urine RBC 0-2 Urine WBC 0-5 Ur Squamous Epith Cells 0-2 Urine Bacteria Trace Hyaline Casts 6-10 Urine Opiates Screen Not Detected Ur Buprenorphine Scrn Not Detected Ur Oxycodone Screen Not Detected Urine Methadone Screen Not Detected Urine Fentanyl Screen Not Detected Ur Barbiturates Screen Not Detected Ur Phencyclidine Scrn Not Detected Ur Amphetamines Screen Not Detected U Benzodiazepines Scrn Not Detected Urine Cocaine Screen Not Detected U Marijuana (THC) Screen POSITIVE H Ethyl Alcohol 14 Microbiology Microbiology Results: Microbiology 10/13/24 Unknown Urine Culture - Preliminary Urine clean catch - Clean Catch Midstream Culture too young to evaluate. Assessment and Plan (1) Alcohol withdrawal: Status: Acute (2) Alcohol use disorder, severe, dependence: Status: Acute (3) NICM (nonischemic cardiomyopathy): Status: Acute Plan This has a 68 year old female with pertinent history of alcohol use disorder, nonischemic cardiomyopathy status post ICD, mood disorder, breast cancer status post lumpectomy, hypothyroidism, hypertension who was brought to the emergency department for concerns of alcohol withdrawal. 1.Alcohol withdrawal/alcohol use disorder -CIWA scale as ordered -continue phenobarb protocol as ordered -p.r.n. Valium for increased anxiety -addiction Medicine consult appreciated 2. Nonischemic cardiomyopathy -stable and well compensated -continue current therapies 3. Hypomagnesemia/hypokalemia -repleted -follow renals/divalents Lovenox Full code Requires ongoing hospitalization for CIWA protocol with phenobarb to treat acute alcohol withdrawal Quality Stroke Does the patient have a stroke diagnosis?: No VTE Prior VTE?: No VTE Risk Level:: Medical - moderate - high VTE Device Contraindication: Treatment Not Indicated VTE Drug Contraindication: N/A - Med Ordered
--- NOTE | 2024-10-14 19:30 | PC.NURSE ---
Assume care approx. 1600 Pt alert and oriented, denied? any withdrawal symptoms. Clear lung sounds on RA. refused dinner. Watching T.V in bed. Loss IV access, new 20G US placed.
[2024-10-14 19:52] VITALS: BP 125/69; PULSE 97; RESP 18; TEMP 36.6; O2SAT 97
[2024-10-15 03:56] LABS: MANUAL DIFF FLAG NO
[2024-10-15 03:57] LABS: Hematocrit 35.0 % (37.0-47.0); Hemoglobin 12.0 g/dl (12.0-16.0); Imm Gran Abs Auto 0.00 X10*3/uL (0.00-0.03); Imm Gran Pct Auto 0.0 % (0.0-0.4); Lymphocytes Absolute Auto 1.7 X10*3/uL (1.2-4.9); Mean Corpuscular HGB Conc 34.3 g/dl (31.0-35.0); Mean Corpuscular Hemoglobin 35.3 pg (27.0-33.0); Mean Corpuscular Volume 102.9 fL (80.0-98.0); NRBC Abs Auto 0.000 X10*3/uL (0.0-0.012); NRBC Pct Auto 0.0 /100WBC (0.0-0.2); Platelet Count 156 X10*3/uL (160-400); Red Blood Count 3.40 X10*6/uL (4.20-5.50); White Blood Count 4.4 X10*3/uL (4.8-10.8)
[2024-10-15 04:12] LABS: Alanine Aminotransferase 21 U/L (0-31); Albumin Level 3.0 g/dL (3.5-5.0); Alkaline Phosphatase 84 U/L (39-117); Anion Gap 9 (12-20); Aspartate Amino Transferase 44 U/L (5-31); Blood Urea Nitrogen 6 mg/dL (9-16); Calcium 7.9 mg/dL (8.4-10.2); Carbon Dioxide 22 mmol/L (22-29); Chloride 113 mmol/L (96-108); Creatinine Clr Calc Pharmacy 113.6; Estimated Glomerular Filt Rate > 60; Potassium 3.2 mmol/L (3.3-5.1); Sodium 141 mmol/L (135-145); Total Protein 5.5 g/dL (6.5-8.0)
[2024-10-15 06:16] VITALS: BP 143/83; PULSE 91; RESP 20; O2SAT 97
[2024-10-15 08:47] VITALS: BP 143/83; PULSE 91
--- NOTE | 2024-10-15 09:24 | PC.NURSE ---
Pt A+OX3; CIWA score 10 secondary to restless legs and mild tremor in hands when extended; pt reports feeling less anxious today; Dr Hernandez aware of CIWA score and is at bedside to eval; pt OOB to commode with 1 assist, unsteady on feet; vss; awaiting bed for admission
[2024-10-15] MEDS: 0.9 % Sodium Chloride Flush 3 ML SYRINGE IVFLUSH ×3 (09:35→21:19)
--- NOTE | 2024-10-15 09:35 | PC.NURSE ---
Bar code scanner on portable computer malfunctioning; morning PO meds unable to scan; IT alerted
--- NOTE | 2024-10-15 12:23 | PC.NURSE ---
Addendum entered by Berta Rothman RN 10/15/24 12:28: This has a 68 year old female with pertinent history of alcohol use disorder, nonischemic cardiomyopathy status post ICD, mood disorder, breast cancer status post lumpectomy, hypothyroidism, hypertension who was brought to the emergency department for concerns of alcohol withdrawal. Patient is a poor historian and states she is here because she was shaking. Admits to drinking every day and last drink was 1 day prior to presentation. She denies nausea, vomiting, abdominal pain or diarrhea. Daughter states that patient has been drinking every day for the last 3 years. Patient alert and oriented. CIWA = 1. Respirations even and non-tender with positive bowel sounds. Diarrhea has subsided and now patient feels constipated. Positive pedal pulses with no edema noted. 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
[2024-10-15 14:41] VITALS: BP 136/82; PULSE 68; RESP 18; TEMP 36.8; O2SAT 98
--- NOTE | 2024-10-15 15:20 | HO.PM.IMPN ---
Subjective Subjective Date of Service: 10/15/24 Interval History: No acute issues overnight. CIWA improving Review of Systems Denies chest pain Denies shortness of breath Denies nausea vomiting diarrhea Denies fever chills Physical Exam Vital Signs: Vital Signs: Last Vital Signs Temp 98.3 F 10/15/24 14:41 Pulse 68 10/15/24 14:41 Resp 18 10/15/24 14:41 BP 136/82 10/15/24 14:41 Pulse Ox 98 10/15/24 14:41 O2 Del Method Room Air 10/15/24 14:41 O2 Flow Rate 2 10/13/24 21:04 BMI result Body Mass Index 30.9 Const: Other: Awake alert no acute distress Resp: Other: Clear to auscultation bilaterally no rales rhonchi or wheezes Cardio: Other: No S4; positive S1-S2; no S3 murmurs rubs or gallops GI: Other: Soft nontender nondistended normoactive bowel sounds Extrem: Other: No edema bilaterally Objective Data Active Medications Acetaminophen (Acetaminophen 325 Mg Tablet) 650 mg PO Q6H PRN PRN Reason: Pain, Mild 1-3,fever,headache Calcium Carbonate (Calcium Carbonate 750 Mg Tab.Chew) 750 mg PO Q4H PRN PRN Reason: Heartburn Carvedilol (Carvedilol 25 Mg Tablet) 25 mg PO BID REPLACED BY [facility]; Protocol Last Admin: 10/15/24 08:47 Dose: 25 mg Documented By: AARON Enoxaparin Sodium (Enoxaparin Sodium 40 Mg/0.4 Ml Syringe) 40 mg SUBCUT Q24H REPLACED BY [facility] Last Admin: 10/14/24 19:25 Dose: 40 mg Documented By: LM Folic Acid (Folic Acid 1 Mg Tablet) 1 mg PO DAILY REPLACED BY [facility] Last Admin: 10/15/24 09:34 Dose: 1 mg Documented By: AARON Magnesium Hydroxide (Milk Of Magnesia 30 Ml Oral.Susp) 30 ml PO DAILY PRN PRN Reason: Constipation Melatonin (Melatonin 3 Mg Tablet) 6 mg PO BEDTIME PRN PRN Reason: Insomnia Ondansetron HCl (Ondansetron Hcl 4 Mg/2 Ml Vial) 4 mg IVPUSH Q8H PRN PRN Reason: Nausea and Vomiting Pharmacy Consult (Consult Rx Etoh Phenob Im/Po) 1 each MISCELLANE ONCE PRN; Protocol PRN Reason: Consult order Phenobarbital (Phenobarbital 15 Mg Tablet) 45 mg PO BID REPLACED BY [facility]; Protocol Stop: 10/15/24 21:01 Last Admin: 10/15/24 09:35 Dose: 45 mg Documented By: AARON Phenobarbital (Phenobarbital 30 Mg Tablet) 30 mg PO BID REPLACED BY [facility]; Protocol Stop: 10/17/24 21:01 Phenobarbital (Phenobarbital 30 Mg Tablet) 30 mg PO DAILY REPLACED BY [facility]; Protocol Stop: 10/19/24 09:01 Sodium Chloride (0.9 % Sodium Chloride Flush 3 Ml Syringe) 3 ml IVFLUSH QSHIFT REPLACED BY [facility] Last Admin: 10/15/24 09:35 Dose: 3 ml Documented By: AARON Thiamine HCl (Thiamine Hcl 100 Mg Tablet) 100 mg PO DAILY REPLACED BY [facility] Last Admin: 10/15/24 09:35 Dose: 100 mg Documented By: AARON Labs 10/15/24 03:51 10/15/24 03:51 Labs: Laboratory Results - last 24 hr 10/15/24 03:51 MCV 102.9 H MCH 35.3 H MCHC 34.3 RDW 13.4 Plt Count 156 L MPV 9.5 Immature Gran % (Auto) 0.0 Neut % (Auto) 49.9 Lymph % (Auto) 38.9 [place] % (Auto) 8.0 Eos % (Auto) 2.1 Baso % (Auto) 1.1 Lymph # (Auto) 1.7 [place] # (Auto) 0.4 Eos # (Auto) 0.1 Baso # (Auto) 0.1 Abs Immat Gran (auto) 0.00 Absolute Neuts (auto) 2.2 Absolute Nucleated RBC 0.000 Nucleated RBC % (auto) 0.0 Anion Gap 9 L Estim Creat Clear Calc 113.6 Estimated GFR > 60 Fasting Glucose 100 H Calcium 7.9 L Total Bilirubin 0.8 AST 44 H ALT 21 Alkaline Phosphatase 84 Total Protein 5.5 L Albumin 3.0 L Microbiology Microbiology Results: Microbiology 10/13/24 Unknown Urine Culture - Preliminary Urine clean catch - Clean Catch Midstream Gram negative gregory Assessment and Plan (1) Alcohol use disorder, severe, dependence: Status: Acute (2) Alcohol withdrawal: Status: Acute (3) Hypertension: Status: Acute Plan This has a 68 year old female with pertinent history of alcohol use disorder, nonischemic cardiomyopathy status post ICD, mood disorder, breast cancer status post lumpectomy, hypothyroidism, hypertension who was brought to the emergency department for concerns of alcohol withdrawal. 1.Alcohol withdrawal/alcohol use disorder -CIWA scale as ordered.. Follow up in a.m. -continue phenobarb protocol as ordered -p.r.n. Valium for increased anxiety -addiction Medicine consult appreciated 2. Nonischemic cardiomyopathy -stable and well compensated -continue current therapies 3. Hypomagnesemia/hypokalemia -repleted -follow renals/divalents Lovenox Full code Requires ongoing hospitalization for CIWA protocol with phenobarb to treat acute alcohol withdrawal Quality Stroke Does the patient have a stroke diagnosis?: No VTE Prior VTE?: No VTE Risk Level:: Medical - moderate - high VTE Device Contraindication: Treatment Not Indicated VTE Drug Contraindication: N/A - Med Ordered
[2024-10-15] MEDS: Potassium Chloride Packet 20 MEQ PACKET 40 MEQ PO (16:10)
[2024-10-15 20:00] VITALS: BP 134/93; PULSE 84; RESP 18; TEMP 36.6; O2SAT 93
[2024-10-15 23:26] VITALS: BP 97/56; PULSE 67; RESP 18; TEMP 36.4; O2SAT 93
[2024-10-16 05:30] VITALS: BP 114/64; PULSE 60
[2024-10-16 05:52] LABS: MANUAL DIFF FLAG NO
[2024-10-16 05:54] LABS: Hematocrit 35.0 % (37.0-47.0); Hemoglobin 11.9 g/dl (12.0-16.0); Imm Gran Abs Auto 0.02 X10*3/uL (0.00-0.03); Imm Gran Pct Auto 0.4 % (0.0-0.4); Lymphocytes Absolute Auto 1.9 X10*3/uL (1.2-4.9); Mean Corpuscular HGB Conc 34.0 g/dl (31.0-35.0); Mean Corpuscular Hemoglobin 35.3 pg (27.0-33.0); Mean Corpuscular Volume 103.9 fL (80.0-98.0); NRBC Abs Auto 0.000 X10*3/uL (0.0-0.012); NRBC Pct Auto 0.0 /100WBC (0.0-0.2); Platelet Count 157 X10*3/uL (160-400); Red Blood Count 3.37 X10*6/uL (4.20-5.50); White Blood Count 5.3 X10*3/uL (4.8-10.8)
[2024-10-16 06:14] LABS: Alanine Aminotransferase 17 U/L (0-31); Albumin Level 3.0 g/dL (3.5-5.0); Alkaline Phosphatase 76 U/L (39-117); Anion Gap 10 (12-20); Aspartate Amino Transferase 34 U/L (5-31); Blood Urea Nitrogen 6 mg/dL (9-16); Calcium 8.1 mg/dL (8.4-10.2); Carbon Dioxide 22 mmol/L (22-29); Chloride 110 mmol/L (96-108); Creatinine Clr Calc Pharmacy 109.0; Estimated Glomerular Filt Rate > 60; Potassium 3.2 mmol/L (3.3-5.1); Sodium 139 mmol/L (135-145); Total Protein 5.6 g/dL (6.5-8.0)
--- NOTE | 2024-10-16 07:41 | MHC.RECOVRN ---
Late Entry: TW met with pt in - to offer support and resources regarding AUD. On approach pt was sleeping but awoke easily and was pleasant and engaged during assessment with frequent tearless. She reports her withdrawal symptoms have subsided and states she is feeling much better Discussed current alcohol use and concerns related to increased risk of alcohol related problems. Discussed how alcohol use has impacted health , including negative impact on overall physical wellbeing. Pt educated on safer drinking strategies including eating before drinking and drinking water between alcoholic beverages and drinking below the recommended limit. Pt spoke at length about continued mourning of the passing of her fiance as a major contributing factor of her increased alcohol consumption. Pt was dedicated on the grief process and encourage to seek grief counseling or therapy and was provided written resources for both. Pt also provide written resources and education including information on IOP/PHP, and the multiple pathways to recovery. Pt was receptive to information and reports she will continue to attended [facility] for [facility] and declined appt for outpt [facility] treatment at this time.
[2024-10-16 07:51] VITALS: BP 120/76; PULSE 68; RESP 20; TEMP 37; O2SAT 96
[2024-10-16] MEDS: buPROPion HCl XL 300 MG TAB.ER.24H PO (08:11)
[2024-10-16] MEDS: 0.9 % Sodium Chloride Flush 3 ML SYRINGE IVFLUSH ×2 (08:12→20:20)
[2024-10-16] MEDS: Potassium Chloride Packet 20 MEQ PACKET 40 MEQ PO (09:05)
[2024-10-16] MEDS: Lactated Ringers 1,000 ML 100 ML IVCONT ×2 (10:31→20:20)
[2024-10-16 11:12] LABS: CDiff Gene PCR NEGATIVE (Negative)
--- NOTE | 2024-10-16 12:38 | P.PNIM_ITS ---
Subjective Subjective Date of Service: 10/16/24 Interval History: Continues with multiple episodes of watery diarrhea ; C diff negative Review of Systems Denies chest pain Denies shortness of breath Denies nausea vomiting diarrhea Denies fever chills Physical Exam 2 Vital Signs: Vital Signs: Last Vital Signs Temp 98.6 F 10/16/24 07:51 Pulse 68 10/16/24 07:51 Resp 20 10/16/24 07:51 BP 120/76 10/16/24 07:51 Pulse Ox 96 10/16/24 07:51 O2 Del Method Room Air 10/16/24 07:51 O2 Flow Rate 2 10/13/24 21:04 BMI result Body Mass Index 30.9 Const: Other: Awake alert no acute distress Resp: Other: Clear to auscultation bilaterally no rales rhonchi or wheezes Cardio: Other: No S4; positive S1-S2; no S3 murmurs rubs or gallops GI: Other: Soft nontender nondistended normoactive bowel sounds Extrem: Other: No edema bilaterally Objective Data Active Medications Acetaminophen (Acetaminophen 325 Mg Tablet) 650 mg PO Q6H PRN PRN Reason: Pain, Mild 1-3,fever,headache Bupropion HCl (Bupropion Hcl Xl 300 Mg Tab.Er.24h) 300 mg PO DAILY [facility] Last Admin: 10/16/24 08:11 Dose: 300 mg Documented By: CONCETTA Calcium Carbonate (Calcium Carbonate 750 Mg Tab.Chew) 750 mg PO Q4H PRN PRN Reason: Heartburn Carvedilol (Carvedilol 25 Mg Tablet) 25 mg PO BID [facility]; Protocol Last Admin: 10/16/24 08:11 Dose: 25 mg Documented By: CONCETTA Dicyclomine HCl (Dicyclomine Hcl 10 Mg Capsule) 10 mg PO BID [facility] Last Admin: 10/16/24 08:12 Dose: 10 mg Documented By: CONCETTA Enoxaparin Sodium (Enoxaparin Sodium 40 Mg/0.4 Ml Syringe) 40 mg SUBCUT Q24H [facility] Last Admin: 10/15/24 19:26 Dose: 40 mg Documented By: SCIRPKENNETH Folic Acid (Folic Acid 1 Mg Tablet) 1 mg PO DAILY [facility] Last Admin: 10/16/24 08:11 Dose: 1 mg Documented By: CONCETTA Gabapentin (Gabapentin 300 Mg Capsule) 600 mg PO BEDTIME [facility] Last Admin: 10/15/24 21:12 Dose: 600 mg Documented By: RAFI Lactated Ringer's (Lr) 1,000 mls @ 100 mls/hr IVCONT .Q10H [facility] Last Admin: 10/16/24 10:31 Dose: 100 mls/hr Documented By: CONCETTA Levothyroxine Sodium (Levothyroxine Sodium 175 Mcg Tablet) 175 mcg PO DAILY@0600 [facility] Last Admin: 10/16/24 05:47 Dose: 175 mcg Documented By: RAFI Losartan Potassium (Losartan Potassium 50 Mg Tablet) 50 mg PO DAILY [facility]; Protocol Last Admin: 10/16/24 08:11 Dose: 50 mg Documented By: CONCETTA Magnesium Hydroxide (Milk Of Magnesia 30 Ml Oral.Susp) 30 ml PO DAILY PRN PRN Reason: Constipation Melatonin (Melatonin 3 Mg Tablet) 6 mg PO BEDTIME PRN PRN Reason: Insomnia Last Admin: 10/15/24 21:12 Dose: 6 mg Documented By: RAFI Naltrexone HCl (Naltrexone Hcl 50 Mg Tablet) 50 mg PO DAILY [facility] Last Admin: 10/16/24 10:28 Dose: 50 mg Documented By: CONCETTA Ondansetron HCl (Ondansetron Hcl 4 Mg/2 Ml Vial) 4 mg IVPUSH Q8H PRN PRN Reason: Nausea and Vomiting Paroxetine HCl (Paroxetine Hcl 30 Mg Tablet) 30 mg PO DAILY [facility] Last Admin: 10/16/24 08:10 Dose: 30 mg Documented By: CONCETTA Pharmacy Consult (Consult Rx Etoh Phenob Im/Po) 1 each MISCELLANE ONCE PRN; Protocol PRN Reason: Consult order Phenobarbital (Phenobarbital 30 Mg Tablet) 30 mg PO BID [facility]; Protocol Stop: 10/17/24 21:01 Last Admin: 10/16/24 08:11 Dose: 30 mg Documented By: CONCETTA Phenobarbital (Phenobarbital 30 Mg Tablet) 30 mg PO DAILY [facility]; Protocol Stop: 10/19/24 09:01 Sodium Chloride (0.9 % Sodium Chloride Flush 3 Ml Syringe) 3 ml IVFLUSH QSHIFT [facility] Last Admin: 10/16/24 08:12 Dose: 3 ml Documented By: CONCETTA Thiamine HCl (Thiamine Hcl 100 Mg Tablet) 100 mg PO DAILY [facility] Last Admin: 10/16/24 08:11 Dose: 100 mg Documented By: CONCETTA Labs 10/16/24 05:29 10/16/24 05:29 Labs: Laboratory Results - last 24 hr 10/16/24 10/16/24 05:29 10:09 MCV 103.9 H MCH 35.3 H MCHC 34.0 RDW 13.2 Plt Count 157 L MPV 9.8 Immature Gran % (Auto) 0.4 Neut % (Auto) 54.9 Lymph % (Auto) 35.2 [place]ata[place] % (Auto) 6.1 Eos % (Auto) 2.5 Baso % (Auto) 0.9 Lymph # (Auto) 1.9 [place] # (Auto) 0.3 Eos # (Auto) 0.1 Baso # (Auto) 0.1 Abs Immat Gran (auto) 0.02 Absolute Neuts (auto) 2.9 Absolute Nucleated RBC 0.000 Nucleated RBC % (auto) 0.0 Anion Gap 10 L Estim Creat Clear Calc 109.0 Estimated GFR > 60 Fasting Glucose 91 Calcium 8.1 L Total Bilirubin 0.4 AST 34 H ALT 17 Alkaline Phosphatase 76 Total Protein 5.6 L Albumin 3.0 L C. difficile Tox B Gene NEGATIVE Microbiology Microbiology Results: Microbiology 10/13/24 Unknown Urine Culture - Final Urine clean catch - Clean Catch Midstream Enterobacter cloacae complex Assessment and Plan (1) Diarrhea: Status: Acute (2) Hypertension: Status: Acute (3) NICM (nonischemic cardiomyopathy): Status: Acute Plan This has a 68 year old female with pertinent history of alcohol use disorder, nonischemic cardiomyopathy status post ICD, mood disorder, breast cancer status post lumpectomy, hypothyroidism, hypertension who was brought to the emergency department for concerns of alcohol withdrawal. 1. Diarrhea -empiric vancomycin started given history of C diff however C diff negative -DC vancomycin -remaining stool profile pending 2.Alcohol withdrawal/alcohol use disorder -CIWA scale as ordered.. No seizures noted -p.r.n. Valium for increased anxiety -addiction Medicine consult appreciated 2. Nonischemic cardiomyopathy -stable and well compensated -continue current therapies 3. Hypomagnesemia/hypokalemia -repleted -follow renals/divalents Lovenox Full code Requires ongoing hospitalization for CIWA protocol with phenobarb to treat acute alcohol withdrawal Quality Stroke Does the patient have a stroke diagnosis?: No VTE Prior VTE?: No VTE Risk Level:: Medical - moderate - high VTE Device Contraindication: Treatment Not Indicated VTE Drug Contraindication: N/A - Med Ordered
[2024-10-16] MEDS: diazePAM 10 MG/2 ML CARTRIDGE IVPUSH (13:15)
--- NOTE | 2024-10-16 14:25 | MHC.CM.PN ---
Patient not medically cleared for dc. Anticipate home self care when medically cleared. CM will continue to follow.
[2024-10-16 15:16] LABS: E. coli EAEC Not Detected (Not Detect.); E. coli EPEC Not Detected (Not Detect.); E. coli ETEC Not Detected (Not Detect.); E. coli STEC Not Detected (Not Detect.); Shigella sp./EIEC Not Detected (Not Detect.)
[2024-10-16 15:33] VITALS: BP 119/66; PULSE 64; RESP 18; TEMP 36.6; O2SAT 98
[2024-10-16 23:30] VITALS: BP 98/56; PULSE 56; RESP 18; TEMP 36.4; O2SAT 96
[2024-10-17] MEDS: Lactated Ringers 1,000 ML 100 ML IVCONT (03:47)
[2024-10-17 04:54] VITALS: BP 116/66; PULSE 64; RESP 18; O2SAT 95
[2024-10-17 07:06] VITALS: BP 122/71; PULSE 65; RESP 16; TEMP 36.6; O2SAT 96
[2024-10-17 08:17] LABS: MANUAL DIFF FLAG NO
[2024-10-17 08:23] LABS: Hematocrit 34.8 % (37.0-47.0); Hemoglobin 11.6 g/dl (12.0-16.0); Imm Gran Abs Auto 0.03 X10*3/uL (0.00-0.03); Imm Gran Pct Auto 0.4 % (0.0-0.4); Lymphocytes Absolute Auto 1.9 X10*3/uL (1.2-4.9); Mean Corpuscular HGB Conc 33.3 g/dl (31.0-35.0); Mean Corpuscular Hemoglobin 35.5 pg (27.0-33.0); Mean Corpuscular Volume 106.4 fL (80.0-98.0); NRBC Abs Auto 0.000 X10*3/uL (0.0-0.012); NRBC Pct Auto 0.0 /100WBC (0.0-0.2); Platelet Count 162 X10*3/uL (160-400); Red Blood Count 3.27 X10*6/uL (4.20-5.50); White Blood Count 7.1 X10*3/uL (4.8-10.8)
[2024-10-17 08:54] VITALS: BP 130/79
[2024-10-17] MEDS: buPROPion HCl XL 300 MG TAB.ER.24H PO (08:54)
[2024-10-17 08:55] VITALS: BP 130/79; PULSE 72
[2024-10-17 08:59] LABS: Alanine Aminotransferase 15 U/L (0-31); Albumin Level 2.9 g/dL (3.5-5.0); Alkaline Phosphatase 71 U/L (39-117); Anion Gap 10 (12-20); Aspartate Amino Transferase 21 U/L (5-31); Blood Urea Nitrogen 7 mg/dL (9-16); Calcium 8.3 mg/dL (8.4-10.2); Carbon Dioxide 26 mmol/L (22-29); Chloride 109 mmol/L (96-108); Creatinine Clr Calc Pharmacy 102.5; Estimated Glomerular Filt Rate > 60; Potassium 3.8 mmol/L (3.3-5.1); Sodium 141 mmol/L (135-145); Total Protein 5.4 g/dL (6.5-8.0)
--- NOTE | 2024-10-17 12:30 | P.DS_ITS ---
DS: Providers Provider Date of Service: 10/17/24 Date of admission: 10/13/24 19:33 Date of discharge: 10/17/24 Primary care physician: Kartik Maloney MD Consults: 10/13/24 19:33 Addiction Medicine Provider Routine Consulting Provider: Addiction Covering Reason for consultation: Alcohol use disorder DS: Diagnosis Discharge Diagnosis (1) Diarrhea: Status: Acute (2) Hypertension: Status: Acute (3) NICM (nonischemic cardiomyopathy): Status: Acute DS: Summary Hospital Course Hospital Course: 68 year old female with pertinent history of alcohol use disorder, nonischemic cardiomyopathy status post ICD, mood disorder, breast cancer status post lumpectomy, hypothyroidism, hypertension who was brought to the emergency department for concerns of alcohol withdrawal. Patient is a poor historian and states she is here because she was shaking. Admits to drinking every day and last drink was 1 day prior to presentation. She denies nausea, vomiting, abdominal pain or diarrhea. History obtained with the help of daughter at bedside. Daughter states that patient has been drinking every day for the last 3 years. No history of alcohol withdrawal as she has been drinking every day. No history of alcohol withdrawal seizures. Daughter is seeking help for her mother for detox and patient is agreeable. She admits anxiety, tremors, insomnia. No visual or auditory hallucinations. No fever, chills, chest pain, palpitations, shortness of breath, changes in urinary or bowel habits. Hospital Course Patient admitted to general medical floor and placed on CIWA protocol. She did well with the CIWA protocol and had no overt alcohol seizures. She did experience some profound diarrhea however C diff and GI panel were negative. At this point in time she is feeling back to baseline and is acceptable for discharge to home. She can follow up with the PCP next available Time Attestation Discharge Coordination Time (in mins): 35 Quality: Safe Use of Opioids Does Pt have an Active Cancer Diagnosis on the Problem List?: No Quality: Stroke Does the patient have a stroke diagnosis?: No Physical Exam Vital Signs: Vital Signs: Last Vital Signs Temp 97.9 F 10/17/24 07:06 Pulse 72 10/17/24 08:55 Resp 16 10/17/24 07:06 BP 130/79 10/17/24 08:55 Pulse Ox 96 10/17/24 07:06 O2 Del Method Room Air 10/17/24 07:06 O2 Flow Rate 3 10/16/24 15:33 BMI result Body Mass Index 30.9 Const: Other: Awake alert no acute distress Resp: Other: Clear to auscultation bilaterally no rales rhonchi or wheezes Cardio: Other: No S4; positive S1-S2; no S3 murmurs rubs or gallops GI: Other: Soft nontender nondistended normoactive bowel sounds Extrem: Other: No edema bilaterally DS: Data Data Completed and Pending Completed studies during hospitalization [Text1]: Procedures Excision of Stomach, Percutaneous Endoscopic Approach, Vertical (01/19/21) Release Peritoneum, Percutaneous Endoscopic Approach (01/19/21) Labs on day of discharge: Laboratory Results - last 24 hr 10/16/24 10/17/24 10:09 07:30 WBC 7.1 RBC 3.27 L Hgb 11.6 L Hct 34.8 L MCV 106.4 H MCH 35.5 H MCHC 33.3 RDW 13.2 Plt Count 162 MPV 10.0 Immature Gran % (Auto) 0.4 Neut % (Auto) 65.3 Lymph % (Auto) 26.1 [place] % (Auto) 5.5 Eos % (Auto) 2.0 Baso % (Auto) 0.7 Lymph # (Auto) 1.9 [place] # (Auto) 0.4 Eos # (Auto) 0.1 Baso # (Auto) 0.1 Abs Immat Gran (auto) 0.03 Absolute Neuts (auto) 4.7 Absolute Nucleated RBC 0.000 Nucleated RBC % (auto) 0.0 Sodium 141 Potassium 3.8 Chloride 109 H Carbon Dioxide 26 Anion Gap 10 L BUN 7 L Creatinine 0.51 Estim Creat Clear Calc 102.5 Estimated GFR > 60 Fasting Glucose 87 Calcium 8.3 L Total Bilirubin 0.2 AST 21 ALT 15 Alkaline Phosphatase 71 Total Protein 5.4 L Albumin 2.9 L Stl C. cayetanensis PCR Not Detected Stool Rotavirus A PCR Not Detected Stl Adenov F 40/41 PCR Not Detected Stool Astrovirus (PCR) Not Detected Stool Campylobacter PCR Not Detected Stool Cryptosporidium PCR Not Detected Stl Sh Tox Pr E STEC PCR Not Detected Stool E coli O157 PCR Not applicable Stl Enterotoxigenic E PCR Not Detected Stool EPEC (PCR) Not Detected Stool EAEC (PCR) Not Detected Stl E. histolytica PCR Not Detected Stool Giardia Lamblia PCR Not Detected Stl P. shigelloides PCR Not Detected Stool Salmonella PCR Not Detected Stool Sapovirus (PCR) Not Detected Stl Shigella/EIEC PCR Not Detected St Y.enterocolitica PCR Not Detected Stool Vibrio (PCR) Not Detected Stl Vibrio cholerae PCR Not Detected Stl Norovirus GI/GII PCR Not Detected Discharge Plan Discharge Anticipated Discharge Date/Time: 10/17/24 12:22 Patient Disposition: Home, Self-Care Discharge Diagnosis: Acute alcohol withdrawal Referrals: Melodie Royal NP-C [Nurse Practitioner, Addiction Medicine] - 10/20/24 1:00 pm Referral Note: for Naltrexone continuation Please bring ID and insurance card Kartik Maloney MD [Primary Care Provider, Internal Medicine] - 1 Week Discharge Medications: New naltrexone 50 mg tablet 50 mg PO DAILY Qty: 30 0RF hydroxyzine HCl 25 mg tablet 25 mg PO QID PRN (Reason: anxiety) Qty: 30 0RF Continued gabapentin 300 mg capsule 600 mg PO BEDTIME folic acid 1 mg tablet 1 mg PO DAILY dicyclomine 10 mg capsule 10 mg PO BID paroxetine HCl 30 mg tablet 30 mg PO DAILY carvedilol 25 mg tablet 25 mg PO BID levothyroxine 175 mcg tablet 175 mcg PO DAILY losartan 50 mg tablet 50 mg PO DAILY bupropion HCl 300 mg tablet extended release 24 hr 300 mg PO DAILY Discharge Orders: Discharge Order (Routine); Ordered 10/17/24 Ordered By: Butch Hernandez Diet: Advance to usual diet Activity on Discharge: As tolerated Stand Alone Forms: Patient Portal Discharge page Print Language: Togolese Care Plan Goals: Continue all meds as taken prior to hospitalization Health Concerns: Hydroxyzine 25 mg 4 times a day as needed for anxiety has been added Plan of Treatment: Follow up with the PCP next available Assessment: See discharge summary
[2024-10-17 13:25] VITALS: BP 144/77; PULSE 80; RESP 18; TEMP 36.5; O2SAT 94
--- NOTE | 2024-10-17 13:33 | PC.NURSE ---
Pt. is ready gor discharge, walking independently in the room, refused bed alarm at this time, steady on feet, fall measure per protocol.
== END 2024-10-17 14:39 | disposition home or self-care (01) | DRG 897 ==
LOC: HO.ED 18:39 → HO.EDOVER 19:47 → HO.S3 10-15 18:58
PROVIDERS: Physician Assistant; Admitting Provider Student in an Organized Health Care Education/Training Program; Emergency Provider Internal Medicine; PCP Family Medicine; Visit Provider Hospitalist
DX: F10.239 Alcohol dependence with withdrawal, unspecified (principal); I42.8 Other cardiomyopathies; E03.9 Hypothyroidism, unspecified; E87.6 Hypokalemia; R19.7 Diarrhea, unspecified; E83.42 Hypomagnesemia; I10 Essential (primary) hypertension; Z95.810 Presence of automatic (implantable) cardiac defibrillator; Z87.891 Personal history of nicotine dependence; Z79.890 Hormone replacement therapy; Z79.899 Other long term (current) drug therapy
CPT/HCPCS: 36415; 80048; 80053; 80076; 80307; 81001; 83690; 83735; 85025; 87086; 87088; 87186; 87493; 87507; 93005; 99285; J1650; J2560; J3360; J3475; J3480; J7120; S9485

== ENCOUNTER → 2024-10-13 19:31 | Outpatient (BNV) | payer MEDICARE, MEDICAID, SELFPAY | PROVIDERS: Admitting Provider Student in an Organized Health Care Education/Training Program; Emergency Provider Internal Medicine; PCP Family Medicine; Visit Provider Internal Medicine | DX: I49.3 Ventricular premature depolarization (principal); Z95.0 Presence of cardiac pacemaker | CPT/HCPCS: 93010 ==

== ENCOUNTER → 2024-10-13 19:33 | Outpatient (BNV) | payer MEDICARE, MEDICAID, SELFPAY | PROVIDERS: Admitting Provider Student in an Organized Health Care Education/Training Program; Emergency Provider Internal Medicine; PCP Family Medicine; Visit Provider Student in an Organized Health Care Education/Training Program | DX: I10 Essential (primary) hypertension (principal); F10.20 Alcohol dependence, uncomplicated; F10.939 Alcohol use, unspecified with withdrawal, unspecified | CPT/HCPCS: 99222; 99232 ==

== ENCOUNTER → 2024-10-13 19:33 | Outpatient (BNV) | payer OTHER, SELFPAY | PROVIDERS: Admitting Provider Student in an Organized Health Care Education/Training Program; Emergency Provider Internal Medicine; PCP Family Medicine; Visit Provider Nurse Practitioner Psychiatric/Mental Health | DX: F10.20 Alcohol dependence, uncomplicated (principal) | CPT/HCPCS: 99232 ==

== ENCOUNTER 2024-10-20 12:54 | Outpatient (AMB) | payer OTHER, SELFPAY ==
--- NOTE | 2024-10-20 13:07 | A.OFFVIS_ITS ---
Vital Signs 10/20/24 13:21 Height 5 ft 2 in Weight 178 lb BMI 32.6 BP 118/72 Pulse 66 Pulse Oximetry (%) 96 Intake Visit Reasons: MAT Intake Allergies lisinopril Adverse Reaction (Severe, Verified 10/20/24 13:22) COUGH HPI Comments Details: The patient is a 68-year-old female presents for MAT intake r/t AUD. Reports no alcohol consumption for the past 8 days and naltrexone 50 mg is helping to minimize cravings. Lives at daughter's home at in-law apartment, works part-time and reports drinking began 3.5 years when partner . During this time period she drank an average of 5-12 nips of vodka daily. Denies use of opioids, smoking or other substances with exception of smoking cannabis on a daily basis. [facility] Medical History Obesity (BMI 30-39.9) Pacemaker Atypical lobular hyperplasia (ALH) of right breast Steatosis, liver Morbid obesity Breast cancer Obesity Hypothyroidism History of breast cancer Depression Hypertension Cardiac resynchronization therapy defibrillator ([employer]ELOPER-D) in place Dyspnea on exertion NICM (nonischemic cardiomyopathy) Restrictive lung disease DEANDRE (obstructive sleep apnea) Morbid obesity Surgical History S/P lumpectomy, right breast (04/12/21) History of right mastectomy History of incisional hernia repair History of colectomy History of laparoscopic cholecystectomy Family History Father Multiple sclerosis Mother Breast CA Maternal Grandmother Breast CA Paternal Grandmother Stomach cancer Paternal Aunt Breast CA Social History Household Members: Family Housing: House Are you a primary hospice care consultant to a significant other at home: No Do you presently have visiting nurse or other home services: No Alcohol intake: current Alcohol intake frequency: 3 or more drinks per day Alcohol type: hard liquor Patient Tobacco Use Status: Former Tobacco user Second Hand Smoke Exposure: No Substance Use Type: Marijuana Advance Directives Date on File: 10/15/24 service: No Current occupational status: retired Review of Systems Const All systems reviewed & are unremarkable except as noted in HPI and below Physical Exam Vital Signs: Last Vital Signs Pulse 66 10/20/24 13:21 BP 118/72 10/20/24 13:21 Pulse Ox 96 10/20/24 13:21 BMI result Body Mass Index 32.6 Results AMB 14 Panel Urine Drug Screen Urine Marijuana (THC) Positive Last Edit by Jon Hernandez CMA on 5 13:29 Urine Cocaine Negative Last Edit by oJn Hernandez CMA on 10/20/24 13:29 Urine Morphine Negative Last Edit by Jon Hernandez CMA on 10/20/24 13:29 Urine Methamphetamine Negative Last Edit by Jon Hernandez CMA on 5 13:29 Urine Amphetamine Negative Last Edit by Jon Hernandez CMA on 10/20/24 13 :29 Urine Benzodiazepine Positive Last Edit by Jon Hernandez CMA on 10/20/24 13:29 Urine Barbiturates Positive Last Edit by Jon Hernandez CMA on 10/20/24 13:29 Urine Methadone Negative Last Edit by Jon Hernandez CMA on 10/20/24 13:2 9 Urine Buprenorphine Positive Last Edit by Jon Hernandez CMA on 10/20/24 13:29 Urine Tricyclic Antidepressant Positive Last Edit by Jon Hernandez CMA o n 10/20/24 13:29 Urine MDMA Negative Last Edit by Jon Hernandez CMA on 10/20/24 13:29 Urine Oxycodone Positive Last Edit by Jon Hernandez CMA on 10/20/24 13:2 9 Urine Phencyclidine Negative Last Edit by Jon Hernandez CMA on 10/20/24 13:29 Urine Propoxyphene Negative Last Edit by Jon Hernandez CMA on 10/20/24 13:29 Results Reviewed Results Reviewed: Laboratory Last Values POC Urine Buprenorphine Positive 10/20/24 13:23 POC Urine Morphine Negative 10/20/24 13:23 POC Urine Oxycodone Positive 10/20/24 13:23 POC Urine Methadone Negative 10/20/24 13:23 POC Urine Propoxyphene Negative 10/20/24 13:23 POC Urine Barbiturates Positive 10/20/24 13:23 POC U Tricyclic Antidpr Positive 10/20/24 13:23 POC Urine PCP Negative 10/20/24 13:23 POC Ur Amphetamines Negative 10/20/24 13:23 POC Ur Methamphetamine Negative 10/20/24 13:23 POC Urine MDMA Negative 10/20/24 13:23 POC Ur Benzodiazepine Positive 10/20/24 13:23 POC Urine Cocaine Negative 10/20/24 13:23 POC Ur Marijuana (THC) Positive 10/20/24 13:23 Assessment & Plan Assessment & Plan (1) Alcohol use disorder, severe, dependence: Code(s): F10.20 - Alcohol dependence, uncomplicated Category: Medical Plan The plan of care is to continue with naltrexon 50 mg daily, folic acid 1 mg daily and start on thiamine 100 mg daily and follow up in one month or sooner, if needed. Information and phone number given for [facility] to initiate contact for services. Orders: Orders AMB 14 Panel Urine Drug Screen Today Z51.81 - Encounter for therapeutic drug level monitoring Medications: New thiamine mononitrate (vit B1) 100 mg PO DAILY 30 tabs 0RF 30 days Patient Instructions: - Continue with naltrexone 50 mg daily, folic acid 1 mg daily, ad start on th iamine 100 mg daily. - Call [facility] or other area mental health services to initiate services. - Call with questions, concerns, or to report side effects/new onset of symptoms to [facility]. - The patient verbalized understanding and agreed with plan of care. Coding Level of Care Code New Pt Level 3 (42767) Diagnoses Alcohol use disorder, severe, dependence F10.20
[2024-10-20 13:21] VITALS: BP 118/72; PULSE 66; O2SAT 96; BMI 32.6
--- OUTSIDE RECORDS SUMMARY | 2024-10-20 13:36 | XMS_ITS | Patient Health Record ---
Author Organization [facility] Address [address] [place] [address] Care Team Providers Care Choke Reamer Name Role Phone Haider (RETIRED) Kartik FOWLER Primary Care Provider Unavailable Qamar Garcia Unavailable [phone] Allergies Allergen (clinical drug ingredient) Drug/Non Drug Allergy documented on EMR Reaction Allergy Type Onset Date Status lisinopril Lisinopril cough Drug Allergy Activ e Results Component Value Reference Range Notes Ferritin Reviewed date:05/20/2024 01:53:07 PM Interpretation: Performing Lab:[facility], [address] [place] [phone] Notes/Report: Ferritin 650 10-250 ng/mL Intrinsic Factor Antibodies Reviewed date:05/22/2024 04:24:27 PM Interpretation: Performing Lab:[facility], [address] [place] [phone] Notes/Report: Intrinsic Factor Antibodies Positive Negative For additional information, please refer to http://education.Orgoo/faq/IFAB (This link is being provided for informational/ educational purposes only.) THIS TEST WAS PERFORMED AT: [facility]/[address] [address] RICK HOLLINGSWORTH MD,PHD Parietal Cell Antibody Reviewed date:06/17/2024 06:59:55 PM Interpretation: Performing Lab:[facility], [address] [place] [phone] Notes/Report: Parietal Cell Antibody 51.1 <=20.0 Unit [...] these patients. THIS TEST WAS PERFORMED AT: [facility] [address] [place] [address] RICK HOLLINGSWORTH MD,PHD Leukocytes Stool Qualitative Reviewed date:04/09/2024 02:02:54 PM Interpretation: Performing Lab:[address] [phone] Notes/Report: Leukocytes Stool Qualitative NEGATIVE NEGATIVE Calprotectin, Fecal Reviewed date:04/16/2024 10:46:56 AM Interpretation: Performing Lab:[address] [phone] Notes/Report: Calprotectin, Fecal 14 Reference Range: <50 [...] borderline values. THIS TEST WAS PERFORMED AT: [facility] [address] [place] [address] KATHERINE MCGEE MD,PHD,PATRICIA CDiff Gene PCR Reviewed date:04/13/2024 04:23:19 PM Interpretation: Performing Lab:[facility], [address] [place] [phone] Notes/Report: CDiff Gene PCR POSITIVE Negative Additional C. difficile toxin testing to be performed. CDiff Toxin Reviewed date:04/09/2024 02:04:29 PM Interpretation: Performing Lab:[facility], [address] [place] [address] Notes/Report: CDiff Toxin Negative Negative CDIFF Interpretation SEE NOTE Likely C. difficile colonization. Continue contact precautions. GI PANEL Reviewed date:04/09/2024 02:03:39 PM Interpretation: Performing Lab:[facility], [address] [place] [phone] Notes/Report: Campylobacter Not Detected Not Detect. Plesiomonas [...] is performed by Multiplexed PCR, utilizing the natue Array. Liver Panel Reviewed date:05/14/2024 05:51:13 PM Interpretation: Performing Lab:[address] [phone] Notes/Report: Bilirubin Total 0.5 0.0-1.0 mg/dL Bilirubin Direct 0.2 0.0-0.5 mg/dL Aspartate Amino Transferase 56 5-31 U/L Alanine Aminotransferase 29 0-31 U/L Total Protein 7.3 6.5-8.0 g/dL Albumin Level 3.7 3.5-5.0 g/dL Alkaline Phosphatase 113 39-117 U/L Basic Metabolic Panel Reviewed date:05/14/2024 05:51:02 PM Interpretation: Performing Lab:[address] [address] Notes/Report: Sodium 143 135-145 mmol/L Potassium 3.6 [...] Folate Reviewed date:05/19/2024 01:03:52 PM Interpretation: Performing Lab:[address] [address] Notes/Report: Vitamin B12 < 148 200-900 pg/mL NORMAL 200-900 PG/ML INDETERMINATE 160-199 PG/ML DEFICIENT < 160 PG/ML Folate 2.4 > or = 4.0 ng/mL Reference Values: > or = 4.0 ng/mL < 4.0 ng/mL suggests folate deficiency Methotrexate, aminopterin and folinic acid (leucovorin) are chemotherapeutic agents whose molecular structures are similar to folate; therefore, the [employer] folate assay cannot be used for patients using these drugs. Celiac Disease Panel Reviewed date:05/18/2024 01:24:02 AM Interpretation: Performing Lab:[facility], [address] [place] [phone] Notes/Report: Immunoglobulin A 322 70-320 mg/dL THIS TEST WAS PERFORMED AT: [facility] [address] [place] [address] GEMINI RUSSELL MD Transglutaminase IgA <1.0 Value Interpretation ----- <15.0 Antibody not detected > or = 15.0 Antibody detected Celiac Disease Panel Interp. SEE NOTE No serological evidence of celiac disease. Total serum IgA is elevated. Consider mucosal inflammatory conditions or underlying gammopathy. Complete Blood Count Auto Di ff Reviewed date:05/19/2024 01:02:14 PM Interpretation: Performing Lab:[facility], [address] [place] [phone] Notes/Report: White Blood Count 5.4 4.8-10.8 X10*3/uL [...] PROFILE Reviewed date:06/17/2024 06:58:54 PM Interpretation: Performing Lab:[facility], [address] [place] [address] Notes/Report: Iron 169 30-160 mcg/dL Total Iron Binding Capacity 215 228-428 mcg/dL Percent Iron Saturation 79 15-50 % Unsaturated Iron Binding 46 Immunoglobulin A Reviewed date:06/17/2024 06:58:43 PM Interpretation: Performing Lab:[facility], [address] [place] [phone] Notes/Report: Immunoglobulin A 305 70-320 mg/dL THIS TEST WAS PERFORMED AT: [facility] [address] [place] [phone] GEMINI RUSSELL MD Transglutaminase Ab IgG Reviewed date:06/17/2024 06:58:33 PM Interpretation: Performing Lab:[facility], [address] [place] [address] Notes/Report: Transglutaminase Ab IgG <1.0 Value Interpretation ----- <15.0 Antibody not detected > or = 15.0 Antibody detected THIS TEST WAS PERFORMED AT: [facility] [address] [place] [address] GEMINI RUSSELL MD Transglutaminase IgA Reviewed date:06/17/2024 06:58:27 PM Interpretation: Performing Lab:[facility], [address] [place] [phone] Notes/Report: Transglutaminase IgA <1.0 Value Interpretation ----- <15.0 Antibody not detected > or = 15.0 Antibody detected THIS TEST WAS PERFORMED AT: [facility] [address] [place] [phone] GEMINI RUSSELL MD Gliadin Ab Panel Reviewed date:06/17/2024 06:58:20 PM Interpretation: Performing Lab:[facility], [address] [place] [address] Notes/Report: Gliadin Deamidated IgA Ab 2.4 Value Interpretation ----- <15.0 Antibody not detected > or = 15.0 Antibody detected Gliadin Deamidated IgG Ab <1.0 Value Interpretation ----- <15.0 Antibody not detected > or = 15.0 Antibody detected THIS TEST WAS PERFORMED AT: [facility] [address] [address] GEMINI RUSSELL MD Endomysial IgA rflx Titer Reviewed date:06/17/2024 06:58:11 PM Interpretation: Performing Lab:[facility], [address] [place] [phone] Notes/Report: Endomysial IgA Antibody Negative Negative THIS TEST WAS PERFORMED AT: [facility]/[address] [address] RICK HOLLINGSWORTH MD,PHD Endomysial Titer TNP DNA Analysis Hemochromatosis (Not yet reviewed by provider) Interpretation: Performing Lab:[facility], [address] [place] [address] Notes/Report: DNA Analysis Hemochromatosis See Below RESULT: [...] variants in the HFE gene, C282Y (NM 161790.2: c.845G>A, p.[id number]) and H63D (NM 493991.2: c.187C>G, p.Sio78Zwm), that are commonly associated with HH. These [...] Health care providers, please contact your local [facility] genetic counselor or call [phone] ( ) for assistance with the interpretation of these results. This test was developed and its analytical performance characteristics have been determined by [facility]. It has not been cleared or approved by FDA. This assay has been validated pursuant to the CLIA regulations and is used for clinical purposes. For more information, please refer to http://education.Sterecycle.[employer]otten [place]/faq/hemochro matosis. (This link is being provided for informational/educational purposes only.) A portion of the testing was performed at [facility]. Reviewed and signed by Laboratory results and submitted clinical information reviewed by Stanley Cronin, Ph.D., FACMG, HCLD, CGMB, Signed on 06/26/2024 at 18:11 THIS TEST WAS PERFORMED AT: [facility] [address] [place] [address] KATHERINE MCGEE MD,PHD,PATRICIA IRON PROFILE Reviewed date:06/17/2024 06:57:05 PM Interpretation: Performing Lab:[facility], [address] [place] [phone] Notes/Report: Iron 223 30-160 mcg/dL Total Iron Binding Capacity 248 228-428 mcg/dL Percent Iron Saturation 90 15-50 % Unsaturated Iron Binding < 25 Ferritin Reviewed date:06/17/2024 06:56:40 PM Interpretation: Performing Lab:[facility], [address] [place] [phone] Notes/Report: Ferritin 640 10-250 ng/mL Reason For Referral No Information Medications Medication SIG (Take, Route, Frequency, Duration) Notes Start Date End Date Status BuPROPion HBr Active PARoxetine HCl Activ e Levothyroxine Sodium Active Imodium A-D 2 MG use 1 or 2 tablets Orally Up to Four times a day for diarrhea. You can take it before a meal to try to prevent diarrhea after eating for 30 days 04/23/2024 Active Cholestyramine 4 GM/DOSE use anywhere from 03/14 to a full scoop in 8 [...] 1 tablet Orally Twice a day Active Folic Acid 1 MG 1 tablet every day, but do not start until after the 3rd B12 shot the week of 06/01/2024 Orally Once a day for 30 days Please remind patient that she should not start this until after her 3rd B12 shot the week of 06/01/2024. Thanks 05/27/2024 Active Immunizations Vaccine Route Administration Date Status [...] Problem Status W/U Status Risk Notes Problem 772540569 Encounter for screening for malignant neoplasm of colon (Z12.11) Active confirmed Problem Iron excess (E83.19) Active confirmed Problem Anemia (895671121) Anemia (D64.9) Active confir med Problem Vitamin B12 deficiency (non anemic) (50051136) B12 deficiency (E53.8) Active confirmed Problem Chronic diarrhea (236278165) Chronic diarrhea (K52.9) Active confirmed Problem 53399518 Irritable bowel syndrome with both constipation and diarrhea (K58.2) Active confirmed Problem 384029306 Non-intractable vomiting without nausea, unspecified vomiting type (R11.11) Active confirmed Problem 1455364 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) Active confirmed Problem Macrocytosis - no anemia (026739989) Macrocytosis without anemia (D75.89) Active confirmed Problem 63833462551541429 Abnormal abdominal CT scan (R93.5) Active confirmed Vital Signs Blood pressure diastolic 00 mm Hg 04/23/2024 Height 62 in 04/23/2024 Blood pressure systolic 00 mm Hg 04/23/2024 Weight 168 lbs 04/23/2024 BMI 30.72 kg/m2 04/23/2024 Encounters Encounter Location Date Provider Diagnosis [facility] [address] [place] [phone] 06/02/2024 Qamar Garcia B12 deficiency E53.8 [facility] [address] [place] [phone] 09/22/2024 Qamar Garcia [facility] [address] [place] [phone] 04/23/2024 Qamar Garcia Chronic diarrhea K52 .9 and Macrocytosis without anemia D75.89 [facility] [address] [place] [phone] 05/19/2024 Qamar Garcia B12 deficiency E53.8 [facility] [address] [place] [phone] 05/26/2024 Qamar Garcia B12 deficiency E53.8 [facility] [address] [place] [id number] 06/30/2024 Qamar Garcia B12 deficiency E53.8 [facility] [address] [place] [phone] 07/28/2024 Qamar Garcia B12 deficiency E53.8 [facility] [address] [place] [phone] 08/25/2024 Qamar Garcia [facility] [address] [place] [phone] 01/14/2024 Qamar Garcia Chronic diarrhea K52 .9 [facility] [address] [place] [phone] 01/30/2024 Qamar Garcia [facility] [address] [place] [phone] 04/09/2024 Qamar Garcia [facility] [address] [place] [phone] 04/17/2024 Qamar Garcia [facility] [address] [place] [phone] 05/18/2024 Qamar Garcia B12 deficiency E53.8 and Anemia D64.9 [facility] [address] [place] [phone] 05/26/2024 Qamar Garcia Iron excess E83.19 [facility] [address] [place] [phone] 09/22/2024 Qamar Garcia Assessments Encounter Date Diagnosis (ICD [...] E53.8) 06/30/2024 B12 deficiency (ICD-10 - E53.8) 07/28/2024 B12 deficiency (ICD-10 - E53.8) 01/14/2024 Chronic [...] COLONOSCOPY 11/25/2018 Next Appt Details Provider Name:Qamar Gil Jose , 11/24/2024 01:20:00 PM, [address] [facility], [address], [place], [address], Insurance Providers Payer Name Payer Address Payer Phone Subscriber Number Group Number Insured Name Patient Relationship to Insured Coverage Start Date Coverage End Date [facility] [address] [address] [place] [address] [id number] MAKENNA GARCIA Self - patient is the insured MEDICAID OF [facility] [address] [place] [address] [id number] MAKENNA GARCIA Self - patient is the insured Medications Administered Medication Instructions Date of Administration Dosage Notes B-12 05/19/2024 1000 mL B-12 05/26/2024 1000 mL B-12 06/02/2024 1000 mL B-12 06/30/2024 1000 ug B-12 07/28/2024 1000 mL B-12 08/25/2024 1000 ug Medical (General) History Medical History History ICD Code Breast cancer on the right with surgery, chemo, and XRT in 2015 Denies NH,DM,CVA,Lung disease,renal dise ase CHF/ pacemaker-Dr. Campoverde Hypothyroidism Depression Reports a negative colonoscopy in [facility] > 10 years ago IBS-neg. celiac [...] Colon surgery due to diverticulitis in [facility] [address] Richter in 2 022--lost over 50 pounds
== END 2024-10-20 13:36 | disposition home or self-care (01) ==
LOC: HO.HCC 12:54
PROVIDERS: PCP Family Medicine; Visit Provider Clinical Nurse Specialist Psychiatric/Mental Health
DX: F10.20 Alcohol dependence, uncomplicated (principal); Z51.81 Encounter for therapeutic drug level monitoring
CPT/HCPCS: 99203

== ENCOUNTER → 2024-10-20 12:54 | Outpatient (BNVA) | payer OTHER, SELFPAY | PROVIDERS: PCP Family Medicine; Visit Provider Clinical Nurse Specialist Psychiatric/Mental Health | DX: F10.20 Alcohol dependence, uncomplicated (principal) | CPT/HCPCS: 80307 ==

== ENCOUNTER 2024-11-27 09:19 | Outpatient (AMB) | payer OTHER, SELFPAY ==
--- NOTE | 2024-11-27 09:21 | A.OFFVIS_ITS ---
Vital Signs 11/27/24 09:24 Height 5 ft 2 in Weight 168 lb BMI 30.7 Pulse 76 Pulse Source Pulse Oximeter Pulse Oximetry (%) 98 Oxygen Delivery Method Room Air Intake Visit Reasons: mat Allergies lisinopril Adverse Reaction (Severe, Verified 11/27/24 09:25) COUGH HPI Comments Details: History of Present Illness The patient is a 69-year-old female presenting with alcohol use disorder. She started addressing the disorder during an intake appointment on October 20. The treatment plan involves the administration of vitamins and medications, including naltrexone, to which she has shown good tolerance. Since beginning treatment, she has refrained from alcohol use completely and remains in contact with her healthcare providers, including a turning machine operator. The patient employs a consumer services advisor for support and does not currently seek additional professional counseling or peer support. Review of Systems - General: Reports feeling well. - Psychiatric: Denies need for peer horse riding coach or instructor, AA, mental health, or substance counselor. - Gastrointestinal: Reports regular monitoring by turning machine operator. - Substance Use: Reports no alcohol use since October 20; denies addiction issues with other substances. Physical Exam - Vital Signs- Stable - General Appearance- Appears well Results Plan Patient was informed and verbally consented to the use of an ambient scribe for clinic note documentation during this visit. 1. Alcohol use, unspecified, in remission F10.91 The patient is prescribed a regimen comprising vitamins, thiamine, folic acid, and 50 mg naltrexone daily. She has tolerated the regimen well and reports complete abstinence from alcohol since starting the medication. A one-month supply of naltrexone, with one refill, is provided. It is planned for the patient to have follow-ups for monitoring and management. The patient is supported by her consumer services advisor and regularly sees her primary care provider and turning machine operator for ongoing health assessments. She has opted out of additional professional counseling or peer support. Discussion Notes During the consultation, we discussed the patient's treatment for her alcohol use disorder, particularly the successful use of naltrexone to support her abstinence from alcohol since October 20. The patient expressed satisfaction with the current treatment regimen, noting no adverse effects from naltrexone. We considered potential further support options, but she chose to rely on her consumer services advisor and existing medical support system. A continuation of the naltrexone prescription was provided, with one refill for a month's supply. We emphasized the importance of follow-up visits to monitor her progress, with either myself or Melodie Royal. Medical Decision Making In assessing the patient's alcohol use disorder, I concluded that the current management plan with naltrexone 50 mg orally daily is effective, as evidenced by her reported abstinence from alcohol and absence of negative side effects. My d ecision to continue naltrexone with a refill is based on these findings, along with her expressed preference for maintaining the current supportive strategies, which include monitoring of her liver health by Dr. Garcia and the supportive role of her consumer services advisor. No alternative interventions were deemed necessary at this time, given her stable condition and regular monitoring arrangements. Patient Instructions - Continue taking all prescribed medications, including naltrexone, as directed. - Arrange a follow-up visit with myself or Melodie Royal for reassessment. - Keep in regular contact with your primary care provider and turning machine operator. - Refrain from consuming alcohol. - Reach out if experiencing any side effects or concerns with your medications. [facility] Medical History (Updated 11/27/24 @ 10:19 by Norma Gutiérrez MD) Alcohol use disorder, severe, dependence Obesity (BMI 30-39.9) Pacemaker Atypical lobular hyperplasia (ALH) of right breast Steatosis, liver Morbid obesity Breast cancer Obesity Hypothyroidism History of breast cancer Depression Hypertension Cardiac resynchronization therapy defibrillator (YOGA TEACHER-D) in place Dyspnea on exertion NICM (nonischemic cardiomyopathy) Restrictive lung disease DEANDRE (obstructive sleep apnea) Morbid obesity Surgical History (Updated 10/25/24 @ 00:00 by Mansi Parham) S/P lumpectomy, right breast (04/12/21) History of right mastectomy History of incisional hernia repair History of colectomy History of laparoscopic cholecystectomy Family History Father Multiple sclerosis Mother Breast CA Maternal Grandmother Breast CA Paternal Grandmother Stomach cancer Paternal Aunt Breast CA Social History Household Members: Family Housing: House Are you a primary memory care director to a significant other at home: No Do you presently have visiting nurse or other home services: No Alcohol intake: current Alcohol intake frequency: 3 or more drinks per day Alcohol type: hard liquor Patient Tobacco Use Status: Former Tobacco user Second Hand Smoke Exposure: No Substance Use Type: Marijuana Advance Directives Date on File: 10/15/24 service: No Current occupational status: retired Physical Exam Vital Signs: Last Vital Signs Pulse 76 11/27/24 09:24 Pulse Ox 98 11/27/24 09:24 Oxygen Delivery Method Room Air 11/27/24 09:24 BMI result Body Mass Index 30.7 Assessment & Plan Assessment & Plan (1) Alcohol use disorder, severe, dependence: Code(s): F10.20 - Alcohol dependence, uncomplicated Category: Medical Plan She should be seen in one month,appt made Call in between for any questions. Medications: New naltrexone 50 mg PO DAILY 30 tabs 1RF 30 days Coding Level of Care Code Est Pt Level 3 (58706) Diagnoses Alcohol use disorder, severe, dependence F10.20
[2024-11-27 09:24] VITALS: PULSE 76; O2SAT 98; BMI 30.7
== END 2024-11-27 10:08 | disposition home or self-care (01) ==
LOC: HO.HCC 09:19
PROVIDERS: PCP Family Medicine; Visit Provider Internal Medicine
DX: F10.20 Alcohol dependence, uncomplicated (principal)
CPT/HCPCS: 99213

== ENCOUNTER 2024-12-09 11:16 | Outpatient (AMB) | payer MEDICARE, SELFPAY ==
[2024-12-09 08:36] VITALS: BP 120/80; PULSE 75; TEMP 36.2; O2SAT 98; BMI 29.8
--- NOTE | 2024-12-09 08:36 | A.OFFPC_ITS ---
Vital Signs 12/09/24 08:36 Height 5 ft 2 in Weight 163 lb BMI 29.8 BP 120/80 Blood Pressure Location Lt brachial Position Sitting Pulse 75 Pulse Source Pulse Oximeter Temp 97.2 F Temp Source Temporal Artery Scan Pulse Oximetry (%) 98 Oxygen Delivery Method Room Air Intake Visit Reasons: trudy pt-RAMON - see comments Enterprise Project Manager Required: No Accompanied by: Self / Same As Patient Allergies lisinopril Adverse Reaction (Severe, Verified 12/23/24 11:05) COUGH Medication List - Last Reconciled 12/09/[address] bupropion HCl XL 300 mg PO DAILY carvedilol 25 mg PO BID dicyclomine 10 mg PO BID folic acid 1 mg PO DAILY gabapentin 600 mg PO BEDTIME hydroxyzine HCl 25 mg PO QID PRN levothyroxine 175 mcg PO DAILY losartan 50 mg PO DAILY naltrexone 50 mg PO DAILY 30 days paroxetine HCl 30 mg PO DAILY thiamine mononitrate (vit B1) 100 mg PO DAILY 30 days Tobacco use date assessed: 12/09/24 Fall risk assessment: No Falls in past year Last assessed Fall Risk: 12/09/24 Dental Screening Dental Screen Date: 12/09/24 Did you have a dental visit in the last 12 months?: Yes Did you have a dental problem in the last 6 months where you did not have access to dental care?: No HPI HPI Comments History of Present Illness Details The patient is a 69-year-old female with HTN, Hypothyroidism, Nonischemic cardiomyopathy with implanted defibrillator, Alcoholism in remission, DEANDRE, History of breast cancer, restrictive lung disease, anemia and MDD presenting to [facility] and for management of multiple chronic conditions. She has a history of hypertension managed with carvedilol and losartan. Her BP today was 120/80. She is on Levothyroxine 175 mcg for hypothyroidism. Her last thyroid function test was in May, and she is due for a re-evaluation. Her last TSH was 0.39 The patient reports MDD/anxiety and insomnia, previously managed with Ambien, which was discontinued due to adverse effects such as sleepwalking. She is currently on gabapentin for sleep and Bupropion for MDD and Hydroxyzine for anxiety. She feels the Gabapentin is ineffective, and a change in medication is being considered. She has a history of alcohol use disorder, which worsened following her 's due to COVID-19. She was hospitalized due to complications from alcohol use but has abstained from alcohol since her discharge.She is followed by [facility] medicine. She is on Naltrexone, folic acid and Thiamine. She was last seen by them on 10/20 and has a follow up appointment on 12/23 The patient has osteopenia, identified in a bone density test conducted in 2021, and is due for a follow-up test to monitor progression. She experiences chronic diarrhea, managed with dicyclomine and loperamide, but continues to have symptoms despite treatment. The patient has a vitamin B12 deficiency, managed with monthly B12 injections. She is due for labs. She reports paresthesia in her left hand, which has persisted for about a month. She denies pain but has noticed decrease in cipher expert strength. The patient has sleep apnea and is considering alternative treatments as she cannot tolerate CPAP therapy. She is followed by Pulmonary. Patient had mammogram 08/2024. She believes here [facility] is up to date. Patient was informed and verbally consented to the use of an ambient scribe for clinic note documentation during this visit. 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 Breast cancer Cardiac resynchronization therapy defibrillator (WOODEN SHADE HARDWARE INSTALLER-D) in place Chronic diarrhea Depression Dyspnea on exertion History of breast cancer Hypertension Hypothyroidism Insomnia Morbid obesity Morbid obesity NICM (nonischemic cardiomyopathy) Numbness of left hand Obesity Obesity (BMI 30-39.9) DEANDRE (obstructive sleep apnea) Osteopenia Pacemaker Restrictive lung disease Steatosis, liver Surgical History History of colectomy History of incisional hernia repair History of laparoscopic cholecystectomy History of right mastectomy S/P lumpectomy, right breast (04/12/21) Family History Father Multiple sclerosis Mother Breast CA Maternal Grandmother Breast CA Paternal Grandmother Stomach cancer Paternal Aunt Breast CA Social History Household Members: Family Housing: House Are you a primary care center manager to a significant other at home: No Do you presently have visiting nurse or other home services: No Alcohol intake: current Alcohol intake frequency: 3 or more drinks per day Alcohol type: hard liquor Patient Tobacco Use Status: Former Tobacco user e-Cigarette/Vaping Use: Former Use Second Hand Smoke Exposure: No Substance Use Type: Marijuana Advance Directives Date on File: 10/15/24 service: No 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 1. Little interest or pleasure in doing things: not at all 2. Feeling down, depressed, or hopeless: several days (anxiety) 3. Trouble falling or staying asleep, or sleeping too much: nearly every day 4. Feeling tired or having little energy: several days 5. Poor appetite or overeating: not at all 6. Feeling bad about yourself - or that you are a failure or have let yourself or your family down: not at all 7. Trouble concentrating on things, such as reading the newspaper or watching television: not at all 8. Moving or speaking so slowly that other people could have noticed. Or the opposite - being so fidgety or restless that you have been moving around a lot more than usual: not at all 9. Thoughts that you would be better off or of hurting yourself in some way: not at all Total score: 5 Depression Screening Interpretation: Negative (Patient on medication and on wait list for Psych) Depression Screening Done: Yes 48836 - PHQ-9 Billing: Yes Source: Developed by Drs. Qamar Harris, Rebeca Abdul, Jay Childress and colleagues, with an educational wilder from [employer]. Thrive Questionnaire Date Thrive assessed: 12/09/24 I am a: Patient Within the past 12 months, did the food you bought not last and you didn't have the money to get more?: Never true Within the past 12 months, did you worry whether your food would run out before you got money to buy more?: Never true Do you have trouble paying for medicines?: No Do you have trouble getting transportation to medical appointments?: No Do you have trouble paying your heating and electricity bill?: No Do you have trouble taking care of your child, family member or friend?: No Do you have trouble with day-to-day activities such as bathing, preparing meals, shopping, managing finances, etc.?: No Are you currently unemployed and looking for a job?: No Are you interested in more education?: No THRIVE Score: 0 AUDIT C Alcohol Use Questionnaire (AUDIT-C) 1. How often do you have a drink containing alcohol?: Never 3. How often do you have six or more drinks on one occasion?: Never Total Score: 0 ANNABEL-7 AMB Questionnaire ANNABEL-7 Date ANNABEL - 7 assessed: 12/09/24 Feeling nervous, anxious, or on edge: 1 = Several days Not being able to stop or control worryin = Not at all Worrying too much about different things: 0 = Not at all Trouble relaxin = Not at all Being so restless that it is hard to sit still: 0 = Not at all Becoming easily annoyed or irritable: 0 = Not at all Feeling afraid as if something awful might happen: 0 = Not at all Total ANNABEL-7 score (0-4 normal; 5-9 mild; 10-14 moderate; 15-21 severe): 1 Source: Developed by Drs. Qamar Harris, Rebeca Abdul, Jay Childress and colleagues, with an educational wilder from [employer]. ANNABEL-7 Assessment Billing ANNABEL-7 Assessment Tool: ANNABEL-7 Assessment 69236 Review of Systems Const Details: CONSTITUTIONAL Negative HEAD/NECK Requires glasses for reading, history of cataract surgery EAR/NOSE/MOUTH/THROAT Negative RESPIRATORY Reports dyspnea, denies chronic cough CARDIOVASCULAR Denies chest pain, reports pacemaker check GASTROINTESTINAL Reports chronic diarrhea, denies heartburn MUSCULOSKELETAL Negative NEUROLOGICAL Reports chronic diarrhea, denies heartburn PSYCHIATRIC Negative Physical exam (Primary Care) Vital Signs: Last Vital Signs Temp 97.2 F 12/09/24 08:36 Pulse 75 12/09/24 08:36 BP 120/80 12/09/24 08:36 Pulse Ox 98 12/09/24 08:36 Oxygen Delivery Method Room Air 12/09/24 08:36 BMI result Body Mass Index 29.8 GENERAL Well developed, Well nourished, in no apparent distress HEENT Head-Normocephalic Eyes- PERRLA, EOMI, Conjuctiva clear, lids WNL Ears- Canals clear, TMs WNL Mouth/Throat-No lesions, no erythema, no exudate Neck- Supple, No lymphadenopathy, thyroid WNL RESPIRATORY Normal I:E, Clear to auscultation CARDIOVASCULAR Regular, rate and rhythm, No murmurs or rubs GASTROINTESTINAL Soft, nontender, normal bowel sounds, no masses MUSCULOSKELETAL Back- nontender left hand- no pain swelling or deformity, tinel and phalen negative. NEUROLOGICAL Gait normal PSYCHIATRIC Oriented to person, place and time Mood and affect -depressed and anxious Appearance WNL Speech WNL Thought processes WNL Tobacco/Smoking Status: Tobacco use Status Tobacco use date assessed 12/09/24 12/09/24 08:38 Patient Tobacco Use Status Former Tobacco user 12/09/24 08:38 e-Cigarette/Vaping Use Former Use 12/09/24 08:38 PHQ-9: PHQ-9 Score PHQ-9: Total score 5 12/28/24 09:18 Depression Screening Interpretation: Negative (Patient on medication and on wait list for Psych) Thrive Assessment: Date of Thrive Assessment Date Thrive assessed 12/09/24 12/09/24 08:38 Results Reviewed Results Reviewed: - Bone density test in 2021 showed mild osteopenia Coding Level of Care Code Established Pt Est Pt Level 4 (68730) Patient Type Established Diagnoses Hypertension I10 Major depressive disorder, recurrent, moderate F33.1 Alcohol use disorder, severe, dependence F10.20 Cardiac resynchronization therapy defibrillator (WOODEN SHADE HARDWARE INSTALLER-D) in place Z95.810 Acquired hypothyroidism E03.9 Hypothyroidism type: acquired DEANDRE (obstructive sleep apnea) G47.33 Insomnia G47.00 Numbness of left hand R20.0 Anemia D64.9 Anxiety F41.9 Chronic diarrhea K52.9 Additional Codes ANNABEL-7 Assessment Billing - ANNABEL-7 Assessment Tool: ANNABEL-7 Assessment 98834 ([id number]) PHQ-9 - 05813 - PHQ-9 Billing: Yes ([id number]) Time Spent (min) 35 Comment Time was spent on chart review, medication reconciliation, H&P, patient education, orders. Assessment & Plan Assessment & Plan (1) Hypertension: Comment: BP today was 120/80 Code(s): I10 - Essential (primary) hypertension Category: Medical Plan: The patient's hypertension is managed with carvedilol and losartan. Blood pressure control will continue to be monitored, and medication adjustments will be made as necessary. Patient will continue current medications. Will monitor. Patient will follow up in 3 months. (2) Major depressive disorder, recurrent, moderate: Code(s): F33.1 - Major depressive disorder, recurrent, moderate Category: Medical Plan: Patient is on Bupropion. Will add Paroxetine. Patient to follow up in 3 months or sooner if symptoms persist or worsen. (3) Alcohol use disorder, severe, dependence: Code(s): F10.20 - Alcohol dependence, uncomplicated Category: Medical Plan: The patient has abstained from alcohol since hospitalization. Continued abstinence is encouraged, and naltrexone is prescribed to support this. (4) Cardiac resynchronization therapy defibrillator (WOODEN SHADE HARDWARE INSTALLER-D) in place: Code(s): Z95.810 - Presence of automatic (implantable) cardiac defibrillator Category: Medical Plan: Patient is followed by Cardiology (5) Hypothyroidism: Code(s): E03.9 - Hypothyroidism, unspecified Category: Medical Qualifiers: Hypothyroidism type: acquired Qualified Code(s): E03.9 - Hypothyroidism, unspecified Plan: The patient is on thyroid medication for hypothyroidism. A thyroid function test is due to assess current levels and adjust medication if needed.Patient will continue current medications. Will monitor. Patient will follow up in 3 months. (6) DEANDRE (obstructive sleep apnea): Code(s): G47.33 - Obstructive sleep apnea (adult) (pediatric) Category: Medical Plan: The patient is considering alternative treatments for sleep apnea due to intolerance of CPAP therapy. A follow-up with a excellence specialist is recommended. (7) Insomnia: Code(s): G47.00 - Insomnia, unspecified Category: Medical Plan: The patient reports ineffective management of insomnia with gabapentin. A trial of Remeron is planned to improve sleep quality. (8) Numbness of left hand: Code(s): R20.0 - Anesthesia of skin Category: Medical Plan: An EMG is planned to evaluate the cause of left hand paresthesia. Results will determine further management steps. Patient to follow up in 3 months or sooner if symptoms persist or worsen. (9) Anemia: Code(s): D64.9 - Anemia, unspecified Category: Medical Plan: Vitamin B12 deficiency is managed with monthly injections. Levels will be monitored to ensure adequacy. (10) Anxiety: Code(s): F41.9 - Anxiety disorder, unspecified Category: Medical Plan: Anxiety is currently managed with hydroxyzine. Will add Paroxetin. The patient is advised to continue with the regimen and report any changes in symptoms. Patient to follow up in 3 months or sooner if symptoms persist or worsen. (11) Chronic diarrhea: Code(s): K52.9 - Noninfective gastroenteritis and colitis, unspecified Category: Medical Plan: Chronic diarrhea is managed with dicyclomine and loperamide. The patient is advised to continue the current regimen and report any changes. Plan During the visit, we discussed the management of the patient's chronic conditions, including hypertension, hypothyroidism, and anxiety. We reviewed the need for a thyroid function test and a bone density test to monitor osteopenia. The patient was advised on the importance of medication adherence and the potential switch from gabapentin to Remeron for insomnia. We also discussed the patient's abstinence from alcohol and the use of naltrexone to support this. An EMG was recommended to evaluate the cause of left hand paresthesia, and a follow-up with a excellence specialist was suggested for sleep apnea management. Orders: Orders XR DEXA axial skeleton 12/09/24 M85.80 - Other specified disorders of bone density and structure, unspecified site NE nerve conduction velocity 12/09/24 R20.0 - Anesthesia of skin Complete Blood Count no Diff 12/09/24 D64.9 - Anemia, unspecified Comprehensive Met. Panel 12/09/24 K76.0 - Fatty (change of) liver, not elsewh ere classified TSH reflex Free T4 12/09/24 E03.9 - Hypothyroidism, unspecified Lipid Panel 12/09/24 Z13.220 - Encounter for screening for lipoid disorders NE electromyogram (EMG) 12/09/24 R20.0 - Anesthesia of skin Medications: New mirtazapine 15 mg PO BEDTIME 90 tabs 0RF for sleep Patient Instructions: - Continue taking all prescribed medications as directed. - Schedule a thyroid function test and bone density test. - Monitor blood pressure regularly and report any significant changes. - Abstain from alcohol and continue taking naltrexone. - Follow up with a excellence specialist for sleep apnea management. - Report any changes in symptoms or medication side effects. - Attend follow-up appointment in two months to review progress and test results.
== END 2024-12-09 12:47 | disposition home or self-care (01) ==
LOC: HO.HMCHD 11:17
PROVIDERS: PCP Physician Assistant Medical; Visit Provider Physician Assistant Medical
DX: I10 Essential (primary) hypertension (principal); F33.1 Major depressive disorder, recurrent, moderate; F10.20 Alcohol dependence, uncomplicated; Z95.810 Presence of automatic (implantable) cardiac defibrillator; E03.9 Hypothyroidism, unspecified; G47.33 Obstructive sleep apnea (adult) (pediatric); G47.00 Insomnia, unspecified; R20.0 Anesthesia of skin; D64.9 Anemia, unspecified; F41.9 Anxiety disorder, unspecified; K52.9 Noninfective gastroenteritis and colitis, unspecified

== ENCOUNTER → 2024-12-09 11:16 | Outpatient (BNVA) | payer OTHER, SELFPAY | PROVIDERS: PCP Family Medicine; Visit Provider Physician Assistant Medical | DX: I10 Essential (primary) hypertension (principal); F33.1 Major depressive disorder, recurrent, moderate; F10.20 Alcohol dependence, uncomplicated; E03.9 Hypothyroidism, unspecified; G47.33 Obstructive sleep apnea (adult) (pediatric); G47.00 Insomnia, unspecified; R20.0 Anesthesia of skin; D64.9 Anemia, unspecified; F41.9 Anxiety disorder, unspecified; K52.9 Noninfective gastroenteritis and colitis, unspecified; Z95.810 Presence of automatic (implantable) cardiac defibrillator | CPT/HCPCS: 96127; 99212 ==

== ENCOUNTER → 2024-12-09 23:59 | Outpatient (BNV) | payer MEDICARE, SELFPAY ==
--- NOTE | 2024-12-17 08:35 | A.OFFVIS_ITS ---
Intake Visit Reasons: Remote FURNITURE MANAGER check- [facility] Allergies lisinopril Adverse Reaction (Severe, Verified 12/09/24 08:36) COUGH PFSH Medical History (Updated 12/09/24 @ 12:[address]) Numbness of left hand Osteopenia Anemia Alcohol use disorder, severe, dependence Obesity (BMI 30-39.9) Pacemaker Atypical lobular hyperplasia (ALH) of right breast Steatosis, liver Morbid obesity Breast cancer Obesity Hypothyroidism History of breast cancer Depression Hypertension Cardiac resynchronization therapy defibrillator (FURNITURE MANAGER-D) in place Dyspnea on exertion NICM (nonischemic cardiomyopathy) Restrictive lung disease DEANDRE (obstructive sleep apnea) Morbid obesity Surgical History S/P lumpectomy, right breast (04/12/21) History of right mastectomy History of incisional hernia repair History of colectomy History of laparoscopic cholecystectomy Family History (Updated 12/09/24 @ 11:31 by Georgiana Beal MA) Father Multiple sclerosis Mother Breast CA Maternal Grandmother Breast CA Paternal Grandmother Stomach cancer Paternal Aunt Breast CA Social History Household Members: Family Housing: House Are you a primary palliative care coordinator to a significant other at home: No Do you presently have visiting nurse or other home services: No Alcohol intake: current Alcohol intake frequency: 3 or more drinks per day Alcohol type: hard liquor Patient Tobacco Use Status: Former Tobacco user e-Cigarette/Vaping Use: Former Use Second Hand Smoke Exposure: No Substance Use Type: Marijuana Advance Directives Date on File: 10/15/24 service: No 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 [id number] Cardiac Interrogation, implant defibrillator w/interim Procedure code (CPT) selection complete Assessment & Plan Assessment & Plan (1) Cardiac resynchronization therapy defibrillator (FURNITURE MANAGER-D) in place: Code(s): Z95.810 - Presence of automatic (implantable) cardiac defibrillator Category: Medical (2) NICM (nonischemic cardiomyopathy): Code(s): I42.8 - Other cardiomyopathies Category: Medical Plan x Coding Level of Care Code Procedure Only Diagnoses Cardiac resynchronization therapy defibrillator (FURNITURE MANAGER-D) in place Z95.810 NICM (nonischemic cardiomyopathy) I42.8 CPT Codes Cardiac Device Check - Cardiac Device 13: [id number] Cardiac Interrogation, implant defibrillator w/interim ([id number])
== END ==
PROVIDERS: PCP Physician Assistant Medical; Visit Provider Internal Medicine
DX: I42.8 Other cardiomyopathies (principal); Z95.810 Presence of automatic (implantable) cardiac defibrillator
CPT/HCPCS: 93295

== ENCOUNTER 2024-12-23 10:59 | Outpatient (AMB) | payer OTHER, SELFPAY ==
--- NOTE | 2024-12-23 11:00 | A.OFFVIS_ITS ---
Vital Signs 12/23/24 11:04 Height 5 ft 2 in Weight 169 lb BMI 30.9 BP 100/70 Blood Pressure Location Lt brachial Position Sitting Pulse 93 Pulse Source Pulse Oximeter Pulse Oximetry (%) 97 Oxygen Delivery Method Room Air Intake Visit Reasons: MAT Allergies lisinopril Adverse Reaction (Severe, Verified 12/23/24 11:05) COUGH HPI Comments Details: A 69-year-old female presents for a follow-up visit r/t AUD in remission with naltrexone tablets 50 mg daily. Denies use of opiates, alcohol and other substances. Reports has been motivated to go out more re: shopping and daytime activities. [facility] Medical History Numbness of left hand Osteopenia Anemia Alcohol use disorder, severe, dependence Obesity (BMI 30-39.9) Pacemaker Atypical lobular hyperplasia (ALH) of right breast Steatosis, liver Morbid obesity Breast cancer Obesity Hypothyroidism History of breast cancer Depression Hypertension Cardiac resynchronization therapy defibrillator (DOCTOR'S ASSISTANT-D) in place Dyspnea on exertion NICM (nonischemic cardiomyopathy) Restrictive lung disease DEANDRE (obstructive sleep apnea) Morbid obesity Surgical History S/P lumpectomy, right breast (04/12/21) History of right mastectomy History of incisional hernia repair History of colectomy History of laparoscopic cholecystectomy Family History Father Multiple sclerosis Mother Breast CA Maternal Grandmother Breast CA Paternal Grandmother Stomach cancer Paternal Aunt Breast CA Social History Household Members: Family Housing: House Are you a primary care rep to a significant other at home: No Do you presently have visiting nurse or other home services: No Alcohol intake: current Alcohol intake frequency: 3 or more drinks per day Alcohol type: hard liquor Patient Tobacco Use Status: Former Tobacco user e-Cigarette/Vaping Use: Former Use Second Hand Smoke Exposure: No Substance Use Type: Marijuana Advance Directives Date on File: 10/15/24 service: No 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 Cognitive needs: No Hearing needs: No Vision needs: Yes (reading glasses) Review of Systems Const All systems reviewed & are unremarkable except as noted in HPI and below Physical Exam Vital Signs: Last Vital Signs Pulse 93 12/23/24 11:04 BP 100/70 12/23/24 11:04 Pulse Ox 97 12/23/24 11:04 Oxygen Delivery Method Room Air 12/23/24 11:04 BMI result Body Mass Index 30.9 Const General: cooperative Assessment & Plan Assessment & Plan (1) Alcohol use disorder, severe, in early remission: Code(s): F10.21 - Alcohol dependence, in remission Category: Medical Plan The plan of care is to continue with naltrexone, folic acid, and thiamine daily. A refill for hydroxyzine provided pending follow-up with primary care provider. Reports on a wait list for mental health services at [facility]. Follow-up in 2 months or sooner if needed. Medications: New folic acid Take 1 tablet daily 1 mg PO DAILY 30 tabs 3RF 30 days Changed From hydroxyzine HCl 25 mg PO QID PRN 30 tabs 0RF anxiety To hydroxyzine HCl 25 mg PO QID PRN 120 tabs 1RF anxiety 30 days Refilled naltrexone 50 mg PO DAILY 30 tabs 1RF 30 days thiamine mononitrate (vit B1) 100 mg PO DAILY 30 tabs 3RF 30 days Patient Instructions: - Continue with naltrexone, folic acid, and thiamine as prescribed. - Take hydroxyzine as needed for symptoms of anxiety. - Follow-up in 2 months or sooner if needed. - Call with questions, concerns, or to report side effects/new onset of symptoms to [facility]. - The patient verbalized understanding and agreed with plan of care. Coding Level of Care Code Est Pt Level 3 (24672) Diagnoses Alcohol use disorder, severe, in early remission F10.21
[2024-12-23 11:04] VITALS: BP 100/70; PULSE 93; O2SAT 97; BMI 30.9
== END 2024-12-23 11:17 | disposition home or self-care (01) ==
LOC: HO.HCC 10:59
PROVIDERS: PCP Physician Assistant Medical; Visit Provider Clinical Nurse Specialist Psychiatric/Mental Health
DX: F10.21 Alcohol dependence, in remission (principal)
CPT/HCPCS: 99213

== ENCOUNTER 2025-01-19 08:43 | Outpatient (REF) | payer OTHER, SELFPAY ==
--- OUTSIDE RECORDS SUMMARY | 2024-06-02 06:00 | XMS_ITS ---
Author Organization [facility] Address [address] [place] [address] Care Team Providers Care Retail Planning Manager Name Role Phone ABDIDIMITRISSTEVE Primary Care Provider Qamar Carolina Unavailable [phone] REASON FOR VISIT B12 deficiency Medications Medication SIG (Take, Route, Frequency, Duration) Notes Start Date End Date Status Losartan Potassium 50 MG 1 tablet Orally Once a day; Duration: 30 day(s) Active Dicyclomine HCl 10 MG 1 Orally BID Active Cholestyramine 4 GM/DOSE use anywhere from 1/4 to a full scoop in 8 ounces of water or orange juice Orally Once or twice a day to help with the diarrhea; Duration: 30 day(s) 04/23/2024 Active Imodium A-D 2 MG use 1 or 2 tablets Orally Up to Four times a day for diarrhea. You can take it before a meal to try to prevent diarrhea after eating; Duration: 30 days 04/23/2024 Active Folic Acid 1 MG 1 tablet every day, but do not start until after the 3rd B12 shot the week of 06/01/2024 Orally Once a day; Duration: 30 days Please remind patient that she should not start this until after her 3rd B12 shot the week of 06/01/2024. Thanks 05/27/2024 Active BuPROPion HBr Active Levothyroxine Sodium Active PARoxetine HCl Activ e busPIRone HCl 5 MG 1 tablet Orally Twice a day Active Carvedilol Active Encounters Encounter Location Date Provider Diagnosis [facility] [address] [place] [address] 06/02/2024 Qamar Garcia B12 deficiency E53.8 Assessments Encounter Date Diagnosis (ICD Code) Assessment Notes Treatment Notes Treatment Clinical Notes Section Notes 06/02/2024 B12 deficiency (ICD-10 - E53.8) Plan Of Treatment Next Appt Details Provider Name:Qamar Garcia , 03/30/2025 10:10:00 AM, [address] [place] [address], [address], [place], [address], Medications Administered Medication Instructions Date of Administration Dosage Notes B-12 06/02/2024 1000 mL Progress Notes * CYNTHIA GARCIADOB: 7 (69 yo F)Acc No.[id number]:06/02/2024 SHOT Patient: CYNTHIA WALKER Provider: Faizan Garcia MD :1955 A ge:68 Y S ex:Female Date:06/02/2024 Address:[address] [place] [address] Pcp:STEVE PATTON Subjective: * Chief Complaints: * 1 . B12 deficiency. * Medical History: * Medications: T aking busPIRone HCl 5 MG Tablet 1 tablet [...] to try to prevent diarrhea after eating , Taking Folic Acid 1 MG Tablet 1 tablet every day, but do not start until after the 3rd B12 shot the week of 06/01/2024 Orally Once a day , Notes to Pharmacist: Please remind patient that she should not start this until after her 3rd B12 shot the week of 06/01/2024. Thanks Objective: * Vitals: Assessment: * Assessment: 1. B 12 deficiency - E53.8 (Primary) Plan: * Treatment: * Therapeutic Injections: B-12 : 1000 mL (Dose No:1) (Route: Intramuscular) given by Tonya Newman on left arm intramuscular * Procedure Codes: J 3420 INJ VIT B-12 CYNOCOBLMN TO 1000 MCG, [address] THER/PROPH/DIAG INJ, SC/IM * * The named appointment provid er may or may not be the originator of this progress note, and it is not deemed complete until electronically signed by the appointment provider. Sign off status: Pending * Provider: Faizan Garcia MD Date: 0 06/02/2024 Generated for Devora kahn/Bayron/Angeliqueitting on: 1 03/21/2024 08:53 AM EST
--- OUTSIDE RECORDS SUMMARY | 2024-06-30 04:20 | XMS_ITS ---
Author Organization [facility] Address [address] [place] [address] Care Team Providers Care Heel Gummer Name Role Phone STEVE PATTON Primary Care Provider Qamar Carolina [phone] REASON FOR VISIT B12 deficiency Encounters Encounter Location Date Provider Diagnosis [facility] [address] [place] [address] 06/30/2024 Qamar Garcia Plan Of Treatment Next Appt Details Provider Name:Qamar Garcia , 03/30/2025 10:10:00 AM, [address], [address], [place], [address], Progress Notes * CYNTHIA GARCIADOB: (69 yo F)Acc No.[id number]:06/30/2024 SHOT Patient: CYNTHIA WALKER Provider: Faizan Garcia MD :1955 A ge:68 Y S ex:Female Date:06/30/2024 Address:[address] [place], [place] [id number] Pcp:STEVE PATTON Subjective: * Chief Complaints: * 1 . B12 deficiency. * Medical History: Objective: * Vitals: Assessment: Plan: * Treatment: * * The named appointment provid er may or may not be the originator of this progress note, and it is not deemed complete until electronically signed by the appointment provider. Sign off status: Pending * Provider: Faizan Garcia MD Date: 0 06/30/2024 Generated for Devora kahn/Bayron/Anuj on: 1 03/21/2024 08:53 AM EST
--- NOTE | 2025-01-19 08:45 | EMG_ITS ---
Chief complaint: Left hand numbness Reason for referral:R20.0 Anesthesia of skin Referred by: SKYE Call Procedure done: NCS and EMG of left upper extremity Left median and ulnar motor studies were performed. Left median and ulnar mixed sensory studies, median and lateral antecubital brachial sensory studies and radial sensory study was performed. EMG was performed. Findings: Median motor distal latencies was moderately prolonged. Similar pattern was seen with left median mixed distal latencies with moderately slow conduction velocity. Mild slowing of ulnar motor conduction velocity was noted across elbow. Impression: 1. [id number] left median neuropathy across carpal tunnel 2. Early left ulnar neuropathy across elbow [place] [id number] [facility]
--- OUTSIDE RECORDS SUMMARY | 2025-01-19 08:54 | XMS_ITS | Patient Health Record ---
Author Organization [facility] Address [address] [place] [address] Care Team Providers Care Ham Boner Name Role Phone ABDI, STEVE Primary Care Provider Qamar Carolina [phone] Allergies Allergen (clinical drug ingredient) Drug/Non Drug Allergy documented on EMR Reaction Allergy Type Onset Date Status lisinopril Lisinopril cough Drug Allergy Activ e Results Component Value Reference Range Notes Ferritin Reviewed date:05/20/2024 01:53:07 PM Interpretation: Performing Lab:[facility], [address] [place] [phone] Notes/Report: Ferritin 650 10-250 ng/mL Intrinsic Factor Antibodies Reviewed date:05/22/2024 04:24:27 PM Interpretation: Performing Lab:[facility], [address] [place] [phone] Notes/Report: Intrinsic Factor Antibodies Positive Negative For additional information, please refer to http://education.Wedding Spot/faq/IFAB (This link is being provided for informational/ educational purposes only.) THIS TEST WAS PERFORMED AT: [employer]/[address] [address] RICK HOLLINGSWORTH MD,PHD Parietal Cell Antibody Reviewed date:06/17/2024 06:59:55 PM Interpretation: Performing Lab:[facility], [address] [place] [phone] Notes/Report: Parietal Cell Antibody 51.1 <=20.0 Unit [...] these patients. THIS TEST WAS PERFORMED AT: [employer]/[facility] [address] [place] [address] RICK HOLLINGSWORTH MD,PHD Leukocytes Stool Qualitative Reviewed date:04/09/2024 02:02:54 PM Interpretation: Performing Lab:[address] [phone] Notes/Report: Leukocytes Stool Qualitative NEGATIVE NEGATIVE Calprotectin, Fecal Reviewed date:04/16/2024 10:46:56 AM Interpretation: Performing Lab:[address] [phone] Notes/Report: Calprotectin, Fecal 14 Reference Range: <50 [...] borderline values. THIS TEST WAS PERFORMED AT: [employer]/[facility] [address] [place] [address] KATHERINE MCGEE MD,PHD,PATRICIA CDiff Gene PCR Reviewed date:04/13/2024 04:23:19 PM Interpretation: Performing Lab:[facility], [address] [place] [phone] Notes/Report: CDiff Gene PCR POSITIVE Negative Additional C. difficile toxin testing to be performed. CDiff Toxin Reviewed date:04/09/2024 02:04:29 PM Interpretation: Performing Lab:[facility], [address] [place] [phone] Notes/Report: CDiff Toxin Negative Negative CDIFF Interpretation SEE NOTE Likely C. difficile colonization. Continue contact precautions. GI PANEL Reviewed date:04/09/2024 02:03:39 PM Interpretation: Performing Lab:[facility], [address] [place] [phone] Notes/Report: Campylobacter Not Detected Not Detect. Plesiomonas [...] is performed by Multiplexed PCR, utilizing the [employer] Array. Liver Panel Reviewed date:05/14/2024 05:51:13 PM Interpretation: Performing Lab:[address] [address] Notes/Report: Bilirubin Total 0.5 0.0-1.0 mg/dL Bilirubin Direct 0.2 0.0-0.5 mg/dL Aspartate Amino Transferase 56 5-31 U/L Alanine Aminotransferase 29 0-31 U/L Total Protein 7.3 6.5-8.0 g/dL Albumin Level 3.7 3.5-5.0 g/dL Alkaline Phosphatase 113 39-117 U/L Basic Metabolic Panel Reviewed date:05/14/2024 05:51:02 PM Interpretation: Performing Lab:[address] [address] Notes/Report: Sodium 143 135-145 mmol/L Potassium 3.6 [...] Folate Reviewed date:05/19/2024 01:03:52 PM Interpretation: Performing Lab:[address] [address] Notes/Report: Vitamin B12 < 148 200-900 pg/mL NORMAL 200-900 PG/ML INDETERMINATE 160-199 PG/ML DEFICIENT < 160 PG/ML Folate 2.4 > or = 4.0 ng/mL Reference Values: > or = 4.0 ng/mL < 4.0 ng/mL suggests folate deficiency Methotrexate, aminopterin and folinic acid (leucovorin) are chemotherapeutic agents whose molecular structures are similar to folate; therefore, the [employer] folate assay cannot be used for patients using these drugs. Celiac Disease Panel Reviewed date:05/18/2024 01:24:02 AM Interpretation: Performing Lab:[facility], [address] [place] [address] Notes/Report: Immunoglobulin A 322 70-320 mg/dL THIS TEST WAS PERFORMED AT: [employer] [address] [place] [phone] GEMINI RUSSELL MD Transglutaminase IgA <1.0 Value Interpretation ----- <15.0 Antibody not detected > or = 15.0 Antibody detected Celiac Disease Panel Interp. SEE NOTE No serological evidence of celiac disease. Total serum IgA is elevated. Consider mucosal inflammatory conditions or underlying gammopathy. Complete Blood Count Auto Di ff Reviewed date:05/19/2024 01:02:14 PM Interpretation: Performing Lab:[facility], [address] [place] [phone] Notes/Report: White Blood Count 5.4 4.8-10.8 X10*3/uL [...] PROFILE Reviewed date:06/17/2024 06:58:54 PM Interpretation: Performing Lab:[facility], [address] [place] [phone] Notes/Report: Iron 169 30-160 mcg/dL Total Iron Binding Capacity 215 228-428 mcg/dL Percent Iron Saturation 79 15-50 % Unsaturated Iron Binding 46 Immunoglobulin A Reviewed date:06/17/2024 06:58:43 PM Interpretation: Performing Lab:[facility], [address] [place] [phone] Notes/Report: Immunoglobulin A 305 70-320 mg/dL THIS TEST WAS PERFORMED AT: [facility] [facility] [address] [place] [phone] GEMINI RUSSELL MD Transglutaminase Ab IgG Reviewed date:06/17/2024 06:58:33 PM Interpretation: Performing Lab:[facility], [address] [place] [phone] Notes/Report: Transglutaminase Ab IgG <1.0 Value Interpretation ----- <15.0 Antibody not detected > or = 15.0 Antibody detected THIS TEST WAS PERFORMED AT: [facility] [address] [place] [phone] GEMINI RUSSELL MD Transglutaminase IgA Reviewed date:06/17/2024 06:58:27 PM Interpretation: Performing Lab:[facility], [address] [place] [phone] Notes/Report: Transglutaminase IgA <1.0 Value Interpretation ----- <15.0 Antibody not detected > or = 15.0 Antibody detected THIS TEST WAS PERFORMED AT: [facility] [address] [place] [phone] GEMINI RUSSELL MD Gliadin Ab Panel Reviewed date:06/17/2024 06:58:20 PM Interpretation: Performing Lab:[facility], [address] [place] [phone] Notes/Report: Gliadin Deamidated IgA Ab 2.4 Value Interpretation ----- <15.0 Antibody not detected > or = 15.0 Antibody detected Gliadin Deamidated IgG Ab <1.0 Value Interpretation ----- <15.0 Antibody not detected > or = 15.0 Antibody detected THIS TEST WAS PERFORMED AT: [facility] [address] [place] [phone] GEMINI RUSSELL MD Endomysial IgA rflx Titer Reviewed date:06/17/2024 06:58:11 PM Interpretation: Performing Lab:[facility], [address] [place] [phone] Notes/Report: Endomysial IgA Antibody Negative Negative THIS TEST WAS PERFORMED AT: [employer]/[address] [address] RICK HOLLINGSWORTH MD,PHD Endomysial Titer TNP DNA Analysis Hemochromatosis (Not yet reviewed by provider) Interpretation: Performing Lab:[facility], [address] [place] [phone] Notes/Report: DNA Analysis Hemochromatosis See Below RESULT: [...] reviewed by Stanley Cronin, Ph.D., FACMG, HCLD, CGMB. DETAILED ASSAY INFORMATION: Hereditary hemochromatosis (HH) is [...] variants in the HFE gene, C282Y (NM 127286.2: c.845G>A, p.Vql540Niv) and H63D (NM 239950.2: c.187C>G, p.Wrk48Uxy), that are commonly associated with HH. These [...] Health care providers, please contact your local [employer] genetic counselor or call [phone] ( ) for assistance with the interpretation of these results. This test was developed and its analytical performance characteristics have been determined by [employer] [facility]. It has not been cleared or approved by FDA. This assay has been validated pursuant to the CLIA regulations and is used for clinical purposes. For more information, please refer to http://education.Restaro.Paperhater.com/faq/hemochro matosis. (This link is being provided for informational/educational purposes only.) A portion of the [place] [facility] [place] Reviewed and signed by Laboratory results and submitted clinical information reviewed by Stanley Cronin, Ph.D., FACMG, HCLD, CGMB, Signed on 06/26/2024 at 18:11 THIS TEST WAS PERFORMED AT: [employer]/[facility] [place] [address] [facility] [place] [address] KATHERINE MCGEE MD,PHD,PATRICIA IRON PROFILE Reviewed date:06/17/2024 06:57:05 PM Interpretation: Performing Lab:[facility], [address] [place] [phone] Notes/Report: Iron 223 30-160 mcg/dL Total Iron Binding Capacity 248 228-428 mcg/dL Percent Iron Saturation 90 15-50 % Unsaturated Iron Binding < 25 Ferritin Reviewed date:06/17/2024 06:56:40 PM Interpretation: Performing Lab:[facility], [address] [place] [phone] Notes/Report: Ferritin 640 10-250 ng/mL Reason For Referral No Information Medications Medication SIG (Take, Route, Frequency, Duration) Notes Start Date End Date Status Cholestyramine 4 GM/DOSE use anywhere from 03/14 to a full scoop in 8 ounces of water or orange juice Orally Once or twice a day to help with the diarrhea; Duration: 30 day(s) 04/23/2024 Not-Taking Folic Acid 1 MG 1 tablet every day, but do not start until after the 3rd B12 shot the week of 06/01/2024 Orally Once a day; Duration: 30 days Please remind patient that she should not start this until after her 3rd B12 shot the week of 06/01/2024. Thanks 05/27/2024 Active Imodium A-D 2 MG use 1 or 2 tablets Orally Up to Four times a day for diarrhea. You can take it before a meal to try to prevent diarrhea after eating; Duration: 30 days 04/23/2024 Active Cyanocobalamin 1000 MCG/ML 1 mL Injection Monthly 11/24/2024 Active Gabapentin 300 MG TAKE 2 CAPSULES BY MOUTH AT BEDTIME Oral; Duration: 90 Days Active Dicyclomine HCl 10 MG Take 1 or 2 capsules 30-60 minutes before a meal to try to prevent the BM's after eating Orally Three times a day; Duration: 30 days 11/24/2024 Active Naltrexone HCl 50 MG TAKE 1 TABLET BY MOUTH DAILY Oral; Duration: 30 Days Active Carvedilol Active hydrOXYzine HCl 25 MG Oral; Duration: 7 Days Active busPIRone HCl 5 MG 1 tablet Orally Twice a day Active Thiamine HCl 100 MG TAKE 1 TABLET BY MOUTH EVERY DAY Oral; Duration: 30 Days Active PARoxetine HCl Activ e Levothyroxine Sodium Active Dicyclomine HCl 10 MG 1 Orally BID Active Losartan Potassium 50 MG 1 tablet Orally Once a day; Duration: 30 day(s) Active Immunizations Vaccine Route Administration Date Status Comme nts Influenza Unknown 11/25/2018 Refused Influenza Unknown 11/24/2024 Refused Social History Tobacco Use: Social History Observation Description Date Details (start date - stop date) Former Smoker NA - NA Tobacco Use/Smoking Question Answer Notes Patient is a former smoker How long has it been since you last smoked? > 10 years AUDIT-C (Standard) Question Answer Notes Did you have a drink containing alcohol in the p ast year? No Points 0 Interpretation Negative Section Notes: Nonsmoker; 1 drink a day-nev er heavy in the past Nonsmoker; 1 drink a day-nev er heavy in the past Nonsmoker; occ. alcohol Nonsmoker; occ. alcohol Problems Problem Type SNOMED Code ICD Code Onset Dates Problem Status W/U Status Risk Notes Problem Screening for malignant neoplasm of colon (111608994) Encounter for screening for malignant neoplasm of colon (Z12.11) Active confirmed Problem Iron excess (41031378) Iron excess (E83.19) Active confirmed Problem Anemia (457095027) Anemia (D64.9) Active confirmed Problem Vitamin B12 deficiency (non anemic) (33957258) B12 deficiency (E53.8) Active confirmed Problem Chronic diarrhea (531810935) Chronic diarrhea (K52.9) Active confirmed Problem Irritable bowel syndrome (17763147) Irritable bowel syndrome with both constipation and diarrhea (K58.2) Active confirmed Problem Vomiting without nausea (517267361061366 ) Non-intractable vomiting without nausea, unspecified vomiting type (R11.11) Active confirmed Problem Anomalies of pancreas (780411128) 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) Active confirmed Problem Macrocytosis - no anemia (959940648) Macrocytosis without anemia (D75.89) Active confirmed Problem CT of abdomen abnormal (754005325233044 07) Abnormal abdominal CT scan (R93.5) Active confirmed Vital Signs Temperature 98.7 degrees Fahrenheit 11/24/2024 Blood pressure diastolic 01 mm Hg 11/24/2024 Height 62 in 11/24/2024 Blood pressure systolic 001 mm Hg 11/24/2024 Weight 165.2 lbs 11/24/2024 BMI 30.21 kg/m2 11/24/2024 Encounters Encounter Location Date Provider Diagnosis [facility] [address] [place] [phone] 06/02/2024 Qamar Garcia B12 deficiency E53.8 [facility] [address] [place] [phone] 04/23/2024 Qamar Garcia Chronic diarrhea K52 .9 and Macrocytosis without anemia D75.89 [facility] [address] [place] [address] 05/19/2024 Qamar Garcia B12 deficiency E53.8 [facility] [address] [place] [phone] 05/26/2024 Qamar Garcia B12 deficiency E53.8 [facility] [address] [place] [phone] 06/30/2024 Qamar Garcia B12 deficiency E53.8 [facility] [address] [place] [phone] 07/28/2024 Qamar Garcia B12 deficiency E53.8 [facility] [address] [place] [phone] 08/25/2024 Qamar Garcia [facility] [address] [place] [phone] 09/22/2024 Qamar Garcia [facility] [address] [place] [phone] 11/24/2024 Qamar Garcia Chronic diarrhea K52 .9 and B12 deficiency E53.8 [facility] [address] [place] [phone] 12/23/2024 Qamar Garcia [facility] [address] [place] [address] 01/30/2024 Qamar Garcia [facility] [address] [place] [address] 04/09/2024 Qamar Garcia [facility] [address] [place] [address] 04/17/2024 Qamar Garcia [facility] [address] [place] [address] 05/18/2024 Qamar Garcia B12 deficiency E53.8 and Anemia D64.9 [facility] [address] [place] [address] 05/26/2024 Qamar Garcia Iron excess E83.19 [facility] [address] [place] [phone] 09/22/2024 Qamar Garcia Assessments Encounter Date Diagnosis [...] E53.8) 07/28/2024 B12 deficiency (ICD-10 - E53.8) 11/24/2024 Chronic diarrhea (ICD-10 - K52.9) Start taking 1 or 2 Imodium and 1 or 2 Dicyclomine about 30 minutes before every meal. I do recommend an eventual colonoscopy for screening, as well as for evaluation of the diarrhea if it isn't getting better Overall, Makenna appears well from a clinical standpoint. While her GI symptoms continue she has not lost any weight. I again recommended a colonoscopy to her for evaluation of possibilities such as inflammatory bowel disease, microscopic colitis, or significant GI polyps and/or neoplasm. However at this point she continues to adamantly refuse that. Given her lack of response to cholestyramine I have advised her that I think she should try to use 1 or 2 Imodium before every meal and 1 or 2 dicyclomine before every meal. I advised her that would be important to take these prior to eating to try to prevent the episodes of diarrhea to begin with. Based on her results with that I advised her that I would plan to see her in several months for a follow-up visit but I would want her to call sooner if the diarrhea is persisting such that we could then hopefully set up a colonoscopy if she allows it. I advised her that if I do not hear from her I will assume things are better in regard to the diarrhea and will then just plan to see her in follow-up. However I did advise her that at that point I would still recommend a colonoscopy for screening purposes if she allows it. In the meantime I did advise her to continue her monthly B12 shots, 1 of which she received today after our office visit, and her daily folic acid pills. Makenna was comfortable with this plan. Thank you again for allowing me to participate in Linda's care. I shall continue to keep you advised of her progress. 05/18/2024 Anemia (ICD-10 - D64.9) 05/18/2024 B12 deficiency (ICD-10 - E53.8) 05/26/2024 Iron excess (ICD-10 - E83.19) 11/24/2024 B12 deficiency (ICD-10 - E53.8) Continue the daily folic acid pill and the monthly B12 shots Overall, Makenna appears well from a clinical standpoint. While her GI symptoms continue she has not lost any weight. I again recommended a colonoscopy to her for evaluation of possibilities such as inflammatory bowel disease, microscopic colitis, or significant GI polyps and/or neoplasm. However at this point she continues to adamantly refuse that. Given her lack of response to cholestyramine I have advised her that I think she should try to use 1 or 2 Imodium before every meal and 1 or 2 dicyclomine before every meal. I advised her that would be important to take these prior to eating to try to prevent the episodes of diarrhea to begin with. Based on her results with that I advised her that I would plan to see her in several months for a follow-up visit but I would want her to call sooner if the diarrhea is persisting such that we could then hopefully set up a colonoscopy if she allows it. I advised her that if I do not hear from her I will assume things are better in regard to the diarrhea and will then just plan to see her in follow-up. However I did advise her that at that point I would still recommend a colonoscopy for screening purposes if she allows it. In the meantime I did advise her to continue her monthly B12 shots, 1 of which she received today after our office visit, and her daily folic acid pills. Makenna was comfortable with this plan. Thank you again for allowing me to participate in Linda's care. I shall continue to keep you advised of her progress. Plan Of Treatment Pending Test Test Name [...] Appt Details Provider Name:Qamar Gil Jose , 03/30/2025 10:10:00 AM, [address] [place] [address], [address], [place], [address], Insurance Providers Payer Name Payer Address Payer Phone Subscriber Number Group Number Insured Name Patient Relationship to Insured Coverage Start Date Coverage End Date [facility] [address] [address] [place] [address] [id number] MAKENNA GARCIA Self - patient is the insured MEDICAID OF [facility] [facility] [address] [place] [address] [phone] [id number] MAKENNA GARCIA Self - patient is the insured Medications Administered Medication Instructions Date of Administration Dosage Notes B-12 05/19/2024 1000 mL B-12 05/26/2024 1000 mL B-12 06/02/2024 1000 mL B-12 06/30/2024 1000 ug B-12 07/28/2024 1000 mL B-12 08/25/2024 1000 ug Medical (General) History Medical History History ICD Code Breast cancer on the right with surgery, chemo, and XRT in 2015 Denies VA,DM,CVA,Lung disease,renal dise ase CHF/ pacemaker-Dr. Campoverde Hypothyroidism Depression Reports a negative colonoscopy in [facility] > 10 years ago IBS-neg. celiac disease [...] 2024 due to persistent diarrhea as well 2024---B12 and folate deficiency, negati ve celiac disease laboratories Surgical History Surgery Date(Month/Year) Gastric sleeve with Dr. Richter in 2 022--lost over 50 pounds Colon surgery due to diverticulitis in [facility] 2009 Cardiac pacemeker/Defibrillator 2010 Partial Right mastectomy 2014 Umbilical hernia repair 2003 Cholecystectomy 2001 Hospitalization History Reason Date(Month/Year) alcohol withdrawl
== END 2025-01-19 08:44 | disposition home or self-care (01) ==
LOC: HO.NEURO 08:43
PROVIDERS: PCP Physician Assistant Medical; Visit Provider Physician Assistant Medical
DX: I42.8 Other cardiomyopathies (principal); Z95.810 Presence of automatic (implantable) cardiac defibrillator; R20.0 Anesthesia of skin
CPT/HCPCS: 95886; 95910; 99212

== ENCOUNTER → 2025-01-19 08:45 | Outpatient (BNV) | payer OTHER, SELFPAY | PROVIDERS: PCP Physician Assistant Medical; Visit Provider Psychiatry & Neurology Neurology | DX: G56.02 Carpal tunnel syndrome, left upper limb (principal) | CPT/HCPCS: 95886; 95910 ==

== ENCOUNTER 2025-01-19 12:47 | Outpatient (AMB) | payer OTHER, SELFPAY ==
[2025-01-19 12:58] VITALS: BP 110/62; PULSE 59; BMI 29.8
--- NOTE | 2025-01-19 12:58 | A.OFFVIS_ITS ---
Vital Signs 01/19/25 12:58 Height 5 ft 2 in Weight 163 lb 2.273 oz BMI 29.8 BP 110/62 Blood Pressure Location Lt brachial Position Sitting Pulse 59 Pulse Source Pulse Oximeter Intake Visit Reasons: r/s-12/29-f/up Allergies lisinopril Adverse Reaction (Severe, Verified 12/23/24 11:05) COUGH Medication List - Last Reconciled 01/19/25 by Ortiz Campoverde MD bupropion HCl XL 300 mg PO DAILY carvedilol 25 mg PO BID dicyclomine 10 mg PO BID folic acid 1 mg PO DAILY 30 days hydroxyzine HCl 25 mg PO QID PRN 30 days levothyroxine 175 mcg PO DAILY losartan 50 mg PO DAILY naltrexone 50 mg PO DAILY 30 days paroxetine HCl 30 mg PO DAILY thiamine mononitrate (vit B1) 100 mg PO DAILY 30 days HPI Comments Details: Makenna returns for follow-up regarding cardiomyopathy. To recall, she used to live in [place], but then moved here few years ago. She has a history of dilated cardiomyopathy, which according to her was told to be from a viral illness. There is no history of any coronary disease or myocardial infarction. She used to be a smoker in the past. She also has a biventricular ICD. Generator change in 2021. She was having shortness of breath and then we referred her to Pulmonary. Then diagnosed with sleep apnea and started on CPAP. Then she underwent weight loss surgery. Has lost lot of weight. Overall, she is feeling good. No new concerns. No cardiac symptoms. [facility] Medical History (Updated 12/29/24 @ 19:[address]) Chronic diarrhea Anxiety Insomnia Numbness of left hand Osteopenia Anemia Alcohol use disorder, severe, dependence Obesity (BMI 30-39.9) Pacemaker Atypical lobular hyperplasia (ALH) of right breast Steatosis, liver Morbid obesity Breast cancer Obesity Hypothyroidism History of breast cancer Depression Hypertension Cardiac resynchronization therapy defibrillator (SOFTWARE LICENSING SPECIALIST-D) in place Dyspnea on exertion NICM (nonischemic cardiomyopathy) Restrictive lung disease DEANDRE (obstructive sleep apnea) Morbid obesity Surgical History S/P lumpectomy, right breast (04/12/21) History of right mastectomy History of incisional hernia repair History of colectomy History of laparoscopic cholecystectomy Family History Father Multiple sclerosis Mother Breast CA Maternal Grandmother Breast CA Paternal Grandmother Stomach cancer Paternal Aunt Breast CA Social History Household Members: Family Housing: House Are you a primary care center manager to a significant other at home: No Do you presently have visiting nurse or other home services: No Alcohol intake: current Alcohol intake frequency: 3 or more drinks per day Alcohol type: hard liquor Patient Tobacco Use Status: Former Tobacco user e-Cigarette/Vaping Use: Former Use Second Hand Smoke Exposure: No Substance Use Type: Marijuana Advance Directives Date on File: 10/15/24 service: No Current occupational status: employed and retired Cognitive needs: No Hearing needs: No Vision needs: Yes (reading glasses) Review of Systems Const Denies weakness ENT Denies dizziness Card Denies chest pain, Denies chest pain with activity, Denies syncope, Denies rapid heart rate, Denies pedal edema, Denies edema, Denies leg edema, Denies lightheadedness, Denies palpitations, Denies dyspnea, Denies dyspnea on exertion and Denies orthopnea Resp Denies cough, Denies dyspnea and Denies dyspnea on exertion GI Denies hematochezia and Denies change in stool character Musc Denies abnormal gait, Denies muscle cramps, Denies muscle weakness, Denies numbness, Denies radiating pain into limb and Denies tingling Neuro Denies abnormal gait, Denies dizziness, Denies syncope, Denies numbness, Denies tingling and Denies weakness Endo Denies palpitations Physical Exam Vital Signs: Last Vital Signs Pulse 59 01/19/25 12:58 BP 110/62 01/19/25 12:58 BMI result Body Mass Index 29.8 Const General: comfortable and no acute distress Orientation/consciousness: patient oriented x3 HEENT Other: Unremarkable Head: Yes normal to inspection Neck Neck: Yes normal visual inspection Chest Chest palpation & inspection: normal inspection of the chest Resp Auscultation: clear to auscultation bilaterally Cardio Palpation: normal PMI Heart sounds: S1 normal heart sound present, S2 normal heart sound present, no gallops, no murmurs and no rubs GI Palpation (GI): Soft to palpation Back/Spine/Pelvis Other: unremarkable Skin General skin exam: no rashes or lesions noted Neuro General: patient oriented x3 Extrem General: Yes normal to inspection Psych Mental Status: mental status grossly normal Assessment & Plan Assessment & Plan (1) NICM (nonischemic cardiomyopathy): Code(s): I42.8 - Other cardiomyopathies Category: Medical (2) Cardiac resynchronization therapy defibrillator (SOFTWARE LICENSING SPECIALIST-D) in place: Code(s): Z95.810 - Presence of automatic (implantable) cardiac defibrillator Category: Medical Plan Cardiac studies reviewed. Last echocardiogram with LVEF 55-60% and without any valvular pathology. Ejection fraction was described to be as low as 40% in 2014 in [place]. Cardiac catheterization from 2016 shows no significant CAD. Continue carvedilol and losartan. Was on spironolactone in the past but not in her list anymore. ICD can be followed remotely. Otherwise, stable cardiac status. Coding Level of Care Code Est Pt Level 4 (28756) Complex EM visit Add On G2211 Diagnoses NICM (nonischemic cardiomyopathy) I42.8 Cardiac resynchronization therapy defibrillator (SOFTWARE LICENSING SPECIALIST-D) in place Z95.810
== END 2025-01-19 13:19 | disposition home or self-care (01) ==
LOC: HO.HCS 12:47
PROVIDERS: PCP Physician Assistant Medical; Visit Provider Internal Medicine
DX: I42.8 Other cardiomyopathies (principal); Z95.810 Presence of automatic (implantable) cardiac defibrillator
CPT/HCPCS: 99214; G2211

== ENCOUNTER 2025-02-09 10:03 | Outpatient (AMB) | payer OTHER, SELFPAY ==
[2025-02-09 10:07] VITALS: BP 118/76; PULSE 84; TEMP 36.4; O2SAT 98; BMI 29.6
--- NOTE | 2025-02-09 10:07 | MHC.PC.OV ---
Vital Signs 02/09/25 10:07 Height 5 ft 2 in Weight 162 lb BMI 29.6 BP 118/76 Blood Pressure Location Lt brachial Position Sitting Pulse 84 Pulse Source Pulse Oximeter Temp 97.6 F Temp Source Temporal Artery Scan Pulse Oximetry (%) 98 Oxygen Delivery Method Room Air Intake Visit Reasons: 2 month f/u Geographic Information Scientist Required: No Accompanied by: Self / Same As Patient Allergies lisinopril Adverse Reaction (Severe, Verified 02/09/25 10:08) COUGH Medication List - Last Reconciled 02/09/[address] bupropion HCl XL 300 mg PO DAILY carvedilol 25 mg PO BID dicyclomine 10 mg PO BID folic acid 1 mg PO DAILY 30 days gabapentin 300 mg PO BID hydroxyzine HCl 25 mg PO TID PRN 90 days levothyroxine 175 mcg PO DAILY losartan 50 mg PO DAILY naltrexone 50 mg PO DAILY 30 days paroxetine HCl 30 mg PO DAILY thiamine mononitrate (vit B1) 100 mg PO DAILY 30 days Tobacco use date assessed: 02/09/25 Dental Screening Dental Screen Date: 02/09/25 Did you have a dental visit in the last 12 months?: Yes Did you have a dental problem in the last 6 months where you did not have access to dental care?: No HPI HPI Comments History of Present Illness Details History of Present Illness The patient is a 69 year old female with HTN, Hypothyroidism, Nonischemic cardiomyopathy with implanted defibrillator, Alcoholism in remission, DEANDRE, History of breast cancer, restrictive lung disease, anemia, chronic diarrhea, B12 deficiancy and MDD/anxiety presenting for a follow-up visit for chronic condition management and review of diagnostic test results. Regarding the patient's cardiac health, a recent cardiology visit on 01/19 confirmed a stable condition with the defibrillator requiring ongoing monitoring, with no other changes recommended. [0] The patient continues to take carvedilol and losartan, and the blood pressure was 118/76 mmHg today. [0, 1] A recent nerve study of the arm revealed two concurrent issues: carpal tunnel syndrome in the wrist, causing numbness in the first three fingers, and ulnar nerve compression, likely originating at the elbow and affecting the other fingers. [2, 3, 4] The patient reports intermittent diarrhea, which the patient believes may be related to nerves, and was seen by a high school science tutor one month ago. [10] The patient also receives monthly vitamin B12 injections at the high school science tutor's office. [11] For mental health, the patient takes bupropion and paroxetine. [9] Hydroxyzine is used on an as-needed basis for anxiety, though it has not been taken in the last two weeks. [8] The patient resumed taking gabapentin for sleep after a Mirtazapine proved ineffective. [9] Medical History: - Cardiac condition requiring a defibrillator - Hypertension - Anxiety - Unspecified sleep disorder - Chronic intermittent diarrhea - Vitamin B12 deficiency - Carpal tunnel syndrome - Ulnar neuropathy Surgical History: - Placement of defibrillator Medications: - Carvedilol for hypertension - Losartan for hypertension - Hydroxyzine as needed for anxiety - Bupropion - Paroxetine - Gabapentin for sleep - Vitamin B12 injection once a month Family History: - No family history was discussed. Health Maintenance The patient will proceed to the lab for blood work to check thyroid and B12 levels. [1] The patient has a bone density scan scheduled for March. [2] Refills will be provided for all current medications. [11] A follow-up visit is scheduled in approximately three months. [11] Social History - No social history was discussed. Results - Nerve Conduction Study (Arm): Results show carpal tunnel syndrome and an ulnar nerve issue. Patient was informed and verbally consented to the use of an ambient scribe for clinic note documentation during this visit. FORMERLY [facility], [facility] Medical History Chronic diarrhea Anxiety Insomnia Numbness of left hand Osteopenia Anemia Alcohol use disorder, severe, dependence Obesity (BMI 30-39.9) Pacemaker Atypical lobular hyperplasia (ALH) of right breast Steatosis, liver Morbid obesity Breast cancer Obesity Hypothyroidism History of breast cancer Depression Hypertension Cardiac resynchronization therapy defibrillator (REAL ESTATE CONSULTANT-D) in place Dyspnea on exertion NICM (nonischemic cardiomyopathy) Restrictive lung disease DEANDRE (obstructive sleep apnea) Morbid obesity Surgical History History of colectomy History of incisional hernia repair History of laparoscopic cholecystectomy History of right mastectomy S/P lumpectomy, right breast (04/12/21) Family History Father Multiple sclerosis Mother Breast CA Maternal Grandmother Breast CA Paternal Grandmother Stomach cancer Paternal Aunt Breast CA Social History Household Members: Family Housing: House Are you a primary group care worker to a significant other at home: No Do you presently have visiting nurse or other home services: No Alcohol intake: current Alcohol intake frequency: 3 or more drinks per day Alcohol type: hard liquor Patient Tobacco Use Status: Former Tobacco user e-Cigarette/Vaping Use: Former Use Second Hand Smoke Exposure: No Substance Use Type: Marijuana Advance Directives Date on File: 10/15/24 service: No Current occupational status: employed and retired Cognitive needs: No Hearing needs: No Vision needs: Yes (reading glasses) Questionnaire Thrive Questionnaire Date Thrive assessed: 12/09/24 ANNABEL-7 AMB Questionnaire ANNABEL-7 Date ANNABEL - 7 assessed: 12/09/24 Source: Developed by Drs. Qamar Harris, Rebeca Abdul, Jay Childress and colleagues, with an educational wilder from [employer]. Review of Systems Narrative Review of Systems - Neurological: Reports numbness in the fingers of the left arm. - Gastrointestinal: Reports intermittent diarrhea. - Psychiatric: Reports anxiety managed with as-needed medication. Physical exam (Primary Care) Vital Signs: Last Vital Signs Temp 97.6 F 02/09/25 10:07 Pulse 84 02/09/25 10:07 BP 118/76 02/09/25 10:07 Pulse Ox 98 02/09/25 10:07 Oxygen Delivery Method Room Air 02/09/25 10:07 BMI result Body Mass Index 29.6 GENERAL Well developed, Ovewrweight, in no apparent distress HEENT Head-Normocephalic Neck- Supple, No lymphadenopathy, thyroid WNL RESPIRATORY Normal I:E, Clear to auscultation CARDIOVASCULAR Regular, rate and rhythm, No murmurs or rubs GASTROINTESTINAL Soft, nontender, normal bowel sounds, no masses MUSCULOSKELETAL Back- nontender Joints- no swelling or deformity NEUROLOGICAL Gait normal PSYCHIATRIC Oriented to person, place and time Mood and affect- anxious Appearance WNL Speech WNL Thought processes WNL Tobacco/Smoking Status: Tobacco use Status Tobacco use date assessed 02/09/25 02/09/25 10:09 Patient Tobacco Use Status Former Tobacco user 02/09/25 10:09 e-Cigarette/Vaping Use Former Use 02/09/25 10:09 Thrive Assessment: Date of Thrive Assessment Date Thrive assessed 12/09/24 02/09/25 10:09 Results Reviewed Results Reviewed: Ordering Physician: Rachel Daniel Date of Service: 01/19/25 Procedure(s): NE electromyogram (EMG); NE nerve conduction velocity Accession Number(s): [id number]; [id number] cc: Rachel Daniel~ Reason for Exam: R20.0 - Anesthesia of skin Chief complaint: Left hand numbness Reason for referral:R20.0 Anesthesia of skin Referred by: SKYE aCll Procedure done: NCS and EMG of left upper extremity Left median and ulnar motor studies were performed. Left median and ulnar mixed sensory studies, median and lateral antecubital brachial sensory studies and radial sensory study was performed. EMG was performed. Findings: Median motor distal latencies was moderately prolonged. Similar pattern was seen with left median mixed distal latencies with moderately slow conduction velocity. Mild slowing of ulnar motor conduction velocity was noted across elbow. Impression: 1. [id number] left median neuropathy across carpal tunnel 2. Early left ulnar neuropathy across elbow Coding Level of Care Code Established Pt Complex visit Add On G2211 Patient Type Established Diagnoses Depression F32.9 Anxiety F41.9 Alcohol use disorder, severe, in early remission F10.21 Hypertension I10 NICM (nonischemic cardiomyopathy) I42.8 Acquired hypothyroidism E03.9 Hypothyroidism type: acquired Vitamin B12 deficiency E53.8 Time Spent (min) 35 Comment Time spent on chart review, H&P, patient education and orders. Assessment & Plan Assessment & Plan (1) Depression: Code(s): F32.9 - Major depressive disorder, single episode, unspecified Category: Medical Plan: Patient doing OK on Wellbutrin and Paroxetine. (2) Anxiety: Code(s): F41.9 - Anxiety disorder, unspecified Category: Medical Plan: Taking Hydroxyzine PRN (3) Alcohol use disorder, severe, in early remission: Code(s): F10.21 - Alcohol dependence, in remission Category: Medical Plan: Patient is on Naltrexone, Thiamine and Folate. She will follow up with Addiction medicine. (4) Hypertension: Comment: BP today was 118/76 Code(s): I10 - Essential (primary) hypertension Category: Medical Plan: Controlled on Carvedilol and Losartan (5) NICM (nonischemic cardiomyopathy): Code(s): I42.8 - Other cardiomyopathies Category: Medical Plan: Patient to continue to follow up with Cardiology (6) Hypothyroidism: Code(s): E03.9 - Hypothyroidism, unspecified Category: Medical Qualifiers: Hypothyroidism type: acquired Qualified Code(s): E03.9 - Hypothyroidism, unspecified Plan: Patient to go for TSH (7) Vitamin B12 deficiency: Comment: Receiving injections by GI Code(s): E53.8 - Deficiency of other specified B group vitamins Category: Medical Plan: Patient to have labs Plan Plan Patient was informed and verbally consented to the use of an ambient scribe for clinic note documentation during this visit. 1. Left Arm Neuropathy The patient's recent nerve study revealed both carpal tunnel syndrome in the wrist and an ulnar nerve compression issue at the elbow, causing numbness in different fingers. [2, 3, 4] A referral will be made to an learning technologies specialist for further evaluation and management. [4, 11] Potential treatments that were discussed include a cortisone injection or surgical intervention. [4, 5] 2. Hypertension The patient's blood pressure is well-controlled at 118/76 mmHg on the current regimen. [1] Continue carvedilol and losartan as prescribed. [0] 3. Anxiety The patient continues to take bupropion and paroxetine. [9] Hydroxyzine is taken on an as-needed basis for anxiety, with the patient reporting infrequent use. [8] Refills will be provided. [7] 4. Insomnia The patient has resumed taking gabapentin for sleep, as a previous alternative was not effective. [9] A refill for gabapentin will be ensured. [9] 5. Chronic Intermittent Diarrhea The patient reports ongoing intermittent diarrhea and is under the care of a high school science tutor, whom the patient saw about a month ago. [10] No changes to management were made at this visit. [10] 6. Vitamin B12 Deficiency The patient continues to receive monthly vitamin B12 injections at the high school science tutor's office. [11] Continue with the current treatment plan. [11] Discussion Notes I informed the patient that the nerve study results indicated two separate issues in the arm: carpal tunnel syndrome and an ulnar nerve problem, likely originating at the elbow. [3, 4] I explained that I am placing a referral to an learning technologies specialist to evaluate these findings and decide on the best course of action, which could range from a cortisone injection to surgery. [4, 5] I instructed the patient to go for blood work today to check thyroid and vitamin B12 levels. [1] We confirmed the patient's existing appointment for a bone density scan in March. [2] We reviewed all medications and I will ensure there are refills for gabapentin, which the patient resumed for sleep, and the as-needed hydroxyzine. [9, 11] I recommended a follow-up appointment in three months to review lab results and check in. [11, 13] Patient Instructions - Please go to the lab in the building today for blood tests. I have ordered checks for your thyroid and vitamin B12 levels. [1] - I am referring you to an learning technologies specialist for the numbness in your arm. Their office will contact you to schedule an appointment. [4, 5, 11] - Please keep your scheduled appointment for a bone density scan in March. [2, 11] - Continue taking all your current medications as prescribed. I will make sure you have refills available. [11] - Continue with your monthly vitamin B12 injections at the high school science tutor's office. [11] - Please schedule a follow-up appointment at the electrician front for about three months from now. [11, 13] Orders: Referrals Orthopedics Referral R20.0 - Anesthesia of skin Medications: New bupropion HCl XL 300 mg PO DAILY 90 tabs 1RF gabapentin 300 mg PO BID 180 caps 1RF losartan 50 mg PO DAILY 90 tabs 1RF paroxetine HCl 30 mg PO DAILY 90 tabs 1RF carvedilol 25 mg PO BID 180 tabs 1RF Changed From hydroxyzine HCl 25 mg PO QID 30 days PRN 120 tabs 1RF anxiety To hydroxyzine HCl 25 mg PO TID PRN 270 tabs 1RF anxiety 90 days
== END 2025-02-09 10:23 | disposition home or self-care (01) ==
LOC: HO.HMCHD 10:03
PROVIDERS: PCP Family Medicine; Visit Provider Physician Assistant Medical
DX: I10 Essential (primary) hypertension (principal); F10.21 Alcohol dependence, in remission; I42.8 Other cardiomyopathies; F32.9 Major depressive disorder, single episode, unspecified; F41.9 Anxiety disorder, unspecified; E03.9 Hypothyroidism, unspecified; E53.8 Deficiency of other specified B group vitamins

== ENCOUNTER → 2025-02-09 10:03 | Outpatient (BNVA) | payer OTHER, SELFPAY | PROVIDERS: PCP Family Medicine; Visit Provider Physician Assistant Medical | DX: I10 Essential (primary) hypertension (principal); F10.21 Alcohol dependence, in remission; F41.9 Anxiety disorder, unspecified; F32.9 Major depressive disorder, single episode, unspecified; E03.9 Hypothyroidism, unspecified; I42.8 Other cardiomyopathies; E53.8 Deficiency of other specified B group vitamins | CPT/HCPCS: 99212 ==

== ENCOUNTER 2025-03-10 12:00 | Outpatient (REF) | payer OTHER, SELFPAY ==
--- OUTSIDE RECORDS SUMMARY | 2024-06-02 06:00 | XMS_ITS ---
Author Organization [facility] Address [address] [place] [address] Care Team Providers Care Final Finisher Forging Dies Name Role Phone STEVE PATTON Primary Care Provider Qamar Carolina Unavailable [phone] REASON FOR VISIT B12 deficiency Medications Medication SIG (Take, Route, Frequency, Duration) Notes Start Date End Date Status Losartan Potassium 50 MG Tablet 1 tablet Orally Once a day; Duration: 30 day(s) Active Dicyclomine HCl 10 MG Capsule 1 Orally BID Active Cholestyramine 4 GM/DOSE Powder use anywhere from 1/4 to a full scoop in 8 ounces of water or orange juice Orally Once or twice a day to help with the diarrhea; Duration: 30 day(s) 04/23/2024 Active Imodium A-D 2 MG Tablet use 1 or 2 table ts Orally Up to Four times a day for diarrhea. You can take it before a meal to try to prevent diarrhea after eating; Duration: 30 days 04/23/2024 Active Folic Acid 1 MG Tablet 1 tablet every da y, but do not start until after the 3rd B12 shot the week of 06/01/2024 Orally Once a day; Duration: 30 days Please remind patient that she should not start this until after her 3rd B12 shot the week of 06/01/2024. Thanks 05/27/2024 Active BuPROPion HBr Active Levothyroxine Sodium Active PARoxetine HCl Activ e busPIRone HCl 5 MG Tablet 1 tablet Orally Twice a day Active Carvedilol Active Encounters Encounter Location Date Provider Diagnosis [facility] [address] [place] [address] 06/02/2024 Qamar Garcia B12 deficiency E53.8 Assessments Encounter Date Diagnosis (ICD Code) Assessment Notes Treatment Notes Treatment Clinical Notes Section Notes 06/02/2024 B12 deficiency (ICD-10 - E53.8) Plan Of Treatment Next Appt Details Provider Name:Qamar Garcia , 03/30/2025 10:10:00 AM, [address], [address], [place], [address], Medications Administered Medication Instructions Date of Administration Dosage Notes B-12 06/02/2024 1000 mL Progress Notes * CYNTHIA GARCIADOB: (69 yo F)Acc No.[id number]:06/02/2024 SHOT Patient: CYNTHIA WALKER Provider: Faizan Garcia MD :1955 A ge:68 Y S ex:Female Date:06/02/2024 Address:[address] [place] [address] Pcp:STEVE PATTON Subjective: * Chief Complaints: * B 12 deficiency * Medications: T akingbusPIRone HCl 5 MG Tablet 1 tablet Orally Twice a day Carvedilol BuPROPion HBr Levothyroxine Sodium PARoxetine HCl Losartan Potassium 50 MG Tablet 1 tablet Orally Once a day Dicyclomine HCl 10 MG Capsule 1 Orally BID Cholestyramine 4 GM/DOSE Powder use anywhere from 1/4 to a full scoop in 8 ounces of water or orange juice Orally Once or twice a day to help with the diarrhea Imodium A-D 2 MG Tablet use 1 or 2 tablets Orally Up to Four times a day for diarrhea. You can take it before a meal to try to prevent diarrhea after eating Folic Acid 1 MG Tablet 1 tablet every day, but do not start until after the 3rd B12 shot the week of 06/01/2024 Orally Once a day , Notes to Pharmacist: Please remind patient that she should not start this until after her 3rd B12 shot the week of 06/01/2024. ThanksTaking busPIRone HCl 5 MG Tablet 1 tablet Orally Twice a day Taking Carvedilol Taking BuPROPion HBr Taking Levothyroxine Sodium Taking PARoxetine HCl Taking Losartan Potassium 50 MG Tablet 1 tablet Orally Once a day Taking Dicyclomine HCl 10 MG Capsule 1 Orally BID Taking Cholestyramine 4 GM/DOSE Powder use anywhere from 4 to a full scoop in 8 ounces of water or orange juice Orally Once or twice a day to help with the diarrhea Taking Imodium A-D 2 MG Tablet use 1 or 2 tablets Orally Up to Four times a day for diarrhea. You can take it before a meal to try to prevent diarrhea after eating Taking Folic Acid 1 MG Tablet 1 tablet every day, but do not start until after the 3rd B12 shot the week of 06/01/2024 Orally Once a day , Notes to Pharmacist: Please remind patient that she should not start this until after her 3rd B12 shot the week of 06/01/2024. Thanks Assessment: * Assessment: 1. B 12 deficiency - E53.8 (Primary) Plan: * Therapeutic Injections: B-12 : 1000 mL (Dose No:1) (Route: Intramuscular) given by Tonya Newman on left arm intramuscular * Procedure Codes: J 3420 INJ VIT B-12 CYNOCOBLMN TO 1000 [id number] THER/PROPH/DIAG INJ, SC/IM Billing Information: * Procedure Codes: J3420 INJ VIT B-12 CYNOCOBLMN TO [address] [address] THER/PROPH/DIAG INJ, SC/IM. * The named appointment provid er may or may not be the originator of this progress note, and it is not deemed complete until electronically signed by the appointment provider. Sign off status: Pending * Provider: Faizan Gracia MD Date: 0 06/02/2024 Generated for Devora kahn/Bayron/Angeliqueitting on: 01:49 PM EST
--- OUTSIDE RECORDS SUMMARY | 2025-03-10 13:49 | XMS_ITS | Patient Health Record ---
Author Organization [facility] Address [address] [place] [address] Care Team Providers Care Palliative Care Nurse Name Role Phone ABDI, STEVE Primary Care Provider Qamar Carolina [phone] Allergies Allergen (clinical drug ingredient) Drug/Non Drug Allergy documented on EMR Reaction Allergy Type Onset Date Status lisinopril Lisinopril cough Drug Allergy Activ e Results Component Value Reference Range Flag Notes Ferritin Reviewed date:05/20/2024 01:53:07 PM Interpretation: Performing Lab:[facility], [address] [place] [address] Notes/Report: Ferritin 650 10-250 ng/mL H Intrinsic Factor Antibodies Reviewed date:05/22/2024 04:24:27 PM Interpretation: Performing Lab:[facility], [address] [place] [phone] Notes/Report: Intrinsic Factor Antibodies Positive Negative A For additional information, please refer to http://education.SDI-Solution/faq/IFAB (This link is being provided for informational/ educational purposes only.) THIS TEST WAS PERFORMED AT: [facility]/[address] [address] RICK HOLLINGSWORTH MD,PHD Parietal Cell Antibody Reviewed date:06/17/2024 06:59:55 PM Interpretation: Performing Lab:[facility], [address] [place] [phone] Notes/Report: Parietal Cell Antibody 51.1 <=20.0 Unit A Reference Range: <= 20.0 Negative 20.1 - [...] these patients. THIS TEST WAS PERFORMED AT: [facility] [address] [place] [address] RICK HOLLINGSWORTH MD,PHD Leukocytes Stool Qualitative Reviewed date:04/09/2024 02:02:54 PM Interpretation: Performing Lab:[address] [address] Notes/Report: Leukocytes Stool Qualitative NEGATIVE NEGATIVE Calprotectin, Fecal Reviewed date:04/16/2024 10:46:56 AM Interpretation: Performing Lab:[address] [address] Notes/Report: Calprotectin, Fecal 14 Reference Range: <50 [...] borderline values. THIS TEST WAS PERFORMED AT: [facility] [address] [place] [address] KATHERINE MCGEE MD,PHD,PATRICIA CDiff Gene PCR Reviewed date:04/13/2024 04:23:19 PM Interpretation: Performing Lab:[address] [address] Notes/Report: CDiff Gene PCR POSITIVE Negative AA Additional C. difficile toxin testing to be performed. CDiff Toxin Reviewed date:04/09/2024 02:04:29 PM Interpretation: Performing Lab:[facility], [address] [place] [phone] Notes/Report: CDiff Toxin Negative Negative CDIFF Interpretation SEE NOTE Likely C. difficile colonization. Continue contact precautions. GI PANEL Reviewed date:04/09/2024 02:03:39 PM Interpretation: Performing Lab:[facility], [address] [place] [phone] Notes/Report: Campylobacter Not Detected Not Detect. Plesiomonas [...] is performed by Multiplexed PCR, utilizing the Fangtek Array. Liver Panel Reviewed date:05/14/2024 05:51:13 PM Interpretation: Performing Lab:[address] [address] Notes/Report: Bilirubin Total 0.5 0.0-1.0 mg/dL N Bilirubin Direct 0.2 0.0-0.5 mg/dL N Aspartate Amino Transferase 56 5-31 U/L H Alanine Aminotransferase 29 0-31 U/L N Total Protein 7.3 6.5-8.0 g/dL N Albumin Level 3.7 3.5-5.0 g/dL N Alkaline Phosphatase 113 39-117 U/L N Basic Metabolic Panel Reviewed date:05/14/2024 05:51:02 PM Interpretation: Performing Lab:[address] [address] Notes/Report: Sodium 143 135-145 mmol/L N Potassium 3.6 3.3-5.1 mmol/L N Chloride 108 96-108 mmol/L N Carbon Dioxide 27 22-29 mmol/L N Anion Gap 12 12-20 N Blood Urea Nitrogen 10 9-16 mg/dL N Creatinine 0.68 0.5-1.4 mg/dL N Estimated Glomerular Filt Rate > 60 Chronic Kidney Disease: Estimated GFR < 60 mL/min/1.73m2 Severe Kidney Disease: Estimated GFR < 15 mL/min/1.73m2 Glucose Random 79 60-115 mg/dL N Calcium 9.1 8.4-10.2 mg/dL N Vitamin B12 and Folate Reviewed date:05/19/2024 01:03:52 PM Interpretation: Performing Lab:[address] [address] Notes/Report: Vitamin B12 < 148 200-900 pg/mL L NORMAL 200-900 PG/ML INDETERMINATE 160-199 PG/ML DEFICIENT < 160 PG/ML Folate 2.4 > or = 4.0 ng/mL L Reference Values: > or = 4.0 ng/mL < 4.0 ng/mL suggests folate deficiency Methotrexate, aminopterin and folinic acid (leucovorin) are chemotherapeutic agents whose molecular structures are similar to folate; therefore, the Tumbler Plater folate assay cannot be used for patients using these drugs. Celiac Disease Panel Reviewed date:05/18/2024 01:24:02 AM Interpretation: Performing Lab:[facility], [address] [place] [phone] Notes/Report: Immunoglobulin A 322 70-320 mg/dL A THIS TEST WAS PERFORMED AT: [facility] [address] [place] [address] GEMINI RUSSELL MD Transglutaminase IgA <1.0 N Value Interpretation ----- <15.0 Antibody not detected > or = 15.0 Antibody detected Celiac Disease Panel Interp. SEE NOTE No serological evidence of celiac disease. Total serum IgA is elevated. Consider mucosal inflammatory conditions or underlying gammopathy. Complete Blood Count Auto Di ff Reviewed date:05/19/2024 01:02:14 PM Interpretation: Performing Lab:[facility], [address] [place] [phone] Notes/Report: White Blood Count 5.4 4.8-10.8 X10*3/uL N Red Blood Count 3.22 4.20-5.50 X10*6/uL L Hemoglobin 12.4 12.0-16.0 g/dl N Hematocrit 36.7 37.0-47.0 % L Mean Corpuscular Volume 114.0 80.0-98.0 fL H Mean Corpuscular Hemoglobin 38.5 27.0-33.0 pg H Mean Corpuscular HGB Conc 33.8 31.0-35.0 g/dl N Red Cell Distribution Width 14.3 11.0-16.0 % N Platelet Count 270 160-400 X10*3/uL N Mean Platelet Volume 9.5 9.4-12.3 fL N Neutrophils Percent Auto 50.2 45-73 % N Imm Gran Pct Auto 0.2 0.0-0.4 % N Lymphocytes Percent Auto 38.2 20-40 % N Monocytes Percent Auto 7.3 2-11 % N Eosinophils Percent Auto 1.9 0-4 % N Basophils Percent Auto 2.2 0-2 % H NRBC Pct Auto 0.4 0.0-0.2 /100WBC H Neutrophils Absolute Auto 2.7 2.0-8.3 x10*3/uL N Imm Gran Abs Auto 0.01 0.00-0.03 X10*3/uL N Lymphocytes Absolute Auto 2.1 1.2-4.9 X10*3/uL N Monocytes Absolute Auto 0.4 0.1-1.2 X10*3/uL N Eosinophils Absolute Auto 0.1 0.0-0.4 X10*3/uL N Basophils Absolute Auto 0.1 0.0-0.2 X10*3/uL N NRBC Abs Auto 0.020 0.0-0.012 X10*3/uL H IRON PROFILE Reviewed date:06/17/2024 06:58:54 PM Interpretation: Performing Lab:[address] [address] Notes/Report: Iron 169 30-160 mcg/dL H Total Iron Binding Capacity 215 228-428 mcg/dL L Percent Iron Saturation 79 15-50 % H Unsaturated Iron Binding 46 DNA Analysis Hemochromatosis (Not yet reviewed by provider) Interpretation: Performing Lab:[facility], [address] [place] [phone] Notes/Report: DNA Analysis Hemochromatosis See Below RESULT: [...] variants in the HFE gene, C282Y (NM 087623.2: c.845G>A, p.Qff442Hpa) and H63D (NM 385221.2: c.187C>G, p.Zxv09Guu), that are commonly associated with HH. These [...] Health care providers, please contact your local [facility] genetic counselor or call [phone] ( ) for assistance with the interpretation of these results. This test was developed and its analytical performance characteristics have been determined by [facility]. It has not been cleared or approved by FDA. This assay has been validated pursuant to the CLIA regulations and is used for clinical purposes. For more information, please refer to http://education.Spotbros.BlenderHouse/faq/hemoch romatosis. (This link is being provided for informational/educationa l purposes only.) A portion of the testing was performed at [facility] [place] [facility]. Reviewed and signed by Laboratory results and submitted clinical information reviewed by Stanley Cronin, Ph.D., FACMG, HCLD, CGMB, Signed on 06/26/2024 at 18:11 THIS TEST WAS PERFORMED AT: [facility] [place] [place] [address] [place] [address] KATHERINE MCGEE MD,PHD,PATRICIA Ferritin Reviewed date:06/17/2024 06:56:40 PM Interpretation: Performing Lab:[facility], [address] [place] [phone] Notes/Report: Ferritin 640 10-250 ng/mL H IRON PROFILE Reviewed date:06/17/2024 06:57:05 PM Interpretation: Performing Lab:[facility], [address] [place] [phone] Notes/Report: Iron 223 30-160 mcg/dL H Total Iron Binding Capacity 248 228-428 mcg/dL N Percent Iron Saturation 90 15-50 % H Unsaturated Iron Binding < 25 Endomysial IgA rflx Titer Reviewed date:06/17/2024 06:58:11 PM Interpretation: Performing Lab:[facility], [address] [place] [phone] Notes/Report: Endomysial IgA Antibody Negative Negative THIS TEST WAS PERFORMED AT: [facility]/[address] [address] RICK HOLLINGSWORTH MD,PHD Endomysial Titer TNP Gliadin Ab Panel Reviewed date:06/17/2024 06:58:20 PM Interpretation: Performing Lab:[facility], [address] [place] [address] Notes/Report: Gliadin Deamidated IgA Ab 2.4 N Value Interpretation ----- <15.0 Antibody not detected > or = 15.0 Antibody detected Gliadin Deamidated IgG Ab <1.0 N Value Interpretation ----- <15.0 Antibody not detected > or = 15.0 Antibody detected THIS TEST WAS PERFORMED AT: [facility] [address] [place] [address] GEMINI RUSSELL MD Transglutaminase IgA Reviewed date:06/17/2024 06:58:27 PM Interpretation: Performing Lab:[facility], [address] [place] [phone] Notes/Report: Transglutaminase IgA <1.0 N Value Interpretation ----- <15.0 Antibody not detected > or = 15.0 Antibody detected THIS TEST WAS PERFORMED AT: [facility] [address] [place] [address] GEMINI RUSSELL MD Transglutaminase Ab IgG Reviewed date:06/17/2024 06:58:33 PM Interpretation: Performing Lab:[facility], [address] [place] [address] Notes/Report: Transglutaminase Ab IgG <1.0 N Value Interpretation ----- <15.0 Antibody not detected > or = 15.0 Antibody detected THIS TEST WAS PERFORMED AT: [facility] [address] [place] [address] GEMINI RUSSELL MD Immunoglobulin A Reviewed date:06/17/2024 06:58:43 PM Interpretation: Performing Lab:[facility], [address] [place] [address] Notes/Report: Immunoglobulin A 305 70-320 mg/dL N THIS TEST WAS PERFORMED AT: [facility] [address] [place] [address] GEMINI RUSSELL MD Reason For Referral No Information Medications Medication SIG (Take, Route, Frequency, Duration) Notes Start Date End Date Status busPIRone HCl 5 MG Tablet 1 tablet Orally Twice a day Active Thiamine HCl 100 MG Tablet TAKE 1 TABLET BY MOUTH EVERY DAY Oral; Duration: 30 Days Active Cyanocobalamin 1000 MCG/ML Solution 1 mL Injection Monthly 11/24/2024 Active Gabapentin 300 MG Capsule TAKE 2 CAPSULES BY MOUTH AT BEDTIME Oral; Duration: 90 Days Active Levothyroxine Sodium Active Carvedilol Active hydrOXYzine HCl 25 MG Tablet Oral; Duration: 7 Days Active Naltrexone HCl 50 MG Tablet TAKE 1 TABLET BY MOUTH DAILY Oral; Duration: 30 Days Active Folic Acid 1 MG Tablet 1 tablet every day, but do not start until after the 3rd B12 shot the week of 06/01/2024 Orally Once a day; Duration: 30 days Please remind patient that she should not start this until after her 3rd B12 shot the week of 06/01/2024. Thanks 05/27/2024 Active Imodium A-D 2 MG Tablet use 1 or 2 tablets Orally Up to Four times a day for diarrhea. You can take it before a meal to try to prevent diarrhea after eating; Duration: 30 days 04/23/2024 Active Dicyclomine HCl 10 MG Capsule Take 1 or 2 capsules 30-60 minutes before a meal to try to prevent the BM's after eating Orally Three times a day; Duration: 30 days 11/24/2024 Active Losartan Potassium 50 MG Tablet 1 tablet Orally Once a day; Duration: 30 day(s) Active PARoxetine HCl Activ e Cholestyramine 4 GM/DOSE Powder use anywhere from 1/4 to a full scoop in 8 ounces of water or orange juice Orally Once or twice a day to help with the diarrhea; Duration: 30 day(s) 04/23/2024 Not-Taking/MA N Dicyclomine HCl 10 MG Capsule 1 Orally BID Active Immunizations Vaccine Route Administration Date Status Comme nts Influenza Unknown 11/25/2018 Refused Influenza Unknown 11/24/2024 Refused Social History Tobacco Use: Social History Observation Description Date Details (start date - stop date) Former Smoker NA - NA Social History Drug/Alcohol: Social Info Question Answer Notes AUDIT-C (Standard) Did you have a drink containing alcohol in the past year? No Points 0 Interpretation Negative Tobacco Use: Social Info Question Answer Notes Tobacco Use/Smoking Patient is a former smoker How long has it been since you last smoked? > 10 years Additional Details Category Social Info Options Details Miscellaneous: Marital status: single Occupation: retired Section Notes: Nonsmoker; 1 drink a day-nev er heavy in the past Nonsmoker; 1 drink a day-nev er heavy in the past Nonsmoker; occ. alcohol Nonsmoker; occ. alcohol Problems Problem Type SNOMED Code ICD Code Onset Dates Problem Status W/U Status Risk Notes Problem Screening for malignant neoplasm of colon (456647154) Encounter for screening for malignant neoplasm of colon (Z12.11) Active confirmed Problem Iron excess (79757137) Iron excess (E83.19) Active confirmed Problem Anemia (900364966) Anemia (D64.9) Active confirmed Problem Vitamin B12 deficiency (non anemic) (95854842) B12 deficiency (E53.8) Active confirmed Problem Chronic diarrhea (095627411) Chronic diarrhea (K52.9) Active confirmed Problem Irritable bowel syndrome (97408620) Irritable bowel syndrome with both constipation and diarrhea (K58.2) Active confirmed Problem Vomiting without nausea (208594507360957 ) Non-intractable vomiting without nausea, unspecified vomiting type (R11.11) Active confirmed Problem Anomalies of pancreas (979433907) 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) Active confirmed Problem Macrocytosis - no anemia (578508123) Macrocytosis without anemia (D75.89) Active confirmed Problem CT of abdomen abnormal (754450834027888 07) Abnormal abdominal CT scan (R93.5) Active confirmed Vital Signs Temperature 98.7 degrees Fahrenheit 11/24/2024 Blood pressure diastolic 01 mm Hg 11/24/2024 Height 62 in 11/24/2024 Blood pressure systolic 001 mm Hg 11/24/2024 Weight 165.2 lbs 11/24/2024 BMI 30.21 kg/m2 11/24/2024 Encounters Encounter Location Date Provider Diagnosis [facility] [address] [place] [phone] 06/02/2024 Qamar Garcia B12 deficiency E53.8 [facility] [address] [place] [phone] 04/23/2024 Qamar Garcia Chronic diarrhea K52 .9 and Macrocytosis without anemia D75.89 [facility] [address] [place] [address] 05/19/2024 Qamar Garcia B12 deficiency E53.8 [facility] [address] [place] [address] 05/26/2024 Qamar Garcia B12 deficiency E53.8 [facility] [address] [place] [phone] 06/30/2024 Qamar Garcia B12 deficiency E53.8 [facility] [address] [place] [address] 07/28/2024 Qamar Garcia B12 deficiency E53.8 [facility] [address] [place] [phone] 08/25/2024 Qamar Garcia [facility] [address] [place] [phone] 09/22/2024 Qamar Garcia [facility] [address] [place] [phone] 11/24/2024 Qamar Garcia Chronic diarrhea K52 .9 and B12 deficiency E53.8 [facility] [address] [place] [phone] 12/23/2024 Qamar Garcia [facility] [address] [place] [phone] 01/19/2025 Qamar Garcia [facility] [address] [place] [phone] 04/09/2024 Qamar Garcia [facility] [address] [place] [address] 04/17/2024 Qamar Garcia [facility] [address] [address] 05/18/2024 Qamar Garcia B12 deficiency E53.8 and Anemia D64.9 [facility] [address] [place] [phone] 05/26/2024 Qamar Garcia Iron excess E83.19 [facility] [address] [address] 09/22/2024 Qamar Garcia Assessments Encounter Date Diagnosis [...] E53.8) 07/28/2024 B12 deficiency (ICD-10 - E53.8) 06/02/2024 B12 deficiency (ICD-10 - E53.8) 11/24/2024 Chronic [...] Name:Qamar Garcia , 03/30/2025 10:10:00 AM, [address] [facility], [address], [place], [address], Insurance Providers Payer Name Payer Address Payer Phone Subscriber Number Group Number Insured Name Patient Relationship to Insured Coverage Start Date Coverage End Date [facility] [address] [address] [place] [address] [phone] [id number] MAKENNA GARCIA Self - patient is the insured MEDICAID OF [facility] [address] [place] [address] [phone] [id number] MAKENNA GARCIA Self - patient is the insured Medications Administered Medication Instructions Date of Administration Dosage Notes B-12 05/19/2024 1000 mL B-12 05/26/2024 1000 mL B-12 06/02/2024 1000 mL B-12 06/30/2024 1000 ug B-12 07/28/2024 1000 mL B-12 08/25/2024 1000 ug Medical (General) History Medical History History ICD Code Breast cancer on the right with surgery, chemo, and XRT in 2015 Denies AK,DM,CVA,Lung disease,renal dise ase CHF/ pacemaker-Dr. Campoverde Hypothyroidism Depression Reports a negative colonoscopy in [facility] > 10 years ago IBS-neg. celiac [...] celiac disease laboratories Surgical History Surgery Date(Month/Year) Cholecystectomy 2001 Umbilical hernia repair 2003 Partial Right mastectomy 2014 Cardiac pacemeker/Defibrillator 2010 Colon surgery due to diverticulitis in [facility] [address] Richter in 2 022--lost over 50 pounds Hospitalization History Reason Date(Month/Year) alcohol withdrawl
[2025-03-10 14:28] LABS: Hematocrit 41.1 % (37.0-47.0); Hemoglobin 13.4 g/dl (12.0-16.0); Mean Corpuscular HGB Conc 32.6 g/dl (31.0-35.0); Mean Corpuscular Hemoglobin 30.8 pg (27.0-33.0); Mean Corpuscular Volume 94.5 fL (80.0-98.0); NRBC Abs Auto 0.000 X10*3/uL (0.0-0.012); NRBC Pct Auto 0.0 /100WBC (0.0-0.2); Platelet Count 202 X10*3/uL (160-400); Red Blood Count 4.35 X10*6/uL (4.20-5.50); White Blood Count 5.2 X10*3/uL (4.8-10.8)
[2025-03-10 15:07] LABS: Alanine Aminotransferase 25 U/L (0-31); Albumin Level 3.6 g/dL (3.5-5.0); Alkaline Phosphatase 65 U/L (39-117); Anion Gap 10 (12-20); Aspartate Amino Transferase 33 U/L (5-31); Blood Urea Nitrogen 13 mg/dL (9-16); Calcium 9.0 mg/dL (8.4-10.2); Carbon Dioxide 26 mmol/L (22-29); Chloride 110 mmol/L (96-108); Cholesterol 208 mg/dL (<200); Estimated Glomerular Filt Rate > 60; HDL Cholesterol 49 mg/dL (>40); Potassium 4.2 mmol/L (3.3-5.1); Sodium 142 mmol/L (135-145); Total Protein 6.7 g/dL (6.5-8.0); Triglycerides 91 mg/dL (<150)
[2025-03-10 15:48] LABS: Free T4 (Free Thyroxine) 1.19 ng/dL (0.71-1.85)
== END 2025-03-10 12:01 | disposition home or self-care (01) ==
LOC: HO.HMGCLDS 12:00
PROVIDERS: PCP Physician Assistant Medical; Visit Provider Physician Assistant Medical
DX: K76.0 Fatty (change of) liver, not elsewhere classified (principal); E03.9 Hypothyroidism, unspecified; D64.9 Anemia, unspecified; E11.9 Type 2 diabetes mellitus without complications; Z13.220 Encounter for screening for lipoid disorders
CPT/HCPCS: 36415; 80053; 80061; 84439; 84443; 85027